=== PATIENT | male | born 1965 | race Hispanic/Latino ===

== ENCOUNTER 2017-11-03 12:37 | Inpatient (IN) | payer MEDICARE ==
[2017-11-01 22:43] VITALS: BMI 48.9
[2017-11-03] MEDS ORDERED: Milrinone 20 MG in Dextrose 5% In Water 80 ML IV SCH (13:00)
[2017-11-03 13:36] LABS: BASO % 0.2 % (0.0-2.0); HEMOGLOBIN 12.2 g/dL (12.0-18.0); LYMPH # 0.3 K/uL (1.0-4.3); LYMPH % 3.1 % (20.0-40.0); MEAN CELL VOLUME 90.7 fL (80.0-94.0); MEAN CORPUSCULAR HEMOGLOBIN 30.1 pg (27.0-31.0); MEAN CORPUSCULAR HGB CONC 33.2 g/dL (33.0-37.0); MEAN PLATELET VOLUME 8.4 fL (7.2-11.7); MONO # 0.5 K/uL (0.0-0.8); MONO % 4.3 % (0.0-10.0); NEUT # 10.1 K/uL (1.8-7.0); NEUT % 92.4 % (50.0-75.0); NRBC % 0.1 % (0.0-2.0); PLATELET COUNT 226 K/uL (130-400); RBC 4.03 Mil/uL (4.40-5.90); RED CELL DISTRIBUTION WIDTH 17.4 % (11.5-14.5); WHITE BLOOD COUNT 10.9 K/uL (4.8-10.8)
[2017-11-03 13:46] LABS: INR 1.6; PROTHROMBIN TIME 17.1 SECONDS (9.7-12.2)
[2017-11-03 13:49] LABS: ALB/GLOB RATIO 1.1 (1.0-2.1); ALBUMIN 3.8 g/dL (3.5-5.0)
[2017-11-03] MEDS: Furosemide 100 MG in Sodium Chloride 0.9% 90 ML IVP SCH (13:57)
[2017-11-03 14:01] LABS: LYMPHOCYTE 4 % (20-40); MONOCYTE 4 % (0-10); NEUTROPHIL 92 % (50-75); PLATELET ESTIMATE NORMAL (NORMAL); TOTAL CELLS COUNTED 100
[2017-11-03 14:02] LABS: ANISOCYTOSIS SLIGHT; HYPOCHROMIC SLIGHT
[2017-11-03 14:03] LABS: POLYCHROMIC SLIGHT
--- NOTE | 2017-11-03 14:26 | RAD ---
Chest x-ray single frontal view History: Pneumonia. Comparison: None available. Findings: Moderate to severe venous congestion. Confluent consolidative opacification in the right mid to lower lung zone and left lung base. Cardiomegaly. Calcification at the aortic knob. Suggestion of small bilateral pleural effusions. Degenerative changes in the spine. Impression: Moderate to severe venous congestion. Confluent consolidative opacification in the right mid to lower lung zone and left lung base. Cardiomegaly. Calcification at the aortic knob. Suggestion of small bilateral pleural effusions.
--- NOTE | 2017-11-03 15:57 | CP.PCM.HP ---
<Quyen Mcmullen - Last Filed: 11/03/17 21:50> History of Present Illness - History of Present Illness History of Present Illness: History and Physical - Hospitalist Service CC: "Shortness of breath" HPI: Patient is a 52 year old male with past medical history for Right sided heart failure with Cor pulmonale, DM, Pulmonary HTN, Bilateral Hearing loss, Aflutter on Eliquis, Hypothyroidism, COPD who was transferred to [facility] ICU from [place] [place] ICU due to possible need for urgent dialysis. Patient was initially admitted to [facility] for progressively worsening dyspnea , lower extremity/abdominal swelling for the past week. Patient was being treated for Acute Hypercapnic Respiratory Failure and Acute Renal Failure. While at [facility] patient was started on IV Lasix, Solumedrol IVP, Metolazone 5 mg PO with little improvement in symptoms. Patient also has poor urine output. Upon arrival to the ICU, patient was resting comfortably on Bipap. States that he is feeling better. Patient answering yes or no questions. Patients sister and mother were at the bedside supplementing the history. Denies headaches, dizziness, cp, palpitations, abdominal pain, urinary symptoms, changes in bowel habits. PMD: Brian Pulmonology: Jason Allergies: NKDA Medications: Verapamil 240mg PO daily, Metformin 500mg PO BID, Synthroid 50mcg PO daily, Glimiperide 4mg PO BID, Lasix 40mg PO daily, Atenolol 25mg PO daily, Eliquis 5mg PO daily, Advair, Ipratropium, Montelukast 10mg PO daily Medical History: Right sided heart failure with Cor pulmonale, DM, Pulmonary HTN , Bilateral Hearing loss, Aflutter on Eliquis, Hypothyroidism, COPD Surgical History: Hernia surgery x 4, Appendectomy, Gallbladder removal Social History: Former smoker, denies alcohol or tobacco use Present on Admission - Present on Admission Any Indicators Present on Admission: No Past Patient History - Tetanus Immunizations Tetanus Immunization: Unknown - Past Medical History & Family History Past Medical History?: Yes - Past Social History Smoking Status: Former Smoker - CARDIAC Hx Hypertension: Yes - PULMONARY Hx Chronic Obstructive Pulmonary Disease (COPD): Yes - NEUROLOGICAL Hx Neurological Disorder: No - HEENT Hx Deafness: Yes - RENAL Hx Chronic Kidney Disease: No - ENDOCRINE/METABOLIC Hx Diabetes Mellitus Type 2: Yes - HEMATOLOGICAL/ONCOLOGICAL Hx Blood Disorders: No - INTEGUMENTARY Hx Dermatological Problems: No - MUSCULOSKELETAL/RHEUMATOLOGICAL Hx Falls: No - GASTROINTESTINAL Hx Gastrointestinal Disorders: Yes - GENITOURINARY/GYNECOLOGICAL Hx Genitourinary Disorders: No Hx Reproductive Disorders: No - PSYCHIATRIC Hx Psychophysiologic Disorder: No Hx Depression: No Hx Emotional Abuse: No Hx Physical Abuse: No Hx Substance Use: No - SURGICAL HISTORY Hx Appendectomy: Yes Hx Cholecystectomy: Yes Hx Tonsillectomy: Yes Meds Allergies/Adverse Reactions: Allergies Allergy/AdvReac Type Severity Reaction Status Date / Time No Known Allergies Allergy Verified 09/11/17 20:08 Physical Exam - Constitutional Appears: Non-toxic, No Acute Distress, Chronically Ill - Head Exam Head Exam: ATRAUMATIC, NORMAL INSPECTION, NORMOCEPHALIC - Eye Exam Eye Exam: EOMI, Normal appearance - ENT Exam ENT Exam: Mucous Membranes Moist Additional comments: On bipap - Neck Exam Neck exam: Positive for: Full Rom - Respiratory Exam Respiratory Exam: Decreased Breath Sounds, Rales. absent: Rhonchi, Wheezes - Cardiovascular Exam Cardiovascular Exam: Tachycardia, +S1, +S2 - GI/Abdominal Exam GI & Abdominal Exam: Distended, Soft. absent: Guarding, Rebound, Rigid, Tenderness - Rectal Exam Rectal Exam: Deferred - Extremities Exam Extremities exam: Positive for: pedal pulses present. Negative for: calf tenderness Additional comments: Bilateral lower extremity weeping edema, cellulitis skin changes bilaterally, no calf tenderness Left foot plantar surface with healing pressure ulcer - Back Exam Back exam: NORMAL INSPECTION - Neurological Exam Neurological exam: Alert, Oriented x3 - Psychiatric Exam Psychiatric exam: Normal Affect, Normal Mood - Skin Skin Exam: Normal Color, Warm Results - Vital Signs Recent Vital Signs: Last Vital Signs Temp Pulse 111 H 11/03/17 14:38 Resp BP 103/45 L 11/03/17 13:57 Pulse Ox - Labs Result Diagrams: 11/03/17 20:59 11/03/17 20:59 Labs: Laboratory Results - last 24 hr 11/03/17 11/03/17 11/03/17 13:33 13:33 13:33 WBC 10.9 H RBC 4.03 L Hgb 12.2 Hct 36.6 MCV 90.7 MCH 30.1 MCHC 33.2 RDW 17.4 H Plt Count 226 MPV 8.4 Neut % (Auto) 92.4 H Lymph % (Auto) 3.1 L Antelope % (Auto) 4.3 Eos % (Auto) 0.0 Baso % (Auto) 0.2 Neut # (Auto) 10.1 H Lymph # (Auto) 0.3 L Antelope # (Auto) 0.5 Eos # (Auto) 0.0 Baso # (Auto) 0.0 Neutrophils % (Manual) 92 H Lymphocytes % (Manual) 4 L Monocytes % (Manual) 4 Platelet Estimate Normal Polychromasia Slight Hypochromasia (manual) Slight Anisocytosis (manual) Slight PT 17.1 H INR 1.6 APTT 28 Sodium 130 L Potassium 5.4 H Chloride 89 L Carbon Dioxide 28 Anion Gap 18 BUN 74 H Creatinine 3.6 H Est GFR ( Amer) 22 Est GFR (Non-Af Amer) 18 Random Glucose 214 H Calcium 8.0 L Phosphorus 7.6 H Magnesium 1.9 Total Bilirubin 1.0 AST 30 ALT 33 Alkaline Phosphatase 235 H Total Protein 7.1 Albumin 3.8 Globulin 3.4 Albumin/Globulin Ratio 1.1 Assessment & Plan - Assessment and Plan (Free Text) Assessment: A/P: Patient is a 52 year old male with past medical history of right sided heart failure with cor pulmonale, COPD, DM, Hypothyroidism, Atrial Flutter on Eliquis, Noncompliance who presented to [facility] for worsening shortness of breath, abdominal/lower extremity swelling x 1 week. Patient was being treated for Acute Hypercapnic respiratory failure and acute renal failure. Transferred to [facility] for possible need for urgent dialysis. Acute Hypercapnic Respiratory Failure -Stable, afebrile -Transferred to [facility] ICU -Patient with shortness of breath and dyspnea on exertion -History of Right sided heart failure -Currently on Bipap, maintain O2 sats 88-92% -ABG today showed pH 7.25, PCO2 55, PO2 54 -Monitor serial ABGs and CXR as needed -Continue Lasix drip -Continue Milrinone drip -Physical therapy/Occupational Therapy eval ordered Acute Renal Failure -Baseline Cr 1-1.4 -BUN/Cr 74/3.6 -Dialysis consent obtained -Hoang in place, urine output is minimal -There is concern for possible abdominal compartment syndrome -Abdominal US ordered to assess for ascites -Patient recently underwent paracentesis for ascites in August 2017 -Will hold Eliquis for possible paracentesis or thoracentesis -Hyperkalemia improving, potassium 5.4 today -Will give kayexylate as needed -Nephrology on consult, help appreciated Lower extremity edema/cellulitis -Antibiotics: Cefepime 1gm daily -Lower extremity dopplers were negative for DVT -Fluid restriction -Wound care on consult -Infectious disease on consult, help appreciated Possible Pneumonia, r/o HCAP -Patient was recently admitted to the hospital in August -Antibiotics: Cefepime 1gm IVBP daily -CXR: cardiomegaly, RLL infiltrate, mild vascular congestion -CT Chest ordered, will follow up -Continue duonebs q6H JOSE E -F/U Urine legionella, Urine strep pneumonia, Mycoplasma IgM Diabetes Mellitus -HgA1C 6.8, repeat A1C ordered -Will hold metformin, glimeperide at this time -Insulin sliding scale, accuchecks Q6H Hypothyroidism -Patient is on Levothyroxine 50mcg PO daily at home -TSH noted to be 8.71, repeat TSH/Free T4 ordered -Will increase Levothyroxine to 75mcg PO daily Right sided congestive heart failure -Last echo 08/2017 showed severe right atrial dilation and dysfunction, elevated RVSP, Preserved EF 58% (see full report) -CXR showed cardiomegaly, RLL infiltrate, mild vascular congestion -Patient is currently on Lasix drip -Monitor daily weights/strict I/Os -Cardiology on consult, help appreciated History of Atrial Flutter -Patient on Eliquis 2.5mg PO BID (last dose was given 11/02) -Will hold Eliquis for possible paracentesis/thoracentesis -Patient was also on Verapamil and Atenolol, will hold at this time in light of hypotension COPD -Duonebs Q6H JOSE E -Solumedrol 40mg Q12H IVP -Patient has been on Steroids snce 11/01/17, will continue to taper Bilateral Deafness -Patient is only deaf, not mute per previous documentation -He is able to read lips GI/DVT ppx: Protonix 40mg IVP daily Heparin 5000 Q8H SC Diet: NPO DISPO: We had a Lengthy discussion with the patient and his family. Patient does not have a health care proxy. He has two sons, ages 18 and 25. Patient also does not have a living will or advanced directive. Patient and family to discuss code status. At this time, he shall remain full code and is to be intubated if medically necessary. Case Discussed with Dr Clint Mcmullen DO PGY-2 <Lucy Jaramillo V - Last Filed: 11/03/17 22:50> Results - Vital Signs Recent Vital Signs: Last Vital Signs Temp 98.2 F 11/03/17 16:00 Pulse 113 H 11/03/17 18:12 Resp 11 L 11/03/17 18:12 BP 102/47 L 11/03/17 18:12 Pulse Ox 93 L 11/03/17 18:12 - Labs Result Diagrams: 11/03/17 20:59 11/03/17 20:59 Labs: Laboratory Results - last 24 hr 11/03/17 11/03/17 11/03/17 13:33 13:33 13:33 WBC 10.9 H RBC 4.03 L Hgb 12.2 Hct 36.6 MCV 90.7 MCH 30.1 MCHC 33.2 RDW 17.4 H Plt Count 226 MPV 8.4 Neut % (Auto) 92.4 H Lymph % (Auto) 3.1 L Antelope % (Auto) 4.3 Eos % (Auto) 0.0 Baso % (Auto) 0.2 Neut # (Auto) 10.1 H Lymph # (Auto) 0.3 L Antelope # (Auto) 0.5 Eos # (Auto) 0.0 Baso # (Auto) 0.0 Neutrophils % (Manual) 92 H Lymphocytes % (Manual) 4 L Monocytes % (Manual) 4 Platelet Estimate Normal Polychromasia Slight Hypochromasia (manual) Slight Anisocytosis (manual) Slight PT 17.1 H INR 1.6 APTT 28 Sodium 130 L Potassium 5.4 H Chloride 89 L Carbon Dioxide 28 Anion Gap 18 BUN 74 H Creatinine 3.6 H Est GFR ( Amer) 22 Est GFR (Non-Af Amer) 18 POC Glucose (mg/dL) Random Glucose 214 H Calcium 8.0 L Phosphorus 7.6 H Magnesium 1.9 Total Bilirubin 1.0 AST 30 ALT 33 Alkaline Phosphatase 235 H Total Protein 7.1 Albumin 3.8 Globulin 3.4 Albumin/Globulin Ratio 1.1 11/03/17 16:19 WBC RBC Hgb Hct MCV MCH MCHC RDW Plt Count MPV Neut % (Auto) Lymph % (Auto) Antelope % (Auto) Eos % (Auto) Baso % (Auto) Neut # (Auto) Lymph # (Auto) Antelope # (Auto) Eos # (Auto) Baso # (Auto) Neutrophils % (Manual) Lymphocytes % (Manual) Monocytes % (Manual) Platelet Estimate Polychromasia Hypochromasia (manual) Anisocytosis (manual) PT INR APTT Sodium Potassium Chloride Carbon Dioxide Anion Gap BUN Creatinine Est GFR ( Amer) Est GFR (Non-Af Amer) POC Glucose (mg/dL) 198 H Random Glucose Calcium Phosphorus Magnesium Total Bilirubin AST ALT Alkaline Phosphatase Total Protein Albumin Globulin Albumin/Globulin Ratio Attending/Attestation - Attestation I have personally seen and examined this patient.: Yes I have fully participated in the care of the patient.: Yes I have reviewed all pertinent clinical information: Yes Notes (Text): Patient seen, examined, and case discussed with nurses medical assistants phlebotomists. 9 patient is a 52-year-old male with extensive past medical history including but not limited to atrial flutter/atrial fibrillation (elquis, verapamil, atenolol), right-sided congestive heart failure, morbid obesity, anasarca, cellulitis, pulmonary hypertension, history of noncompliance, as well as deaf who presented initially to [place] for 1 week history of shortness of breath and dyspnea on exertion. Patient was admitted to [place] ICU for acute hypercapnic hypoxic respiratory failure as well as acute renal failure. Patient was initially tried on BiPAP IV steroids as well as IV diuresis and Primacor however did not have any urine output as of this morning and concern for emergent dialysis which prompted transfer to [facility] ICU. I did speak with patient's primary care doctor who does not come to [facility] in terms of history for patient. He noted prior hospitalization in August for an extensive cellulitis of crept up to the abdominal habitus and a tense belly which prompted paracentesis noted in review of record. Patient with right-sided congestive heart failure and pulmonary hypertension. Patient has had a prior month in 2011 which showed normal systolic function go in this past May noted for dilated right atrium dilated right ventricle and intact systolic function. Patient also recently found to be atrial fib/flutter on [place] and verapamil and atenolol. Patient was seen at bedside with both his mother Sangeetha and his sister. Patient is currently on BiPAP able to speak and read lips for reading. Patient reports he is feeling okay and that the BiPAP mask is hoping helping him. Patient noted to have abnormal chest x-ray concern for possible pneumonia and/ or pleural effusion will order for CT chest to determine if needs possible thoracentesis during hospitalization. Case discussed with both critical care nephrology given that there is also concern for ascites in light of patient's obese morbid habitus. Patient did have an abdominal ultrasound completed this morning about 8:12 AM however there is no report no commenting on the ascites. Patient was ordered again for abdominal ultrasound as a stat to evaluate for ascites to see if he is warranted for paracentesis to help relieve any fluid buildup there is worsening patient's dyspnea on exertion. Patient was consented by nephrology for possible dialysis. I did have a discussion with the patient and with his mother at bedside. Patient is aware that if order reason the BiPAP cannot help relieve his respiratory status is possible that he may need a breathing machine in need to be intubated he understands that that risk is there and accepts that he could be intubated. There is no official health proxy. Patient's left him about 8 years ago. Patient has a 25-year-old son and a 22-year-old son with his and currently lives with his mother who is present impression I get with his mother. She doesnt think his 22-year-old son cannot handle responsibility and she would likely step up in terms of assuming this role if patient unable or cannot make medical decisions. I did advise her to have a discussion with her son as well as with the daughter given that the patient is in the critical care unit. Patient also noted on exam to have any erythema and associated venostasis changes on the bilateral lower aspects of extremities. Patient has had a prior cellulitis in the in August. Was treated with IV antibiotic. Is currently on renally dosed cefepime and has received of one-time dose of vancomycin. Patient also noted to have department left foot. Of the lateral aspect of foot. Physical exam Patient is morbidly obese, wearing BiPAP mask. Patient has short neck mucous membranes are moist. Patient does have S1-S2 mildly tachycardic unable to discern true JVD due to habitus. Patient does have decreased breath sounds positive for both wheezing rails. No stridor Patient does have a soft morbidly obese habitus prior revised umbilical hernia surgery no guarding no rebound and unable to discern a clear fluid wave given habitus. Patient noted to have Hoang some mild erythema over genitalia some dependent edema and scrotum. Patient is well has pitting edema noted bilaterally lower extremities shiny skin erythema with associated venostasis changes noted at tenderness when I palpated. Hyperkeratotic nails lytic nails bilateral feet bunion no open wound and pressure ulcer noted underneath the big toe of the left foot. Patient also has old type II over left upper extremity. Does not appear infected. Assessment and plan 1. Right-sided congestive heart failure exacerbation Acute hypercapnic hypoxic respiratory failure Assessment/plan Patient admitted to [facility] ICU. Duonebs 3ml of every 6 hours Solumedrol 40mg IV every 12 Lasix drip Milrinone drip Echocardiogram 08/29/2017: Left ventricle is normal size, mild concentric left ventricular hypertrophy, left ventricle function is normal ejection fraction 55- 60%, right ventricle is severely dilated systolic function of RVs moderately to severely reduced. Trace aortic regurgitation mitral regurgitation is trace moderate tricuspid regurg elevated IVC was not visualized no pericardial effusion noted poor window but due to increased body habitus. Monitor daily weights and intake output Cardiology consult Patient previously on atenolol and verapamil will hold at this time. 2. Acute Renal Failure Assessment/Plan Nephrology on consult Patient is on diuresis and Primacor Dialysis consent obtained by nephrology. held metformin on admission 3. History of atrial flutter/atrial fibrillation Assessment/plan Patient is Eliquis 5mg PO BID previously last dose given yesterday morning. Patient for possible paracentesis pending abdominal ultrasound today. He endorsed ICU who is aware. Holding verapamil and atenolol given borderline normal blood pressure. 4. Possible pneumonia Assessment/plan Infectious disease consult requested. Cefepime 1 g IV every 24H received a one-time dose of vancomycin. Normal chest x-ray Obtain CT chest without contrast to further evaluate possible pleural effusion versus pneumonia Legionella urine, mycoplasma pneumonia IgM, and strep pneumonia urine Noted prior hospitalization in August of this year possible treatment for Hospital/ healthcare associated pneumonia. 5. History of diabetes Assessment/plan Hemoglobin A1c, lipid panel Insulin sliding scale held metformin/glipizde on admission 6. Morbid obesity Assessment/plan Will need aggressive lifestyle intervention especially in light of his other comorbidities including diabetes, right-sided heart failure, pulmonary hypertension 7. Hypothyroidism Assessment/plan Reviewed EMR TSH was initially elevated in the nines improved mildly to the 8. Increase Synthroid from 50 g grams once a day and the morning to 75 once a morning 8. Patient is deaf Patient can read lips and seen with his mother at bedside who he understands well. 9. Cellulitis Assessment/plan Endorsed to resident to outline bilateral lower extremities Patient on cefepime and received dose of vancomycin Infectious disease consult requested 10. Edema Assessment/plan Order for lower extremity Dopplers completed at [place] [place] they'll noted for no DVT. 11. Prophylactic measure Eliquis on hold until after we have confirmed patient has paracentesis for ascites. Protonix 40mg IV daily Monitor daily weights Intake and output wound care on board
--- NOTE | 2017-11-03 16:52 | US ---
Limited abdominal ultrasound History: Ascites evaluation. Comparison: None available. Technique: Limited real-time sonography was performed through the abdomen for evaluation of ascites. Findings: Moderate amount of abdominal ascites noted. Large accumulation of fluid is seen within the periumbilical area. Impression: Limited study for evaluation of ascites. Moderate amount of abdominal ascites noted.
[2017-11-03] MEDS: (Novolin R) Insulin Human Regular 100 units/ml vial SC SCH ×2 (16:58→22:51)
--- NOTE | 2017-11-03 18:52 | CP.PCM.CON ---
History of Present Illness - History of Present Illness History of Present Illness: Nephrology Consultation Note Assessment: critical oligouric AMY likely due to cardio-renal syndrome Hyperkalemia likely due to AMY and acidemia resulting in transcellular shifts CKD stage 3 with baseline cr 1.1-1.4 mg/dL fluid overload, COPD/CHF exacerbation ? pneumonia acute on chronic hypercapnic respi failure deafness, DM, HTN, A flutter, morbid obesity, ex smoker, Rt heart failure with cor-pulmonale, pulmonary HTN, chronic leg edema, ascites RV failure Plan can continue diuresis as toleratad recc abdominal ultrasound and bladder pressure check (if available) to r/o abdominal hypertension/compartment syndrome. Might beneift from paracentesis if abdominal pressure is high which may improve renal function thus far not responding to diuretics, would be reasonable to consider dialysis though low blood pressure may make ultrafiltration on hd a challenge as well. k is mildly improved discussed w/ Dr. Camacho - reviewed imaging with him from [place], will get ultrasound here, will consider the above including para and thora to see if this improves his respiratory status otherwise will dialyze. Family and pt consented to HD. CC: shortness of breath, leg swelling reason for consult: AMY, hyperkalemia HPI: Pt is a 52 y/o M with hx of deafness, DM, HTN, A flutter, morbid obesity, ex smoker, Rt heart failure with cor-pulmonale, pulmonary HTN, chronic leg edema , ascites came with worsening SOB and being managed for COPD/CHF exacerbation. renal consult for AMY management. pt not aware about kidney disease in past. His uOP has been reduced no known OTC/nsaids/herbal meds no recent contrast exposure. BP has been relativley low. Review of imaging consistent w/ RV failure - etiology of which is not completely clear. He was transferred from [place] ICU to [facility] ICU for possible HD ROS: a full detailed ROS is negative except as above Physical Examination: family bedside General Appearance: Comfortable, co-operative. ill appearing, on BiPAP, morbidly obese Vitals reviewed and noted as below Head; Atraumatic, normocephalic ENT: unable as pt on BiPAP. he has hearing impairment EYES: Pupils are equal, round and reactive to light accommodation. Eye muscles and extraocular movement intact. Sclera is anicteric. Neck; supple no lymphadenopathy, no thyromegaly or bruit Lungs: Increased respiratory rate/effort. Breath sounds b/l with basal crackles Heart: Normal rate. s1s2 normal. No rub or gallop. Extremities: 3+ edema. No varicose veins. has chronic venous stasis changes in legs with erythema/skin thickening Neurological: Patient is alert, awake, oriented x 3 follows commands, no focal deficit. Skin: dry and warm. Normal turgor. No rash. Palpitation: Normal elasticity for age. Abdomen: Abdomen is soft non tender, + fluid wave , no appreicable organomegaly however exam limited as grossly distended Psych: normal insight. has normal affect and mood MSK: no specific joint tenderness or swelling. Digits and nails normal, no deformity : kidney not palpable. bladder not distended . has [place] Labs/imaging/EKG reviewed. Past medical history, past surgical history, social history, allergy reviewed and noted as below Family hx; no known hx of CKD> rest non contributory work up: UA SG >1.030 urine Na 6 Fena 0.4% echo: severe RV dilation and dysfunction, elevated RVSP. preserved LVEF renal imaging in past unremarkable Past Patient History - Tetanus Immunizations Tetanus Immunization: Unknown - Past Medical History & Family History Past Medical History?: Yes - Past Social History Smoking Status: Former Smoker - CARDIAC Hx Hypertension: Yes - PULMONARY Hx Chronic Obstructive Pulmonary Disease (COPD): Yes - NEUROLOGICAL Hx Neurological Disorder: No - HEENT Hx Deafness: Yes - RENAL Hx Chronic Kidney Disease: No - ENDOCRINE/METABOLIC Hx Diabetes Mellitus Type 2: Yes - HEMATOLOGICAL/ONCOLOGICAL Hx Blood Disorders: No - INTEGUMENTARY Hx Dermatological Problems: No - MUSCULOSKELETAL/RHEUMATOLOGICAL Hx Falls: No - GASTROINTESTINAL Hx Gastrointestinal Disorders: Yes - GENITOURINARY/GYNECOLOGICAL Hx Genitourinary Disorders: No Hx Reproductive Disorders: No - PSYCHIATRIC Hx Psychophysiologic Disorder: No Hx Depression: No Hx Emotional Abuse: No Hx Physical Abuse: No Hx Substance Use: No - SURGICAL HISTORY Hx Appendectomy: Yes Hx Cholecystectomy: Yes Hx Tonsillectomy: Yes Meds Allergies/Adverse Reactions: Allergies Allergy/AdvReac Type Severity Reaction Status Date / Time No Known Allergies Allergy Verified 09/11/17 20:08 - Medications Medications: Current Medications Albuterol/Ipratropium (Duoneb 3 Mg/0.5 Mg (3 Ml) Ud) 3 ml INH RQ6 [facility] Furosemide 100 mg/ Sodium (Chloride) 100 mls @ 5 mls/hr IVP .Q20H [facility] PRN Reason: 5 MG/HR Last Admin: 11/03/17 13:57 Dose: 5 mls/hr Cefepime HCl (Maxipime Iv 1 Gm Premix) 1 gm in 50 mls @ 100 mls/hr IVPB Q24H [facility] PRN Reason: Protocol Milrinone Lactate/Dextrose 20 (mg/ Dextrose) 100 mls @ 9.34 mls/hr IV .[id number] [facility]; 0.2 MCG/KG/MIN PRN Reason: Protocol Last Admin: 11/03/17 15:56 Dose: Not Given Insulin Human Regular (Novolin R) 0 unit SC ACHS [facility] PRN Reason: Protocol Last Admin: 11/03/17 16:58 Dose: Not Given Levothyroxine Sodium (Synthroid) 75 mcg PO DAILY@0630 [facility] Methylprednisolone (Solu-Medrol) 40 mg IVP Q12H [facility] Pantoprazole Sodium (Protonix Inj) 40 mg IVP DAILY [facility] Results - Vital Signs Recent Vital Signs: Last Vital Signs Temp 98.2 F 11/03/17 16:00 Pulse 113 H 11/03/17 18:12 Resp 11 L 11/03/17 18:12 BP 102/47 L 11/03/17 18:12 Pulse Ox 93 L 11/03/17 18:12 - Labs Result Diagrams: 11/03/17 13:33 11/03/17 13:33 Labs: Laboratory Results - last 24 hr 11/03/17 11/03/17 11/03/17 13:33 13:33 13:33 WBC 10.9 H RBC 4.03 L Hgb 12.2 Hct 36.6 MCV 90.7 MCH 30.1 MCHC 33.2 RDW 17.4 H Plt Count 226 MPV 8.4 Neut % (Auto) 92.4 H Lymph % (Auto) 3.1 L [place] % (Auto) 4.3 Eos % (Auto) 0.0 Baso % (Auto) 0.2 Neut # (Auto) 10.1 H Lymph # (Auto) 0.3 L [place] # (Auto) 0.5 Eos # (Auto) 0.0 Baso # (Auto) 0.0 Neutrophils % (Manual) 92 H Lymphocytes % (Manual) 4 L Monocytes % (Manual) 4 Platelet Estimate Normal Polychromasia Slight Hypochromasia (manual) Slight Anisocytosis (manual) Slight PT 17.1 H INR 1.6 APTT 28 Sodium 130 L Potassium 5.4 H Chloride 89 L Carbon Dioxide 28 Anion Gap 18 BUN 74 H Creatinine 3.6 H Est GFR ( Amer) 22 Est GFR (Non-Af Amer) 18 POC Glucose (mg/dL) Random Glucose 214 H Calcium 8.0 L Phosphorus 7.6 H Magnesium 1.9 Total Bilirubin 1.0 AST 30 ALT 33 Alkaline Phosphatase 235 H Total Protein 7.1 Albumin 3.8 Globulin 3.4 Albumin/Globulin Ratio 1.1 11/03/17 16:19 WBC RBC Hgb Hct MCV MCH MCHC RDW Plt Count MPV Neut % (Auto) Lymph % (Auto) [place] % (Auto) Eos % (Auto) Baso % (Auto) Neut # (Auto) Lymph # (Auto) [place] # (Auto) Eos # (Auto) Baso # (Auto) Neutrophils % (Manual) Lymphocytes % (Manual) Monocytes % (Manual) Platelet Estimate Polychromasia Hypochromasia (manual) Anisocytosis (manual) PT INR APTT Sodium Potassium Chloride Carbon Dioxide Anion Gap BUN Creatinine Est GFR ( Amer) Est GFR (Non-Af Amer) POC Glucose (mg/dL) 198 H Random Glucose Calcium Phosphorus Magnesium Total Bilirubin AST ALT Alkaline Phosphatase Total Protein Albumin Globulin Albumin/Globulin Ratio
--- NOTE | 2017-11-03 19:19 | PCM.PROC ---
Procedures Attestation:: I certify that I have explained the specified Operation(s) or Procedure(s), risks, benefits and reasonable alternatives to the Patient and/or other person responsible. The opportunity was given to ask questions and all questions answered - Paracentesis Consent Obtained: verbal consent Time Out Performed: Yes Indication: Ascites Procedure: therapeutic paracentesis Location: infraumbilical Local Anesthetic Used: lidocaine 1% (2.6L amper coloured fluid removed analysis sent)
[2017-11-03] MEDS: Albuterol-Ipratrop 3 mg / 0.5 (3 ml) UD INH SCH (19:48)
[2017-11-03 20:54] LABS: BODY FLUID TYPE PERITONEAL
[2017-11-03 21:02] LABS: BASO % 0.1 % (0.0-2.0); HEMOGLOBIN 12.7 g/dL (12.0-18.0); LYMPH # 0.4 K/uL (1.0-4.3); LYMPH % 3.7 % (20.0-40.0); MEAN CELL VOLUME 90.5 fL (80.0-94.0); MEAN CORPUSCULAR HEMOGLOBIN 29.4 pg (27.0-31.0); MEAN CORPUSCULAR HGB CONC 32.5 g/dL (33.0-37.0); MEAN PLATELET VOLUME 7.8 fL (7.2-11.7); MONO # 0.5 K/uL (0.0-0.8); MONO % 5.8 % (0.0-10.0); NEUT # 8.6 K/uL (1.8-7.0); NEUT % 90.4 % (50.0-75.0); NRBC % 0.1 % (0.0-2.0); PLATELET COUNT 203 K/uL (130-400); WHITE BLOOD COUNT 9.5 K/uL (4.8-10.8)
[2017-11-03 21:15] LABS: ALB/GLOB RATIO 1.1 (1.0-2.1); ALBUMIN 3.7 g/dL (3.5-5.0); CALCIUM 7.8 mg/dl (8.6-10.4)
[2017-11-03] MEDS ORDERED: DEXTROSE 5% IV SCH (21:30)
[2017-11-03] MEDS ORDERED: SODIUM BICARBONATE IV SCH (21:30)
[2017-11-03] MEDS ORDERED: WATER IV SCH (21:30)
[2017-11-03 21:34] LABS: BF GROSS APPEARANCE CLEAR (CLEAR)
[2017-11-03] MEDS: MethylPREDNISolone 40 mg Vial IVP SCH (21:48)
[2017-11-03 21:57] LABS: BODY FLUID MONO/MACROPHAGE 24 % (0-0); BODY FLUID TOTAL COUNT 100 (0-0)
[2017-11-03 22:06] LABS: LYMPHOCYTE 6 % (20-40); MONOCYTE 3 % (0-10); NEUTROPHIL 91 % (50-75); PLATELET ESTIMATE NORMAL (NORMAL); TOTAL CELLS COUNTED 100
--- NOTE | 2017-11-03 22:11 | CP.PCM.CON ---
History of Present Illness - History of Present Illness History of Present Illness: 52-year-old male with a history of deafness. Patient has a history of cor pulmonale, COPD, home oxygen and BiPAP use. Chronic venous congestion, and leg edema. Recently hospitalized with the leg swelling, pedal edema, and cellulitis. Patient again admitted to the [facility] for worsening shortness of breath, and also increasing leg swelling, hypertension. Patient initially admitted to the intensive care unit at [place], patient's condition complicated. Worsening shortness of breath noted, kidney function was deteriorating, patient needed to transferred to [facility] for further management including hemodialysis. Upon arrival patient was on BiPAP. High FiO2 noted. But he was comfortable with the BiPAP. Renal function was deteriorating noted Past medical history: Atrial fibrillation intermittent, hypertension, hypercholesterolemia, bilateral pedal edema leg cellulitis, and anasarca. Renal insufficiency. Obesity. Obesity hypoventilation. COPD Possible cor pulmonale Allergies no known drug allergy Personal history smoker. Denies any alcohol Family history significant for hypertension Review of system: Patient have a hard of hearing. Patient has a good communication skill. Mother at bedside. Chest no pain Shortness of breath noted. Cough present. Abdominal distention noted On examination: Vital signs noted. Patient isn't a 60. Blood pressure is on the low side. Mildly tachycardia noted chest good air entry, but decreased on the right lung. Abdominal distention noted Extremities bilateral edema noted Labs reviewed in Elevated creatinine level noted. Chest x-ray right lower lung pneumonia, effusion present. Atelectasis possible. Assessment and recommendation: 52-year-old male admitted to the hospital with worsening is pretty status. Underlying pneumonia likely. Pleural effusion on the right lung. Possible cor pulmonale. Ascites worsening. Bilateral leg edema Overall prognosis is guarded. Spoke to the patient's family in detail. Discussed with them. I also discussed with the soaker meat. May opinion patient is having worsening cor pulmonale. I suggest to have abdominal paracentesis, which was done, almost 3 L of fluid removed Patient also will need a thoracentesis, will plan it to fasting in the morning. Closely monitor the renal function. Continue the Lasix tip. Mild IV fluid supplementation, including albumin may be needed. We'll closely monitor. Will follow-up the patient DVT prophylaxis. Antibiotic. Spoke to the family in detail. Past Patient History - Tetanus Immunizations Tetanus Immunization: Unknown - Past Medical History & Family History Past Medical History?: Yes - Past Social History Smoking Status: Former Smoker - CARDIAC Hx Hypertension: Yes - PULMONARY Hx Chronic Obstructive Pulmonary Disease (COPD): Yes - NEUROLOGICAL Hx Neurological Disorder: No - HEENT Hx Deafness: Yes - RENAL Hx Chronic Kidney Disease: No - ENDOCRINE/METABOLIC Hx Diabetes Mellitus Type 2: Yes - HEMATOLOGICAL/ONCOLOGICAL Hx Blood Disorders: No - INTEGUMENTARY Hx Dermatological Problems: No - MUSCULOSKELETAL/RHEUMATOLOGICAL Hx Falls: No - GASTROINTESTINAL Hx Gastrointestinal Disorders: Yes - GENITOURINARY/GYNECOLOGICAL Hx Genitourinary Disorders: No Hx Reproductive Disorders: No - PSYCHIATRIC Hx Psychophysiologic Disorder: No Hx Depression: No Hx Emotional Abuse: No Hx Physical Abuse: No Hx Substance Use: No - SURGICAL HISTORY Hx Appendectomy: Yes Hx Cholecystectomy: Yes Hx Tonsillectomy: Yes Meds Allergies/Adverse Reactions: Allergies Allergy/AdvReac Type Severity Reaction Status Date / Time No Known Allergies Allergy Verified 09/11/17 20:08 - Medications Medications: Current Medications Albuterol/Ipratropium (Duoneb 3 Mg/0.5 Mg (3 Ml) Ud) 3 ml INH RQ6 [facility] Last Admin: 11/03/17 19:48 Dose: 3 ml Heparin Sodium (Porcine) (Heparin) 5,000 units SC Q8 [facility] Last Admin: 11/03/17 21:48 Dose: 5,000 units Furosemide 100 mg/ Sodium (Chloride) 100 mls @ 5 mls/hr IVP .Q20H [facility] PRN Reason: 5 MG/HR Last Admin: 11/03/17 13:57 Dose: 5 mls/hr Cefepime HCl (Maxipime Iv 1 Gm Premix) 1 gm in 50 mls @ 100 mls/hr IVPB Q24H [facility] PRN Reason: Protocol Sodium Bicarbonate 50 meq/ (Dextrose) 550 mls @ 50 mls/hr IV .Q11H [facility] Stop: 11/04/17 07:29 Last Admin: 11/03/17 21:37 Dose: 50 mls/hr Insulin Human Regular (Novolin R) 0 unit SC ACHS [facility] PRN Reason: Protocol Last Admin: 11/03/17 16:58 Dose: Not Given Lactobacillus Acidophilus (Bacid Acidophilus) 1 cap PO BID [facility] Levothyroxine Sodium (Synthroid) 75 mcg PO DAILY@0630 [facility] Methylprednisolone (Solu-Medrol) 40 mg IVP Q12H [facility] Last Admin: 11/03/17 21:48 Dose: 40 mg Pantoprazole Sodium (Protonix Inj) 40 mg IVP DAILY [facility] Tiotropium [place] (Spiriva) 18 mcg INH RQ24 [facility] Results - Vital Signs Recent Vital Signs: Last Vital Signs Temp 97.8 F 11/03/17 20:00 Pulse 106 H 11/03/17 21:12 Resp 10 L 11/03/17 21:12 BP 94/40 L 11/03/17 21:12 Pulse Ox 91 L 11/03/17 21:12 - Labs Result Diagrams: 11/03/17 20:59 11/03/17 20:59 Labs: Laboratory Results - last 24 hr 11/03/17 11/03/17 11/03/17 13:33 13:33 13:33 WBC 10.9 H RBC 4.03 L Hgb 12.2 Hct 36.6 MCV 90.7 MCH 30.1 MCHC 33.2 RDW 17.4 H Plt Count 226 MPV 8.4 Neut % (Auto) 92.4 H Lymph % (Auto) 3.1 L [place] % (Auto) 4.3 Eos % (Auto) 0.0 Baso % (Auto) 0.2 Neut # (Auto) 10.1 H Lymph # (Auto) 0.3 L [place] # (Auto) 0.5 Eos # (Auto) 0.0 Baso # (Auto) 0.0 Neutrophils % (Manual) 92 H Lymphocytes % (Manual) 4 L Monocytes % (Manual) 4 Platelet Estimate Normal Polychromasia Slight Hypochromasia (manual) Slight Anisocytosis (manual) Slight PT 17.1 H INR 1.6 APTT 28 Sodium 130 L Potassium 5.4 H Chloride 89 L Carbon Dioxide 28 Anion Gap 18 BUN 74 H Creatinine 3.6 H Est GFR ( Amer) 22 Est GFR (Non-Af Amer) 18 POC Glucose (mg/dL) Random Glucose 214 H Calcium 8.0 L Phosphorus 7.6 H Magnesium 1.9 Total Bilirubin 1.0 AST 30 ALT 33 Alkaline Phosphatase 235 H Total Protein 7.1 Albumin 3.8 Globulin 3.4 Albumin/Globulin Ratio 1.1 Fluid Source Fluid Appearance Fluid WBC Fluid RBC Fluid Tot Cell Count Fluid Neutrophils Fluid Lymphocytes Fld Monocyte/Macrophag Fluid Comment 11/03/17 11/03/17 11/03/17 16:19 20:48 20:59 WBC 9.5 RBC 4.30 L Hgb 12.7 Hct 38.9 MCV 90.5 MCH 29.4 MCHC 32.5 L RDW 17.0 H Plt Count 203 MPV 7.8 Neut % (Auto) 90.4 H Lymph % (Auto) 3.7 L [place] % (Auto) 5.8 Eos % (Auto) 0.0 Baso % (Auto) 0.1 Neut # (Auto) 8.6 H Lymph # (Auto) 0.4 L [place] # (Auto) 0.5 Eos # (Auto) 0.0 Baso # (Auto) 0.0 Neutrophils % (Manual) 91 H Lymphocytes % (Manual) 6 L Monocytes % (Manual) 3 Platelet Estimate Normal Polychromasia Hypochromasia (manual) Anisocytosis (manual) PT INR APTT Sodium Potassium Chloride Carbon Dioxide Anion Gap BUN Creatinine Est GFR ( Amer) Est GFR (Non-Af Amer) POC Glucose (mg/dL) 198 H Random Glucose Calcium Phosphorus Magnesium Total Bilirubin AST ALT Alkaline Phosphatase Total Protein Albumin Globulin Albumin/Globulin Ratio Fluid Source Peritoneal Fluid Appearance Clear Fluid WBC 153.0 Fluid RBC 1192.0 H Fluid Tot Cell Count 100 H Fluid Neutrophils 45.0 H Fluid Lymphocytes 31.0 H Fld Monocyte/Macrophag 24 H Fluid Comment 11/03/17 11/03/17 20:59 21:32 WBC RBC Hgb Hct MCV MCH MCHC RDW Plt Count MPV Neut % (Auto) Lymph % (Auto) [place] % (Auto) Eos % (Auto) Baso % (Auto) Neut # (Auto) Lymph # (Auto) [place] # (Auto) Eos # (Auto) Baso # (Auto) Neutrophils % (Manual) Lymphocytes % (Manual) Monocytes % (Manual) Platelet Estimate Polychromasia Hypochromasia (manual) Anisocytosis (manual) PT INR APTT Sodium 129 L Potassium 5.2 Chloride 89 L Carbon Dioxide 27 Anion Gap 18 BUN 80 H Creatinine 3.5 H Est GFR ( Amer) 22 Est GFR (Non-Af Amer) 18 POC Glucose (mg/dL) 184 H Random Glucose 184 H Calcium 7.8 L Phosphorus Magnesium 2.0 Total Bilirubin 1.0 AST 31 ALT 35 Alkaline Phosphatase 213 H Total Protein 7.0 Albumin 3.7 Globulin 3.3 Albumin/Globulin Ratio 1.1 Fluid Source Fluid Appearance Fluid WBC Fluid RBC Fluid Tot Cell Count Fluid Neutrophils Fluid Lymphocytes Fld Monocyte/Macrophag Fluid Comment
[2017-11-03] MEDS: Sodium Chloride 0.9% 1,000 ML IV SCH (22:54)
[2017-11-03 22:57] LABS: LEGIONELLA AG URINE NEGATIVE (NEGATIVE)
[2017-11-03] MEDS ORDERED: Vancomycin 1 GM in Sodium Chloride 0.9% 200 ML IVPB SCH (23:00)
[2017-11-04] MEDS: Albuterol-Ipratrop 3 mg / 0.5 (3 ml) UD INH SCH ×4 (02:24→21:01)
[2017-11-04] MEDS ORDERED: Vancomycin 1 GM in Sodium Chloride 0.9% 200 ML IVPB SCH (05:00)
[2017-11-04 06:02] LABS: BASO % 0.1 % (0.0-2.0); HEMOGLOBIN 13.5 g/dL (12.0-18.0); LYMPH # 0.3 K/uL (1.0-4.3); LYMPH % 3.2 % (20.0-40.0); MEAN CELL VOLUME 91.3 fL (80.0-94.0); MEAN CORPUSCULAR HEMOGLOBIN 30.2 pg (27.0-31.0); MEAN CORPUSCULAR HGB CONC 33.1 g/dL (33.0-37.0); MEAN PLATELET VOLUME 8.7 fL (7.2-11.7); MONO # 0.4 K/uL (0.0-0.8); MONO % 4.4 % (0.0-10.0); NEUT % 92.3 % (50.0-75.0); NRBC % 0.1 % (0.0-2.0); PLATELET COUNT 202 K/uL (130-400); RBC 4.47 Mil/uL (4.40-5.90); RED CELL DISTRIBUTION WIDTH 17.4 % (11.5-14.5); WHITE BLOOD COUNT 8.6 K/uL (4.8-10.8)
[2017-11-04] MEDS: Levothyroxine 75 MCG TAB PO SCH (06:21)
[2017-11-04] MEDS: Furosemide 100 MG in Sodium Chloride 0.9% 90 ML IVP SCH ×2 (06:22→10:00)
[2017-11-04 06:29] LABS: ALB/GLOB RATIO 1.1 (1.0-2.1); ALBUMIN 3.5 g/dL (3.5-5.0); CALCIUM 7.6 mg/dl (8.6-10.4)
[2017-11-04] MEDS ORDERED: Levothyroxine 50 MCG TAB PO SCH (06:30)
[2017-11-04 06:47] LABS: ABG ALLEN TEST POS; ARTERIAL BLOOD GAS HCO3 25.5 mmol/L (21-28); ARTERIAL BLOOD GAS HEMOGLOBIN 13.4 g/dL (11.7-17.4); ARTERIAL BLOOD GAS O2 SAT 98.2 % (95-98); ARTERIAL BLOOD GAS PCO2 68 mm/Hg (35-45); ARTERIAL BLOOD GAS PH 7.25 (7.35-7.45); ARTERIAL BLOOD GAS PO2 94 mm/Hg (80-100); ARTERIAL BLOOD GAS TCO2 31.9 mmol/L (22-28)
[2017-11-04] MEDS: (Novolin R) Insulin Human Regular 100 units/ml vial SC SCH ×4 (07:41→21:06)
[2017-11-04 08:13] LABS: ANISOCYTOSIS SLIGHT; LYMPHOCYTE 2 % (20-40); MONOCYTE 2 % (0-10); NEUTROPHIL 96 % (50-75); PLATELET ESTIMATE NORMAL (NORMAL); TOTAL CELLS COUNTED 100
--- NOTE | 2017-11-04 08:41 | RAD ---
Chest x-ray single frontal view History: Bilateral pleural effusions. Comparison: 11/03/2017 Findings: Biapical pleural thickening with upper lobe granulomatous changes. Moderate venous congestion. Consolidative opacification in the right mid to lower lung zone as well as the left lung base. Moderate right and small left pleural effusion. Cardiomegaly. Degenerative changes in the spine and shoulders. Impression: Biapical pleural thickening with upper lobe granulomatous changes. Moderate venous congestion. Consolidative opacification in the right mid to lower lung zone as well as the left lung base. Moderate right and small left pleural effusion. Cardiomegaly.
[2017-11-04] MEDS: Lactobacillus Acidophilus 500 MU Cap PO SCH ×2 (09:58→20:27)
[2017-11-04] MEDS: MethylPREDNISolone 40 mg Vial IVP SCH ×2 (09:59→21:34)
[2017-11-04] MEDS: Cefepime IV 1 gm in Dextrose 1 GM/50 ML BAG IVPB SCH (10:08)
--- NOTE | 2017-11-04 10:44 | US ---
Limited abdominal ultrasound History: Ascites. Comparison: None available. Technique: Limited abdominal ultrasound for evaluation of ascites. Findings: Limited sonographic evaluation of the abdomen for evaluation of ascites demonstrates ascites in the right upper and lower quadrants of the abdomen. Impression: Limited study for evaluation of ascites. Abdominal ascites noted.
--- NOTE | 2017-11-04 11:16 | CP.PCM.PN ---
Subjective - Date & Time of Evaluation Date of Evaluation: 11/04/17 Time of Evaluation: 11:12 - Subjective Subjective: RENAL FOLLOW UP Impression: AMY likely due to cardio-renal syndrome Hyperkalemia CKD stage 3 with baseline cr 1.1-1.4 mg/dL fluid overload, COPD/CHF exacerbation ? pneumonia acute on chronic hypercapnic respi failure deafness, DM, HTN, A flutter, morbid obesity, ex smoker, Rt heart failure with cor-pulmonale, pulmonary HTN, chronic leg edema, ascites RV failure Plan REnal function is mildly improved uop is also improved perhaps from large volume para reducing intrabdominal pressure recc consider rsume either lasix gtt or bolus lasix dosing holding hd for now K is stable will continue to monitor closely S: seen and examined, s/p large voume para yesterday Physical Examination: family bedside General Appearance: Comfortable, co-operative, morbidly obese Vitals reviewed and noted as below Head; Atraumatic, normocephalic ENT:hearing imparied, op clear EYES: Pupils are equal, round and reactive to light accommodation. Sclera is anicteric. Neck; supple no lymphadenopathy, no thyromegaly or bruit Lungs: Increased respiratory rate/effort. Breath sounds b/l with basal crackles Heart: Normal rate. s1s2 normal. No rub or gallop. Extremities: 3+ edema. No varicose veins. has chronic venous stasis changes in legs with erythema/skin thickening Neurological: Patient is alert, awake, oriented x 3 follows commands, no focal deficit. Skin: dry and warm. Normal turgor. No rash. Palpitation: Normal elasticity for age. Abdomen: Abdomen is soft non tender, + fluid wave ,+ drain at site of paracentesis site Psych: normal insight. has normal affect and mood MSK: no specific joint tenderness or swelling. Digits and nails normal, no deformity : kidney not palpable. bladder not distended . has [place] Objective - Vital Signs/Intake and Output Vital Signs (last 24 hours): Temp Pulse Resp BP Pulse Ox 97.9 F 124 H 15 109/58 L 94 L 11/04/17 04:00 11/04/17 08:13 11/04/17 08:13 11/04/17 10:00 11/04/17 08:13 Intake and Output: 11/04/17 11/04/17 06:59 18:59 Intake Total 735.0 52.5 Output Total 1640 320 Balance -905.0 -267.5 - Medications Medications: Current Medications Albuterol/Ipratropium (Duoneb 3 Mg/0.5 Mg (3 Ml) Ud) 3 ml INH RQ6 [facility] Last Admin: 11/04/17 08:00 Dose: 3 ml Diltiazem HCl (Cardizem) 30 mg PO QID [facility] Last Admin: 11/04/17 09:58 Dose: 30 mg Heparin Sodium (Porcine) (Heparin) 5,000 units SC Q8 [facility] Last Admin: 11/04/17 06:16 Dose: Not Given Furosemide 100 mg/ Sodium (Chloride) 100 mls @ 5 mls/hr IVP .Q20H [facility] PRN Reason: 5 MG/HR Last Admin: 11/04/17 10:00 Dose: Not Given Cefepime HCl (Maxipime Iv 1 Gm Premix) 1 gm in 50 mls @ 100 mls/hr IVPB Q24H [facility] PRN Reason: Protocol Last Admin: 11/04/17 10:08 Dose: 100 mls/hr Sodium Chloride (Sodium Chloride 0.9%) 1,000 mls @ 50 mls/hr IV .Q20H [facility] Last Admin: 11/03/17 22:54 Dose: 50 mls/hr Vancomycin HCl 1 gm/ Sodium (Chloride) 200 mls @ 133.333 mls/hr IVPB Q24H [facility] PRN Reason: Protocol Last Admin: 11/04/17 04:51 Dose: 133.333 mls/hr Insulin Human Regular (Novolin R) 0 unit SC ACHS [facility] PRN Reason: Protocol Last Admin: 11/04/17 07:41 Dose: 1 unit Lactobacillus Acidophilus (Bacid Acidophilus) 1 cap PO BID [facility] Last Admin: 11/04/17 09:58 Dose: 1 cap Levothyroxine Sodium (Synthroid) 75 mcg PO DAILY@0630 [facility] Last Admin: 11/04/17 06:21 Dose: 75 mcg Methylprednisolone (Solu-Medrol) 40 mg IVP Q12H [facility] Last Admin: 11/04/17 09:59 Dose: 40 mg Pantoprazole Sodium (Protonix Inj) 40 mg IVP DAILY [facility] Last Admin: 11/04/17 09:58 Dose: 40 mg Tiotropium [place] (Spiriva) 18 mcg INH RQ24 [facility] - Labs Labs: 11/04/17 05:53 11/04/17 05:54 PT 17.1 SECONDS (9.7-12.2) H 11/03/17 13:33 INR 1.6 11/03/17 13:33 APTT 28 SECONDS (21-34) 11/03/17 13:33
--- NOTE | 2017-11-04 12:05 | CT ---
CT chest History: Pneumonia. Pleural effusion. Comparison: X-ray dated 11/04/2017 Technique: Multiple contiguous axial images were performed through the chest without the use of intravenous contrast. Subsequently, sagittal and coronal reformatted images were obtained. This CT exam was performed using one or more of the following dose reduction techniques: Automated exposure control, adjustment of the mA and/or kV according to patient size, and/or use of iterative reconstruction technique. Findings: Right lung: Large right pleural effusion. Dense consolidation involving the entire right lower lobe with a few air bronchograms suggestive for infiltrate and or atelectasis. Additional prominent dense consolidation involving the mid to posterior aspect of the right middle lobe also suggestive for infiltrate and or atelectasis. Scattered areas of consolidation seen within the mid to inferior aspect of the right upper lobe also suggestive for infiltrate and or atelectasis. Left lung: Small left pleural effusion with adjacent moderate consolidative changes in the left lower lobe with associated air bronchograms. Scattered areas of consolidative change within the left upper lobe. Trachea thru central airways are patent. Reticulation and edema within circumferential subcutaneous soft tissues. Left axillary adenopathy measures up to 2.4 centimeters. Right axillary adenopathy measures up to 1.9 centimeters. Calcification and plaque within the aorta. Prevascular lymph node measures 1.7 centimeters. Precarinal adenopathy measures 2.2 centimeters. Left paratracheal lymph node measures 1.6 centimeters. Coronary calcifications. Cardiomegaly. Hepatomegaly. Prominent streak artifact limits evaluation of the hepatic parenchyma. Prior cholecystectomy. Fatty atrophy of the pancreas. Only a portion of the upper abdomen is visualized on this study. The anterior abdomen is not visualized on this study. Impression: 1. Large right and small left pleural effusion. 2. Prominent multifocal areas of consolidative change in both lungs; right greater than left suggestive for multi focal infiltrate with some superimposed areas of atelectasis. Posttreatment interval followup is recommended to ensure resolution and exclude underlying lesion. 3. Extensive lymphadenopathy within the mediastinum and axilla. Additional findings as above.
--- NOTE | 2017-11-04 13:40 | CP.PCM.CON ---
History of Present Illness - History of Present Illness History of Present Illness: Infectious Diseases consultation Patient is a 52 year old male who was transferred to [facility] ICU from [place] ICU due to possible need for urgent dialysis. While here has had an abdominal paracentesis with large keyur fluid removed Patient was initially admitted to [facility] for progressively worsening dyspnea, lower extremity and abdominal swelling for the past week. Patient was being treated for Acute Hypercapnic Respiratory Failure wth CPAP and Acute Renal Failure. While at [place] patient was started on IV Lasix, Solumedrol IVP, Metolazone 5 mg PO with little improvement in symptoms. Allergies: NKDA Medications: Verapamil 240mg PO daily, Metformin 500mg PO BID, Synthroid 50mcg PO daily, Glimiperide 4mg PO BID, Lasix 40mg PO daily, Atenolol 25mg PO daily, Eliquis 5mg PO daily, Advair, Ipratropium, Montelukast 10mg PO daily Medical History: Right sided heart failure with Cor pulmonale, DM, Pulmonary HTN , Bilateral Hearing loss, Aflutter on Eliquis, Hypothyroidism, COPD Surgical History: Hernia surgery x 4, Appendectomy, Gallbladder removal Social History: Former smoker, denies alcohol or tobacco use Review of Systems - Review of Systems Systems not reviewed;Unavailable: Acuity of Condition - Constitutional Constitutional: As Per HPI - EENT Eyes: absent: As Per HPI, Blind Spots, Blurred Vision, Change in Vision, Decreased Night Vision, Diplopia, Discharge, Dry Eye, Exophthalmos, Floaters, Irritation, Itchy Eyes, Loss of Peripheral Vision, Pain, Photophobia, Requires Corrective Lenses, Sees Flashes, Spots in Vision, Tunnel Vision, Other Visual Disturbances, Loss of Vision, Other Ears: absent: As Per HPI, Decreased Hearing, Ear Discharge, Ear Pain, Tinnitus, Abnormal Hearing, Disequilibrium, Dizziness, Other Nose/Mouth/Throat: absent: As Per HPI, Epistaxis, Nasal Congestion, Nasal Discharge, Nasal Obstruction, Nasal Trauma, Nose Pain, Post Nasal Drip, Sinus Pain, Sinus Pressure, Bleeding Gums, Change in Voice, Dental Pain, Dry Mouth, Dysphagia, Halitosis, Hoarsness, Lip Swelling, Mouth Lesions, Mouth Pain, Odynophagia, Sore Throat, Throat Swelling, Tongue Swelling, Facial Pain, Neck Pain, Neck Mass, Other - Cardiovascular Cardiovascular: As Per HPI - Respiratory Respiratory: As Per HPI, Dyspnea. absent: Hemoptysis - Gastrointestinal Gastrointestinal: As Per HPI - Genitourinary Genitourinary: absent: As Per HPI, Change in Urinary Stream, Difficulty Urinating, Dysuria, Flank Pain, Hematuria, Pyuria, Nocturia, Urinary Incontinence, Urinary Frequency, Urinary Hesitance, Urinary Urgency, Voiding Freq/Small Amts, Freq UTI, Hx Renal/Bladder Calculi, Hx /Renal Surgery, Bladder Distension, Other - Musculoskeletal Musculoskeletal: absent: As Per HPI, Abnormal Gait, Arthralgias, Atrophy, Back Pain, Deformity, Joint Swelling, Limited Range of Motion, Loss of Height, Muscle Cramps, Muscle Weakness, Myalgias, Neck Pain, Numbness, Radiating Pain into Limb, Stiffness, Tingling, Other - Integumentary Integumentary: As Per HPI - Neurological Neurological: absent: As Per HPI, Abnormal Gait, Abnormal Hearing, Abnormal Movements, Abnormal Speech, Behavioral Changes, Burning Sensations, Confusion, Convulsions, Disequilibrium, Dizziness, Numbness, Focal Weakness, Frequent Falls , Headaches, Lack of Coordination, Loss of Vision, Memory Loss, Paresthesias, Radicular Pain, Restless Legs, Sensory Deficit, Syncope, Tingling, Tremor, Vertigo, Weakness, Other Visual Disturbances, Other - Psychiatric Psychiatric: absent: As Per HPI, Abnormal Sleep Pattern, Anhedonia, Anxiety, Auditory Hallucinations, Behavioral Changes, Change in Appetite, Change in Libido, Confusion, Depression, Difficulty Concentrating, Hallucinations, Homicidal Ideation, Hopelessness, Irritability, Memory Loss, Mood Swings, Panic Attacks, Paranoia, Suicidal Ideation, Visual Hallucinations, Tactile Hallucinations, Other - Endocrine Endocrine: absent: As Per HPI, Change in Body Appearance, Change in Libido, Cold Intolorance, Deepening of Voice, Excessive Sweating, Fatigue, Flushing, Heat Intolorance, Increase in Ring/Shoe/Hat Size, Palpitations, Polydipsia, Polyphagia, Polyuria, Other - Hematologic/Lymphatic Hematologic: absent: As Per HPI, Easy Bleeding, Easy Bruising, Lymphadenopathy, Other Past Patient History - Tetanus Immunizations Tetanus Immunization: Unknown - Past Medical History & Family History Past Medical History?: Yes - Past Social History Smoking Status: Former Smoker - CARDIAC Hx Hypertension: Yes - PULMONARY Hx Chronic Obstructive Pulmonary Disease (COPD): Yes - NEUROLOGICAL Hx Neurological Disorder: No - HEENT Hx Deafness: Yes - RENAL Hx Chronic Kidney Disease: No - ENDOCRINE/METABOLIC Hx Diabetes Mellitus Type 2: Yes - HEMATOLOGICAL/ONCOLOGICAL Hx Blood Disorders: No - INTEGUMENTARY Hx Dermatological Problems: No - MUSCULOSKELETAL/RHEUMATOLOGICAL Hx Falls: No - GASTROINTESTINAL Hx Gastrointestinal Disorders: Yes - GENITOURINARY/GYNECOLOGICAL Hx Genitourinary Disorders: No Hx Reproductive Disorders: No - PSYCHIATRIC Hx Psychophysiologic Disorder: No Hx Depression: No Hx Emotional Abuse: No Hx Physical Abuse: No Hx Substance Use: No - SURGICAL HISTORY Hx Appendectomy: Yes Hx Cholecystectomy: Yes Hx Tonsillectomy: Yes Meds Allergies/Adverse Reactions: Allergies Allergy/AdvReac Type Severity Reaction Status Date / Time No Known Allergies Allergy Verified 09/11/17 20:08 - Medications Medications: Current Medications Albuterol/Ipratropium (Duoneb 3 Mg/0.5 Mg (3 Ml) Ud) 3 ml INH RQ6 [facility] Last Admin: 11/04/17 08:00 Dose: 3 ml Diltiazem HCl (Cardizem) 30 mg PO QID [facility] Last Admin: 11/04/17 09:58 Dose: 30 mg Heparin Sodium (Porcine) (Heparin) 5,000 units SC Q8 [facility] Last Admin: 11/04/17 13:04 Dose: Not Given Furosemide 100 mg/ Sodium (Chloride) 100 mls @ 5 mls/hr IVP .Q20H JOSE E PRN Reason: 5 MG/HR Last Admin: 11/04/17 10:00 Dose: Not Given Cefepime HCl (Maxipime Iv 1 Gm Premix) 1 gm in 50 mls @ 100 mls/hr IVPB Q24H JOSE E PRN Reason: Protocol Last Admin: 11/04/17 10:08 Dose: 100 mls/hr Sodium Chloride (Sodium Chloride 0.9%) 1,000 mls @ 50 mls/hr IV .Q20H [facility] Last Admin: 11/03/17 22:54 Dose: 50 mls/hr Vancomycin HCl 1 gm/ Sodium (Chloride) 200 mls @ 133.333 mls/hr IVPB Q24H JOSE E PRN Reason: Protocol Last Admin: 11/04/17 04:51 Dose: 133.333 mls/hr Insulin Human Regular (Novolin R) 0 unit SC ACHS JOSE E PRN Reason: Protocol Last Admin: 11/04/17 07:41 Dose: 1 unit Lactobacillus Acidophilus (Bacid Acidophilus) 1 cap PO BID [facility] Last Admin: 11/04/17 09:58 Dose: 1 cap Levothyroxine Sodium (Synthroid) 75 mcg PO DAILY@0630 [facility] Last Admin: 11/04/17 06:21 Dose: 75 mcg Methylprednisolone (Solu-Medrol) 40 mg IVP Q12H [facility] Last Admin: 11/04/17 09:59 Dose: 40 mg Pantoprazole Sodium (Protonix Inj) 40 mg IVP DAILY [facility] Last Admin: 11/04/17 09:58 Dose: 40 mg Tiotropium [place] (Spiriva) 18 mcg INH RQ24 [facility] Physical Exam - Constitutional Appears: No Acute Distress, Chronically Ill - Head Exam Head Exam: ATRAUMATIC, NORMAL INSPECTION, NORMOCEPHALIC - Eye Exam Eye Exam: PERRL. absent: Scleral icterus Pupil Exam: NORMAL ACCOMODATION - ENT Exam ENT Exam: Normal Oropharynx - Neck Exam Neck exam: Negative for: Lymphadenopathy, Thyromegaly - Respiratory Exam Respiratory Exam: Decreased Breath Sounds, Rales. absent: Prolonged Expiratory Phase - Cardiovascular Exam Cardiovascular Exam: Tachycardia, REGULAR RHYTHM, +S1, +S2 - GI/Abdominal Exam GI & Abdominal Exam: Diminished Bowel Sounds, Distended, Hypoactive Bowel Sounds. absent: Organomegaly, Rebound, Rigid Additional comments: colostomy bag over paracentesis site with lg amt of bilious fluid - Rectal Exam Rectal Exam: Deferred - Exam Exam: NORMAL INSPECTION - Extremities Exam Extremities exam: Positive for: pedal edema, tenderness. Negative for: calf tenderness, pedal pulses present Additional comments: redness both lower extremities - Back Exam Back exam: absent: CVA tenderness (L), CVA tenderness (R), paraspinal tenderness - Neurological Exam Neurological exam: Alert, Altered, CN II-XII Intact - Psychiatric Exam Psychiatric exam: Depressed - Skin Skin Exam: Dry, Erythema Results - Vital Signs Recent Vital Signs: Last Vital Signs Temp 97.9 F 11/04/17 04:00 Pulse 124 H 11/04/17 08:13 Resp 15 11/04/17 08:13 BP 109/58 L 11/04/17 10:00 Pulse Ox 94 L 11/04/17 08:13 - Labs Result Diagrams: 11/04/17 05:53 11/04/17 05:54 Labs: Laboratory Results - last 24 hr 11/03/17 11/03/17 11/03/17 13:33 13:33 13:33 WBC RBC Hgb Hct MCV MCH MCHC RDW Plt Count MPV Neut % (Auto) Lymph % (Auto) [place] % (Auto) Eos % (Auto) Baso % (Auto) Neut # (Auto) Lymph # (Auto) [place] # (Auto) Eos # (Auto) Baso # (Auto) Neutrophils % (Manual) 92 H Lymphocytes % (Manual) 4 L Monocytes % (Manual) 4 Platelet Estimate Normal Polychromasia Slight Hypochromasia (manual) Slight Anisocytosis (manual) Slight PT 17.1 H INR 1.6 APTT 28 Puncture Site pCO2 pO2 HCO3 ABG pH ABG Total CO2 ABG O2 Saturation ABG Base Excess ABG Hemoglobin ABG Carboxyhemoglobin POC ABG HHb (Measured) ABG Methemoglobin Pankaj Test A-a O2 Difference Respiratory Index Hgb O2 Saturation Vent Mode FiO2 Inspiratory BiPAP Expiratory BiPAP Sodium 130 L Potassium 5.4 H Chloride 89 L Carbon Dioxide 28 Anion Gap 18 BUN 74 H Creatinine 3.6 H Est GFR ( Amer) 22 Est GFR (Non-Af Amer) 18 POC Glucose (mg/dL) Random Glucose 214 H Hemoglobin A1c Calcium 8.0 L Phosphorus 7.6 H Magnesium 1.9 Total Bilirubin 1.0 AST 30 ALT 33 Alkaline Phosphatase 235 H Total Protein 7.1 Albumin 3.8 Globulin 3.4 Albumin/Globulin Ratio 1.1 Triglycerides Cholesterol LDL Cholesterol Direct HDL Cholesterol Free T4 TSH 3rd Generation Fluid Source Fluid Appearance Fluid WBC Fluid RBC Fluid Tot Cell Count Fluid Neutrophils Fluid Lymphocytes Fld Monocyte/Macrophag Fluid Comment Ur L.pneumophila Ag 11/03/17 11/03/17 11/03/17 16:19 20:48 20:59 WBC 9.5 RBC 4.30 L Hgb 12.7 Hct 38.9 MCV 90.5 MCH 29.4 MCHC 32.5 L RDW 17.0 H Plt Count 203 MPV 7.8 Neut % (Auto) 90.4 H Lymph % (Auto) 3.7 L [place] % (Auto) 5.8 Eos % (Auto) 0.0 Baso % (Auto) 0.1 Neut # (Auto) 8.6 H Lymph # (Auto) 0.4 L [place] # (Auto) 0.5 Eos # (Auto) 0.0 Baso # (Auto) 0.0 Neutrophils % (Manual) 91 H Lymphocytes % (Manual) 6 L Monocytes % (Manual) 3 Platelet Estimate Normal Polychromasia Hypochromasia (manual) Anisocytosis (manual) PT INR APTT Puncture Site pCO2 pO2 HCO3 ABG pH ABG Total CO2 ABG O2 Saturation ABG Base Excess ABG Hemoglobin ABG Carboxyhemoglobin POC ABG HHb (Measured) ABG Methemoglobin Pankaj Test A-a O2 Difference Respiratory Index Hgb O2 Saturation Vent Mode FiO2 Inspiratory BiPAP Expiratory BiPAP Sodium Potassium Chloride Carbon Dioxide Anion Gap BUN Creatinine Est GFR ( Amer) Est GFR (Non-Af Amer) POC Glucose (mg/dL) 198 H Random Glucose Hemoglobin A1c Calcium Phosphorus Magnesium Total Bilirubin AST ALT Alkaline Phosphatase Total Protein Albumin Globulin Albumin/Globulin Ratio Triglycerides Cholesterol LDL Cholesterol Direct HDL Cholesterol Free T4 TSH 3rd Generation Fluid Source Peritoneal Fluid Appearance Clear Fluid WBC 153.0 Fluid RBC 1192.0 H Fluid Tot Cell Count 100 H Fluid Neutrophils 45.0 H Fluid Lymphocytes 31.0 H Fld Monocyte/Macrophag 24 H Fluid Comment Ur L.pneumophila Ag 11/03/17 11/03/17 11/03/17 20:59 21:22 21:32 WBC RBC Hgb Hct MCV MCH MCHC RDW Plt Count MPV Neut % (Auto) Lymph % (Auto) [place] % (Auto) Eos % (Auto) Baso % (Auto) Neut # (Auto) Lymph # (Auto) [place] # (Auto) Eos # (Auto) Baso # (Auto) Neutrophils % (Manual) Lymphocytes % (Manual) Monocytes % (Manual) Platelet Estimate Polychromasia Hypochromasia (manual) Anisocytosis (manual) PT INR APTT Puncture Site pCO2 pO2 HCO3 ABG pH ABG Total CO2 ABG O2 Saturation ABG Base Excess ABG Hemoglobin ABG Carboxyhemoglobin POC ABG HHb (Measured) ABG Methemoglobin Pankaj Test A-a O2 Difference Respiratory Index Hgb O2 Saturation Vent Mode FiO2 Inspiratory BiPAP Expiratory BiPAP Sodium 129 L Potassium 5.2 Chloride 89 L Carbon Dioxide 27 Anion Gap 18 BUN 80 H Creatinine 3.5 H Est GFR ( Amer) 22 Est GFR (Non-Af Amer) 18 POC Glucose (mg/dL) 184 H Random Glucose 184 H Hemoglobin A1c Calcium 7.8 L Phosphorus Magnesium 2.0 Total Bilirubin 1.0 AST 31 ALT 35 Alkaline Phosphatase 213 H Total Protein 7.0 Albumin 3.7 Globulin 3.3 Albumin/Globulin Ratio 1.1 Triglycerides Cholesterol LDL Cholesterol Direct HDL Cholesterol Free T4 TSH 3rd Generation Fluid Source Fluid Appearance Fluid WBC Fluid RBC Fluid Tot Cell Count Fluid Neutrophils Fluid Lymphocytes Fld Monocyte/Macrophag Fluid Comment Ur L.pneumophila Ag Negative 11/04/17 11/04/17 11/04/17 05:53 05:53 05:54 WBC 8.6 RBC 4.47 Hgb 13.5 Hct 40.8 MCV 91.3 MCH 30.2 MCHC 33.1 RDW 17.4 H Plt Count 202 MPV 8.7 Neut % (Auto) 92.3 H Lymph % (Auto) 3.2 L [place] % (Auto) 4.4 Eos % (Auto) 0.0 Baso % (Auto) 0.1 Neut # (Auto) 8.0 H Lymph # (Auto) 0.3 L [place] # (Auto) 0.4 Eos # (Auto) 0.0 Baso # (Auto) 0.0 Neutrophils % (Manual) 96 H Lymphocytes % (Manual) 2 L Monocytes % (Manual) 2 Platelet Estimate Normal Polychromasia Hypochromasia (manual) Anisocytosis (manual) Slight PT INR APTT Puncture Site pCO2 pO2 HCO3 ABG pH ABG Total CO2 ABG O2 Saturation ABG Base Excess ABG Hemoglobin ABG Carboxyhemoglobin POC ABG HHb (Measured) ABG Methemoglobin Pankaj Test A-a O2 Difference Respiratory Index Hgb O2 Saturation Vent Mode FiO2 Inspiratory BiPAP Expiratory BiPAP Sodium 131 L Potassium 4.8 Chloride 89 L Carbon Dioxide 29 Anion Gap 17 BUN 82 H Creatinine 3.2 H Est GFR ( Amer) 25 Est GFR (Non-Af Amer) 20 POC Glucose (mg/dL) Random Glucose 177 H Hemoglobin A1c Calcium 7.6 L Phosphorus 8.0 H Magnesium 2.0 Total Bilirubin 0.8 AST 30 ALT 29 Alkaline Phosphatase 210 H Total Protein 6.8 Albumin 3.5 Globulin 3.3 Albumin/Globulin Ratio 1.1 Triglycerides 146 Cholesterol 126 LDL Cholesterol Direct 75 HDL Cholesterol 23 L Free T4 0.96 TSH 3rd Generation 1.04 Fluid Source Fluid Appearance Fluid WBC Fluid RBC Fluid Tot Cell Count Fluid Neutrophils Fluid Lymphocytes Fld Monocyte/Macrophag Fluid Comment Ur L.pneumophila Ag 11/04/17 11/04/1711/04/18 05:54 06:00 08:28 WBC RBC Hgb Hct MCV MCH MCHC RDW Plt Count MPV Neut % (Auto) Lymph % (Auto) [place] % (Auto) Eos % (Auto) Baso % (Auto) Neut # (Auto) Lymph # (Auto) [place] # (Auto) Eos # (Auto) Baso # (Auto) Neutrophils % (Manual) Lymphocytes % (Manual) Monocytes % (Manual) Platelet Estimate Polychromasia Hypochromasia (manual) Anisocytosis (manual) PT INR APTT Puncture Site Rradial pCO2 68 H pO2 94 HCO3 25.5 ABG pH 7.25 L ABG Total CO2 31.9 H ABG O2 Saturation 98.2 H ABG Base Excess 0.8 ABG Hemoglobin 13.4 ABG Carboxyhemoglobin 1.8 H POC ABG HHb (Measured) 1.7 ABG Methemoglobin 1.0 Pankaj Test Pos A-a O2 Difference 249.0 Respiratory Index 2.6 Hgb O2 Saturation 95.4 Vent Mode Bipap FiO2 60.0 Inspiratory BiPAP 18 Expiratory BiPAP 6 Sodium Potassium Chloride Carbon Dioxide Anion Gap BUN Creatinine Est GFR ( Amer) Est GFR (Non-Af Amer) POC Glucose (mg/dL) 162 H Random Glucose Hemoglobin A1c 6.9 H Calcium Phosphorus Magnesium Total Bilirubin AST ALT Alkaline Phosphatase Total Protein Albumin Globulin Albumin/Globulin Ratio Triglycerides Cholesterol LDL Cholesterol Direct HDL Cholesterol Free T4 TSH 3rd Generation Fluid Source Fluid Appearance Fluid WBC Fluid RBC Fluid Tot Cell Count Fluid Neutrophils Fluid Lymphocytes Fld Monocyte/Macrophag Fluid Comment Ur L.pneumophila Ag 11/04/17 11:47 WBC RBC Hgb Hct MCV MCH MCHC RDW Plt Count MPV Neut % (Auto) Lymph % (Auto) [place] % (Auto) Eos % (Auto) Baso % (Auto) Neut # (Auto) Lymph # (Auto) [place] # (Auto) Eos # (Auto) Baso # (Auto) Neutrophils % (Manual) Lymphocytes % (Manual) Monocytes % (Manual) Platelet Estimate Polychromasia Hypochromasia (manual) Anisocytosis (manual) PT INR APTT Puncture Site pCO2 pO2 HCO3 ABG pH ABG Total CO2 ABG O2 Saturation ABG Base Excess ABG Hemoglobin ABG Carboxyhemoglobin POC ABG HHb (Measured) ABG Methemoglobin Pankaj Test A-a O2 Difference Respiratory Index Hgb O2 Saturation Vent Mode FiO2 Inspiratory BiPAP Expiratory BiPAP Sodium Potassium Chloride Carbon Dioxide Anion Gap BUN Creatinine Est GFR ( Amer) Est GFR (Non-Af Amer) POC Glucose (mg/dL) 172 H Random Glucose Hemoglobin A1c Calcium Phosphorus Magnesium Total Bilirubin AST ALT Alkaline Phosphatase Total Protein Albumin Globulin Albumin/Globulin Ratio Triglycerides Cholesterol LDL Cholesterol Direct HDL Cholesterol Free T4 TSH 3rd Generation Fluid Source Fluid Appearance Fluid WBC Fluid RBC Fluid Tot Cell Count Fluid Neutrophils Fluid Lymphocytes Fld Monocyte/Macrophag Fluid Comment Ur L.pneumophila Ag Assessment & Plan (1) Deafness Status: Acute (2) Cor pulmonale Status: Acute (3) Ascites Status: Acute (4) Atrial flutter with rapid ventricular response Status: Acute (5) CHF (congestive heart failure) Status: Acute (6) COPD (chronic obstructive pulmonary disease) Status: Acute (7) Cellulitis Status: Acute (8) Pulmonary emphysema Status: Acute (9) Renal insufficiency Status: Acute (10) Respiratory distress Status: Acute - Assessment and Plan (Free Text) Assessment: will d/c Vanco add zyvox to cover MRSA cont Cefepime await cultures and serologies
[2017-11-04] MEDS: Linezolid 600 mg in D5W 300 ml 600 MG/300 ML BAG IVPB SCH (14:30)
--- NOTE | 2017-11-04 18:15 | CP.CCUPN ---
CCU Subjective - Physician Review Events Since Last Encounter (Free Text): 11/04/17 18:13 The patient is morning was much more comfortable than last night. He was on BiPAP, able to tolerate the feeding. Urine output is significantly improving Patient is feeling hungry. Paracentesis site there is a leak noted. No chest pain. Cough noted. Vital signs actually improving Blood pressure is better Currently off Lasix drip and off milrinone drip. Labs reviewed Renal functions is stable CAT scan of the chest is showing evidence of large right pleural effusion, underlying atelectasis Will do a possible thoracentesis tomorrow I spoke to the patient's mother Will continue the current treatment. When necessary BiPAP IV hydration. Antibiotic. Patient has a possible cellulitis in the leg. Pleural effusion, atelectasis of the right lung. Chronic is pretty failure, with acute exacerbation. Obesity hypoventilation. Pulmonary hypertension cor pulmonale. CCU Objective - Vital Signs / Intake & Output Vital Signs (Last 4 hours): Vital Signs Temp Pulse Resp BP Pulse Ox 11/04/17 18:00 110 H 12 91 L 11/04/17 17:13 124 H 14 126/61 91 L 11/04/17 17:10 124 H 15 121/66 92 L 11/04/17 17:00 111 H 12 91 L 11/04/17 16:00 98.1 F 116 H 14 94 L 11/04/17 15:13 123 H 12 107/52 L 93 L 11/04/17 15:00 123 H 15 92 L Intake and Output (Last 8hrs): Intake & Output 11/04/17 11/04/17 11/04/17 06:59 14:59 22:59 Intake Total 675.0 1205.0 700 Output Total 1280 2320 1050 Balance -605.0 -1115.0 -350 Weight 336 lb 336 lb Intake: Intake, IV Amount 675.0 355.0 200 Left Forearm 25.0 5.0 Left Hand 450 350 200 Left Upper arm 0 Right Wrist 200 0 Oral 850 500 Output: Drainage 560 1350 550 RIGHT MID ABD DRAIN BAG 560 1350 550 Urine 720 970 500 Urethral (Hoang) 720 970 500 Stool 0 0 Emesis 0 0 Other: # Bowel Movements 0 - Medications Active Medications: Active Medications Generic Name Dose Route Start Last Admin Trade Name Freq PRN Reason Stop Dose Admin Albuterol/Ipratropium 3 ml 11/03/17 14:00 11/04/17 08:00 Duoneb 3 Mg/0.5 Mg (3 Ml) Ud INH 3 ml RQ6 JOSE E Administration Diltiazem HCl 30 mg 11/04/17 10:00 11/04/17 14:30 Cardizem PO 30 mg QID JOSE E Administration Heparin Sodium (Porcine) 5,000 units 11/03/17 22:00 11/04/17 13:04 Heparin SC Not Given Q8 JOSE E Furosemide 100 mg/ Sodium 100 mls @ 5 mls/hr 11/03/17 13:30 11/04/17 10:00 Chloride IVP Not Given .Q20H JOSE E 5 MG/HR Cefepime HCl 1 gm in 50 mls @ 100 mls/hr 11/04/17 10:00 11/04/17 10:08 Maxipime Iv 1 Gm Premix IVPB 100 mls/hr Q24H JOSE E Administration Protocol Sodium Chloride 1,000 mls @ 50 mls/hr 11/03/17 22:45 11/03/17 22:54 Sodium Chloride 0.9% IV 50 mls/hr .Q20H JOSE E Administration Linezolid 600 mg in 300 mls @ 200 mls/hr 11/04/17 14:00 11/04/17 14:30 Zyvox 600mg/300ml D5w IVPB 200 mls/hr Q12H JOSE E Administration Protocol Insulin Human Regular 0 unit 11/03/17 16:30 11/04/17 12:15 Novolin R SC 1 unit ACHS JOSE E Administration Protocol Lactobacillus Acidophilus 1 cap 11/04/17 10:00 11/04/17 09:58 Bacid Acidophilus PO 1 cap BID JOSE E Administration Levothyroxine Sodium 75 mcg 11/04/17 06:30 11/04/17 06:21 Synthroid PO 75 mcg DAILY@0630 JOSE E Administration Methylprednisolone 40 mg 11/03/17 22:00 11/04/17 09:59 Solu-Medrol IVP 40 mg Q12H JOSE E Administration Pantoprazole Sodium 40 mg 11/04/17 10:00 11/04/17 09:58 Protonix Inj IVP 40 mg DAILY JOSE E Administration Tiotropium [place] 18 mcg 11/04/17 08:00 Spiriva INH RQ24 JOSE E - Patient Studies Lab Studies: Microbiology Studies 11/03/17 13:33 MRSA Culture (Admit) - Final Naris MRSA NOT DETECTED 11/04/17 05:54 Gram Stain - Final Leg - Right Lab Studies 11/04/17 11/04/17 11/04/17 Range/Units 15:57 11:47 08:28 WBC (4.8-10.8) K/uL RBC (4.40-5.90) Mil/uL Hgb (12.0-18.0) g/dL Hct (35.0-51.0) % MCV (80.0-94.0) fL MCH (27.0-31.0) pg MCHC (33.0-37.0) g/dL RDW (11.5-14.5) % Plt Count (130-400) K/uL MPV (7.2-11.7) fL Neut % (Auto) (50.0-75.0) % Lymph % (Auto) (20.0-40.0) % Richardson % (Auto) (0.0-10.0) % Eos % (Auto) (0.0-4.0) % Baso % (Auto) (0.0-2.0) % Neut # (Auto) (1.8-7.0) K/uL Lymph # (Auto) (1.0-4.3) K/uL Richardson # (Auto) (0.0-0.8) K/uL Eos # (Auto) (0.0-0.7) K/uL Baso # (Auto) (0.0-0.2) K/uL Neutrophils % (Manual) (50-75) % Lymphocytes % (Manual) (20-40) % Monocytes % (Manual) (0-10) % Platelet Estimate (NORMAL) Anisocytosis (manual) Puncture Site pCO2 (35-45) mm/Hg pO2 (80-100) mm/Hg HCO3 (21-28) mmol/L ABG pH (7.35-7.45) ABG Total CO2 (22-28) mmol/L ABG O2 Saturation (95-98) % ABG Base Excess (-2.0-3.0) mmol/L ABG Hemoglobin (11.7-17.4) g/dL ABG Carboxyhemoglobin (0.5-1.5) % POC ABG HHb (Measured) (0.0-5.0) % ABG Methemoglobin (0.0-3.0) % Pankaj Test A-a O2 Difference mm/Hg Respiratory Index Hgb O2 Saturation (95.0-98.0) % Vent Mode FiO2 % Inspiratory BiPAP Expiratory BiPAP Sodium (132-148) mmol/L Potassium (3.6-5.2) mmol/L Chloride (98-107) mmol/L Carbon Dioxide (22-30) mmol/L Anion Gap (10-20) BUN (9-20) mg/dL Creatinine (0.8-1.5) mg/dL Est GFR ( Amer) Est GFR (Non-Af Amer) POC Glucose (mg/dL) 219 H 172 H 162 H (65-110) mg/dL Random Glucose (75-110) mg/dL Hemoglobin A1c (4.2-6.5) % Calcium (8.6-10.4) mg/dl Phosphorus (2.5-4.5) mg/dL Magnesium (1.6-2.3) mg/dL Total Bilirubin (0.2-1.3) mg/dL AST (17-59) U/L ALT (21-72) U/L Alkaline Phosphatase (38-126) U/L Total Protein (6.3-8.3) g/dL Albumin (3.5-5.0) g/dL Globulin (2.2-3.9) gm/dL Albumin/Globulin Ratio (1.0-2.1) Triglycerides (0-149) mg/dL Cholesterol (0-199) mg/dL LDL Cholesterol Direct (0-129) mg/dL HDL Cholesterol (30-70) mg/dL Free T4 (0.78-2.19) ng/dL TSH 3rd Generation (0.46-4.68) mIU/L Fluid Source Fluid Appearance (CLEAR) Fluid WBC (0.0-300.0) /mm3 Fluid RBC (0.0-0.0) /mm3 Fluid Tot Cell Count (0-0) Fluid Neutrophils (0-0) % Fluid Lymphocytes (0-0) % Fld Monocyte/Macrophag (0-0) % Fluid Comment Ur L.pneumophila Ag (NEGATIVE) 11/04/17 11/04/17 11/04/17 Range/Units 06:00 05:54 05:54 WBC (4.8-10.8) K/uL RBC (4.40-5.90) Mil/uL Hgb (12.0-18.0) g/dL Hct (35.0-51.0) % MCV (80.0-94.0) fL MCH (27.0-31.0) pg MCHC (33.0-37.0) g/dL RDW (11.5-14.5) % Plt Count (130-400) K/uL MPV (7.2-11.7) fL Neut % (Auto) (50.0-75.0) % Lymph % (Auto) (20.0-40.0) % Richardson % (Auto) (0.0-10.0) % Eos % (Auto) (0.0-4.0) % Baso % (Auto) (0.0-2.0) % Neut # (Auto) (1.8-7.0) K/uL Lymph # (Auto) (1.0-4.3) K/uL Richardson # (Auto) (0.0-0.8) K/uL Eos # (Auto) (0.0-0.7) K/uL Baso # (Auto) (0.0-0.2) K/uL Neutrophils % (Manual) (50-75) % Lymphocytes % (Manual) (20-40) % Monocytes % (Manual) (0-10) % Platelet Estimate (NORMAL) Anisocytosis (manual) Puncture Site Rradial pCO2 68 H (35-45) mm/Hg pO2 94 (80-100) mm/Hg HCO3 25.5 (21-28) mmol/L ABG pH 7.25 L (7.35-7.45) ABG Total CO2 31.9 H (22-28) mmol/L ABG O2 Saturation 98.2 H (95-98) % ABG Base Excess 0.8 (-2.0-3.0) mmol/L ABG Hemoglobin 13.4 (11.7-17.4) g/dL ABG Carboxyhemoglobin 1.8 H (0.5-1.5) % POC ABG HHb (Measured) 1.7 (0.0-5.0) % ABG Methemoglobin 1.0 (0.0-3.0) % Pankaj Test Pos A-a O2 Difference 249.0 mm/Hg Respiratory Index 2.6 Hgb O2 Saturation 95.4 (95.0-98.0) % Vent Mode Bipap FiO2 60.0 % Inspiratory BiPAP 18 Expiratory BiPAP 6 Sodium 131 L (132-148) mmol/L Potassium 4.8 (3.6-5.2) mmol/L Chloride 89 L (98-107) mmol/L Carbon Dioxide 29 (22-30) mmol/L Anion Gap 17 (10-20) BUN 82 H (9-20) mg/dL Creatinine 3.2 H (0.8-1.5) mg/dL Est GFR ( Amer) 25 Est GFR (Non-Af Amer) 20 POC Glucose (mg/dL) (65-110) mg/dL Random Glucose 177 H (75-110) mg/dL Hemoglobin A1c 6.9 H (4.2-6.5) % Calcium 7.6 L (8.6-10.4) mg/dl Phosphorus 8.0 H (2.5-4.5) mg/dL Magnesium 2.0 (1.6-2.3) mg/dL Total Bilirubin 0.8 (0.2-1.3) mg/dL AST 30 (17-59) U/L ALT 29 (21-72) U/L Alkaline Phosphatase 210 H (38-126) U/L Total Protein 6.8 (6.3-8.3) g/dL Albumin 3.5 (3.5-5.0) g/dL Globulin 3.3 (2.2-3.9) gm/dL Albumin/Globulin Ratio 1.1 (1.0-2.1) Triglycerides 146 (0-149) mg/dL Cholesterol 126 (0-199) mg/dL LDL Cholesterol Direct 75 (0-129) mg/dL HDL Cholesterol 23 L (30-70) mg/dL Free T4 (0.78-2.19) ng/dL TSH 3rd Generation 1.04 (0.46-4.68) mIU/L Fluid Source Fluid Appearance (CLEAR) Fluid WBC (0.0-300.0) /mm3 Fluid RBC (0.0-0.0) /mm3 Fluid Tot Cell Count (0-0) Fluid Neutrophils (0-0) % Fluid Lymphocytes (0-0) % Fld Monocyte/Macrophag (0-0) % Fluid Comment Ur L.pneumophila Ag (NEGATIVE) 11/04/17 11/04/17 11/03/17 Range/Units 05:53 05:53 21:32 WBC 8.6 (4.8-10.8) K/uL RBC 4.47 (4.40-5.90) Mil/uL Hgb 13.5 (12.0-18.0) g/dL Hct 40.8 (35.0-51.0) % MCV 91.3 (80.0-94.0) fL MCH 30.2 (27.0-31.0) pg MCHC 33.1 (33.0-37.0) g/dL RDW 17.4 H (11.5-14.5) % Plt Count 202 (130-400) K/uL MPV 8.7 (7.2-11.7) fL Neut % (Auto) 92.3 H (50.0-75.0) % Lymph % (Auto) 3.2 L (20.0-40.0) % Richardson % (Auto) 4.4 (0.0-10.0) % Eos % (Auto) 0.0 (0.0-4.0) % Baso % (Auto) 0.1 (0.0-2.0) % Neut # (Auto) 8.0 H (1.8-7.0) K/uL Lymph # (Auto) 0.3 L (1.0-4.3) K/uL Richardson # (Auto) 0.4 (0.0-0.8) K/uL Eos # (Auto) 0.0 (0.0-0.7) K/uL Baso # (Auto) 0.0 (0.0-0.2) K/uL Neutrophils % (Manual) 96 H (50-75) % Lymphocytes % (Manual) 2 L (20-40) % Monocytes % (Manual) 2 (0-10) % Platelet Estimate Normal (NORMAL) Anisocytosis (manual) Slight Puncture Site pCO2 (35-45) mm/Hg pO2 (80-100) mm/Hg HCO3 (21-28) mmol/L ABG pH (7.35-7.45) ABG Total CO2 (22-28) mmol/L ABG O2 Saturation (95-98) % ABG Base Excess (-2.0-3.0) mmol/L ABG Hemoglobin (11.7-17.4) g/dL ABG Carboxyhemoglobin (0.5-1.5) % POC ABG HHb (Measured) (0.0-5.0) % ABG Methemoglobin (0.0-3.0) % Pankaj Test A-a O2 Difference mm/Hg Respiratory Index Hgb O2 Saturation (95.0-98.0) % Vent Mode FiO2 % Inspiratory BiPAP Expiratory BiPAP Sodium (132-148) mmol/L Potassium (3.6-5.2) mmol/L Chloride (98-107) mmol/L Carbon Dioxide (22-30) mmol/L Anion Gap (10-20) BUN (9-20) mg/dL Creatinine (0.8-1.5) mg/dL Est GFR ( Amer) Est GFR (Non-Af Amer) POC Glucose (mg/dL) 184 H (65-110) mg/dL Random Glucose (75-110) mg/dL Hemoglobin A1c (4.2-6.5) % Calcium (8.6-10.4) mg/dl Phosphorus (2.5-4.5) mg/dL Magnesium (1.6-2.3) mg/dL Total Bilirubin (0.2-1.3) mg/dL AST (17-59) U/L ALT (21-72) U/L Alkaline Phosphatase (38-126) U/L Total Protein (6.3-8.3) g/dL Albumin (3.5-5.0) g/dL Globulin (2.2-3.9) gm/dL Albumin/Globulin Ratio (1.0-2.1) Triglycerides (0-149) mg/dL Cholesterol (0-199) mg/dL LDL Cholesterol Direct (0-129) mg/dL HDL Cholesterol (30-70) mg/dL Free T4 0.96 (0.78-2.19) ng/dL TSH 3rd Generation (0.46-4.68) mIU/L Fluid Source Fluid Appearance (CLEAR) Fluid WBC (0.0-300.0) /mm3 Fluid RBC (0.0-0.0) /mm3 Fluid Tot Cell Count (0-0) Fluid Neutrophils (0-0) % Fluid Lymphocytes (0-0) % Fld Monocyte/Macrophag (0-0) % Fluid Comment Ur L.pneumophila Ag (NEGATIVE) 11/03/17 11/03/17 11/03/17 Range/Units 21:22 20:59 20:59 WBC 9.5 (4.8-10.8) K/uL RBC 4.30 L (4.40-5.90) Mil/uL Hgb 12.7 (12.0-18.0) g/dL Hct 38.9 (35.0-51.0) % MCV 90.5 (80.0-94.0) fL MCH 29.4 (27.0-31.0) pg MCHC 32.5 L (33.0-37.0) g/dL RDW 17.0 H (11.5-14.5) % Plt Count 203 (130-400) K/uL MPV 7.8 (7.2-11.7) fL Neut % (Auto) 90.4 H (50.0-75.0) % Lymph % (Auto) 3.7 L (20.0-40.0) % Richardson % (Auto) 5.8 (0.0-10.0) % Eos % (Auto) 0.0 (0.0-4.0) % Baso % (Auto) 0.1 (0.0-2.0) % Neut # (Auto) 8.6 H (1.8-7.0) K/uL Lymph # (Auto) 0.4 L (1.0-4.3) K/uL Richardson # (Auto) 0.5 (0.0-0.8) K/uL Eos # (Auto) 0.0 (0.0-0.7) K/uL Baso # (Auto) 0.0 (0.0-0.2) K/uL Neutrophils % (Manual) 91 H (50-75) % Lymphocytes % (Manual) 6 L (20-40) % Monocytes % (Manual) 3 (0-10) % Platelet Estimate Normal (NORMAL) Anisocytosis (manual) Puncture Site pCO2 (35-45) mm/Hg pO2 (80-100) mm/Hg HCO3 (21-28) mmol/L ABG pH (7.35-7.45) ABG Total CO2 (22-28) mmol/L ABG O2 Saturation (95-98) % ABG Base Excess (-2.0-3.0) mmol/L ABG Hemoglobin (11.7-17.4) g/dL ABG Carboxyhemoglobin (0.5-1.5) % POC ABG HHb (Measured) (0.0-5.0) % ABG Methemoglobin (0.0-3.0) % Pankaj Test A-a O2 Difference mm/Hg Respiratory Index Hgb O2 Saturation (95.0-98.0) % Vent Mode FiO2 % Inspiratory BiPAP Expiratory BiPAP Sodium 129 L (132-148) mmol/L Potassium 5.2 (3.6-5.2) mmol/L Chloride 89 L (98-107) mmol/L Carbon Dioxide 27 (22-30) mmol/L Anion Gap 18 (10-20) BUN 80 H (9-20) mg/dL Creatinine 3.5 H (0.8-1.5) mg/dL Est GFR ( Amer) 22 Est GFR (Non-Af Amer) 18 POC Glucose (mg/dL) (65-110) mg/dL Random Glucose 184 H (75-110) mg/dL Hemoglobin A1c (4.2-6.5) % Calcium 7.8 L (8.6-10.4) mg/dl Phosphorus (2.5-4.5) mg/dL Magnesium 2.0 (1.6-2.3) mg/dL Total Bilirubin 1.0 (0.2-1.3) mg/dL AST 31 (17-59) U/L ALT 35 (21-72) U/L Alkaline Phosphatase 213 H (38-126) U/L Total Protein 7.0 (6.3-8.3) g/dL Albumin 3.7 (3.5-5.0) g/dL Globulin 3.3 (2.2-3.9) gm/dL Albumin/Globulin Ratio 1.1 (1.0-2.1) Triglycerides (0-149) mg/dL Cholesterol (0-199) mg/dL LDL Cholesterol Direct (0-129) mg/dL HDL Cholesterol (30-70) mg/dL Free T4 (0.78-2.19) ng/dL TSH 3rd Generation (0.46-4.68) mIU/L Fluid Source Fluid Appearance (CLEAR) Fluid WBC (0.0-300.0) /mm3 Fluid RBC (0.0-0.0) /mm3 Fluid Tot Cell Count (0-0) Fluid Neutrophils (0-0) % Fluid Lymphocytes (0-0) % Fld Monocyte/Macrophag (0-0) % Fluid Comment Ur L.pneumophila Ag Negative (NEGATIVE) 11/03/17 Range/Units 20:48 WBC (4.8-10.8) K/uL RBC (4.40-5.90) Mil/uL Hgb (12.0-18.0) g/dL Hct (35.0-51.0) % MCV (80.0-94.0) fL MCH (27.0-31.0) pg MCHC (33.0-37.0) g/dL RDW (11.5-14.5) % Plt Count (130-400) K/uL MPV (7.2-11.7) fL Neut % (Auto) (50.0-75.0) % Lymph % (Auto) (20.0-40.0) % Richardson % (Auto) (0.0-10.0) % Eos % (Auto) (0.0-4.0) % Baso % (Auto) (0.0-2.0) % Neut # (Auto) (1.8-7.0) K/uL Lymph # (Auto) (1.0-4.3) K/uL Richardson # (Auto) (0.0-0.8) K/uL Eos # (Auto) (0.0-0.7) K/uL Baso # (Auto) (0.0-0.2) K/uL Neutrophils % (Manual) (50-75) % Lymphocytes % (Manual) (20-40) % Monocytes % (Manual) (0-10) % Platelet Estimate (NORMAL) Anisocytosis (manual) Puncture Site pCO2 (35-45) mm/Hg pO2 (80-100) mm/Hg HCO3 (21-28) mmol/L ABG pH (7.35-7.45) ABG Total CO2 (22-28) mmol/L ABG O2 Saturation (95-98) % ABG Base Excess (-2.0-3.0) mmol/L ABG Hemoglobin (11.7-17.4) g/dL ABG Carboxyhemoglobin (0.5-1.5) % POC ABG HHb (Measured) (0.0-5.0) % ABG Methemoglobin (0.0-3.0) % Pankaj Test A-a O2 Difference mm/Hg Respiratory Index Hgb O2 Saturation (95.0-98.0) % Vent Mode FiO2 % Inspiratory BiPAP Expiratory BiPAP Sodium (132-148) mmol/L Potassium (3.6-5.2) mmol/L Chloride (98-107) mmol/L Carbon Dioxide (22-30) mmol/L Anion Gap (10-20) BUN (9-20) mg/dL Creatinine (0.8-1.5) mg/dL Est GFR ( Amer) Est GFR (Non-Af Amer) POC Glucose (mg/dL) (65-110) mg/dL Random Glucose (75-110) mg/dL Hemoglobin A1c (4.2-6.5) % Calcium (8.6-10.4) mg/dl Phosphorus (2.5-4.5) mg/dL Magnesium (1.6-2.3) mg/dL Total Bilirubin (0.2-1.3) mg/dL AST (17-59) U/L ALT (21-72) U/L Alkaline Phosphatase (38-126) U/L Total Protein (6.3-8.3) g/dL Albumin (3.5-5.0) g/dL Globulin (2.2-3.9) gm/dL Albumin/Globulin Ratio (1.0-2.1) Triglycerides (0-149) mg/dL Cholesterol (0-199) mg/dL LDL Cholesterol Direct (0-129) mg/dL HDL Cholesterol (30-70) mg/dL Free T4 (0.78-2.19) ng/dL TSH 3rd Generation (0.46-4.68) mIU/L Fluid Source Peritoneal Fluid Appearance Clear (CLEAR) Fluid WBC 153.0 (0.0-300.0) /mm3 Fluid RBC 1192.0 H (0.0-0.0) /mm3 Fluid Tot Cell Count 100 H (0-0) Fluid Neutrophils 45.0 H (0-0) % Fluid Lymphocytes 31.0 H (0-0) % Fld Monocyte/Macrophag 24 H (0-0) % Fluid Comment Ur L.pneumophila Ag (NEGATIVE) Laboratory Results - last 24 hr 11/03/17 11/03/17 11/03/17 20:48 20:59 20:59 WBC 9.5 RBC 4.30 L Hgb 12.7 Hct 38.9 MCV 90.5 MCH 29.4 MCHC 32.5 L RDW 17.0 H Plt Count 203 MPV 7.8 Neut % (Auto) 90.4 H Lymph % (Auto) 3.7 L Richardson % (Auto) 5.8 Eos % (Auto) 0.0 Baso % (Auto) 0.1 Neut # (Auto) 8.6 H Lymph # (Auto) 0.4 L Richardson # (Auto) 0.5 Eos # (Auto) 0.0 Baso # (Auto) 0.0 Neutrophils % (Manual) 91 H Lymphocytes % (Manual) 6 L Monocytes % (Manual) 3 Platelet Estimate Normal Anisocytosis (manual) Puncture Site pCO2 pO2 HCO3 ABG pH ABG Total CO2 ABG O2 Saturation ABG Base Excess ABG Hemoglobin ABG Carboxyhemoglobin POC ABG HHb (Measured) ABG Methemoglobin Pankaj Test A-a O2 Difference Respiratory Index Hgb O2 Saturation Vent Mode FiO2 Inspiratory BiPAP Expiratory BiPAP Sodium 129 L Potassium 5.2 Chloride 89 L Carbon Dioxide 27 Anion Gap 18 BUN 80 H Creatinine 3.5 H Est GFR ( Amer) 22 Est GFR (Non-Af Amer) 18 POC Glucose (mg/dL) Random Glucose 184 H Hemoglobin A1c Calcium 7.8 L Phosphorus Magnesium 2.0 Total Bilirubin 1.0 AST 31 ALT 35 Alkaline Phosphatase 213 H Total Protein 7.0 Albumin 3.7 Globulin 3.3 Albumin/Globulin Ratio 1.1 Triglycerides Cholesterol LDL Cholesterol Direct HDL Cholesterol Free T4 TSH 3rd Generation Fluid Source Peritoneal Fluid Appearance Clear Fluid WBC 153.0 Fluid RBC 1192.0 H Fluid Tot Cell Count 100 H Fluid Neutrophils 45.0 H Fluid Lymphocytes 31.0 H Fld Monocyte/Macrophag 24 H Fluid Comment Ur L.pneumophila Ag 11/03/17 11/03/17 11/04/17 21:22 21:32 05:53 WBC RBC Hgb Hct MCV MCH MCHC RDW Plt Count MPV Neut % (Auto) Lymph % (Auto) Richardson % (Auto) Eos % (Auto) Baso % (Auto) Neut # (Auto) Lymph # (Auto) Richardson # (Auto) Eos # (Auto) Baso # (Auto) Neutrophils % (Manual) Lymphocytes % (Manual) Monocytes % (Manual) Platelet Estimate Anisocytosis (manual) Puncture Site pCO2 pO2 HCO3 ABG pH ABG Total CO2 ABG O2 Saturation ABG Base Excess ABG Hemoglobin ABG Carboxyhemoglobin POC ABG HHb (Measured) ABG Methemoglobin Pankaj Test A-a O2 Difference Respiratory Index Hgb O2 Saturation Vent Mode FiO2 Inspiratory BiPAP Expiratory BiPAP Sodium Potassium Chloride Carbon Dioxide Anion Gap BUN Creatinine Est GFR ( Amer) Est GFR (Non-Af Amer) POC Glucose (mg/dL) 184 H Random Glucose Hemoglobin A1c Calcium Phosphorus Magnesium Total Bilirubin AST ALT Alkaline Phosphatase Total Protein Albumin Globulin Albumin/Globulin Ratio Triglycerides Cholesterol LDL Cholesterol Direct HDL Cholesterol Free T4 0.96 TSH 3rd Generation Fluid Source Fluid Appearance Fluid WBC Fluid RBC Fluid Tot Cell Count Fluid Neutrophils Fluid Lymphocytes Fld Monocyte/Macrophag Fluid Comment Ur L.pneumophila Ag Negative 11/04/17 11/04/17 11/04/17 05:53 05:54 05:54 WBC 8.6 RBC 4.47 Hgb 13.5 Hct 40.8 MCV 91.3 MCH 30.2 MCHC 33.1 RDW 17.4 H Plt Count 202 MPV 8.7 Neut % (Auto) 92.3 H Lymph % (Auto) 3.2 L Richardson % (Auto) 4.4 Eos % (Auto) 0.0 Baso % (Auto) 0.1 Neut # (Auto) 8.0 H Lymph # (Auto) 0.3 L Richardson # (Auto) 0.4 Eos # (Auto) 0.0 Baso # (Auto) 0.0 Neutrophils % (Manual) 96 H Lymphocytes % (Manual) 2 L Monocytes % (Manual) 2 Platelet Estimate Normal Anisocytosis (manual) Slight Puncture Site pCO2 pO2 HCO3 ABG pH ABG Total CO2 ABG O2 Saturation ABG Base Excess ABG Hemoglobin ABG Carboxyhemoglobin POC ABG HHb (Measured) ABG Methemoglobin Pankaj Test A-a O2 Difference Respiratory Index Hgb O2 Saturation Vent Mode FiO2 Inspiratory BiPAP Expiratory BiPAP Sodium 131 L Potassium 4.8 Chloride 89 L Carbon Dioxide 29 Anion Gap 17 BUN 82 H Creatinine 3.2 H Est GFR ( Amer) 25 Est GFR (Non-Af Amer) 20 POC Glucose (mg/dL) Random Glucose 177 H Hemoglobin A1c 6.9 H Calcium 7.6 L Phosphorus 8.0 H Magnesium 2.0 Total Bilirubin 0.8 AST 30 ALT 29 Alkaline Phosphatase 210 H Total Protein 6.8 Albumin 3.5 Globulin 3.3 Albumin/Globulin Ratio 1.1 Triglycerides 146 Cholesterol 126 LDL Cholesterol Direct 75 HDL Cholesterol 23 L Free T4 TSH 3rd Generation 1.04 Fluid Source Fluid Appearance Fluid WBC Fluid RBC Fluid Tot Cell Count Fluid Neutrophils Fluid Lymphocytes Fld Monocyte/Macrophag Fluid Comment Ur L.pneumophila Ag 11/04/17 11/04/17 11/04/17 06:00 08:28 11:47 WBC RBC Hgb Hct MCV MCH MCHC RDW Plt Count MPV Neut % (Auto) Lymph % (Auto) Richardson % (Auto) Eos % (Auto) Baso % (Auto) Neut # (Auto) Lymph # (Auto) Richardson # (Auto) Eos # (Auto) Baso # (Auto) Neutrophils % (Manual) Lymphocytes % (Manual) Monocytes % (Manual) Platelet Estimate Anisocytosis (manual) Puncture Site Rradial pCO2 68 H pO2 94 HCO3 25.5 ABG pH 7.25 L ABG Total CO2 31.9 H ABG O2 Saturation 98.2 H ABG Base Excess 0.8 ABG Hemoglobin 13.4 ABG Carboxyhemoglobin 1.8 H POC ABG HHb (Measured) 1.7 ABG Methemoglobin 1.0 Pankaj Test Pos A-a O2 Difference 249.0 Respiratory Index 2.6 Hgb O2 Saturation 95.4 Vent Mode Bipap FiO2 60.0 Inspiratory BiPAP 18 Expiratory BiPAP 6 Sodium Potassium Chloride Carbon Dioxide Anion Gap BUN Creatinine Est GFR ( Amer) Est GFR (Non-Af Amer) POC Glucose (mg/dL) 162 H 172 H Random Glucose Hemoglobin A1c Calcium Phosphorus Magnesium Total Bilirubin AST ALT Alkaline Phosphatase Total Protein Albumin Globulin Albumin/Globulin Ratio Triglycerides Cholesterol LDL Cholesterol Direct HDL Cholesterol Free T4 TSH 3rd Generation Fluid Source Fluid Appearance Fluid WBC Fluid RBC Fluid Tot Cell Count Fluid Neutrophils Fluid Lymphocytes Fld Monocyte/Macrophag Fluid Comment Ur L.pneumophila Ag 11/04/17 15:57 WBC RBC Hgb Hct MCV MCH MCHC RDW Plt Count MPV Neut % (Auto) Lymph % (Auto) Richardson % (Auto) Eos % (Auto) Baso % (Auto) Neut # (Auto) Lymph # (Auto) Richardson # (Auto) Eos # (Auto) Baso # (Auto) Neutrophils % (Manual) Lymphocytes % (Manual) Monocytes % (Manual) Platelet Estimate Anisocytosis (manual) Puncture Site pCO2 pO2 HCO3 ABG pH ABG Total CO2 ABG O2 Saturation ABG Base Excess ABG Hemoglobin ABG Carboxyhemoglobin POC ABG HHb (Measured) ABG Methemoglobin Pankaj Test A-a O2 Difference Respiratory Index Hgb O2 Saturation Vent Mode FiO2 Inspiratory BiPAP Expiratory BiPAP Sodium Potassium Chloride Carbon Dioxide Anion Gap BUN Creatinine Est GFR ( Amer) Est GFR (Non-Af Amer) POC Glucose (mg/dL) 219 H Random Glucose Hemoglobin A1c Calcium Phosphorus Magnesium Total Bilirubin AST ALT Alkaline Phosphatase Total Protein Albumin Globulin Albumin/Globulin Ratio Triglycerides Cholesterol LDL Cholesterol Direct HDL Cholesterol Free T4 TSH 3rd Generation Fluid Source Fluid Appearance Fluid WBC Fluid RBC Fluid Tot Cell Count Fluid Neutrophils Fluid Lymphocytes Fld Monocyte/Macrophag Fluid Comment Ur L.pneumophila Ag Fingerstick Blood Sugar Results: 172 Critical Care Progress Note - Nutrition Nutrition: Nutrition Category Date Time Status Consistent Carbohydrate [DIET] Diets 11/04/17 Dinner Active
[2017-11-04] MEDS: Sodium Chloride 0.9% 1,000 ML IV SCH (18:57)
--- NOTE | 2017-11-04 19:31 | CP.PCM.PN ---
Subjective - Date & Time of Evaluation Date of Evaluation: 11/04/17 Time of Evaluation: 18:00 - Subjective Subjective: Hospitalist Progress Note Patient was seen and examined at 6 PM in ICU Bed #4 with Mother Sangeetha and Sister Rufina present and they both helped to translate sign language Currently upon FULL ROS: Breathing is much better on NC Has breakfast and lunch today without any n/v Last bowel movement was morning 11/03/17 before coming to hospital Abdominal pain is better after the paracentesis on 11/03/17 NO pain in the legs NO chest pain General: Patient is awake, reads lips of his Mother and Sister and performs sign language to communicate, following commands, does not appear to be in any distress HEENT: NCA, EOMI, PERRLA, NO lymphadenopathy, Pharynx without erythema/exudate, Nasal Turbinates are nonedematous and moist, Thyroid could not be adequately palpated secondary to body habitus Cardio: NS1 and NS2, NO M/R/G Respiratory: only upper lung patel could be auscultated bilaterally and could not appreciate any breath sounds from this point inferiorly GI: BSx4 decreased, Central Obesity, Palpation of Liver and Spleen were not attempted, RLQ Colostomy bag collecting Ascites fluid, NO guarding/rebound tenderness Ext: Bilateral Radial pulses are strong and equal, Bilateral Pedal pulses could not be palpated, Bilateral LE edema from the feet to the knees 1+pitting, there is purple to red discoloration from the ankles to just below the knees that is nonblanchable but not warm and mildly tender to touch, there are multiple small areas on bilateral lower legs that have weeping serous fluid, there are multiple patches of hyperkeratotic skin on the bilateral lower legs as well as the right heal Neuro: CN II through XII are grossly intact Assessment and plan 1. Right-sided Congestive Heart failure Exacerbation Acute hypercapnic hypoxic respiratory failure COPD? Duonebs 3ml of every 6 hours Solumedrol 40mg IV every 12H Spiriva 18 mcg INH Q24H Lasix drip at 5 mg per hour Echocardiogram 08/29/2017: Left ventricle is normal size, mild concentric left ventricular hypertrophy, left ventricle function is normal ejection fraction 55- 60%, right ventricle is severely dilated systolic function of RVs moderately to severely reduced. Trace aortic regurgitation mitral regurgitation is trace moderate tricuspid regurg elevated IVC was not visualized no pericardial effusion noted poor window but due to increased body habitus. Monitor daily weights and intake output Cardiology Dr. Barksdale Patient previously on atenolol and verapamil and this is being held at this time. 2. Acute Renal Failure on Chronic (Stage 3) Renal Failure/Possible Cardio-Renal Syndrome Assessment/Plan Nephrology Dr. Rich/Lj Dialysis consent obtained 11/03/17 however Nephrology is holding off on HD for now as renal function improved slightly after paracentesis on 11/03/17 3. Ascites As noted on U/S Abdomen 11/03/17 S/P 3L ascites fluid removed on 11/03/17: follow up fluid analysis Currently small amount of ascites fluid is still draining from the site of paracentesis in the RLQ (colostomy bag in place) 4. Pleural Effusions CT Chest 11/03/17 shows large right and small left pleural effusion Order placed for Thoracentesis via IR Dr. Austin for 11/05/17 5. History of Atrial flutter/Atrial fibrillation Patient is on Eliquis 5mg PO BID previously last dose given yesterday morning. Holding Verapamil and Atenolol given borderline normal blood pressure. 6. Bilateral Pneumonia CT Chest 11/03/17 showed prominent multifocal areas of consolidate changes bilaterally right greater than left suggestive of multifocal infiltrate with extensive lympadenopathy within mediastinum and axilla Patient will likely repeat CT Chest once he completes treatment for the bilateral pneumonia to make sure that there is NO underlying lesion. Cefepime 1 gm IV Q24H Linezolid 600 mg IV Q12H F/U Legionella urine, Mycoplasma pneumonia IgM, and Strep pneumonia urine Noted prior hospitalization in August of this year possible treatment for Hospital/ healthcare associated pneumonia ID Dr. Schaffer 7. History of DM 2 Hemoglobin A1C 6.9 Insulin sliding scale Holding metformin/glipizde on admission 8. Morbid obesity Will need aggressive lifestyle intervention especially in light of his other comorbidities including diabetes, right-sided heart failure, pulmonary hypertension 9. Hypothyroidism Levothyroxine 75 mg PO 1x/day 10. Hx Deafness Patient can read lips and sign language 11. Bilateral Lower Leg Cellulitis Unable to outline areas of discoloration as mentioned in physical exam above. However as noted on physical exam above, this area extends from the just above the bilateral malleoli to just inferior to the bilateral knees This may be combination of cellulitis and chronic venous insufficiency changes Cefepime 1 gm IV Q24H Linezolid [address] Schaffer 12. Edema F/U Bilateral Venous Duplex LE 13. Prophylactic measure Eliquis was placed on hold for the paracentesis on 11/03/17 and for the planned thoracentesis on 11/05/17 Heparin 5,000 Units SC Q8H Lactobacillus 1 cap PO 2x/day Protonix 40mg IV daily Monitor daily weights, I&O Extensive conversation with Mother Lottie and Sister Rufina who were at bedside at the time of exam concerning diagnoses above and plan: explained to both that the patient's heart failure can have frequent exacerbations considering the renal failure and the patient's multiple comorbidities. Discussesd with ICU Attending Dr. Acosta and plan is for Thoracentesis via IR for morning of 11/05/17. Ger Greene D.O. Objective - Vital Signs/Intake and Output Vital Signs (last 24 hours): Temp Pulse Resp BP Pulse Ox 98.1 F 110 H 12 126/61 91 L 11/04/17 16:00 11/04/17 18:00 11/04/17 18:00 11/04/17 17:13 11/04/17 18:00 Intake and Output: 11/04/17 11/04/17 06:59 18:59 Intake Total 735.0 1905.0 Output Total 1640 3370 Balance -905.0 -1465.0 - Medications Medications: Current Medications Albuterol/Ipratropium (Duoneb 3 Mg/0.5 Mg (3 Ml) Ud) 3 ml INH RQ6 [facility] Last Admin: 11/04/17 08:00 Dose: 3 ml Diltiazem HCl (Cardizem) 30 mg PO QID [facility] Last Admin: 11/04/17 14:30 Dose: 30 mg Heparin Sodium (Porcine) (Heparin) 5,000 units SC Q8 [facility] Last Admin: 11/04/17 13:04 Dose: Not Given Furosemide 100 mg/ Sodium (Chloride) 100 mls @ 5 mls/hr IVP .Q20H [facility] PRN Reason: 5 MG/HR Last Admin: 11/04/17 10:00 Dose: Not Given Cefepime HCl (Maxipime Iv 1 Gm Premix) 1 gm in 50 mls @ 100 mls/hr IVPB Q24H [facility] PRN Reason: Protocol Last Admin: 11/04/17 10:08 Dose: 100 mls/hr Sodium Chloride (Sodium Chloride 0.9%) 1,000 mls @ 50 mls/hr IV .Q20H [facility] Last Admin: 11/03/17 22:54 Dose: 50 mls/hr Linezolid (Zyvox 600mg/300ml D5w) 600 mg in 300 mls @ 200 mls/hr IVPB Q12H [facility] PRN Reason: Protocol Last Admin: 11/04/17 14:30 Dose: 200 mls/hr Insulin Human Regular (Novolin R) 0 unit SC ACHS [facility] PRN Reason: Protocol Last Admin: 11/04/17 12:15 Dose: 1 unit Lactobacillus Acidophilus (Bacid Acidophilus) 1 cap PO BID [facility] Last Admin: 11/04/17 09:58 Dose: 1 cap Levothyroxine Sodium (Synthroid) 75 mcg PO DAILY@0630 [facility] Last Admin: 11/04/17 06:21 Dose: 75 mcg Methylprednisolone (Solu-Medrol) 40 mg IVP Q12H [facility] Last Admin: 11/04/17 09:59 Dose: 40 mg Pantoprazole Sodium (Protonix Inj) 40 mg IVP DAILY [facility] Last Admin: 11/04/17 09:58 Dose: 40 mg Tiotropium [place] (Spiriva) 18 mcg INH RQ24 [facility] - Labs Labs: 11/04/17 05:53 11/04/17 05:54 PT 17.1 SECONDS (9.7-12.2) H 11/03/17 13:33 INR 1.6 11/03/17 13:33 APTT 28 SECONDS (21-34) 11/03/17 13:33
[2017-11-04] MEDS ORDERED: Dextrose 50% SYRINGE Inj (50 ml) IV PRN (19:40)
[2017-11-04] MEDS ORDERED: Glucagon Recombinant 1 mg Inj IM PRN (19:40)
[2017-11-04 19:48] LABS: N MENINGITIS ACY/W135 NEGATIVE (NEGATIVE); N MENINGITIS B/ECOLI K1 NEGATIVE (NEGATIVE); STREP PNEUMONIAE NEGATIVE (NEGATIVE); STREPTOCOCCUS B NEGATIVE (NEGATIVE)
[2017-11-04] MEDS: Tiotropium 18 mcg Cap For Inhalation INH SCH (20:27)
[2017-11-04 20:34] LABS: HEMOGLOBIN 14.1 g/dL (12.0-18.0); MEAN CORPUSCULAR HEMOGLOBIN 30.1 pg (27.0-31.0); MEAN CORPUSCULAR HGB CONC 33.1 g/dL (33.0-37.0); MEAN PLATELET VOLUME 8.6 fL (7.2-11.7); RBC 4.68 Mil/uL (4.40-5.90); RED CELL DISTRIBUTION WIDTH 17.2 % (11.5-14.5); WHITE BLOOD COUNT 9.7 K/uL (4.8-10.8)
[2017-11-04 20:50] LABS: ALB/GLOB RATIO 1.1 (1.0-2.1); ALBUMIN 3.6 g/dL (3.5-5.0); CALCIUM 7.5 mg/dl (8.6-10.4)
[2017-11-05] MEDS: Linezolid 600 mg in D5W 300 ml 600 MG/300 ML BAG IVPB SCH ×2 (01:07→13:00)
--- NOTE | 2017-11-05 02:53 | CON ---
DATE: 11/04/2017 CARDIOLOGY CONSULTATION REASON FOR CONSULTATION: Atrial flutter and right-sided heart failure. HISTORY OF PRESENT ILLNESS: The patient is 52-year-old morbidly obese white male who has a history of sleep apnea and was diagnosed a few months ago with atrial flutter, which was attributed to right-sided failure and pulmonary hypertension who was admitted three days ago to [facility] because of worsening shortness of breath and abdominal pain and swelling. The patient has no history of smoking or EtOH abuse in the past. The patient was admitted to the ICU and was found to have acute renal insufficiency that got worse over time and was transferred to [facility] for emergent hemodialysis. Upon arrival to the ICU, the patient's urine output has improved. Over here, he remains in atrial flutter with variable AV conduction. He denied any chest pain. He is still short of breath, on BiPAP. SOCIAL HISTORY: The patient is nonsmoker, nondrinker. 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 PAST MEDICAL HISTORY: Atrial flutter, sleep apnea, and morbid obesity. MEDICATIONS: Lactobacillus acidophilus one tablet twice a day, Cardizem 30 mg four times a day, albuterol inhaler every 6 hours, Lasix drip 5 mg/hour, heparin 5000 units subcutaneous every 8 hours, Maxipime 1 gm intravenously daily, Protonix 40 mg intravenously once a day, Solu-Medrol 40 mg intravenously every 2 hours, Spiriva 18 mcg inhalation daily, Synthroid 75 mg once a day, Zyvox 600 mg intravenously every 12 hours. The patient was earlier on milrinone infusion. REVIEW OF SYSTEMS: No reported fever or chills. No reported hematemesis. No reported dizziness or syncope. PHYSICAL EXAMINATION: GENERAL: The patient is a middle-aged male who is morbidly obese, currently on BiPAP. VITAL SIGNS: Blood pressure 115/50, heart rate 104, respirations 12, temperature 97.9. HEENT: Facial edema. CHEST: Absent breath sounds over the bases. HEART: S1 and S2, irregular. ABDOMEN: Moderate ascites. EXTREMITIES: 2 to 3+ pitting edema. LABORATORY DATA: SMA-7: Sodium 131, potassium 4.8, chloride 89, CO2 of 26, glucose 177, BUN 82, creatinine 3.2. This is from today. Today's hemoglobin and hematocrit, white count and platelet count are within normal limit. Yesterday's INR is 1.6, PTT 28. Chest x-ray revealed cardiomegaly with right middle and lower lobe infiltrates and right pleural effusion. Mild CHF. EKG revealed atrial flutter with variable AV block anterolateral infarct, age indeterminate. Echocardiographic study performed in 08/2017 revealed normal ejection fraction. Right ventricle severely dilated and RV systolic function moderately to severely reduced. Moderate tricuspid regurgitation. Right ventricular systolic pressure estimated at 51 mmHg. Abdominal ultrasound limited study for evaluation of ascites: Moderate amount of abdominal ascites noted. Chest CT scan revealed large as well as pleural effusion. Prominent multifocal areas of consolidative changes in both lungs, right greater than left suggestive of multifocal infiltrates with some superimposed areas of atelectasis. Extensive lymphadenopathy within the mediastinum and axilla. ASSESSMENT: 1. Severe right-sided failure with anasarca. 2. Sleep apnea. 3. Morbid obesity. 4. Secondary pulmonary hypertension. 5. Hypothyroidism. 6. Acute renal insufficiency. 7. Chronic atrial flutter. 8. Bilateral pneumonia, lower tract pleural effusion. 9. Moderate ascites. RECOMMENDATIONS: Continue current Lasix drip. IV Cardizem was recently started for rapid atrial flutter. Continue IV Maxipime and IV Zyvox. Continue Solu-Medrol 40 mg intravenously every 12 hours. Resume full anticoagulation unless the patient is planned to undergo repeat abdominal paracentesis or thoracocentesis or dialysis catheter placement is considered. Obtain venous Doppler of the lower extremities. See Barksdale MD
[2017-11-05] MEDS: Albuterol-Ipratrop 3 mg / 0.5 (3 ml) UD INH SCH ×3 (04:05→20:09)
[2017-11-05] MEDS: Levothyroxine 75 MCG TAB PO SCH (06:34)
[2017-11-05 06:41] LABS: BASO % 0.4 % (0.0-2.0); HEMOGLOBIN 14.2 g/dL (12.0-18.0); LYMPH # 0.2 K/uL (1.0-4.3); LYMPH % 3.4 % (20.0-40.0); MEAN CELL VOLUME 91.2 fL (80.0-94.0); MEAN CORPUSCULAR HEMOGLOBIN 30.4 pg (27.0-31.0); MEAN CORPUSCULAR HGB CONC 33.3 g/dL (33.0-37.0); MONO # 0.2 K/uL (0.0-0.8); MONO % 3.3 % (0.0-10.0); NEUT # 6.6 K/uL (1.8-7.0); NEUT % 92.9 % (50.0-75.0); PLATELET COUNT 182 K/uL (130-400); RBC 4.68 Mil/uL (4.40-5.90); RED CELL DISTRIBUTION WIDTH 17.2 % (11.5-14.5); WHITE BLOOD COUNT 7.1 K/uL (4.8-10.8)
[2017-11-05 06:46] LABS: ALB/GLOB RATIO 1.1 (1.0-2.1); ALBUMIN 3.4 g/dL (3.5-5.0); CALCIUM 7.8 mg/dl (8.6-10.4)
[2017-11-05] MEDS: Tiotropium 18 mcg Cap For Inhalation INH SCH (07:20)
[2017-11-05 08:20] LABS: BANDS 1 % (0-2); LYMPHOCYTE 2 % (20-40); MONOCYTE 4 % (0-10); NEUTROPHIL 93 % (50-75); PLATELET ESTIMATE NORMAL (NORMAL); TOTAL CELLS COUNTED 100
[2017-11-05 08:21] LABS: ANISOCYTOSIS SLIGHT
[2017-11-05] MEDS: (Novolin R) Insulin Human Regular 100 units/ml vial SC SCH ×4 (08:30→23:48)
[2017-11-05] MEDS: Cefepime IV 1 gm in Dextrose 1 GM/50 ML BAG IVPB SCH (09:00)
[2017-11-05] MEDS: Lactobacillus Acidophilus 500 MU Cap PO SCH ×2 (09:00→17:06)
[2017-11-05] MEDS: MethylPREDNISolone 40 mg Vial IVP SCH ×2 (09:00→21:29)
--- NOTE | 2017-11-05 10:13 | PCM.SURG1 ---
Surgeon's Initial Post Op Note - Surgeon's Notes Surgeon: Josesito Chacon MD Engrosser: NONE Pre-Operative Diagnosis: Right pleural effusion Operative Findings: US showed a moderate right effusion Post-Operative Diagnosis: Right pleural effusion Operation Performed: Thoracentesis Specimen/Specimens Removed: 900 cc of straw colored fluid Estimated Blood Loss: EBL {In ML}: 0 Blood Products Given: N/A Drains Used: No Drains Post-Op Condition: Fair Date of Surgery/Procedure: 11/05/17 Time of Surgery/Procedure: 13:00
--- NOTE | 2017-11-05 11:21 | CP.PCM.PN ---
Subjective - Date & Time of Evaluation Date of Evaluation: 11/05/17 Time of Evaluation: 09:00 - Subjective Subjective: less sob no fever appears comfortable making good urine belly still distended and legs fiery red Objective - Vital Signs/Intake and Output Vital Signs (last 24 hours): Temp Pulse Resp BP Pulse Ox 98.2 F 102 H 13 118/69 90 L 11/05/17 07:55 11/05/17 08:13 11/05/17 08:13 11/05/17 08:13 11/05/17 08:13 Intake and Output: 11/05/17 11/05/17 06:59 18:59 Intake Total 850 150 Output Total 3600 Balance -2750 150 - Medications Medications: Current Medications Albuterol/Ipratropium (Duoneb 3 Mg/0.5 Mg (3 Ml) Ud) 3 ml INH RQ6 [facility] Last Admin: 11/05/17 07:20 Dose: 3 ml Dextrose (Dextrose 50% Inj) 0 ml IV STAT PRN; Protocol PRN Reason: Hypoglycemia Protocol Dextrose (Glutose 15) 0 gm PO ONCE PRN; Protocol PRN Reason: Hypoglycemia Protocol Diltiazem HCl (Cardizem) 30 mg PO QID [facility] Last Admin: 11/05/17 09:00 Dose: 30 mg Glucagon (Glucagen Diagnostic Kit) 0 mg IM STAT PRN; Protocol PRN Reason: Hypoglycemia Protocol Heparin Sodium (Porcine) (Heparin) 5,000 units SC Q8 [facility] Last Admin: 11/05/17 05:40 Dose: Not Given Cefepime HCl (Maxipime Iv 1 Gm Premix) 1 gm in 50 mls @ 100 mls/hr IVPB Q24H [facility] PRN Reason: Protocol Last Admin: 11/05/17 09:00 Dose: 100 mls/hr Sodium Chloride (Sodium Chloride 0.9%) 1,000 mls @ 50 mls/hr IV .Q20H [facility] Last Admin: 11/04/17 18:57 Dose: Not Given Linezolid (Zyvox 600mg/300ml D5w) 600 mg in 300 mls @ 200 mls/hr IVPB Q12H [facility] PRN Reason: Protocol Last Admin: 11/05/17 01:07 Dose: 200 mls/hr Dextrose (Dextrose 5% In Water 1000 Ml) 1,000 mls @ 0 mls/hr IV .Q0M PRN; Protocol; Per Protocol PRN Reason: Hypoglycemia Protocol Insulin Human Regular (Novolin R) 0 unit SC ACHS [facility] PRN Reason: Protocol Last Admin: 11/05/17 08:30 Dose: 3 unit Lactobacillus Acidophilus (Bacid Acidophilus) 1 cap PO BID [facility] Last Admin: 11/05/17 09:00 Dose: 1 cap Levothyroxine Sodium (Synthroid) 75 mcg PO DAILY@0630 [facility] Last Admin: 11/05/17 06:34 Dose: 75 mcg Methylprednisolone (Solu-Medrol) 40 mg IVP Q12H [facility] Last Admin: 11/05/17 09:00 Dose: 40 mg Pantoprazole Sodium (Protonix Inj) 40 mg IVP DAILY [facility] Last Admin: 11/05/17 09:00 Dose: 40 mg Tiotropium [place] (Spiriva) 18 mcg INH RQ24 [facility] Last Admin: 11/05/17 07:20 Dose: 18 mcg - Labs Labs: 11/05/17 06:33 11/05/17 06:29 PT 17.1 SECONDS (9.7-12.2) H 11/03/17 13:33 INR 1.6 11/03/17 13:33 APTT 28 SECONDS (21-34) 11/03/17 13:33 - Constitutional Appears: Chronically Ill - Head Exam Head Exam: NORMOCEPHALIC - Eye Exam Eye Exam: absent: Scleral icterus - ENT Exam ENT Exam: Normal External Ear Exam - Neck Exam Neck Exam: absent: Lymphadenopathy - Respiratory Exam Respiratory Exam: Decreased Breath Sounds - Cardiovascular Exam Cardiovascular Exam: REGULAR RHYTHM - GI/Abdominal Exam GI & Abdominal Exam: Distended - Rectal Exam Rectal Exam: Deferred - Exam Exam: NORMAL INSPECTION - Extremities Exam Extremities Exam: absent: Pedal Edema - Back Exam Back Exam: absent: CVA tenderness (L), CVA tenderness (R) - Neurological Exam Neurological Exam: Alert, Awake, Oriented x3. absent: CN II-XII Intact Additional comments: deaf - Psychiatric Exam Psychiatric exam: Depressed - Skin Skin Exam: Dry Assessment and Plan (1) Deafness Status: Acute (2) Cor pulmonale Status: Acute (3) Ascites Status: Acute (4) Atrial flutter with rapid ventricular response Status: Acute (5) CHF (congestive heart failure) Status: Acute (6) COPD (chronic obstructive pulmonary disease) Status: Acute (7) Cellulitis Status: Acute (8) Pulmonary emphysema Status: Acute (9) Renal insufficiency Status: Acute (10) Respiratory distress Status: Acute - Assessment and Plan (Free Text) Assessment: cont iv rx for cellulitis/ uti/ sepsis
--- NOTE | 2017-11-05 11:26 | CP.PCM.PN ---
Subjective - Date & Time of Evaluation Date of Evaluation: 11/05/17 Time of Evaluation: 11:20 - Subjective Subjective: Nephrology Consultation Note Assessment: critical AMY likely due to abdomen compartment syndrome and also contrubution by cardio- renal syndrome: IMPROVED s/p paracentesis Hyperkalemia likely due to AMY and acidemia resulting in transcellular shifts: resolved CKD stage 3 with baseline cr 1.1-1.4 mg/dL fluid overload with hyponatremia, COPD/CHF exacerbation with pneumonia acute on chronic hypercapnic respi failure deafness, DM, HTN, A flutter, morbid obesity, ex smoker, Rt heart failure with cor-pulmonale, pulmonary HTN, chronic leg edema, ascites Rt pleural effusion s/p thoracocentesis Plan UOP much better and K normalized. Hence, no acute need for dialysis at this time maintain hemodynamics stable. avoid hypotension. no RAAS gene due to AMY and hyperkalemia monitor I/O daily weights and renal function with BMP maintain negative net balance of at-least 1-2 L/day may give diuretics as needed Dose meds/antibiotics for reduced GFR. Avoid fleets enema/magnesium based laxatives. Avoid nephrotoxins/NSAIDs/ iodinated contrast (unless needed emergently) Glycemic control, oral fluid/salt restriction In prison, pt need weight loss, diet modification and lifestyle changes Further work up for as per primary team. Thanks for allowing me to participate in care of your patient. will follow with you. Please call if any Qs. had d/w team Dr Basilio Rich Office: [phone] HPI: Pt is a 52 y/o M with hx of deafness, DM, HTN, A flutter, morbid obesity, ex smoker, Rt heart failure with cor-pulmonale, pulmonary HTN, chronic leg edema , ascites came with worsening SOB and being managed for COPD/CHF exacerbation/ pneumonia. renal consult for AMY management. pt not aware about kidney disease in past no known OTC/nsaids/herbal meds no recent contrast exposure. no episode of low BP noted baseline cr 1.1-1.4 last month. USED [facility] for sign and language interpretation. ROS: he denies chest pain/nausea/vomiting. reports chronic leg swelling. SOB much better Physical Examination: General Appearance: Comfortable, co-operative. better appearing, morbidly obese Vitals reviewed and noted as below Head; Atraumatic, normocephalic ENT: he has hearing impairment EYES: Pupils are equal, round and reactive to light accommodation. Eye muscles and extraocular movement intact. Sclera is anicteric. Neck; supple no lymphadenopathy, no thyromegaly or bruit Lungs: normal respiratory rate/effort. Breath sounds b/l decreased with basal crackles Heart: Normal rate. s1s2 normal. No rub or gallop. Extremities: 2+ edema. No varicose veins. has chronic venous stasis changes in legs with erythema/skin thickening Neurological: Patient is alert, awake, oriented x 3 follows commands, no focal deficit. Skin: dry and warm. Normal turgor. No rash. Palpitation: Normal elasticity for age. Abdomen: Abdomen is soft non tender no apparent organomegaly however exam limited as grossly distended. Psych: normal insight. has normal affect and mood MSK: no specific joint tenderness or swelling. Digits and nails normal, no deformity : kidney not palpable. bladder not distended . has [place] Labs/imaging/EKG reviewed. Past medical history, past surgical history, social history, allergy reviewed and noted as below Family hx; no known hx of CKD> rest non contributory work up: UA SG >1.030 urine Na 6 Fena 0.4% echo: severe RV dilation and dysfunction, elevated RVSP. preserved LVEF renal imaging in past unremarkable Objective - Vital Signs/Intake and Output Vital Signs (last 24 hours): Temp Pulse Resp BP Pulse Ox 98.2 F 102 H 13 118/69 90 L 11/05/17 07:55 11/05/17 08:13 11/05/17 08:13 11/05/17 08:13 11/05/17 08:13 Intake and Output: 11/05/17 11/05/17 06:59 18:59 Intake Total 850 150 Output Total 3600 Balance -2750 150 - Medications Medications: Current Medications Albuterol/Ipratropium (Duoneb 3 Mg/0.5 Mg (3 Ml) Ud) 3 ml INH RQ6 [facility] Last Admin: 11/05/17 07:20 Dose: 3 ml Dextrose (Dextrose 50% Inj) 0 ml IV STAT PRN; Protocol PRN Reason: Hypoglycemia Protocol Dextrose (Glutose 15) 0 gm PO ONCE PRN; Protocol PRN Reason: Hypoglycemia Protocol Diltiazem HCl (Cardizem) 30 mg PO QID [facility] Last Admin: 11/05/17 09:00 Dose: 30 mg Glucagon (Glucagen Diagnostic Kit) 0 mg IM STAT PRN; Protocol PRN Reason: Hypoglycemia Protocol Heparin Sodium (Porcine) (Heparin) 5,000 units SC Q8 [facility] Last Admin: 11/05/17 05:40 Dose: Not Given Cefepime HCl (Maxipime Iv 1 Gm Premix) 1 gm in 50 mls @ 100 mls/hr IVPB Q24H [facility] PRN Reason: Protocol Last Admin: 11/05/17 09:00 Dose: 100 mls/hr Sodium Chloride (Sodium Chloride 0.9%) 1,000 mls @ 50 mls/hr IV .Q20H [facility] Last Admin: 11/04/17 18:57 Dose: Not Given Linezolid (Zyvox 600mg/300ml D5w) 600 mg in 300 mls @ 200 mls/hr IVPB Q12H [facility] PRN Reason: Protocol Last Admin: 11/05/17 01:07 Dose: 200 mls/hr Dextrose (Dextrose 5% In Water 1000 Ml) 1,000 mls @ 0 mls/hr IV .Q0M PRN; Protocol; Per Protocol PRN Reason: Hypoglycemia Protocol Insulin Human Regular (Novolin R) 0 unit SC ACHS [facility] PRN Reason: Protocol Last Admin: 11/05/17 08:30 Dose: 3 unit Lactobacillus Acidophilus (Bacid Acidophilus) 1 cap PO BID [facility] Last Admin: 11/05/17 09:00 Dose: 1 cap Levothyroxine Sodium (Synthroid) 75 mcg PO DAILY@0630 [facility] Last Admin: 11/05/17 06:34 Dose: 75 mcg Methylprednisolone (Solu-Medrol) 40 mg IVP Q12H [facility] Last Admin: 11/05/17 09:00 Dose: 40 mg Pantoprazole Sodium (Protonix Inj) 40 mg IVP DAILY [facility] Last Admin: 11/05/17 09:00 Dose: 40 mg Tiotropium [place] (Spiriva) 18 mcg INH RQ24 [facility] Last Admin: 11/05/17 07:20 Dose: 18 mcg - Labs Labs: 11/05/17 06:33 11/05/17 06:29 PT 17.1 SECONDS (9.7-12.2) H 11/03/17 13:33 INR 1.6 11/03/17 13:33 APTT 28 SECONDS (21-34) 11/03/17 13:33
--- NOTE | 2017-11-05 13:22 | RAD ---
Date of service: 11/05/2017 HISTORY: Right thoracentesis. S/P COMPARISON: Chest radiograph dated 11/04/2017. FINDINGS: LUNGS: Prominence of the pulmonary vasculature may be secondary to AP technique and/or pulmonary vascular congestion. Similar hazy change involving the right lung and left base. PLEURA: Difficult to quantify and evaluate for bilateral pleural effusions due to patient body habitus and suboptimal technique. No pneumothorax apparent. CARDIOVASCULAR: Normal. OSSEOUS STRUCTURES: No significant abnormalities. VISUALIZED UPPER ABDOMEN: Normal. OTHER FINDINGS: None. IMPRESSION: Difficult to quantify no evaluate for pleural effusions due to patient body habitus and suboptimal technique. No appreciable pneumothorax.
--- NOTE | 2017-11-05 13:28 | CP.CCUPN ---
CCU Subjective - Physician Review Subjective (Free Text): 11/05/17 17:00 52 yo M w/ PMHx of Deafness, obesity, obesity hypoventilation, cor pulmonale, COPD on home O2, intermittent A fib, HTN, HLD, chronic venous congestion, anasarca and renal insufficiency admitted to [place] w/ SOB and worsening renal fxn; pt subsequently transferred to [facility] ICU for further management including HD. Pt seen and examined at bedside. Complains of chronic back pain. Denies chest pain, nausea, diarrhea, CCU Objective - Vital Signs / Intake & Output Vital Signs (Last 4 hours): Vital Signs Temp Pulse Resp BP Pulse Ox 11/05/17 12:00 98.5 F 11/05/17 11:13 113 H 15 126/79 92 L 11/05/17 11:00 107 H 13 11/05/17 10:13 107 H 13 113/70 89 L 11/05/17 10:10 106 H 15 117/75 11/05/17 10:00 111 H 13 91 L 11/05/17 09:13 104 H 15 108/68 90 L 11/05/17 09:00 112 H 13 90 L Intake and Output (Last 8hrs): Intake & Output 11/04/17 11/05/17 11/05/17 22:59 06:59 14:59 Intake Total 900 650 250 Output Total 1950 2700 Balance -1050 -2050 250 Intake: Intake, IV Amount 400 650 250 Left Hand 400 650 250 Left Upper arm 0 Right Wrist 0 Oral 500 Output: Drainage 550 1100 RIGHT MID ABD DRAIN BAG 550 1100 Urine 1400 1600 Urethral (Hoang) 1400 1600 Stool 0 0 Emesis 0 - Physical Exam Head: Positive for: Atraumatic, Normocephalic Extroacular Muscles: Positive for: EOMI Conjunctiva: Positive for: Normal Mouth: Positive for: Moist Mucous Membranes Respiratory/Chest: Positive for: Clear to Auscultation, Good Air Exchange, Wheezes (R>L). Negative for: Respiratory Distress, Accessory Muscle Use Cardiovascular: Positive for: Regular Rate and Rhythm, Normal S1, S2. Negative for: Murmurs Abdomen: Positive for: Distention, Normal Bowel Sounds Lower Extremity: Positive for: Edema Neurological: Positive for: GCS=15 Skin: Positive for: Other (LE venous insufficiency) Psychiatric: Positive for: Alert, Oriented x 3 - Medications Active Medications: Active Medications Generic Name Dose Route Start Last Admin Trade Name Freq PRN Reason Stop Dose Admin Albuterol/Ipratropium 3 ml 11/03/17 14:00 11/05/17 07:20 Duoneb 3 Mg/0.5 Mg (3 Ml) Ud INH 3 ml RQ6 JOSE E Administration Dextrose 0 ml 11/04/17 19:40 Dextrose 50% Inj IV STAT PRN Hypoglycemia Protocol Protocol Dextrose 0 gm 11/04/17 19:40 Glutose 15 PO ONCE PRN Hypoglycemia Protocol Protocol Diltiazem HCl 30 mg 11/04/17 10:00 11/05/17 09:00 Cardizem PO 30 mg QID JOSE E Administration Glucagon 0 mg 11/04/17 19:40 Glucagen Diagnostic Kit IM STAT PRN Hypoglycemia Protocol Protocol Heparin Sodium (Porcine) 5,000 units 11/03/17 22:00 11/05/17 05:40 Heparin SC Not Given Q8 JOSE E Cefepime HCl 1 gm in 50 mls @ 100 mls/hr 11/04/17 10:00 11/05/17 09:00 Maxipime Iv 1 Gm Premix IVPB 100 mls/hr Q24H JOSE E Administration Protocol Sodium Chloride 1,000 mls @ 50 mls/hr 11/03/17 22:45 11/04/17 18:57 Sodium Chloride 0.9% IV Not Given .Q20H JOSE E Linezolid 600 mg in 300 mls @ 200 mls/hr 11/04/17 14:00 11/05/17 01:07 Zyvox 600mg/300ml D5w IVPB 200 mls/hr Q12H JOSE E Administration Protocol Dextrose 1,000 mls @ 0 mls/hr 11/04/17 19:40 Dextrose 5% In Water 1000 Ml IV .Q0M PRN Hypoglycemia Protocol Protocol Per Protocol Insulin Human Regular 0 unit 11/03/17 16:30 11/05/17 08:30 Novolin R SC 3 unit ACHS JOSE E Administration Protocol Lactobacillus Acidophilus 1 cap 11/04/17 10:00 11/05/17 09:00 Bacid Acidophilus PO 1 cap BID JOSE E Administration Levothyroxine Sodium 75 mcg 11/04/17 06:30 11/05/17 06:34 Synthroid PO 75 mcg DAILY@0630 JOSE E Administration Methylprednisolone 40 mg 11/03/17 22:00 11/05/17 09:00 Solu-Medrol IVP 40 mg Q12H JOSE E Administration Pantoprazole Sodium 40 mg 11/04/17 10:00 11/05/17 09:00 Protonix Inj IVP 40 mg DAILY JOSE E Administration Tiotropium Rochelle 18 mcg 11/04/17 08:00 11/05/17 07:20 Spiriva INH 18 mcg RQ24 JOSE E Administration - Patient Studies Lab Studies: Microbiology Studies 11/04/17 05:54 Gram Stain - Final Leg - Right Wound Culture - Preliminary NO GROWTH AFTER 24 HOURS 11/03/17 13:33 MRSA Culture (Admit) - Final Naris MRSA NOT DETECTED Lab Studies 11/05/17 11/05/17 11/05/17 Range/Units 11:26 07:26 06:33 WBC 7.1 (4.8-10.8) K/uL RBC 4.68 (4.40-5.90) Mil/uL Hgb 14.2 (12.0-18.0) g/dL Hct 42.6 (35.0-51.0) % MCV 91.2 (80.0-94.0) fL MCH 30.4 (27.0-31.0) pg MCHC 33.3 (33.0-37.0) g/dL RDW 17.2 H (11.5-14.5) % Plt Count 182 (130-400) K/uL MPV 9.0 (7.2-11.7) fL Neut % (Auto) 92.9 H (50.0-75.0) % Lymph % (Auto) 3.4 L (20.0-40.0) % [place] % (Auto) 3.3 (0.0-10.0) % Eos % (Auto) 0.0 (0.0-4.0) % Baso % (Auto) 0.4 (0.0-2.0) % Neut # (Auto) 6.6 (1.8-7.0) K/uL Lymph # (Auto) 0.2 L (1.0-4.3) K/uL [place] # (Auto) 0.2 (0.0-0.8) K/uL Eos # (Auto) 0.0 (0.0-0.7) K/uL Baso # (Auto) 0.0 (0.0-0.2) K/uL Neutrophils % (Manual) 93 H (50-75) % Band Neutrophils % 1 (0-2) % Lymphocytes % (Manual) 2 L (20-40) % Monocytes % (Manual) 4 (0-10) % Platelet Estimate Normal (NORMAL) Anisocytosis (manual) Slight Sodium (132-148) mmol/L Potassium (3.6-5.2) mmol/L Chloride (98-107) mmol/L Carbon Dioxide (22-30) mmol/L Anion Gap (10-20) BUN (9-20) mg/dL Creatinine (0.8-1.5) mg/dL Est GFR ( Amer) Est GFR (Non-Af Amer) POC Glucose (mg/dL) 282 H 267 H (65-110) mg/dL Random Glucose (75-110) mg/dL Calcium (8.6-10.4) mg/dl Phosphorus (2.5-4.5) mg/dL Magnesium (1.6-2.3) mg/dL Total Bilirubin (0.2-1.3) mg/dL AST (17-59) U/L ALT (21-72) U/L Alkaline Phosphatase (38-126) U/L Total Protein (6.3-8.3) g/dL Albumin (3.5-5.0) g/dL Globulin (2.2-3.9) gm/dL Albumin/Globulin Ratio (1.0-2.1) Procalcitonin (0.19-0.49) NG/ML RPR (NONREACTIVE) HIV 1&2 Antibody Screen (NEGATIVE) H.influenzae Type B Ag (NEGATIVE) Mycoplasma pneumon IgM (NEGATIVE) N.meningitidis ACY/W135 (NEGATIVE) N.meningi B/E.coli K1 Ag (NEGATIVE) Group B Strep Antigen (NEGATIVE) S. pneumoniae Antigen (NEGATIVE) 11/05/17 11/04/17 11/04/17 Range/Units 06:29 21:27 20:30 WBC (4.8-10.8) K/uL RBC (4.40-5.90) Mil/uL Hgb (12.0-18.0) g/dL Hct (35.0-51.0) % MCV (80.0-94.0) fL MCH (27.0-31.0) pg MCHC (33.0-37.0) g/dL RDW (11.5-14.5) % Plt Count (130-400) K/uL MPV (7.2-11.7) fL Neut % (Auto) (50.0-75.0) % Lymph % (Auto) (20.0-40.0) % [place] % (Auto) (0.0-10.0) % Eos % (Auto) (0.0-4.0) % Baso % (Auto) (0.0-2.0) % Neut # (Auto) (1.8-7.0) K/uL Lymph # (Auto) (1.0-4.3) K/uL [place] # (Auto) (0.0-0.8) K/uL Eos # (Auto) (0.0-0.7) K/uL Baso # (Auto) (0.0-0.2) K/uL Neutrophils % (Manual) (50-75) % Band Neutrophils % (0-2) % Lymphocytes % (Manual) (20-40) % Monocytes % (Manual) (0-10) % Platelet Estimate (NORMAL) Anisocytosis (manual) Sodium 133 132 (132-148) mmol/L Potassium 5.0 4.9 (3.6-5.2) mmol/L Chloride 91 L 90 L (98-107) mmol/L Carbon Dioxide 31 H 31 H (22-30) mmol/L Anion Gap 15 16 (10-20) BUN 84 H 86 H (9-20) mg/dL Creatinine 2.1 H 2.6 H (0.8-1.5) mg/dL Est GFR ( Amer) 40 32 Est GFR (Non-Af Amer) 33 26 POC Glucose (mg/dL) 232 H (65-110) mg/dL Random Glucose 257 H 223 H (75-110) mg/dL Calcium 7.8 L 7.5 L (8.6-10.4) mg/dl Phosphorus 5.8 H (2.5-4.5) mg/dL Magnesium 2.1 2.1 (1.6-2.3) mg/dL Total Bilirubin 0.9 0.9 (0.2-1.3) mg/dL AST 28 28 (17-59) U/L ALT 29 33 (21-72) U/L Alkaline Phosphatase 166 H 187 H (38-126) U/L Total Protein 6.6 6.9 (6.3-8.3) g/dL Albumin 3.4 L 3.6 (3.5-5.0) g/dL Globulin 3.2 3.3 (2.2-3.9) gm/dL Albumin/Globulin Ratio 1.1 1.1 (1.0-2.1) Procalcitonin (0.19-0.49) NG/ML RPR (NONREACTIVE) HIV 1&2 Antibody Screen (NEGATIVE) H.influenzae Type B Ag (NEGATIVE) Mycoplasma pneumon IgM (NEGATIVE) N.meningitidis ACY/W135 (NEGATIVE) N.meningi B/E.coli K1 Ag (NEGATIVE) Group B Strep Antigen (NEGATIVE) S. pneumoniae Antigen (NEGATIVE) 11/04/17 11/04/17 11/04/17 Range/Units 20:30 20:30 20:30 WBC 9.7 (4.8-10.8) K/uL RBC 4.68 (4.40-5.90) Mil/uL Hgb 14.1 (12.0-18.0) g/dL Hct 42.6 (35.0-51.0) % MCV 91.0 (80.0-94.0) fL MCH 30.1 (27.0-31.0) pg MCHC 33.1 (33.0-37.0) g/dL RDW 17.2 H (11.5-14.5) % Plt Count 179 (130-400) K/uL MPV 8.6 (7.2-11.7) fL Neut % (Auto) (50.0-75.0) % Lymph % (Auto) (20.0-40.0) % [place] % (Auto) (0.0-10.0) % Eos % (Auto) (0.0-4.0) % Baso % (Auto) (0.0-2.0) % Neut # (Auto) (1.8-7.0) K/uL Lymph # (Auto) (1.0-4.3) K/uL [place] # (Auto) (0.0-0.8) K/uL Eos # (Auto) (0.0-0.7) K/uL Baso # (Auto) (0.0-0.2) K/uL Neutrophils % (Manual) (50-75) % Band Neutrophils % (0-2) % Lymphocytes % (Manual) (20-40) % Monocytes % (Manual) (0-10) % Platelet Estimate (NORMAL) Anisocytosis (manual) Sodium (132-148) mmol/L Potassium (3.6-5.2) mmol/L Chloride (98-107) mmol/L Carbon Dioxide (22-30) mmol/L Anion Gap (10-20) BUN (9-20) mg/dL Creatinine (0.8-1.5) mg/dL Est GFR ( Amer) Est GFR (Non-Af Amer) POC Glucose (mg/dL) (65-110) mg/dL Random Glucose (75-110) mg/dL Calcium (8.6-10.4) mg/dl Phosphorus (2.5-4.5) mg/dL Magnesium (1.6-2.3) mg/dL Total Bilirubin (0.2-1.3) mg/dL AST (17-59) U/L ALT (21-72) U/L Alkaline Phosphatase (38-126) U/L Total Protein (6.3-8.3) g/dL Albumin (3.5-5.0) g/dL Globulin (2.2-3.9) gm/dL Albumin/Globulin Ratio (1.0-2.1) Procalcitonin (0.19-0.49) NG/ML RPR Nonreactive (NONREACTIVE) HIV 1&2 Antibody Screen Negative (NEGATIVE) H.influenzae Type B Ag (NEGATIVE) Mycoplasma pneumon IgM (NEGATIVE) N.meningitidis ACY/W135 (NEGATIVE) N.meningi B/E.coli K1 Ag (NEGATIVE) Group B Strep Antigen (NEGATIVE) S. pneumoniae Antigen (NEGATIVE) 11/04/17 11/04/17 11/04/17 Range/Units 20:30 20:30 15:57 WBC (4.8-10.8) K/uL RBC (4.40-5.90) Mil/uL Hgb (12.0-18.0) g/dL Hct (35.0-51.0) % MCV (80.0-94.0) fL MCH (27.0-31.0) pg MCHC (33.0-37.0) g/dL RDW (11.5-14.5) % Plt Count (130-400) K/uL MPV (7.2-11.7) fL Neut % (Auto) (50.0-75.0) % Lymph % (Auto) (20.0-40.0) % [place] % (Auto) (0.0-10.0) % Eos % (Auto) (0.0-4.0) % Baso % (Auto) (0.0-2.0) % Neut # (Auto) (1.8-7.0) K/uL Lymph # (Auto) (1.0-4.3) K/uL [place] # (Auto) (0.0-0.8) K/uL Eos # (Auto) (0.0-0.7) K/uL Baso # (Auto) (0.0-0.2) K/uL Neutrophils % (Manual) (50-75) % Band Neutrophils % (0-2) % Lymphocytes % (Manual) (20-40) % Monocytes % (Manual) (0-10) % Platelet Estimate (NORMAL) Anisocytosis (manual) Sodium (132-148) mmol/L Potassium (3.6-5.2) mmol/L Chloride (98-107) mmol/L Carbon Dioxide (22-30) mmol/L Anion Gap (10-20) BUN (9-20) mg/dL Creatinine (0.8-1.5) mg/dL Est GFR ( Amer) Est GFR (Non-Af Amer) POC Glucose (mg/dL) 219 H (65-110) mg/dL Random Glucose (75-110) mg/dL Calcium (8.6-10.4) mg/dl Phosphorus (2.5-4.5) mg/dL Magnesium (1.6-2.3) mg/dL Total Bilirubin (0.2-1.3) mg/dL AST (17-59) U/L ALT (21-72) U/L Alkaline Phosphatase (38-126) U/L Total Protein (6.3-8.3) g/dL Albumin (3.5-5.0) g/dL Globulin (2.2-3.9) gm/dL Albumin/Globulin Ratio (1.0-2.1) Procalcitonin 0.09 L (0.19-0.49) NG/ML RPR (NONREACTIVE) HIV 1&2 Antibody Screen (NEGATIVE) H.influenzae Type B Ag (NEGATIVE) Mycoplasma pneumon IgM Negative (NEGATIVE) N.meningitidis ACY/W135 (NEGATIVE) N.meningi B/E.coli K1 Ag (NEGATIVE) Group B Strep Antigen (NEGATIVE) S. pneumoniae Antigen (NEGATIVE) 11/03/17 Range/Units 21:22 WBC (4.8-10.8) K/uL RBC (4.40-5.90) Mil/uL Hgb (12.0-18.0) g/dL Hct (35.0-51.0) % MCV (80.0-94.0) fL MCH (27.0-31.0) pg MCHC (33.0-37.0) g/dL RDW (11.5-14.5) % Plt Count (130-400) K/uL MPV (7.2-11.7) fL Neut % (Auto) (50.0-75.0) % Lymph % (Auto) (20.0-40.0) % [place] % (Auto) (0.0-10.0) % Eos % (Auto) (0.0-4.0) % Baso % (Auto) (0.0-2.0) % Neut # (Auto) (1.8-7.0) K/uL Lymph # (Auto) (1.0-4.3) K/uL [place] # (Auto) (0.0-0.8) K/uL Eos # (Auto) (0.0-0.7) K/uL Baso # (Auto) (0.0-0.2) K/uL Neutrophils % (Manual) (50-75) % Band Neutrophils % (0-2) % Lymphocytes % (Manual) (20-40) % Monocytes % (Manual) (0-10) % Platelet Estimate (NORMAL) Anisocytosis (manual) Sodium (132-148) mmol/L Potassium (3.6-5.2) mmol/L Chloride (98-107) mmol/L Carbon Dioxide (22-30) mmol/L Anion Gap (10-20) BUN (9-20) mg/dL Creatinine (0.8-1.5) mg/dL Est GFR ( Amer) Est GFR (Non-Af Amer) POC Glucose (mg/dL) (65-110) mg/dL Random Glucose (75-110) mg/dL Calcium (8.6-10.4) mg/dl Phosphorus (2.5-4.5) mg/dL Magnesium (1.6-2.3) mg/dL Total Bilirubin (0.2-1.3) mg/dL AST (17-59) U/L ALT (21-72) U/L Alkaline Phosphatase (38-126) U/L Total Protein (6.3-8.3) g/dL Albumin (3.5-5.0) g/dL Globulin (2.2-3.9) gm/dL Albumin/Globulin Ratio (1.0-2.1) Procalcitonin (0.19-0.49) NG/ML RPR (NONREACTIVE) HIV 1&2 Antibody Screen (NEGATIVE) H.influenzae Type B Ag Negative (NEGATIVE) Mycoplasma pneumon IgM (NEGATIVE) N.meningitidis ACY/W135 Negative (NEGATIVE) N.meningi B/E.coli K1 Ag Negative (NEGATIVE) Group B Strep Antigen Negative (NEGATIVE) S. pneumoniae Antigen Negative (NEGATIVE) Laboratory Results - last 24 hr 11/03/17 11/04/17 11/04/17 21:22 15:57 20:30 WBC RBC Hgb Hct MCV MCH MCHC RDW Plt Count MPV Neut % (Auto) Lymph % (Auto) [place] % (Auto) Eos % (Auto) Baso % (Auto) Neut # (Auto) Lymph # (Auto) [place] # (Auto) Eos # (Auto) Baso # (Auto) Neutrophils % (Manual) Band Neutrophils % Lymphocytes % (Manual) Monocytes % (Manual) Platelet Estimate Anisocytosis (manual) Sodium Potassium Chloride Carbon Dioxide Anion Gap BUN Creatinine Est GFR ( Amer) Est GFR (Non-Af Amer) POC Glucose (mg/dL) 219 H Random Glucose Calcium Phosphorus Magnesium Total Bilirubin AST ALT Alkaline Phosphatase Total Protein Albumin Globulin Albumin/Globulin Ratio Procalcitonin RPR HIV 1&2 Antibody Screen H.influenzae Type B Ag Negative Mycoplasma pneumon IgM Negative N.meningitidis ACY/W135 Negative N.meningi B/E.coli K1 Ag Negative Group B Strep Antigen Negative S. pneumoniae Antigen Negative 11/04/17 11/04/17 11/04/17 20:30 20:30 20:30 WBC RBC Hgb Hct MCV MCH MCHC RDW Plt Count MPV Neut % (Auto) Lymph % (Auto) [place] % (Auto) Eos % (Auto) Baso % (Auto) Neut # (Auto) Lymph # (Auto) [place] # (Auto) Eos # (Auto) Baso # (Auto) Neutrophils % (Manual) Band Neutrophils % Lymphocytes % (Manual) Monocytes % (Manual) Platelet Estimate Anisocytosis (manual) Sodium Potassium Chloride Carbon Dioxide Anion Gap BUN Creatinine Est GFR ( Amer) Est GFR (Non-Af Amer) POC Glucose (mg/dL) Random Glucose Calcium Phosphorus Magnesium Total Bilirubin AST ALT Alkaline Phosphatase Total Protein Albumin Globulin Albumin/Globulin Ratio Procalcitonin 0.09 L RPR Nonreactive HIV 1&2 Antibody Screen Negative H.influenzae Type B Ag Mycoplasma pneumon IgM N.meningitidis ACY/W135 N.meningi B/E.coli K1 Ag Group B Strep Antigen S. pneumoniae Antigen 11/04/17 11/04/17 11/04/17 20:30 20:30 21:27 WBC 9.7 RBC 4.68 Hgb 14.1 Hct 42.6 MCV 91.0 MCH 30.1 MCHC 33.1 RDW 17.2 H Plt Count 179 MPV 8.6 Neut % (Auto) Lymph % (Auto) [place] % (Auto) Eos % (Auto) Baso % (Auto) Neut # (Auto) Lymph # (Auto) [place] # (Auto) Eos # (Auto) Baso # (Auto) Neutrophils % (Manual) Band Neutrophils % Lymphocytes % (Manual) Monocytes % (Manual) Platelet Estimate Anisocytosis (manual) Sodium 132 Potassium 4.9 Chloride 90 L Carbon Dioxide 31 H Anion Gap 16 BUN 86 H Creatinine 2.6 H Est GFR ( Amer) 32 Est GFR (Non-Af Amer) 26 POC Glucose (mg/dL) 232 H Random Glucose 223 H Calcium 7.5 L Phosphorus Magnesium 2.1 Total Bilirubin 0.9 AST 28 ALT 33 Alkaline Phosphatase 187 H Total Protein 6.9 Albumin 3.6 Globulin 3.3 Albumin/Globulin Ratio 1.1 Procalcitonin RPR HIV 1&2 Antibody Screen H.influenzae Type B Ag Mycoplasma pneumon IgM N.meningitidis ACY/W135 N.meningi B/E.coli K1 Ag Group B Strep Antigen S. pneumoniae Antigen 11/05/17 11/05/17 11/05/17 06:29 06:33 07:26 WBC 7.1 RBC 4.68 Hgb 14.2 Hct 42.6 MCV 91.2 MCH 30.4 MCHC 33.3 RDW 17.2 H Plt Count 182 MPV 9.0 Neut % (Auto) 92.9 H Lymph % (Auto) 3.4 L [place] % (Auto) 3.3 Eos % (Auto) 0.0 Baso % (Auto) 0.4 Neut # (Auto) 6.6 Lymph # (Auto) 0.2 L [place] # (Auto) 0.2 Eos # (Auto) 0.0 Baso # (Auto) 0.0 Neutrophils % (Manual) 93 H Band Neutrophils % 1 Lymphocytes % (Manual) 2 L Monocytes % (Manual) 4 Platelet Estimate Normal Anisocytosis (manual) Slight Sodium 133 Potassium 5.0 Chloride 91 L Carbon Dioxide 31 H Anion Gap 15 BUN 84 H Creatinine 2.1 H Est GFR ( Amer) 40 Est GFR (Non-Af Amer) 33 POC Glucose (mg/dL) 267 H Random Glucose 257 H Calcium 7.8 L Phosphorus 5.8 H Magnesium 2.1 Total Bilirubin 0.9 AST 28 ALT 29 Alkaline Phosphatase 166 H Total Protein 6.6 Albumin 3.4 L Globulin 3.2 Albumin/Globulin Ratio 1.1 Procalcitonin RPR HIV 1&2 Antibody Screen H.influenzae Type B Ag Mycoplasma pneumon IgM N.meningitidis ACY/W135 N.meningi B/E.coli K1 Ag Group B Strep Antigen S. pneumoniae Antigen 11/05/17 11:26 WBC RBC Hgb Hct MCV MCH MCHC RDW Plt Count MPV Neut % (Auto) Lymph % (Auto) [place] % (Auto) Eos % (Auto) Baso % (Auto) Neut # (Auto) Lymph # (Auto) [place] # (Auto) Eos # (Auto) Baso # (Auto) Neutrophils % (Manual) Band Neutrophils % Lymphocytes % (Manual) Monocytes % (Manual) Platelet Estimate Anisocytosis (manual) Sodium Potassium Chloride Carbon Dioxide Anion Gap BUN Creatinine Est GFR ( Amer) Est GFR (Non-Af Amer) POC Glucose (mg/dL) 282 H Random Glucose Calcium Phosphorus Magnesium Total Bilirubin AST ALT Alkaline Phosphatase Total Protein Albumin Globulin Albumin/Globulin Ratio Procalcitonin RPR HIV 1&2 Antibody Screen H.influenzae Type B Ag Mycoplasma pneumon IgM N.meningitidis ACY/W135 N.meningi B/E.coli K1 Ag Group B Strep Antigen S. pneumoniae Antigen Fingerstick Blood Sugar Results: 172 Review of Systems - Constitutional Constitutional: absent: Chills - Cardiovascular Cardiovascular: absent: Chest Pain, Palpitations - Respiratory Respiratory: Dyspnea. absent: Cough - Gastrointestinal Gastrointestinal: absent: Abdominal Pain, Diarrhea Critical Care Progress Note - Nutrition Nutrition: Nutrition Category Date Time Status Consistent Carbohydrate [DIET] Diets 11/04/17 Dinner Active Assessment/Plan - Assessment and Plan (Free Text) Assessment: 52 yo M admitted to ICU in respiratory distress with worsening renal fxn. 1. Acute hypercapneic respiratory failure vs COPD exacerbation -pH 7.25, goal 7.35-7.45 -pCO2 68, goal 35-45 -CXR BiApical pleural thickening w/ upper lobe granulomatous changes, mod venous congestion -chest CT-large right, small left pleural effusion -900ml removed via thoracentesis(11/05) -f/u with pleural fluid cx -duonebs q6 -solu-medrol 40mg q12 -spiriva 18mcg -lasix drip @5 2. Acute on chronic renal failure -Bun/Cr 84/2.1, improving from admission of 80/3.5 -hold off on HD as renal fxn is improving s/p paracentesis -avoid nephrotoxic drugs -Nephro consult Dr. Rich -3L removed via paracentesis(3L) -f/u with fluid cx -lasix drip @5 3. A. Fib -cardio consult Dr. Barksdale -Hx of stent -Eliquis 2.5 q12 4. LE Cellulitis -ID consult Dr. Schaffer -cefepime 1g -Linezolid 600mg q12 -wound care to wrap legs -LE doppler's neg at [place] on 11/01 -probiotics 5. HTN -Cardizem, 30 mg QID 6. DM2 -ISS -Low carb diet 7. Hypothyroid -Levothyroxine 75 mcg Ppx -protonix 40mg
[2017-11-05] MEDS: Sodium Chloride 0.9% 1,000 ML IV SCH (14:00)
[2017-11-05 14:30] LABS: BODY FLUID TYPE PLEURAL
--- NOTE | 2017-11-05 14:35 | CP.PCM.PN ---
Subjective - Date & Time of Evaluation Date of Evaluation: 11/05/17 Time of Evaluation: 09:35 - Subjective Subjective: Medical attending note Patient seen at bedside accompanied by his sister and mother. Patient seen wearing nasal cannula, able to read lips. He reports he is feeling better and breathing better. Denies fever, denies chest pain, denies abdominal pain, except for drainage noted or colostomy from prior paracentesis, unclear when his last bowel movement was, and noted weeping over the bilateral lower extremities and overgrown nails. Patient at the time of my exam is awaiting discussion with interventional radiology for possible thoracentesis. I have spoken with wound care Selwyn Salazar who will come in to evaluate the patient as well. Patient family has also requested podiatry to look at the nails as well. Objective - Vital Signs/Intake and Output Vital Signs (last 24 hours): Temp Pulse Resp BP Pulse Ox 98.5 F 110 H 11 L 148/77 94 L 11/05/17 12:00 11/05/17 14:00 11/05/17 14:00 11/05/17 13:15 11/05/17 14:00 Intake and Output: 11/05/17 11/05/17 06:59 18:59 Intake Total 850 600 Output Total 3600 1800 Balance -2750 -1200 - Medications Medications: Current Medications Albuterol/Ipratropium (Duoneb 3 Mg/0.5 Mg (3 Ml) Ud) 3 ml INH RQ6 [facility] Last Admin: 11/05/17 07:20 Dose: 3 ml Apixaban (Eliquis) 2.5 mg PO Q12 [facility] Dextrose (Dextrose 50% Inj) 0 ml IV STAT PRN; Protocol PRN Reason: Hypoglycemia Protocol Dextrose (Glutose 15) 0 gm PO ONCE PRN; Protocol PRN Reason: Hypoglycemia Protocol Diltiazem HCl (Cardizem) 30 mg PO QID JOSE E Last Admin: 11/05/17 13:26 Dose: 30 mg Gabapentin (Neurontin) 100 mg PO TID JOSE E Last Admin: 11/05/17 13:30 Dose: 100 mg Glucagon (Glucagen Diagnostic Kit) 0 mg IM STAT PRN; Protocol PRN Reason: Hypoglycemia Protocol Cefepime HCl (Maxipime Iv 1 Gm Premix) 1 gm in 50 mls @ 100 mls/hr IVPB Q24H JOSE E PRN Reason: Protocol Last Admin: 11/05/17 09:00 Dose: 100 mls/hr Sodium Chloride (Sodium Chloride 0.9%) 1,000 mls @ 50 mls/hr IV .Q20H [facility] Last Admin: 11/04/17 18:57 Dose: Not Given Linezolid (Zyvox 600mg/300ml D5w) 600 mg in 300 mls @ 200 mls/hr IVPB Q12H JOSE E PRN Reason: Protocol Last Admin: 11/05/17 13:00 Dose: 200 mls/hr Dextrose (Dextrose 5% In Water 1000 Ml) 1,000 mls @ 0 mls/hr IV .Q0M PRN; Protocol; Per Protocol PRN Reason: Hypoglycemia Protocol Insulin Human Regular (Novolin R) 0 unit SC ACHS [facility] PRN Reason: Protocol Last Admin: 11/05/17 12:30 Dose: 3 unit Lactobacillus Acidophilus (Bacid Acidophilus) 1 cap PO BID [facility] Last Admin: 11/05/17 09:00 Dose: 1 cap Levothyroxine Sodium (Synthroid) 75 mcg PO DAILY@0630 [facility] Last Admin: 11/05/17 06:34 Dose: 75 mcg Methylprednisolone (Solu-Medrol) 40 mg IVP Q12H [facility] Last Admin: 11/05/17 09:00 Dose: 40 mg Pantoprazole Sodium (Protonix Inj) 40 mg IVP DAILY [facility] Last Admin: 11/05/17 09:00 Dose: 40 mg Tiotropium [place] (Spiriva) 18 mcg INH RQ24 [facility] Last Admin: 11/05/17 07:20 Dose: 18 mcg Tramadol HCl (Ultram) 25 mg PO TID PRN PRN Reason: Pain, moderate (4-7) - Labs Labs: 11/05/17 06:33 11/05/17 06:29 PT 17.1 SECONDS (9.7-12.2) H 11/03/17 13:33 INR 1.6 11/03/17 13:33 APTT 28 SECONDS (21-34) 11/03/17 13:33 - Constitutional Appears: Non-toxic, No Acute Distress, Other (morbidly obese) - Head Exam Head Exam: NORMAL INSPECTION - Eye Exam Eye Exam: EOMI, PERRL. absent: Nystagmus, Scleral icterus - ENT Exam ENT Exam: Mucous Membranes Moist - Respiratory Exam Respiratory Exam: Rales, Rhonchi, NORMAL BREATHING PATTERN. absent: Wheezes, Respiratory Distress, Stridor - Cardiovascular Exam Cardiovascular Exam: REGULAR RHYTHM, +S1, +S2 - GI/Abdominal Exam GI & Abdominal Exam: Distended (obese habitus), Soft, Hypoactive Bowel Sounds. absent: Firm, Guarding, Rigid, Tenderness Additional comments: as colostomy over right lower quadrant with brownish fluid - Extremities Exam Additional comments: bilateral lower extremities +1 pitting rubor noted on bilateral shins weeping noted anteriorly Hyperkeratotic and lytic nails bilateral feet Pressure ulcer noted underneath the first toe left foot Tattoo noted over right upper extremity extremity and left upper extremity clean dry intact - Neurological Exam Neurological Exam: Alert, Awake, Oriented x3 - Psychiatric Exam Psychiatric exam: Normal Affect, Normal Mood - Skin Skin Exam: Warm Additional comments: noted skin findings over anterior shins over extremity exam Assessment and Plan (1) Ascites Status: Acute (2) Cor pulmonale Status: Acute (3) Deafness Status: Acute (4) Atrial flutter Status: Acute (5) CHF (congestive heart failure) Status: Acute (6) COPD (chronic obstructive pulmonary disease) Status: Acute (7) Hyperkalemia Status: Acute (8) Renal insufficiency Status: Acute (9) Prophylactic measure Status: Acute Attending/Attestation - Attestation I have personally seen and examined this patient.: Yes I have fully participated in the care of the patient.: Yes I have reviewed all pertinent clinical information, including history, physical exam and plan: Yes Notes (Text): Assessment and plan 1. Right-sided Congestive Heart failure Exacerbation Acute hypercapnic hypoxic respiratory failure COPD? * Duonebs 3ml of every 6 hours * Solumedrol 40mg IV every 12H * Spiriva 18 mcg INH Q24H * Lasix drip at 5 mg per hour * Echocardiogram 08/29/2017: Left ventricle is normal size, mild concentric left ventricular hypertrophy, left ventricle function is normal ejection fraction 55-60%, right ventricle is severely dilated systolic function of RVs moderately to severely reduced. Trace aortic regurgitation mitral regurgitation is trace moderate tricuspid regurg elevated IVC was not visualized no pericardial effusion noted poor window but due to increased body habitus. * Monitor daily weights and intake output * Cardiology Dr. Jacques consult help appreciated * Patient previously on atenolol and verapamil and this is being held at this time. * white count has normalized * Pro calcitonin is low 2. Acute Renal Failure on Chronic (Stage 3) Renal Failure/Possible Cardio-Renal Syndrome Assessment/Plan * Nephrology Dr. Rich/Lj * Dialysis consent obtained 11/03/17 however Nephrology is holding off on HD for now as renal function improved slightly after paracentesis on 11/03/17 * per nephrology and output is much better Ross gene due to HPI and hyperkalemia * renal function is improving * 3. Ascites * As noted on U/S Abdomen 11/03/17 * S/P 3L ascites fluid removed on 11/03/17: follow up fluid analysis * Currently small amount of ascites fluid is still draining from the site of paracentesis in the RLQ (colostomy bag in place) 4. Pleural Effusions * CT Chest 11/03/17 shows large right and small left pleural effusion. prominent multifocal areas of consolidat imposed areas of atelectasis. Extensive lymphadenopathy within the med * Order placed for Thoracentesis via IR Dr. Austin for 11/05/17--> patient had 900 mL of straw-colored fluid; no drains require; follow-up pleural studies 5. History of Atrial flutter/Atrial fibrillation * Patient is on Eliquis 5mg PO BID previously last dose day prior to admission * Patient was started on Cardizem 30 mg by mouth 4 times a day * Held Verapamil and Atenolol given borderline normal blood pressure.at time of admission 6. Bilateral Pneumonia Healthcare care associated pneumonia * infectious disease Dr. Schaffer on the case * CT Chest 11/03/17 showed prominent multifocal areas of consolidate changes bilaterally right greater than left suggestive of multifocal infiltrate with extensive lympadenopathy within mediastinum and axilla * Patient will likely repeat CT Chest once he completes treatment for the bilateral pneumonia to make sure that there is NO underlying lesion. * Cefepime 1 gm IV Q24H active since 11/04/2017 * Linezolid 600 mg IV [id number] since 11/04/2017 * Legionella urinenegative, Mycoplasma pneumonia IgM: negative, and Strep pneumonia urine negative * Noted prior hospitalization in August of this year; possible treatment for Hospital/healthcare associated pneumonia 7. History of DM 2 * Hemoglobin A1C 6.9 * Insulin sliding scale * Holding metformin/glipizde on admission 8. Morbid obesity * Will need aggressive lifestyle intervention especially in light of his other comorbidities including diabetes, right-sided heart failure, pulmonary hypertension 9. Hypothyroidism * At time of admission levothyroxine increased to 50 mcg to Levothyroxine 75 mg PO 1x/day 10. Hx Deafness * Patient can read lips and sign language * mmother Sangeetha and [place] also at be 11. Bilateral Lower Leg Cellulitis * Unable to outline areas of discoloration as mentioned in physical exam above. However as noted on physical exam above, this area extends from the just above the bilateral malleoli to just inferior to the bilateral knees * This may be combination of cellulitis and chronic venous insufficiency changes * Cefepime 1 gm IV Q24H active since 11/04/2017 * Linezolid 600 mg IV [id number] since 11/04/2017 * ID Dr. Schaffer * prior blood cultures from [facility] 11/01/2017 no growth after 3 daysX2 12. Edema * F/U Bilateral Venous Duplex LE * note prior Doppler was negative at [facility] * Wound cares on board given weeping nature of legs * wound culture of right lower extremity weepiing: no growth after 24 hours 13. Prophylactic measure * Eliquis was placed on hold for the paracentesis on 11/03/17 and for the planned thoracentesis on 11/05/17 * Heparin 5,000 Units SC Q8H * Lactobacillus 1 cap PO 2x/day * Protonix 40mg IV daily * Monitor daily weights, I&O * PT OT on board Extensive conversation with Mother Lottie and Sister Rufina who were at bedside at the time of exam concerning diagnoses above and plan: explained to both that the patient's heart failure can have frequent exacerbations considering the renal failure and the patient's multiple comorbidities. Discussed with ICU Attending Dr. Acosta and RN, Delmy for Thoracentesis today.
[2017-11-05 15:08] LABS: BF GROSS APPEARANCE SL CLOUDY (CLEAR)
[2017-11-05 15:09] LABS: BODY FLUID MONO/MACROPHAGE 1 % (0-0); BODY FLUID TOTAL COUNT 100 (0-0)
[2017-11-05] MEDS: Bacitracin 500 Units/gm Oint Foilpak UD TOP SCH (17:06)
--- NOTE | 2017-11-05 21:33 | PN ---
DATE: 11/05/2017 SUBJECTIVE: The patient's shortness of breath improved. He is comfortable on nasal O2. He denies exertional chest pain, and the patient is off IV Cardizem. PHYSICAL EXAMINATION: VITAL SIGNS: Blood pressure 128/77, heart rate 101, respirations 13, temperature 98.5. HEENT: Mild facial edema. CHEST: Diminished breath sounds over the bases. HEART: S1 and S2 are regular. ABDOMEN: Soft with moderate ascites. EXTREMITIES: Two to three plus pitting edema. LABORATORY DATA: SMA-7, sodium 133, potassium 5, chloride 91, CO2 31, glucose 257, BUN 84, creatinine 2.1. Hemoglobin/hematocrit today, white count and platelet count today are within normal limit. Today's chest x-ray revealed cardiomegaly with moderate bilateral alveolar congestion, right lower lobe infiltrate, and large right pleural effusion with small to moderate left pleural effusion. ASSESSMENT: 1. Improving acute renal failure. 2. Severe right-sided failure. 3. Sleep apnea. 4. Secondary pulmonary hypertension. 5. Moderate obesity. 6. Hypothyroidism. 7. Persistent atrial flutter. 8. Bilateral pneumonia with large right pleural effusion. 9. Moderate ascites. 10. Uncontrolled diabetes mellitus. RECOMMENDATIONS: Continue current , Eliquis was started at 2.5 mg twice a day, continue Neurontin 100 mg t.i.d., Solu-Medrol 40 mg intravenously every 12 hours, Synthroid at 75 mcg once a day, IV Zyvox 600 mg every 12 hours. Obtain 12-lead EKG. We will follow the venous Doppler of the lower extremities, which was ordered yesterday. See Barksdale MD
[2017-11-06] MEDS: Albuterol-Ipratrop 3 mg / 0.5 (3 ml) UD INH SCH ×6 (01:08→20:01)
[2017-11-06] MEDS: Linezolid 600 mg in D5W 300 ml 600 MG/300 ML BAG IVPB SCH ×2 (01:10→13:00)
[2017-11-06] MEDS: Levothyroxine 75 MCG TAB PO SCH (05:40)
[2017-11-06] MEDS: Sodium Chloride 0.9% 1,000 ML IV SCH ×2 (05:41→10:00)
[2017-11-06 06:28] LABS: BASO % 0.1 % (0.0-2.0); HEMOGLOBIN 15.2 g/dL (12.0-18.0); LYMPH # 0.2 K/uL (1.0-4.3); LYMPH % 3.8 % (20.0-40.0); MEAN CELL VOLUME 91.4 fL (80.0-94.0); MEAN CORPUSCULAR HEMOGLOBIN 29.7 pg (27.0-31.0); MEAN CORPUSCULAR HGB CONC 32.5 g/dL (33.0-37.0); MONO # 0.3 K/uL (0.0-0.8); MONO % 4.5 % (0.0-10.0); NEUT # 5.3 K/uL (1.8-7.0); NEUT % 91.6 % (50.0-75.0); NRBC % 0.2 % (0.0-2.0); PLATELET COUNT 170 K/uL (130-400); RBC 5.11 Mil/uL (4.40-5.90); RED CELL DISTRIBUTION WIDTH 17.1 % (11.5-14.5); WHITE BLOOD COUNT 5.7 K/uL (4.8-10.8)
--- NOTE | 2017-11-06 06:29 | CP.CCUPN ---
CCU Subjective - Physician Review Subjective (Free Text): 52 yo M w/ PMHx of Deafness, obesity, obesity hypoventilation, cor pulmonale, COPD on home O2, intermittent A fib, HTN, HLD, chronic venous congestion, anasarca and renal insufficiency admitted to [facility] w/ SOB and worsening renal fxn; pt subsequently transferred to [facility] ICU for further management including HD. Pt seen and examined at bedside. Complains of chronic back pain. Pt reports improvement in breathing s/p thoracentesis yesterday, denies SOB, chest pain, nausea, diarrhea. Pt's lower legs wrapped by wound care. 11/06/17 06:29 11/06/17 06:36 CCU Objective - Vital Signs / Intake & Output Vital Signs (Last 4 hours): Vital Signs Temp Pulse Resp BP Pulse Ox 11/06/17 06:00 90 11/06/17 04:00 98 F 86 11 L 94 L 11/06/17 03:51 133/78 11/06/17 03:15 99 H 11 L 144/84 94 L 11/06/17 03:00 110 H 11 L 96 11/06/17 02:51 151/100 H Intake and Output (Last 8hrs): Intake & Output 11/05/17 11/05/17 11/06/17 14:59 22:59 06:59 Intake Total 600 400 740 Output Total 1800 1850 1500 Balance -1200 -1450 -760 Intake: Intake, IV Amount 600 400 500 Left Hand 600 400 500 Oral 240 Output: Urine 1800 1850 1500 Urethral (Hoang) 1800 Urine, Voided 0 1850 1500 Other: # Voids Urine, Voided 1 - Physical Exam Head: Positive for: Atraumatic, Normocephalic Extroacular Muscles: Positive for: EOMI Conjunctiva: Positive for: Normal Mouth: Positive for: Moist Mucous Membranes Respiratory/Chest: Positive for: Clear to Auscultation, Good Air Exchange, Wheezes (improving). Negative for: Respiratory Distress, Accessory Muscle Use Cardiovascular: Positive for: Regular Rate and Rhythm, Normal S1, S2. Negative for: Murmurs Abdomen: Positive for: Distention, Normal Bowel Sounds Lower Extremity: Positive for: Edema, NORMAL PULSES, Erythema (tender to palpation B/L distal LE, wrapped) Neurological: Positive for: GCS=15 Skin: Positive for: Other (LE venous insufficiency) Psychiatric: Positive for: Alert, Oriented x 3 - Medications Active Medications: Active Medications Generic Name Dose Route Start Last Admin Trade Name Freq PRN Reason Stop Dose Admin Albuterol/Ipratropium 3 ml 11/03/17 14:00 11/06/17 01:08 Duoneb 3 Mg/0.5 Mg (3 Ml) Ud INH 3 ml RQ6 JOSE E Administration Apixaban 2.5 mg 11/05/17 22:00 11/05/17 21:29 Eliquis PO 2.5 mg Q12 JOSE E Administration Atenolol 25 mg 11/06/17 19:00 Tenormin PO 1900 JOSE E Bacitracin 1 ea 11/05/17 18:00 11/05/17 17:06 Bacitracin TOP 1 ea BID JOSE E Administration Dextrose 0 ml 11/04/17 19:40 Dextrose 50% Inj IV STAT PRN Hypoglycemia Protocol Protocol Dextrose 0 gm 11/04/17 19:40 Glutose 15 PO ONCE PRN Hypoglycemia Protocol Protocol Diltiazem HCl 30 mg 11/04/17 10:00 11/05/17 21:29 Cardizem PO 30 mg QID JOSE E Administration Gabapentin 100 mg 11/05/17 14:00 11/05/17 17:06 Neurontin PO 100 mg TID JOSE E Administration Glucagon 0 mg 11/04/17 19:40 Glucagen Diagnostic Kit IM STAT PRN Hypoglycemia Protocol Protocol Cefepime HCl 1 gm in 50 mls @ 100 mls/hr 11/04/17 10:00 11/05/17 09:00 Maxipime Iv 1 Gm Premix IVPB 100 mls/hr Q24H JOSE E Administration Protocol Sodium Chloride 1,000 mls @ 50 mls/hr 11/03/17 22:45 11/06/17 05:41 Sodium Chloride 0.9% IV 50 mls/hr .Q20H JOSE E Administration Linezolid 600 mg in 300 mls @ 200 mls/hr 11/04/17 14:00 11/06/17 01:10 Zyvox 600mg/300ml D5w IVPB 200 mls/hr Q12H JOSE E Administration Protocol Dextrose 1,000 mls @ 0 mls/hr 11/04/17 19:40 Dextrose 5% In Water 1000 Ml IV .Q0M PRN Hypoglycemia Protocol Protocol Per Protocol Insulin Human Regular 0 unit 11/03/17 16:30 11/05/17 23:48 Novolin R SC Not Given ACHS [facility] Protocol Lactobacillus Acidophilus 1 cap 11/04/17 10:00 11/05/17 17:06 Bacid Acidophilus PO 1 cap BID JOSE E Administration Levothyroxine Sodium 75 mcg 11/04/17 06:30 11/06/17 05:40 Synthroid PO 75 mcg DAILY@0630 JOSE E Administration Methylprednisolone 40 mg 11/03/17 22:00 11/05/17 21:29 Solu-Medrol IVP 40 mg Q12H JOSE E Administration Pantoprazole Sodium 40 mg 11/04/17 10:00 11/05/17 09:00 Protonix Inj IVP 40 mg DAILY JOSE E Administration Tiotropium [place] 18 mcg 11/04/17 08:00 11/05/17 07:20 Spiriva INH 18 mcg RQ24 JOSE E Administration Tramadol HCl 25 mg 11/05/17 13:08 Ultram PO TID PRN Pain, moderate (4-7) - Patient Studies Lab Studies: Microbiology Studies 11/05/17 14:24 Gram Stain - Final Pleural Fluid 11/04/17 05:54 Gram Stain - Final Leg - Right Wound Culture - Preliminary NO GROWTH AFTER 24 HOURS Lab Studies 11/05/17 11/05/17 11/05/17 Range/Units 21:05 16:07 14:24 WBC (4.8-10.8) K/uL RBC (4.40-5.90) Mil/uL Hgb (12.0-18.0) g/dL Hct (35.0-51.0) % MCV (80.0-94.0) fL MCH (27.0-31.0) pg MCHC (33.0-37.0) g/dL RDW (11.5-14.5) % Plt Count (130-400) K/uL MPV (7.2-11.7) fL Neut % (Auto) (50.0-75.0) % Lymph % (Auto) (20.0-40.0) % [place] % (Auto) (0.0-10.0) % Eos % (Auto) (0.0-4.0) % Baso % (Auto) (0.0-2.0) % Neut # (Auto) (1.8-7.0) K/uL Lymph # (Auto) (1.0-4.3) K/uL [place] # (Auto) (0.0-0.8) K/uL Eos # (Auto) (0.0-0.7) K/uL Baso # (Auto) (0.0-0.2) K/uL Neutrophils % (Manual) (50-75) % Band Neutrophils % (0-2) % Lymphocytes % (Manual) (20-40) % Monocytes % (Manual) (0-10) % Platelet Estimate (NORMAL) Anisocytosis (manual) Sodium (132-148) mmol/L Potassium (3.6-5.2) mmol/L Chloride (98-107) mmol/L Carbon Dioxide (22-30) mmol/L Anion Gap (10-20) BUN (9-20) mg/dL Creatinine (0.8-1.5) mg/dL Est GFR ( Amer) Est GFR (Non-Af Amer) POC Glucose (mg/dL) 257 H 289 H (65-110) mg/dL Random Glucose (75-110) mg/dL Calcium (8.6-10.4) mg/dl Phosphorus (2.5-4.5) mg/dL Magnesium (1.6-2.3) mg/dL Total Bilirubin (0.2-1.3) mg/dL AST (17-59) U/L ALT (21-72) U/L Alkaline Phosphatase (38-126) U/L Total Protein (6.3-8.3) g/dL Albumin (3.5-5.0) g/dL Globulin (2.2-3.9) gm/dL Albumin/Globulin Ratio (1.0-2.1) Fluid Source Pleural Fluid Appearance Sl cloudy (CLEAR) Fluid WBC 311.0 H (0.0-300.0) /mm3 Fluid RBC 814.0 H (0.0-0.0) /mm3 Fluid Tot Cell Count 100 H (0-0) Fluid Neutrophils 14.0 H (0-0) % Fluid Lymphocytes 85.0 H (0-0) % Fld Monocyte/Macrophag 1 H (0-0) % Fluid Comment HIV 1&2 Antibody Screen (NEGATIVE) 11/05/17 11/05/17 11/05/17 Range/Units 11:26 07:26 06:33 WBC 7.1 (4.8-10.8) K/uL RBC 4.68 (4.40-5.90) Mil/uL Hgb 14.2 (12.0-18.0) g/dL Hct 42.6 (35.0-51.0) % MCV 91.2 (80.0-94.0) fL MCH 30.4 (27.0-31.0) pg MCHC 33.3 (33.0-37.0) g/dL RDW 17.2 H (11.5-14.5) % Plt Count 182 (130-400) K/uL MPV 9.0 (7.2-11.7) fL Neut % (Auto) 92.9 H (50.0-75.0) % Lymph % (Auto) 3.4 L (20.0-40.0) % [place] % (Auto) 3.3 (0.0-10.0) % Eos % (Auto) 0.0 (0.0-4.0) % Baso % (Auto) 0.4 (0.0-2.0) % Neut # (Auto) 6.6 (1.8-7.0) K/uL Lymph # (Auto) 0.2 L (1.0-4.3) K/uL [place] # (Auto) 0.2 (0.0-0.8) K/uL Eos # (Auto) 0.0 (0.0-0.7) K/uL Baso # (Auto) 0.0 (0.0-0.2) K/uL Neutrophils % (Manual) 93 H (50-75) % Band Neutrophils % 1 (0-2) % Lymphocytes % (Manual) 2 L (20-40) % Monocytes % (Manual) 4 (0-10) % Platelet Estimate Normal (NORMAL) Anisocytosis (manual) Slight Sodium (132-148) mmol/L Potassium (3.6-5.2) mmol/L Chloride (98-107) mmol/L Carbon Dioxide (22-30) mmol/L Anion Gap (10-20) BUN (9-20) mg/dL Creatinine (0.8-1.5) mg/dL Est GFR ( Amer) Est GFR (Non-Af Amer) POC Glucose (mg/dL) 282 H 267 H (65-110) mg/dL Random Glucose (75-110) mg/dL Calcium (8.6-10.4) mg/dl Phosphorus (2.5-4.5) mg/dL Magnesium (1.6-2.3) mg/dL Total Bilirubin (0.2-1.3) mg/dL AST (17-59) U/L ALT (21-72) U/L Alkaline Phosphatase (38-126) U/L Total Protein (6.3-8.3) g/dL Albumin (3.5-5.0) g/dL Globulin (2.2-3.9) gm/dL Albumin/Globulin Ratio (1.0-2.1) Fluid Source Fluid Appearance (CLEAR) Fluid WBC (0.0-300.0) /mm3 Fluid RBC (0.0-0.0) /mm3 Fluid Tot Cell Count (0-0) Fluid Neutrophils (0-0) % Fluid Lymphocytes (0-0) % Fld Monocyte/Macrophag (0-0) % Fluid Comment HIV 1&2 Antibody Screen (NEGATIVE) 11/05/17 11/04/17 Range/Units 06:29 20:30 WBC (4.8-10.8) K/uL RBC (4.40-5.90) Mil/uL Hgb (12.0-18.0) g/dL Hct (35.0-51.0) % MCV (80.0-94.0) fL MCH (27.0-31.0) pg MCHC (33.0-37.0) g/dL RDW (11.5-14.5) % Plt Count (130-400) K/uL MPV (7.2-11.7) fL Neut % (Auto) (50.0-75.0) % Lymph % (Auto) (20.0-40.0) % [place] % (Auto) (0.0-10.0) % Eos % (Auto) (0.0-4.0) % Baso % (Auto) (0.0-2.0) % Neut # (Auto) (1.8-7.0) K/uL Lymph # (Auto) (1.0-4.3) K/uL [place] # (Auto) (0.0-0.8) K/uL Eos # (Auto) (0.0-0.7) K/uL Baso # (Auto) (0.0-0.2) K/uL Neutrophils % (Manual) (50-75) % Band Neutrophils % (0-2) % Lymphocytes % (Manual) (20-40) % Monocytes % (Manual) (0-10) % Platelet Estimate (NORMAL) Anisocytosis (manual) Sodium 133 (132-148) mmol/L Potassium 5.0 (3.6-5.2) mmol/L Chloride 91 L (98-107) mmol/L Carbon Dioxide 31 H (22-30) mmol/L Anion Gap 15 (10-20) BUN 84 H (9-20) mg/dL Creatinine 2.1 H (0.8-1.5) mg/dL Est GFR ( Amer) 40 Est GFR (Non-Af Amer) 33 POC Glucose (mg/dL) (65-110) mg/dL Random Glucose 257 H (75-110) mg/dL Calcium 7.8 L (8.6-10.4) mg/dl Phosphorus 5.8 H (2.5-4.5) mg/dL Magnesium 2.1 (1.6-2.3) mg/dL Total Bilirubin 0.9 (0.2-1.3) mg/dL AST 28 (17-59) U/L ALT 29 (21-72) U/L Alkaline Phosphatase 166 H (38-126) U/L Total Protein 6.6 (6.3-8.3) g/dL Albumin 3.4 L (3.5-5.0) g/dL Globulin 3.2 (2.2-3.9) gm/dL Albumin/Globulin Ratio 1.1 (1.0-2.1) Fluid Source Fluid Appearance (CLEAR) Fluid WBC (0.0-300.0) /mm3 Fluid RBC (0.0-0.0) /mm3 Fluid Tot Cell Count (0-0) Fluid Neutrophils (0-0) % Fluid Lymphocytes (0-0) % Fld Monocyte/Macrophag (0-0) % Fluid Comment HIV 1&2 Antibody Screen Negative (NEGATIVE) Laboratory Results - last 24 hr 11/04/17 11/05/17 11/05/17 20:30 06:29 06:33 WBC 7.1 RBC 4.68 Hgb 14.2 Hct 42.6 MCV 91.2 MCH 30.4 MCHC 33.3 RDW 17.2 H Plt Count 182 MPV 9.0 Neut % (Auto) 92.9 H Lymph % (Auto) 3.4 L [place] % (Auto) 3.3 Eos % (Auto) 0.0 Baso % (Auto) 0.4 Neut # (Auto) 6.6 Lymph # (Auto) 0.2 L [place] # (Auto) 0.2 Eos # (Auto) 0.0 Baso # (Auto) 0.0 Neutrophils % (Manual) 93 H Band Neutrophils % 1 Lymphocytes % (Manual) 2 L Monocytes % (Manual) 4 Platelet Estimate Normal Anisocytosis (manual) Slight Sodium 133 Potassium 5.0 Chloride 91 L Carbon Dioxide 31 H Anion Gap 15 BUN 84 H Creatinine 2.1 H Est GFR ( Amer) 40 Est GFR (Non-Af Amer) 33 POC Glucose (mg/dL) Random Glucose 257 H Calcium 7.8 L Phosphorus 5.8 H Magnesium 2.1 Total Bilirubin 0.9 AST 28 ALT 29 Alkaline Phosphatase 166 H Total Protein 6.6 Albumin 3.4 L Globulin 3.2 Albumin/Globulin Ratio 1.1 Fluid Source Fluid Appearance Fluid WBC Fluid RBC Fluid Tot Cell Count Fluid Neutrophils Fluid Lymphocytes Fld Monocyte/Macrophag Fluid Comment HIV 1&2 Antibody Screen Negative 11/05/17 11/05/17 11/05/17 07:26 11:26 14:24 WBC RBC Hgb Hct MCV MCH MCHC RDW Plt Count MPV Neut % (Auto) Lymph % (Auto) [place] % (Auto) Eos % (Auto) Baso % (Auto) Neut # (Auto) Lymph # (Auto) [place] # (Auto) Eos # (Auto) Baso # (Auto) Neutrophils % (Manual) Band Neutrophils % Lymphocytes % (Manual) Monocytes % (Manual) Platelet Estimate Anisocytosis (manual) Sodium Potassium Chloride Carbon Dioxide Anion Gap BUN Creatinine Est GFR ( Amer) Est GFR (Non-Af Amer) POC Glucose (mg/dL) 267 H 282 H Random Glucose Calcium Phosphorus Magnesium Total Bilirubin AST ALT Alkaline Phosphatase Total Protein Albumin Globulin Albumin/Globulin Ratio Fluid Source Pleural Fluid Appearance Sl cloudy Fluid WBC 311.0 H Fluid RBC 814.0 H Fluid Tot Cell Count 100 H Fluid Neutrophils 14.0 H Fluid Lymphocytes 85.0 H Fld Monocyte/Macrophag 1 H Fluid Comment HIV 1&2 Antibody Screen 11/05/17 11/05/17 16:07 21:05 WBC RBC Hgb Hct MCV MCH MCHC RDW Plt Count MPV Neut % (Auto) Lymph % (Auto) [place] % (Auto) Eos % (Auto) Baso % (Auto) Neut # (Auto) Lymph # (Auto) [place] # (Auto) Eos # (Auto) Baso # (Auto) Neutrophils % (Manual) Band Neutrophils % Lymphocytes % (Manual) Monocytes % (Manual) Platelet Estimate Anisocytosis (manual) Sodium Potassium Chloride Carbon Dioxide Anion Gap BUN Creatinine Est GFR ( Amer) Est GFR (Non-Af Amer) POC Glucose (mg/dL) 289 H 257 H Random Glucose Calcium Phosphorus Magnesium Total Bilirubin AST ALT Alkaline Phosphatase Total Protein Albumin Globulin Albumin/Globulin Ratio Fluid Source Fluid Appearance Fluid WBC Fluid RBC Fluid Tot Cell Count Fluid Neutrophils Fluid Lymphocytes Fld Monocyte/Macrophag Fluid Comment HIV 1&2 Antibody Screen EKG/Cardiology Studies: Cardiology / EKG Studies 11/05/17 17:03 EKG [ELECTROCARDIOGRAM] Routine Comment: Mode Of Transportation: Reason For Exam: AFL Fingerstick Blood Sugar Results: 172 Review of Systems - Constitutional Constitutional: absent: Chills, Sweats - Cardiovascular Cardiovascular: absent: Chest Pain, Diaphoresis, Palpitations - Respiratory Respiratory: absent: Cough, Dyspnea - Gastrointestinal Gastrointestinal: absent: Abdominal Pain, Diarrhea, Nausea - Musculoskeletal Musculoskeletal: Back Pain (complains of chronic back pain) Critical Care Progress Note - Nutrition Nutrition: Nutrition Category Date Time Status Consistent Carbohydrate [DIET] Diets 11/04/17 Dinner Active Assessment/Plan - Assessment and Plan (Free Text) Assessment: 52 yo M admitted to ICU in respiratory distress with worsening renal fxn. 1. Acute hypercapneic respiratory failure vs COPD exacerbation -pH 7.25, goal 7.35-7.45 -pCO2 68, goal 35-45 -CXR BiApical pleural thickening w/ upper lobe granulomatous changes, mod venous congestion -chest CT-large right, small left pleural effusion -900ml removed via thoracentesis(11/05) -f/u with pleural fluid cx -duonebs q6 -solu-medrol 40mg q12 -spiriva 18mcg -lasix drip @5 2. Acute on chronic renal failure -Bun/Cr 84/2.1, improving from admission of 80/3.5 -hold off on HD as renal fxn is improving s/p paracentesis -avoid nephrotoxic drugs -Nephro consult Dr. Rich -3L removed via paracentesis(3L) -f/u with fluid cx -lasix drip @5 3. A. Fib -cardio consult Dr. Barksdale -Hx of stent -Eliquis 2.5 q12 4. LE Cellulitis -ID consult Dr. Schaffer -cefepime 1g -Linezolid 600mg q12 -wound care to wrap legs -LE doppler's neg at [facility] on 11/01 -probiotics 5. HTN -Cardizem, 30 mg QID 6. DM2 -ISS -Low carb diet 7. Hypothyroid -Levothyroxine 75 mcg Ppx -protonix 40mg
[2017-11-06 06:40] LABS: ALB/GLOB RATIO 1.1 (1.0-2.1); ALBUMIN 3.3 g/dL (3.5-5.0); CALCIUM 8.3 mg/dl (8.6-10.4)
[2017-11-06 08:19] LABS: ANISOCYTOSIS SLIGHT; LYMPHOCYTE 6 % (20-40); MONOCYTE 1 % (0-10); NEUTROPHIL 93 % (50-75); PLATELET ESTIMATE NORMAL (NORMAL); TOTAL CELLS COUNTED 100
--- NOTE | 2017-11-06 08:19 | CP.PCM.CON ---
History of Present Illness - History of Present Illness History of Present Illness: Podiatry Consult Note - Dr. Mariano 52 year old male patient PMHx Right sided heart failure with Cor pulmonale, DM, Pulmonary HTN, Bilateral Hearing loss, Aflutter on Eliquis, Hypothyroidism, COPD seen and examined this AM for painful elongated nails. Mother present at bedside who relays HPI. Per mother, patient unable to trim nails himself due to chronic back pain and lower extremity/abdominal swelling, and is requesting them to be trimmed today. Patient states he is feeling better since his initial admission, with improvement in breathing; denies SOB, chest pain, palpitations, n/v/d, no f/c. Review of Systems - Review of Systems All systems: reviewed and no additional remarkable complaints except (as per HPI ) Past Patient History - Tetanus Immunizations Tetanus Immunization: Unknown - Past Medical History & Family History Past Medical History?: Yes - Past Social History Smoking Status: Former Smoker - CARDIAC Hx Cardiac Disorders: Yes (Right sided heart failure with corpulmonale, Atrial Flutter,) Hx Hypertension: Yes - PULMONARY Hx Chronic Obstructive Pulmonary Disease (COPD): Yes - NEUROLOGICAL Hx Neurological Disorder: No - HEENT Hx Deafness: Yes - RENAL Hx Chronic Kidney Disease: No - ENDOCRINE/METABOLIC Hx Diabetes Mellitus Type 2: Yes Hx Hypothyroidism: Yes - HEMATOLOGICAL/ONCOLOGICAL Hx Blood Disorders: No - INTEGUMENTARY Hx Dermatological Problems: No - MUSCULOSKELETAL/RHEUMATOLOGICAL Hx Falls: No - GASTROINTESTINAL Hx Gastrointestinal Disorders: Yes - GENITOURINARY/GYNECOLOGICAL Hx Genitourinary Disorders: No Hx Reproductive Disorders: No - PSYCHIATRIC Hx Psychophysiologic Disorder: No Hx Depression: No Hx Emotional Abuse: No Hx Physical Abuse: No Hx Substance Use: No - SURGICAL HISTORY Hx Appendectomy: Yes Hx Cholecystectomy: Yes Hx Tonsillectomy: Yes Meds Allergies/Adverse Reactions: Allergies Allergy/AdvReac Type Severity Reaction Status Date / Time No Known Allergies Allergy Verified 09/11/17 20:08 - Medications Medications: Current Medications Albuterol/Ipratropium (Duoneb 3 Mg/0.5 Mg (3 Ml) Ud) 3 ml INH RQ6 [facility] Last Admin: 11/06/17 01:08 Dose: 3 ml Apixaban (Eliquis) 2.5 mg PO Q12 JOSE E Last Admin: 11/05/17 21:29 Dose: 2.5 mg Atenolol (Tenormin) 25 mg PO 1900 [facility] Bacitracin (Bacitracin) 1 ea TOP BID [facility] Last Admin: 11/05/17 17:06 Dose: 1 ea Dextrose (Dextrose 50% Inj) 0 ml IV STAT PRN; Protocol PRN Reason: Hypoglycemia Protocol Dextrose (Glutose 15) 0 gm PO ONCE PRN; Protocol PRN Reason: Hypoglycemia Protocol Diltiazem HCl (Cardizem) 30 mg PO QID [facility] Last Admin: 11/05/17 21:29 Dose: 30 mg Gabapentin (Neurontin) 100 mg PO TID [facility] Last Admin: 11/05/17 17:06 Dose: 100 mg Glucagon (Glucagen Diagnostic Kit) 0 mg IM STAT PRN; Protocol PRN Reason: Hypoglycemia Protocol Cefepime HCl (Maxipime Iv 1 Gm Premix) 1 gm in 50 mls @ 100 mls/hr IVPB Q24H [facility] PRN Reason: Protocol Last Admin: 11/05/17 09:00 Dose: 100 mls/hr Sodium Chloride (Sodium Chloride 0.9%) 1,000 mls @ 50 mls/hr IV .Q20H [facility] Last Admin: 11/06/17 05:41 Dose: 50 mls/hr Linezolid (Zyvox 600mg/300ml D5w) 600 mg in 300 mls @ 200 mls/hr IVPB Q12H [facility] PRN Reason: Protocol Last Admin: 11/06/17 01:10 Dose: 200 mls/hr Dextrose (Dextrose 5% In Water 1000 Ml) 1,000 mls @ 0 mls/hr IV .Q0M PRN; Protocol; Per Protocol PRN Reason: Hypoglycemia Protocol Insulin Human Regular (Novolin R) 0 unit SC ACHS [facility] PRN Reason: Protocol Last Admin: 11/05/17 23:48 Dose: Not Given Lactobacillus Acidophilus (Bacid Acidophilus) 1 cap PO BID [facility] Last Admin: 11/05/17 17:06 Dose: 1 cap Levothyroxine Sodium (Synthroid) 75 mcg PO DAILY@0630 [facility] Last Admin: 11/06/17 05:40 Dose: 75 mcg Methylprednisolone (Solu-Medrol) 40 mg IVP Q12H [facility] Last Admin: 11/05/17 21:29 Dose: 40 mg Pantoprazole Sodium (Protonix Inj) 40 mg IVP DAILY [facility] Last Admin: 11/05/17 09:00 Dose: 40 mg Tiotropium [place] (Spiriva) 18 mcg INH RQ24 [facility] Last Admin: 11/05/17 07:20 Dose: 18 mcg Tramadol HCl (Ultram) 25 mg PO TID PRN PRN Reason: Pain, moderate (4-7) Physical Exam - Constitutional Appears: Non-toxic, No Acute Distress - Extremities Exam Additional comments: Dressings to bilateral LE appear clean/dry/intact VASC: DP ant PT pulses nonpalpable secondary to edema. Temperature gradient warm to warm b/l. +2 pitting edema present to bilateral LE. Varicosities present. NEURO: Gross sensation diminished bilaterally. DERM: Thickened, elongated nails x10 with the presence of subungual debris. No open lesions noted. Xerosis present to bilateral feet. ORTHO: Pain on palpation nails x10. 1st MPJ, MTJ, STJ, ankle joint ROM limited secondary to edema. - Neurological Exam Neurological exam: Alert, Oriented x3 - Psychiatric Exam Psychiatric exam: Normal Affect, Normal Mood Results - Vital Signs Recent Vital Signs: Last Vital Signs Temp 98 F 11/06/17 04:00 Pulse 94 H 11/06/17 07:00 Resp 16 11/06/17 07:00 BP 136/84 11/06/17 06:51 Pulse Ox 94 L 11/06/17 07:00 - Labs Result Diagrams: 11/06/17 06:17 11/06/17 06:16 Labs: Laboratory Results - last 24 hr 11/05/17 11/05/17 11/05/17 06:33 11:26 14:24 WBC RBC Hgb Hct MCV MCH MCHC RDW Plt Count MPV Neut % (Auto) Lymph % (Auto) [place] % (Auto) Eos % (Auto) Baso % (Auto) Neut # (Auto) Lymph # (Auto) [place] # (Auto) Eos # (Auto) Baso # (Auto) Neutrophils % (Manual) 93 H Band Neutrophils % 1 Lymphocytes % (Manual) 2 L Monocytes % (Manual) 4 Platelet Estimate Normal Anisocytosis (manual) Slight Sodium Potassium Chloride Carbon Dioxide Anion Gap BUN Creatinine Est GFR ( Amer) Est GFR (Non-Af Amer) POC Glucose (mg/dL) 282 H Random Glucose Calcium Phosphorus Magnesium Total Bilirubin AST ALT Alkaline Phosphatase Total Protein Albumin Globulin Albumin/Globulin Ratio Fluid Source Pleural Fluid Appearance Sl cloudy Fluid WBC 311.0 H Fluid RBC 814.0 H Fluid Tot Cell Count 100 H Fluid Neutrophils 14.0 H Fluid Lymphocytes 85.0 H Fld Monocyte/Macrophag 1 H Fluid Comment 11/05/17 11/05/17 11/06/17 16:07 21:05 06:16 WBC RBC Hgb Hct MCV MCH MCHC RDW Plt Count MPV Neut % (Auto) Lymph % (Auto) [place] % (Auto) Eos % (Auto) Baso % (Auto) Neut # (Auto) Lymph # (Auto) [place] # (Auto) Eos # (Auto) Baso # (Auto) Neutrophils % (Manual) Band Neutrophils % Lymphocytes % (Manual) Monocytes % (Manual) Platelet Estimate Anisocytosis (manual) Sodium 134 Potassium 5.0 Chloride 91 L Carbon Dioxide 34 H Anion Gap 13 BUN 67 H Creatinine 1.5 Est GFR ( Amer) 59 Est GFR (Non-Af Amer) 49 POC Glucose (mg/dL) 289 H 257 H Random Glucose 283 H Calcium 8.3 L Phosphorus 3.6 Magnesium 2.0 Total Bilirubin 0.8 AST 42 ALT 40 Alkaline Phosphatase 167 H Total Protein 6.3 Albumin 3.3 L Globulin 3.0 Albumin/Globulin Ratio 1.1 Fluid Source Fluid Appearance Fluid WBC Fluid RBC Fluid Tot Cell Count Fluid Neutrophils Fluid Lymphocytes Fld Monocyte/Macrophag Fluid Comment 11/06/17 11/06/17 06:17 07:40 WBC 5.7 RBC 5.11 Hgb 15.2 Hct 46.8 MCV 91.4 MCH 29.7 MCHC 32.5 L RDW 17.1 H Plt Count 170 MPV 9.0 Neut % (Auto) 91.6 H Lymph % (Auto) 3.8 L [place] % (Auto) 4.5 Eos % (Auto) 0.0 Baso % (Auto) 0.1 Neut # (Auto) 5.3 Lymph # (Auto) 0.2 L [place] # (Auto) 0.3 Eos # (Auto) 0.0 Baso # (Auto) 0.0 Neutrophils % (Manual) Band Neutrophils % Lymphocytes % (Manual) Monocytes % (Manual) Platelet Estimate Anisocytosis (manual) Sodium Potassium Chloride Carbon Dioxide Anion Gap BUN Creatinine Est GFR ( Amer) Est GFR (Non-Af Amer) POC Glucose (mg/dL) 275 H Random Glucose Calcium Phosphorus Magnesium Total Bilirubin AST ALT Alkaline Phosphatase Total Protein Albumin Globulin Albumin/Globulin Ratio Fluid Source Fluid Appearance Fluid WBC Fluid RBC Fluid Tot Cell Count Fluid Neutrophils Fluid Lymphocytes Fld Monocyte/Macrophag Fluid Comment Assessment & Plan - Assessment and Plan (Free Text) Assessment: 52 year old male with onychomycosis Plan: Patient seen and evaluated Discussed with attending, Dr. Mariano Nails x10 debrided without incident -Stable per podiatry Medical management per primary team Podiatry to sign off at this time, please reconsult as needed
[2017-11-06] MEDS: Tiotropium 18 mcg Cap For Inhalation INH SCH (08:24)
[2017-11-06] MEDS: (Novolin R) Insulin Human Regular 100 units/ml vial SC SCH ×4 (08:30→21:10)
[2017-11-06] MEDS: Cefepime IV 1 gm in Dextrose 1 GM/50 ML BAG IVPB SCH (09:00)
[2017-11-06] MEDS: Lactobacillus Acidophilus 500 MU Cap PO SCH ×2 (09:21→17:13)
[2017-11-06] MEDS: MethylPREDNISolone 40 mg Vial IVP SCH ×2 (09:22→21:12)
[2017-11-06] MEDS: Bacitracin 500 Units/gm Oint Foilpak UD TOP SCH ×2 (09:29→17:13)
--- NOTE | 2017-11-06 09:53 | US ---
PROCEDURE: Date of procedure: 11/05/2017 Procedure: 1. Ultrasound-guided Right thoracentesis, CPT 60095 Medications: 6CC 1% Lidocaine HISTORY: Right pleural effusion, shortness of breath TECHNIQUE: Following informed consent ,the Patients' right chest was marked. Procedure time-out was called, and the patient was placed in the sitting position and limited ultrasound showed a large right effusion. The patient's right back was prepped and draped in the usual sterile fashion. After the skin was anesthetized with lidocaine, a drainage catheter was advanced under ultrasound guidance into the pleural space. Ultrasound-guided thoracentesis was performed. A total of 900 cubic centimeters of straw-colored fluid removed without complication. A Xeroform dressing was applied. IMPRESSION: Ultrasound guided Right thoracentesis. There were no immediate complications.
--- NOTE | 2017-11-06 12:00 | CP.PCM.PN ---
Subjective - Date & Time of Evaluation Date of Evaluation: 11/06/17 Time of Evaluation: 08:00 - Subjective Subjective: 52 yo M w/ PMHx of Deafness, obesity, obesity hypoventilation, cor pulmonale, COPD on home O2, intermittent A fib, HTN, HLD, chronic venous congestion, anasarca and renal insufficiency admitted to [facility] w/ SOB and worsening renal fxn; pt subsequently transferred to [facility] ICU for further management including HD. Objective - Vital Signs/Intake and Output Vital Signs (last 24 hours): Temp Pulse Resp BP Pulse Ox 98.5 F 113 H 12 146/75 92 L 11/06/17 08:00 11/06/17 10:00 11/06/17 10:00 11/06/17 09:52 11/06/17 10:00 Intake and Output: 11/06/17 11/06/17 06:59 18:59 Intake Total 1090 200 Output Total 2500 3 Balance -1410 197 - Medications Medications: Current Medications Albuterol/Ipratropium (Duoneb 3 Mg/0.5 Mg (3 Ml) Ud) 3 ml INH RQ6 [facility] Last Admin: 11/06/17 08:32 Dose: Not Given Apixaban (Eliquis) 2.5 mg PO Q12 [facility] Last Admin: 11/06/17 09:21 Dose: 2.5 mg Atenolol (Tenormin) 25 mg PO 1900 [facility] Bacitracin (Bacitracin) 1 ea TOP BID [facility] Last Admin: 11/06/17 09:29 Dose: 1 ea Dextrose (Dextrose 50% Inj) 0 ml IV STAT PRN; Protocol PRN Reason: Hypoglycemia Protocol Dextrose (Glutose 15) 0 gm PO ONCE PRN; Protocol PRN Reason: Hypoglycemia Protocol Diltiazem HCl (Cardizem) 30 mg PO QID [facility] Last Admin: 11/06/17 09:21 Dose: 30 mg Gabapentin (Neurontin) 100 mg PO TID [facility] Last Admin: 11/06/17 09:21 Dose: 100 mg Glucagon (Glucagen Diagnostic Kit) 0 mg IM STAT PRN; Protocol PRN Reason: Hypoglycemia Protocol Cefepime HCl (Maxipime Iv 1 Gm Premix) 1 gm in 50 mls @ 100 mls/hr IVPB Q24H [facility] PRN Reason: Protocol Last Admin: 11/06/17 09:00 Dose: 100 mls/hr Sodium Chloride (Sodium Chloride 0.9%) 1,000 mls @ 50 mls/hr IV .Q20H [facility] Last Admin: 11/06/17 05:41 Dose: 50 mls/hr Linezolid (Zyvox 600mg/300ml D5w) 600 mg in 300 mls @ 200 mls/hr IVPB Q12H [facility] PRN Reason: Protocol Last Admin: 11/06/17 01:10 Dose: 200 mls/hr Dextrose (Dextrose 5% In Water 1000 Ml) 1,000 mls @ 0 mls/hr IV .Q0M PRN; Protocol; Per Protocol PRN Reason: Hypoglycemia Protocol Insulin Human Regular (Novolin R) 0 unit SC ACHS [facility] PRN Reason: Protocol Last Admin: 11/06/17 08:30 Dose: 3 unit Lactobacillus Acidophilus (Bacid Acidophilus) 1 cap PO BID [facility] Last Admin: 11/06/17 09:21 Dose: 1 cap Levothyroxine Sodium (Synthroid) 75 mcg PO DAILY@0630 [facility] Last Admin: 11/06/17 05:40 Dose: 75 mcg Methylprednisolone (Solu-Medrol) 40 mg IVP Q12H [facility] Last Admin: 11/06/17 09:22 Dose: 40 mg Pantoprazole Sodium (Protonix Inj) 40 mg IVP DAILY [facility] Last Admin: 11/06/17 09:22 Dose: 40 mg Tiotropium [place] (Spiriva) 18 mcg INH RQ24 [facility] Last Admin: 11/06/17 08:24 Dose: 18 mcg Tramadol HCl (Ultram) 25 mg PO TID PRN PRN Reason: Pain, moderate (4-7) - Labs Labs: 11/06/17 06:17 11/06/17 06:16 PT 17.1 SECONDS (9.7-12.2) H 11/03/17 13:33 INR 1.6 11/03/17 13:33 APTT 28 SECONDS (21-34) 11/03/17 13:33 - Constitutional Appears: Non-toxic, Chronically Ill - Head Exam Head Exam: NORMOCEPHALIC - Eye Exam Eye Exam: PERRL Pupil Exam: NORMAL ACCOMODATION - ENT Exam ENT Exam: Mucous Membranes Dry - Neck Exam Neck Exam: absent: Lymphadenopathy - Respiratory Exam Respiratory Exam: Decreased Breath Sounds - Cardiovascular Exam Cardiovascular Exam: REGULAR RHYTHM - GI/Abdominal Exam GI & Abdominal Exam: Distended, Soft - Rectal Exam Rectal Exam: Deferred - Exam Exam: NORMAL INSPECTION - Extremities Exam Extremities Exam: Pedal Edema. absent: Calf Tenderness - Back Exam Back Exam: absent: CVA tenderness (L), CVA tenderness (R) - Neurological Exam Neurological Exam: Alert, Awake, CN II-XII Intact Assessment and Plan (1) Deafness Status: Acute (2) Cor pulmonale Status: Acute (3) Ascites Status: Acute (4) Atrial flutter with rapid ventricular response Status: Acute (5) CHF (congestive heart failure) Status: Acute (6) COPD (chronic obstructive pulmonary disease) Status: Acute (7) Cellulitis Status: Acute (8) Pulmonary emphysema Status: Acute (9) Renal insufficiency Status: Acute (10) Respiratory distress Status: Acute - Assessment and Plan (Free Text) Assessment: Pt seen and examined at bedside. Complains of chronic back pain. Pt reports improvement in breathing s/p thoracentesis yesterday, denies SOB, chest pain, nausea, diarrhea. Pt's lower legs wrapped by wound care. cont iv antibiotics and wound care
--- NOTE | 2017-11-06 12:14 | CP.PCM.PN ---
Subjective - Date & Time of Evaluation Date of Evaluation: 11/06/17 Time of Evaluation: 12:13 - Subjective Subjective: Nephrology Consultation Note Assessment: stable AMY likely due to abdomen compartment syndrome and also contrubution by cardio- renal syndrome: IMPROVED s/p paracentesis Hyperkalemia likely due to AMY and acidemia resulting in transcellular shifts: resolved CKD stage 3 with baseline cr 1.1-1.4 mg/dL fluid overload with hyponatremia, COPD/CHF exacerbation with pneumonia acute on chronic hypercapnic respi failure deafness, DM, HTN, A flutter, morbid obesity, ex smoker, Rt heart failure with cor-pulmonale, pulmonary HTN, chronic leg edema, ascites Rt pleural effusion s/p thoracocentesis Plan UOP much better and cr trended down. Hence, no acute need for dialysis at this time maintain hemodynamics stable. avoid hypotension. no RAAS gene due to AMY and hyperkalemia monitor I/O daily weights and renal function with BMP maintain negative net balance of at-least 1-2 L/day may give diuretics as needed Dose meds/antibiotics for reduced GFR. Avoid fleets enema/magnesium based laxatives. 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 Thanks for allowing me to participate in care of your patient. will follow with you. Please call if any Qs. had d/w team Dr Basilio Rich Office: [phone] HPI: Pt is a 52 y/o M with hx of deafness, DM, HTN, A flutter, morbid obesity, ex smoker, Rt heart failure with cor-pulmonale, pulmonary HTN, chronic leg edema , ascites came with worsening SOB and being managed for COPD/CHF exacerbation/ pneumonia. renal consult for AMY management. pt not aware about kidney disease in past no known OTC/nsaids/herbal meds no recent contrast exposure. no episode of low BP noted baseline cr 1.1-1.4 last month. mother bedside and helped in sign and language interpretation. pt said to be able to read lips well ROS: he denies chest pain/nausea/vomiting. denied SOB Physical Examination: General Appearance: Comfortable, co-operative. better appearing, morbidly obese Vitals reviewed and noted as below Head; Atraumatic, normocephalic ENT: he has hearing impairment EYES: Pupils are equal, round and reactive to light accommodation. Eye muscles and extraocular movement intact. Sclera is anicteric. Neck; supple no lymphadenopathy, no thyromegaly or bruit Lungs: normal respiratory rate/effort. Breath sounds b/l decreased with basal crackles Heart: Normal rate. s1s2 normal. No rub or gallop. Extremities: 2+ edema. No varicose veins. has chronic venous stasis changes in legs with erythema/skin thickening Neurological: Patient is alert, awake, oriented x 3 follows commands, no focal deficit. Skin: dry and warm. Normal turgor. No rash. Palpitation: Normal elasticity for age. Abdomen: Abdomen is soft non tender no apparent organomegaly however exam limited as grossly distended. Psych: normal insight. has normal affect and mood MSK: no specific joint tenderness or swelling. Digits and nails normal, no deformity : kidney not palpable. bladder not distended Labs/imaging/EKG reviewed. Past medical history, past surgical history, social history, allergy reviewed and noted as below Family hx; no known hx of CKD> rest non contributory work up: UA SG >1.030 urine Na 6 Fena 0.4% echo: severe RV dilation and dysfunction, elevated RVSP. preserved LVEF renal imaging in past unremarkable Objective - Vital Signs/Intake and Output Vital Signs (last 24 hours): Temp Pulse Resp BP Pulse Ox 98.5 F 113 H 12 146/75 92 L 11/06/17 08:00 11/06/17 10:00 11/06/17 10:00 11/06/17 09:52 11/06/17 10:00 Intake and Output: 11/06/17 11/06/17 06:59 18:59 Intake Total 1090 200 Output Total 2500 3 Balance -1410 197 - Medications Medications: Current Medications Albuterol/Ipratropium (Duoneb 3 Mg/0.5 Mg (3 Ml) Ud) 3 ml INH RQ6 [facility] Last Admin: 11/06/17 08:32 Dose: Not Given Apixaban (Eliquis) 2.5 mg PO Q12 [facility] Last Admin: 11/06/17 09:21 Dose: 2.5 mg Atenolol (Tenormin) 25 mg PO 1900 [facility] Bacitracin (Bacitracin) 1 ea TOP BID [facility] Last Admin: 11/06/17 09:29 Dose: 1 ea Dextrose (Dextrose 50% Inj) 0 ml IV STAT PRN; Protocol PRN Reason: Hypoglycemia Protocol Dextrose (Glutose 15) 0 gm PO ONCE PRN; Protocol PRN Reason: Hypoglycemia Protocol Diltiazem HCl (Cardizem) 30 mg PO QID [facility] Last Admin: 11/06/17 09:21 Dose: 30 mg Gabapentin (Neurontin) 100 mg PO TID [facility] Last Admin: 11/06/17 09:21 Dose: 100 mg Glucagon (Glucagen Diagnostic Kit) 0 mg IM STAT PRN; Protocol PRN Reason: Hypoglycemia Protocol Cefepime HCl (Maxipime Iv 1 Gm Premix) 1 gm in 50 mls @ 100 mls/hr IVPB Q24H [facility] PRN Reason: Protocol Last Admin: 11/06/17 09:00 Dose: 100 mls/hr Sodium Chloride (Sodium Chloride 0.9%) 1,000 mls @ 50 mls/hr IV .Q20H [facility] Last Admin: 11/06/17 05:41 Dose: 50 mls/hr Linezolid (Zyvox 600mg/300ml D5w) 600 mg in 300 mls @ 200 mls/hr IVPB Q12H [facility] PRN Reason: Protocol Last Admin: 11/06/17 01:10 Dose: 200 mls/hr Dextrose (Dextrose 5% In Water 1000 Ml) 1,000 mls @ 0 mls/hr IV .Q0M PRN; Protocol; Per Protocol PRN Reason: Hypoglycemia Protocol Insulin Human Regular (Novolin R) 0 unit SC ACHS [facility] PRN Reason: Protocol Last Admin: 11/06/17 08:30 Dose: 3 unit Lactobacillus Acidophilus (Bacid Acidophilus) 1 cap PO BID [facility] Last Admin: 11/06/17 09:21 Dose: 1 cap Levothyroxine Sodium (Synthroid) 75 mcg PO DAILY@0630 [facility] Last Admin: 11/06/17 05:40 Dose: 75 mcg Methylprednisolone (Solu-Medrol) 40 mg IVP Q12H [facility] Last Admin: 11/06/17 09:22 Dose: 40 mg Pantoprazole Sodium (Protonix Inj) 40 mg IVP DAILY [facility] Last Admin: 11/06/17 09:22 Dose: 40 mg Tiotropium [place] (Spiriva) 18 mcg INH RQ24 [facility] Last Admin: 11/06/17 08:24 Dose: 18 mcg Tramadol HCl (Ultram) 25 mg PO TID PRN PRN Reason: Pain, moderate (4-7) - Labs Labs: 11/06/17 06:17 11/06/17 06:16 PT 17.1 SECONDS (9.7-12.2) H 11/03/17 13:33 INR 1.6 11/03/17 13:33 APTT 28 SECONDS (21-34) 11/03/17 13:33
--- NOTE | 2017-11-06 13:00 | CP.PCM.PN ---
Subjective - Date & Time of Evaluation Date of Evaluation: 11/06/17 Time of Evaluation: 12:57 - Subjective Subjective: Medical Attending Note: Patient seen and examined at bedside. Discussed with ICU, patient downgraded today. Patient seen sitting upright in chair. Patient worked with physical therapy; walked to and from the door. Phyiscal therapy limited because his heart rate was elevated. EKG noted for atrial flutter. Will increase cardizem. Patient denies fever, denies chills, denies chest pain, reports breathing is better, denies abdominal pain, denies nausea, denies vomitting, reports he has a bowel movement. Objective - Vital Signs/Intake and Output Vital Signs (last 24 hours): Temp Pulse Resp BP Pulse Ox 98.5 F 113 H 12 146/75 92 L 11/06/17 08:00 11/06/17 10:00 11/06/17 10:00 11/06/17 09:52 11/06/17 10:00 Intake and Output: 11/06/17 11/06/17 06:59 18:59 Intake Total 1090 200 Output Total 2500 3 Balance -1410 197 - Medications Medications: Current Medications Albuterol/Ipratropium (Duoneb 3 Mg/0.5 Mg (3 Ml) Ud) 3 ml INH RQ6 [facility] Last Admin: 11/06/17 08:32 Dose: Not Given Apixaban (Eliquis) 2.5 mg PO Q12 [facility] Last Admin: 11/06/17 09:21 Dose: 2.5 mg Atenolol (Tenormin) 25 mg PO 1900 [facility] Bacitracin (Bacitracin) 1 ea TOP BID [facility] Last Admin: 11/06/17 09:29 Dose: 1 ea Dextrose (Dextrose 50% Inj) 0 ml IV STAT PRN; Protocol PRN Reason: Hypoglycemia Protocol Dextrose (Glutose 15) 0 gm PO ONCE PRN; Protocol PRN Reason: Hypoglycemia Protocol Diltiazem HCl (Cardizem) 30 mg PO QID [facility] Last Admin: 11/06/17 09:21 Dose: 30 mg Gabapentin (Neurontin) 100 mg PO TID [facility] Last Admin: 11/06/17 09:21 Dose: 100 mg Glucagon (Glucagen Diagnostic Kit) 0 mg IM STAT PRN; Protocol PRN Reason: Hypoglycemia Protocol Cefepime HCl (Maxipime Iv 1 Gm Premix) 1 gm in 50 mls @ 100 mls/hr IVPB Q24H [facility] PRN Reason: Protocol Last Admin: 11/06/17 09:00 Dose: 100 mls/hr Sodium Chloride (Sodium Chloride 0.9%) 1,000 mls @ 50 mls/hr IV .Q20H [facility] Last Admin: 11/06/17 05:41 Dose: 50 mls/hr Linezolid (Zyvox 600mg/300ml D5w) 600 mg in 300 mls @ 200 mls/hr IVPB Q12H [facility] PRN Reason: Protocol Last Admin: 11/06/17 01:10 Dose: 200 mls/hr Dextrose (Dextrose 5% In Water 1000 Ml) 1,000 mls @ 0 mls/hr IV .Q0M PRN; Protocol; Per Protocol PRN Reason: Hypoglycemia Protocol Insulin Human Regular (Novolin R) 0 unit SC ACHS [facility] PRN Reason: Protocol Last Admin: 11/06/17 08:30 Dose: 3 unit Lactobacillus Acidophilus (Bacid Acidophilus) 1 cap PO BID [facility] Last Admin: 11/06/17 09:21 Dose: 1 cap Levothyroxine Sodium (Synthroid) 75 mcg PO DAILY@0630 [facility] Last Admin: 11/06/17 05:40 Dose: 75 mcg Methylprednisolone (Solu-Medrol) 40 mg IVP Q12H [facility] Last Admin: 11/06/17 09:22 Dose: 40 mg Pantoprazole Sodium (Protonix Inj) 40 mg IVP DAILY [facility] Last Admin: 11/06/17 09:22 Dose: 40 mg Tiotropium [place] (Spiriva) 18 mcg INH RQ24 [facility] Last Admin: 11/06/17 08:24 Dose: 18 mcg Tramadol HCl (Ultram) 25 mg PO TID PRN PRN Reason: Pain, moderate (4-7) - Labs Labs: 11/06/17 06:17 11/06/17 06:16 PT 17.1 SECONDS (9.7-12.2) H 11/03/17 13:33 INR 1.6 11/03/17 13:33 APTT 28 SECONDS (21-34) 11/03/17 13:33 - Constitutional Appears: Non-toxic, No Acute Distress, Other (morbid obesity) - Head Exam Head Exam: NORMAL INSPECTION - Eye Exam Eye Exam: EOMI. absent: PERRL, Scleral icterus - ENT Exam ENT Exam: Mucous Membranes Moist - Respiratory Exam Respiratory Exam: Decreased Breath Sounds, Rhonchi (improving), Wheezes ( improving), NORMAL BREATHING PATTERN. absent: Stridor - Cardiovascular Exam Cardiovascular Exam: Tachycardia, +S1, +S2 - GI/Abdominal Exam GI & Abdominal Exam: Distended (obese habitus), Soft, Hypoactive Bowel Sounds. absent: Firm, Guarding, Rigid, Tenderness, Pulsatile Mass, Rebound Additional comments: colostomy draining ascites fluid - Extremities Exam Extremities Exam: Pedal Edema (improving) Additional comments: redness bilateral shins: wrapped - Neurological Exam Neurological Exam: Alert, Awake, Oriented x3 - Psychiatric Exam Psychiatric exam: Normal Affect, Normal Mood - Skin Skin Exam: Dry, Warm Assessment and Plan (1) Ascites Status: Acute (2) Cor pulmonale Status: Acute (3) Deafness Status: Acute (4) Atrial flutter Status: Acute (5) CHF (congestive heart failure) Status: Acute (6) COPD (chronic obstructive pulmonary disease) Status: Acute (7) Hyperkalemia Status: Acute (8) Renal insufficiency Status: Acute (9) Prophylactic measure Status: Acute Attending/Attestation - Attestation I have personally seen and examined this patient.: Yes I have fully participated in the care of the patient.: Yes I have reviewed all pertinent clinical information, including history, physical exam and plan: Yes Notes (Text): Assessment and plan 1. Right-sided Congestive Heart failure Exacerbation Acute hypercapnic hypoxic respiratory failure COPD? * Duonebs 3ml of every 6 hours * Solumedrol 40mg IV every 12H * Spiriva 18 mcg INH Q24H * Lasix drip d/c yesterday * Echocardiogram 08/29/2017: Left ventricle is normal size, mild concentric left ventricular hypertrophy, left ventricle function is normal ejection fraction 55-60%, right ventricle is severely dilated systolic function of RVs moderately to severely reduced. Trace aortic regurgitation mitral regurgitation is trace moderate tricuspid regurg elevated IVC was not visualized no pericardial effusion noted poor window but due to increased body habitus. * Monitor daily weights and intake output * Cardiology Dr. Jacques consult help appreciated * Atenolol 25mg PO daily * Increase Cardizem 60mg PO QID * white count has normalized * Pro calcitonin is low 2. Acute Renal Failure on Chronic (Stage 3) Renal Failure/Possible Cardio-Renal Syndrome Assessment/Plan * Nephrology Dr. Rich/Lj * Dialysis consent obtained 11/03/17 however Nephrology is holding off on HD for now as renal function improved slightly after paracentesis on 11/03/17 * per nephrology and output is much better Ross gene due to HPI and hyperkalemia * renal function is improving 3. Ascites * As noted on U/S Abdomen 11/03/17 * S/P 3L ascites fluid removed on 11/03/17: follow up fluid analysis * Currently small amount of ascites fluid is still draining from the site of paracentesis in the RLQ (colostomy bag in place) 4. Pleural Effusions * CT Chest 11/03/17 shows large right and small left pleural effusion. prominent multifocal areas of consolidat imposed areas of atelectasis. Extensive lymphadenopathy within the med * Order placed for Thoracentesis via IR Dr. Austin for 11/05/17--> patient had 900 mL of straw-colored fluid; no drains require; follow-up pleural studies 5. History of Atrial flutter/Atrial fibrillation * Patient is on Eliquis 2.5mg PO BID (renal) sode previously last dose day prior to admission * Increase to Cardizem 60 mg by mouth 4 times a day * continue with Atenolol 25mg PO daily 6. Bilateral Pneumonia Healthcare care associated pneumonia * infectious disease Dr. Schaffer on the case * CT Chest 11/03/17 showed prominent multifocal areas of consolidate changes bilaterally right greater than left suggestive of multifocal infiltrate with extensive lympadenopathy within mediastinum and axilla * Patient will likely repeat CT Chest once he completes treatment for the bilateral pneumonia to make sure that there is NO underlying lesion. * Cefepime 1 gm IV Q24H active since 11/04/2017 * Linezolid 600 mg IV [id number] since 11/04/2017 * Legionella urinenegative, Mycoplasma pneumonia IgM: negative, and Strep pneumonia urine negative * Noted prior hospitalization in August of this year; possible treatment for Hospital/healthcare associated pneumonia 7. History of DM 2 * Hemoglobin A1C 6.9 * Insulin sliding scale * Holding metformin/glipizde on admission 8. Morbid obesity * Will need aggressive lifestyle intervention especially in light of his other comorbidities including diabetes, right-sided heart failure, pulmonary hypertension 9. Hypothyroidism * At time of admission levothyroxine increased to 50 mcg to Levothyroxine 75 mg PO 1x/day 10. Hx Deafness * Patient can read lips and sign language * mmother Sangeetha and sister, antonia also at be 11. Bilateral Lower Leg Cellulitis * Unable to outline areas of discoloration as mentioned in physical exam above. However as noted on physical exam above, this area extends from the just above the bilateral malleoli to just inferior to the bilateral knees * This may be combination of cellulitis and chronic venous insufficiency changes * Cefepime 1 gm IV Q24H active since 11/04/2017 * Linezolid 600 mg IV [id number] since 11/04/2017 * ID Dr. Schaffer * prior blood cultures from [place] ICU 11/01/2017 no growth after 4 daysX2 12. Edema * note prior Doppler was negative at [place] * Wound cares on board given weeping nature of legs * wound culture of right lower extremity weeping: Gram negative jaquan, gram positive cocci-->f/u culture 13. Poor nail Hygiene * Podiatry (Dr. Mariano) on case help appreciated * Nails debrided 11/06/17 14. Prophylactic measure * Eliquis restarted last night 2.5mg PO bid * Lactobacillus 1 cap PO 2x/day * Protonix 40mg IV daily * Monitor daily weights, I&O * PT OT on board * Reconsult PT/OT * Consult professor of violin referral given morbid obesity
--- NOTE | 2017-11-06 16:57 | CP.PCM.CON ---
History of Present Illness - History of Present Illness History of Present Illness: Pulmonology consulted for Pleural Effusion HPI: 52 year old male patient with past medical history of right sided heart failure with cor pulmonale, pulmonary hypertension, DM, bilateral hearing loss, atrial flutter on Eliquis, hypothyroidism, and COPD was transferred from [facility] to [facility] ICU because of possible need for urgent dialysis. Patient was admitted to [facility] due to progressive dyspnea and swelling of the lower extremities and abdomen. Patient was seen and examined at bed side. Patient is found sitting in chair comfortably in no acute distress. Patient denies shortness of breath, chest pain, headache, nausea, vomiting, diarrhea. Patient is currently on BiPAP. Patient reports that his breathing is improvemnt. Patient has no acute complaints. Chest X ray shows moderate right and small left pleural effusion. Patient had thoracentesis performed yesterday , removed 900 mL of straw- colored fluid. Patient did not require any additional drainage. Surgery History: Hernia surgery x4, appendectomy, gallbladder removal PMH: Right sided heart failure with cor pulmonale, DM, Pulmonary hypertension, bilateral hearing loss, aflutter on eliquis, hypothyroidism, COPD Social History: Patient is a former smoker. Patient denies alcohol comsumption. Medications: Albuterol/ ipratropium 3ml INH RQ6 Apixaban 2.5 mg PO Q12 Atenolol 25 mg PO Daily Bacitracin 1 each Top BID Cefepime Hcl 1gm in 50 mls @100 mls/ hr IVPB Q24H Diltiazem Hcl 60 mg PO QID Gabapentin 100 mg PO TID Insulin Human Regular 4 units Lactobacillus Acidophilus 1 cap PO BID Levothyroxine Sodium 75 mcg PO Daily Linezolid 600 mg in 300 mls @ 200 mls/ hr IVPB Methylprednisolone 40 mg IVP Q12H Pantoprazole Sodium 40 mg IVP Daily Tiatropium [place] 18 mcg INH RQ24 Tramadol Hcl 25 mg PO TID PRN ROS: Constitutional: Patient denies fever and chills Cardiovascular: Patient denies chest pain, palpitations Respiratory: Patient denies shortness of breath, cough Gastrointestinal: Patient denies nausea, vomiting, diarrhea. Neurological: AAO X3, normal speech Physical Exam HEENT: Atraumatic, normocephalic, mucuous membranes moist Respiratory: Decreased breath sounds. Rhonchi and wheezing. Negative for stridor. Cardiovascular: +S1/S2, regular rate and rhythm GI: Abdomen is distended, hypoactive bowel signs, no tenderness, no guarding. Extremities: Bilateral pedal edema Neurological: Alert, awake, oriented X3 Assessment: 52 year old male patient with past medical history of right sided heart failure with cor pulmonale, pulmonary hypertension, DM, bilateral hearing loss, atrial flutter on Eliquis, hypothyroidism, and COPD; patient's presentation consistent with pleural effusion. 1. Pleural Effusion Status: Acute - Continue treatment for ascites - Pending results of pleural fluid 2. COPD Exarcebation Status: Chronic - Albuterol/ ipratropium 3ml INH RQ6 - Tiatropium [place] 18 mcg INH RQ24 - Methylprednisolone 40 mg IVP Q12H 3. Chronic Renal Failure Status: Chronic 4. Afib Status: Chronic - Apixaban 2.5 mg PO Q12 5. Hypertension Status: Chronic - Diltiazem Hcl 60 mg PO QID Past Patient History - Tetanus Immunizations Tetanus Immunization: Unknown - Past Medical History & Family History Past Medical History?: Yes - Past Social History Smoking Status: Former Smoker - CARDIAC Hx Cardiac Disorders: Yes (Right sided heart failure with corpulmonale, Atrial Flutter,) Hx Hypertension: Yes - PULMONARY Hx Chronic Obstructive Pulmonary Disease (COPD): Yes - NEUROLOGICAL Hx Neurological Disorder: No - HEENT Hx Deafness: Yes - RENAL Hx Chronic Kidney Disease: No - ENDOCRINE/METABOLIC Hx Diabetes Mellitus Type 2: Yes Hx Hypothyroidism: Yes - HEMATOLOGICAL/ONCOLOGICAL Hx Blood Disorders: No - INTEGUMENTARY Hx Dermatological Problems: No - MUSCULOSKELETAL/RHEUMATOLOGICAL Hx Falls: No - GASTROINTESTINAL Hx Gastrointestinal Disorders: Yes - GENITOURINARY/GYNECOLOGICAL Hx Genitourinary Disorders: No Hx Reproductive Disorders: No - PSYCHIATRIC Hx Psychophysiologic Disorder: No Hx Depression: No Hx Emotional Abuse: No Hx Physical Abuse: No Hx Substance Use: No - SURGICAL HISTORY Hx Appendectomy: Yes Hx Cholecystectomy: Yes Hx Tonsillectomy: Yes Meds Allergies/Adverse Reactions: Allergies Allergy/AdvReac Type Severity Reaction Status Date / Time No Known Allergies Allergy Verified 09/11/17 20:08 - Medications Medications: Current Medications Albuterol/Ipratropium (Duoneb 3 Mg/0.5 Mg (3 Ml) Ud) 3 ml INH RQ6 [facility] Last Admin: 11/06/17 13:37 Dose: 3 ml Apixaban (Eliquis) 2.5 mg PO Q12 [facility] Last Admin: 11/06/17 09:21 Dose: 2.5 mg Atenolol (Tenormin) 25 mg PO DAILY [facility] Bacitracin (Bacitracin) 1 ea TOP BID [facility] Last Admin: 11/06/17 09:29 Dose: 1 ea Dextrose (Dextrose 50% Inj) 0 ml IV STAT PRN; Protocol PRN Reason: Hypoglycemia Protocol Dextrose (Glutose 15) 0 gm PO ONCE PRN; Protocol PRN Reason: Hypoglycemia Protocol Diltiazem HCl (Cardizem) 60 mg PO QID [facility] Last Admin: 11/06/17 13:20 Dose: 60 mg Gabapentin (Neurontin) 100 mg PO TID [facility] Last Admin: 11/06/17 13:21 Dose: 100 mg Glucagon (Glucagen Diagnostic Kit) 0 mg IM STAT PRN; Protocol PRN Reason: Hypoglycemia Protocol Cefepime HCl (Maxipime Iv 1 Gm Premix) 1 gm in 50 mls @ 100 mls/hr IVPB Q24H [facility] PRN Reason: Protocol Last Admin: 11/06/17 09:00 Dose: 100 mls/hr Sodium Chloride (Sodium Chloride 0.9%) 1,000 mls @ 50 mls/hr IV .Q20H [facility] Last Admin: 11/06/17 05:41 Dose: 50 mls/hr Linezolid (Zyvox 600mg/300ml D5w) 600 mg in 300 mls @ 200 mls/hr IVPB Q12H [facility] PRN Reason: Protocol Last Admin: 11/06/17 13:00 Dose: 200 mls/hr Dextrose (Dextrose 5% In Water 1000 Ml) 1,000 mls @ 0 mls/hr IV .Q0M PRN; Protocol; Per Protocol PRN Reason: Hypoglycemia Protocol Insulin Human Regular (Novolin R) 0 unit SC ACHS [facility] PRN Reason: Protocol Last Admin: 11/06/17 12:30 Dose: 4 unit Lactobacillus Acidophilus (Bacid Acidophilus) 1 cap PO BID [facility] Last Admin: 11/06/17 09:21 Dose: 1 cap Levothyroxine Sodium (Synthroid) 75 mcg PO DAILY@0630 [facility] Last Admin: 11/06/17 05:40 Dose: 75 mcg Methylprednisolone (Solu-Medrol) 40 mg IVP Q12H [facility] Last Admin: 11/06/17 09:22 Dose: 40 mg Pantoprazole Sodium (Protonix Inj) 40 mg IVP DAILY [facility] Last Admin: 11/06/17 09:22 Dose: 40 mg Tiotropium [place] (Spiriva) 18 mcg INH RQ24 [facility] Last Admin: 11/06/17 08:24 Dose: 18 mcg Tramadol HCl (Ultram) 25 mg PO TID PRN PRN Reason: Pain, moderate (4-7) Results - Vital Signs Recent Vital Signs: Last Vital Signs Temp 98.1 F 11/06/17 16:00 Pulse 100 H 11/06/17 16:09 Resp 21 11/06/17 16:09 BP 139/111 H 11/06/17 14:53 Pulse Ox 91 L 11/06/17 14:00 - Labs Result Diagrams: 11/06/17 06:17 11/06/17 06:16 Labs: Laboratory Results - last 24 hr 11/04/17 11/05/17 11/06/17 20:30 21:05 06:16 WBC RBC Hgb Hct MCV MCH MCHC RDW Plt Count MPV Neut % (Auto) Lymph % (Auto) [place] % (Auto) Eos % (Auto) Baso % (Auto) Neut # (Auto) Lymph # (Auto) [place] # (Auto) Eos # (Auto) Baso # (Auto) Neutrophils % (Manual) Lymphocytes % (Manual) Monocytes % (Manual) Platelet Estimate Anisocytosis (manual) Sodium 134 Potassium 5.0 Chloride 91 L Carbon Dioxide 34 H Anion Gap 13 BUN 67 H Creatinine 1.5 Est GFR ( Amer) 59 Est GFR (Non-Af Amer) 49 POC Glucose (mg/dL) 257 H Random Glucose 283 H Calcium 8.3 L Phosphorus 3.6 Magnesium 2.0 Total Bilirubin 0.8 AST 42 ALT 40 Alkaline Phosphatase 167 H Total Protein 6.3 Albumin 3.3 L Globulin 3.0 Albumin/Globulin Ratio 1.1 Angiotensin Convert Enz 40 11/06/17 11/06/17 11/06/17 06:17 07:40 11:35 WBC 5.7 RBC 5.11 Hgb 15.2 Hct 46.8 MCV 91.4 MCH 29.7 MCHC 32.5 L RDW 17.1 H Plt Count 170 MPV 9.0 Neut % (Auto) 91.6 H Lymph % (Auto) 3.8 L [place] % (Auto) 4.5 Eos % (Auto) 0.0 Baso % (Auto) 0.1 Neut # (Auto) 5.3 Lymph # (Auto) 0.2 L [place] # (Auto) 0.3 Eos # (Auto) 0.0 Baso # (Auto) 0.0 Neutrophils % (Manual) 93 H Lymphocytes % (Manual) 6 L Monocytes % (Manual) 1 Platelet Estimate Normal Anisocytosis (manual) Slight Sodium Potassium Chloride Carbon Dioxide Anion Gap BUN Creatinine Est GFR ( Amer) Est GFR (Non-Af Amer) POC Glucose (mg/dL) 275 H 317 H Random Glucose Calcium Phosphorus Magnesium Total Bilirubin AST ALT Alkaline Phosphatase Total Protein Albumin Globulin Albumin/Globulin Ratio Angiotensin Convert Enz 11/06/17 16:23 WBC RBC Hgb Hct MCV MCH MCHC RDW Plt Count MPV Neut % (Auto) Lymph % (Auto) [place] % (Auto) Eos % (Auto) Baso % (Auto) Neut # (Auto) Lymph # (Auto) [place] # (Auto) Eos # (Auto) Baso # (Auto) Neutrophils % (Manual) Lymphocytes % (Manual) Monocytes % (Manual) Platelet Estimate Anisocytosis (manual) Sodium Potassium Chloride Carbon Dioxide Anion Gap BUN Creatinine Est GFR ( Amer) Est GFR (Non-Af Amer) POC Glucose (mg/dL) 272 H Random Glucose Calcium Phosphorus Magnesium Total Bilirubin AST ALT Alkaline Phosphatase Total Protein Albumin Globulin Albumin/Globulin Ratio Angiotensin Convert Enz
--- NOTE | 2017-11-06 17:45 | CARD ---
APPROVED REPORT Date of service: 11/05/2017 EKG Measurement Heart [id number] P250 [id number] <Conclusion> Atrial flutter ST & T wave abnormality, consider inferior ischemia Prolonged QT Abnormal ECG
[2017-11-06] MEDS ORDERED: Magnesium Hydroxide Susp 30 ml UD PO ONE (21:00)
--- NOTE | 2017-11-06 21:18 | PN ---
DATE: 11/06/2017 FOLLOWUP SUBJECTIVE: The patient is comfortable, on nasal O2. He is eating his lunch when I saw him and his family was at the bedside. PHYSICAL EXAMINATION: VITAL SIGNS: Blood pressure 139/111, heart rate 115, temperature 98.1. HEENT: Normocephalic. CHEST: Absent breath sounds over the bases. HEART: S1 and S2 are regular. ABDOMEN: Soft. EXTREMITIES: 2 to 3+ pitting edema. LABORATORY DATA: Today's SMA-7: Sodium 134, potassium 5, chloride 91, CO2 of 34, glucose 183, BUN 67, creatinine 1.5. Today's hemoglobin, hematocrit, white count, and platelet count are within normal limit. EKG done yesterday revealed atrial flutter with 3:1 conduction. ASSESSMENT: 1. Persistent atrial flutter. 2. Improved acute renal failure. 3. Severe right-sided heart failure. 4. Secondary pulmonary hypertension. 5. Morbid obesity. 6. Hypothyroidism. 7. Bilateral pneumonia and large right pleural effusion. 8. Moderate ascites. 9. Uncontrolled diabetes mellitus. RECOMMENDATIONS: Continue Cardizem at 60 mg four times a day, Eliquis at 2.5 mg twice a day, IV cefepime at 1 gm daily, Solu-Medrol at 40 mg intravenously every 12 hours, Synthroid 75 mcg once a day, Tenormin 25 mg once a day and IV Zyvox 600 mg every 12 hours. Okay with telemetry transfer. The case was discussed with the patient's mother at the bedside. See Barksdale MD
[2017-11-07] MEDS: Albuterol-Ipratrop 3 mg / 0.5 (3 ml) UD INH SCH ×4 (02:05→20:06)
[2017-11-07] MEDS: Linezolid 600 mg in D5W 300 ml 600 MG/300 ML BAG IVPB SCH ×2 (02:22→13:00)
[2017-11-07] MEDS: Levothyroxine 75 MCG TAB PO SCH (05:31)
[2017-11-07] MEDS ORDERED: Sodium Chloride 0.9% 1,000 ML IV SCH (05:45)
[2017-11-07 06:22] LABS: BASO % 0.2 % (0.0-2.0); HEMOGLOBIN 15.6 g/dL (12.0-18.0); LYMPH # 0.2 K/uL (1.0-4.3); MEAN CELL VOLUME 92.1 fL (80.0-94.0); MEAN CORPUSCULAR HEMOGLOBIN 29.7 pg (27.0-31.0); MEAN CORPUSCULAR HGB CONC 32.2 g/dL (33.0-37.0); MEAN PLATELET VOLUME 9.1 fL (7.2-11.7); MONO # 0.3 K/uL (0.0-0.8); MONO % 4.7 % (0.0-10.0); NEUT # 5.3 K/uL (1.8-7.0); NEUT % 91.1 % (50.0-75.0); PLATELET COUNT 171 K/uL (130-400); RBC 5.27 Mil/uL (4.40-5.90); RED CELL DISTRIBUTION WIDTH 16.7 % (11.5-14.5); WHITE BLOOD COUNT 5.9 K/uL (4.8-10.8)
[2017-11-07 06:37] LABS: ALT/SGPT 56 U/L (21-72); AST/SGOT 50 U/L (17-59); BLOOD UREA NITROGEN 54 mg/dL (9-20); CALCIUM 8.5 mg/dl (8.6-10.4); GFR AFRICAN-AMERICAN > 60; GFR NON-AFRICAN AMERICAN > 60
--- NOTE | 2017-11-07 08:00 | CP.PCM.PN ---
Subjective - Date & Time of Evaluation Date of Evaluation: 11/07/17 Time of Evaluation: 08:00 - Subjective Subjective: Medical Attending Note: Patient seen and examined at bedside, patient seen upright watching tv on miniplayer. Patient denies headache, denies dizzines, denies chest pain, reports breathing has improved, denies abdominal pain, denies nausea, denies vomitting, reports has not had a bowel movement since coming to the hospital. Discussed with RN, patient has had about 800-900cc output from the ascite fluid in the colostomy. On the monitor, patient is atrial flutter in high 90s heart rate and BP: 150s/ 70s. Objective - Vital Signs/Intake and Output Vital Signs (last 24 hours): Temp Pulse Resp BP Pulse Ox 98.8 F 87 13 144/94 H 95 11/07/17 04:00 11/07/17 07:00 11/07/17 07:00 11/07/17 06:52 11/07/17 07:00 Intake and Output: 11/07/17 11/07/17 06:59 18:59 Intake Total 1750 50 Output Total 5450 Balance -3700 50 - Medications Medications: Current Medications Albuterol/Ipratropium (Duoneb 3 Mg/0.5 Mg (3 Ml) Ud) 3 ml INH RQ6 [facility] Last Admin: 11/07/17 02:05 Dose: 3 ml Apixaban (Eliquis) 2.5 mg PO Q12 [facility] Last Admin: 11/06/17 21:12 Dose: 2.5 mg Atenolol (Tenormin) 25 mg PO Q24H [facility] Last Admin: 11/06/17 17:14 Dose: 25 mg Bacitracin (Bacitracin) 1 ea TOP BID [facility] Last Admin: 11/06/17 17:13 Dose: 1 ea Dextrose (Dextrose 50% Inj) 0 ml IV STAT PRN; Protocol PRN Reason: Hypoglycemia Protocol Dextrose (Glutose 15) 0 gm PO ONCE PRN; Protocol PRN Reason: Hypoglycemia Protocol Diltiazem HCl (Cardizem) 60 mg PO QID [facility] Last Admin: 11/06/17 21:12 Dose: 60 mg Gabapentin (Neurontin) 100 mg PO TID [facility] Last Admin: 11/06/17 17:14 Dose: 100 mg Glucagon (Glucagen Diagnostic Kit) 0 mg IM STAT PRN; Protocol PRN Reason: Hypoglycemia Protocol Cefepime HCl (Maxipime Iv 1 Gm Premix) 1 gm in 50 mls @ 100 mls/hr IVPB Q24H [facility] PRN Reason: Protocol Last Admin: 11/06/17 09:00 Dose: 100 mls/hr Linezolid (Zyvox 600mg/300ml D5w) 600 mg in 300 mls @ 200 mls/hr IVPB Q12H [facility] PRN Reason: Protocol Last Admin: 11/07/17 02:22 Dose: 200 mls/hr Dextrose (Dextrose 5% In Water 1000 Ml) 1,000 mls @ 0 mls/hr IV .Q0M PRN; Protocol; Per Protocol PRN Reason: Hypoglycemia Protocol Sodium Chloride (Sodium Chloride 0.9%) 1,000 mls @ 50 mls/hr IV .Q20H [facility] Last Admin: 11/07/17 06:40 Dose: 50 mls/hr Insulin Human Regular (Novolin R) 0 unit SC ACHS [facility] PRN Reason: Protocol Last Admin: 11/06/17 21:10 Dose: Not Given Lactobacillus Acidophilus (Bacid Acidophilus) 1 cap PO BID [facility] Last Admin: 11/06/17 17:13 Dose: 1 cap Levothyroxine Sodium (Synthroid) 75 mcg PO DAILY@0630 [facility] Last Admin: 11/07/17 05:31 Dose: 75 mcg Methylprednisolone (Solu-Medrol) 40 mg IVP Q12H [facility] Last Admin: 11/06/17 21:12 Dose: 40 mg Pantoprazole Sodium (Protonix Inj) 40 mg IVP DAILY [facility] Last Admin: 11/06/17 09:22 Dose: 40 mg Tiotropium [place] (Spiriva) 18 mcg INH RQ24 [facility] Last Admin: 11/06/17 08:24 Dose: 18 mcg Tramadol HCl (Ultram) 25 mg PO TID PRN PRN Reason: Pain, moderate (4-7) - Labs Labs: 11/07/17 06:10 11/07/17 06:10 PT 17.1 SECONDS (9.7-12.2) H 11/03/17 13:33 INR 1.6 11/03/17 13:33 APTT 28 SECONDS (21-34) 11/03/17 13:33 - Constitutional Appears: Non-toxic, No Acute Distress, Other (morbidly obese) - Head Exam Head Exam: NORMAL INSPECTION Additional comments: dressing over bridge of nose - Eye Exam Eye Exam: EOMI. absent: Nystagmus, Scleral icterus Pupil Exam: PERRL - ENT Exam ENT Exam: Mucous Membranes Moist - Respiratory Exam Respiratory Exam: Decreased Breath Sounds, Rales, NORMAL BREATHING PATTERN. absent: Wheezes, Stridor Additional comments: lung exam is improving - Cardiovascular Exam Cardiovascular Exam: Tachycardia, +S1, +S2. absent: JVD - GI/Abdominal Exam GI & Abdominal Exam: Distended (obese habitus), Soft, Normal Bowel Sounds. absent: Guarding, Rigid, Tenderness Additional comments: colostomy bag: yellow fluid in bag. no blood in ostomy bag - Extremities Exam Extremities Exam: Pedal Edema Additional comments: wrapped in dressing and shira bandage - Back Exam Back Exam: absent: CVA tenderness (L), CVA tenderness (R) - Neurological Exam Neurological Exam: Alert, Awake, Oriented x3 - Psychiatric Exam Psychiatric exam: Normal Affect, Normal Mood - Skin Skin Exam: Dry, Intact, Warm Assessment and Plan (1) Ascites Status: Acute (2) Cor pulmonale Status: Acute (3) Deafness Status: Acute (4) Atrial flutter Status: Acute (5) CHF (congestive heart failure) Status: Acute (6) COPD (chronic obstructive pulmonary disease) Status: Acute (7) Hyperkalemia Status: Acute (8) Renal insufficiency Status: Acute (9) Prophylactic measure Status: Acute Attending/Attestation - Attestation I have personally seen and examined this patient.: Yes I have fully participated in the care of the patient.: Yes I have reviewed all pertinent clinical information, including history, physical exam and plan: Yes Notes (Text): Assessment and plan 1. Right-sided Congestive Heart failure Exacerbation Acute hypercapnic hypoxic respiratory failure COPD Pleural effusion * Cardiology Dr. Green consult help appreciated * Pulmonary Dr. Ferrera consult help appreciated * Duonebs 3ml of every 6 hours * Solumedrol 40mg IV every 12H * Spiriva 18 mcg INH Q24H * Lasix drip d/c yesterday * Echocardiogram 08/29/2017: Left ventricle is normal size, mild concentric left ventricular hypertrophy, left ventricle function is normal ejection fraction 55-60%, right ventricle is severely dilated systolic function of RVs moderately to severely reduced. Trace aortic regurgitation mitral regurgitation is trace moderate tricuspid regurg elevated IVC was not visualized no pericardial effusion noted poor window but due to increased body habitus. * Monitor daily weights and intake output * Cardiology Dr. Jacques consult help appreciated * Atenolol 25mg PO daily * Increase Cardizem 60mg PO QID * white count has normalized * Pro calcitonin is low 2. Acute Renal Failure on Chronic (Stage 3) Renal Failure/Possible Cardio-Renal Syndrome Assessment/Plan * Nephrology Dr. 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 Ascites * As noted on U/S Abdomen 11/03/17 * S/P 3L ascites fluid removed on 11/03/17: follow up fluid analysis * Currently draining from ascites fluid is still draining from the site of paracentesis in the RLQ (colostomy bag in place) 4. Pleural Effusions * CT Chest 11/03/17 shows large right and small left pleural effusion. prominent multifocal areas of consolidat imposed areas of atelectasis. Extensive lymphadenopathy within the med * Order placed for Thoracentesis via IR Dr. Austin for 11/05/17--> patient had 900 mL of straw-colored fluid; no drains require; follow-up pleural studies 5. History of Atrial flutter/Atrial fibrillation * Patient is on Eliquis 2.5mg PO BID (renal) * Increase to Cardizem 60 mg by mouth 4 times a day * continue with Atenolol 25mg PO daily 6. Bilateral Pneumonia Healthcare care associated pneumonia * infectious disease Dr. Schaffer on the case * CT Chest 11/03/17 showed prominent multifocal areas of consolidate changes bilaterally right greater than left suggestive of multifocal infiltrate with extensive lympadenopathy within mediastinum and axilla * Patient will likely repeat CT Chest once he completes treatment for the bilateral pneumonia to make sure that there is NO underlying lesion. * Cefepime 1 gm IV Q24H active since 11/04/2017 * Linezolid 600 mg IV [id number] since 11/04/2017 * Legionella urinenegative, Mycoplasma pneumonia IgM: negative, and Strep pneumonia urine negative * Noted prior hospitalization in August of this year; possible treatment for Hospital/healthcare associated pneumonia 7. History of DM 2 * Hemoglobin A1C 6.9 * Insulin sliding scale * Holding metformin/glipizde on admission 8. Morbid obesity * Will need aggressive lifestyle intervention especially in light of his other comorbidities including diabetes, right-sided heart failure, pulmonary hypertension 9. Hypothyroidism * At time of admission levothyroxine increased to 50 mcg to Levothyroxine 75 mg PO 1x/day 10. Hx Deafness * Patient can read lips and sign language 11. Bilateral Lower Leg Cellulitis * Unable to outline areas of discoloration as mentioned in physical exam above. However as noted on physical exam above, this area extends from the just above the bilateral malleoli to just inferior to the bilateral knees * This may be combination of cellulitis and chronic venous insufficiency changes * Cefepime 1 gm IV Q24H active since 11/04/2017 * Linezolid 600 mg IV [id number] since 11/04/2017 * ID Dr. Schaffer * prior blood cultures from [facility] ICU 11/01/2017 no growth after 4 daysX2 12. Edema * note prior Doppler was negative at [facility] * Wound cares on board given weeping nature of legs * wound culture of right lower extremity weeping: Gram negative jaquan, gram positive cocci-->f/u culture-->pending 13. Poor nail Hygiene * Podiatry (Dr. Mariano) on case help appreciated * Nails debrided 11/06/17 14. History of Chronic Back Pain * used to be on Oxycodone 30mg prior to admission * Patient is on Tramadol 25mg PO TID PRN moderate pain * Gabapentin 100mg PO TID 14. Prophylactic measure * Eliquist 2.5mg PO bid * Lactobacillus 1 cap PO 2x/day * Protonix 40mg IV daily * Monitor daily weights, I&O * PT OT on board * Reconsult PT/OT * Consult key account manager referral given morbid obesity * NS 50cc/hr
[2017-11-07] MEDS: Tiotropium 18 mcg Cap For Inhalation INH SCH (08:14)
[2017-11-07 08:25] LABS: LYMPHOCYTE 6 % (20-40); MONOCYTE 5 % (0-10); NEUTROPHIL 89 % (50-75); PLATELET ESTIMATE NORMAL (NORMAL); TOTAL CELLS COUNTED 100
[2017-11-07 08:26] LABS: ANISOCYTOSIS SLIGHT
[2017-11-07] MEDS: (Novolin R) Insulin Human Regular 100 units/ml vial SC SCH ×4 (08:30→21:19)
[2017-11-07] MEDS ORDERED: Bisacodyl 5mg EC Tab PO ONE (08:46)
[2017-11-07] MEDS: Bacitracin 500 Units/gm Oint Foilpak UD TOP SCH ×2 (08:59→17:05)
[2017-11-07] MEDS: Lactobacillus Acidophilus 500 MU Cap PO SCH ×2 (08:59→17:05)
[2017-11-07] MEDS: MethylPREDNISolone 40 mg Vial IVP SCH ×2 (09:00→21:36)
[2017-11-07] MEDS: Cefepime IV 1 gm in Dextrose 1 GM/50 ML BAG IVPB SCH (09:00)
--- NOTE | 2017-11-07 14:57 | CP.PCM.PN ---
Subjective - Date & Time of Evaluation Date of Evaluation: 11/07/17 Time of Evaluation: 14:55 - Subjective Subjective: Nephrology Consultation Note Assessment: stable AMY likely due to abdomen compartment syndrome and also contrubution by cardio- renal syndrome: IMPROVED s/p paracentesis Hyperkalemia likely due to AMY and acidemia resulting in transcellular shifts: resolved CKD stage 3 with baseline cr 1.1-1.4 mg/dL fluid overload with hyponatremia, COPD/CHF exacerbation with pneumonia acute on chronic hypercapnic respi failure deafness, DM, HTN, A flutter, morbid obesity, ex smoker, Rt heart failure with cor-pulmonale, pulmonary HTN, chronic leg edema, ascites Rt pleural effusion s/p thoracocentesis Plan UOP much better and cr trended down. Hence, no acute need for dialysis at this time maintain hemodynamics stable. avoid hypotension. no RAAS gene due to AMY and hyperkalemia, consider once K better monitor I/O daily weights and renal function with BMP maintain negative net balance of at-least 1-2 L/day d/c IVF and started diuretics as lasix 40 mg/day low K diet management of pulmonary HTN as per pulmonary/cardiology Dose meds/antibiotics for improved GFR. Glycemic control, oral fluid/salt restriction In jail, pt need weight loss, diet modification and lifestyle changes Further work up for as per primary team. Thanks for allowing me to participate in care of your patient. Please call if any Qs. had d/w team Dr Basilio Rich Office: [phone] HPI: Pt is a 52 y/o M with hx of deafness, DM, HTN, A flutter, morbid obesity, ex smoker, Rt heart failure with cor-pulmonale, pulmonary HTN, chronic leg edema , ascites came with worsening SOB and being managed for COPD/CHF exacerbation/ pneumonia. renal consult for AMY management. pt not aware about kidney disease in past no known OTC/nsaids/herbal meds no recent contrast exposure. no episode of low BP noted baseline cr 1.1-1.4 last month. mother bedside and helped in sign and language interpretation. pt said to be able to read lips well ROS: he denies chest pain/nausea/vomiting. denied SOB Physical Examination: General Appearance: Comfortable, co-operative. better appearing, morbidly obese Vitals reviewed and noted as below Head; Atraumatic, normocephalic ENT: he has hearing impairment EYES: Pupils are equal, round and reactive to light accommodation. Eye muscles and extraocular movement intact. Sclera is anicteric. Neck; supple no lymphadenopathy, no thyromegaly or bruit Lungs: normal respiratory rate/effort. Breath sounds b/l decreased with basal crackles Heart: Normal rate. s1s2 normal. No rub or gallop. Extremities: 2+ edema. No varicose veins. has chronic venous stasis changes in legs with erythema/skin thickening Neurological: Patient is alert, awake, oriented x 3 follows commands, no focal deficit. Skin: dry and warm. Normal turgor. No rash. Palpitation: Normal elasticity for age. Abdomen: Abdomen is soft non tender no apparent organomegaly however exam limited as grossly distended. Psych: normal insight. has normal affect and mood MSK: no specific joint tenderness or swelling. Digits and nails normal, no deformity : kidney not palpable. bladder not distended Labs/imaging/EKG reviewed. Past medical history, past surgical history, social history, allergy reviewed and noted as below Family hx; no known hx of CKD> rest non contributory work up: UA SG >1.030 urine Na 6 Fena 0.4% echo: severe RV dilation and dysfunction, elevated RVSP. preserved LVEF renal imaging in past unremarkable Objective - Vital Signs/Intake and Output Vital Signs (last 24 hours): Temp Pulse Resp BP Pulse Ox 98.9 F 89 13 143/97 H 93 L 11/07/17 12:00 11/07/17 12:00 11/07/17 12:00 11/07/17 09:52 11/07/17 11:00 Intake and Output: 11/07/17 11/07/17 06:59 18:59 Intake Total 1750 300 Output Total 5450 Balance -3700 300 - Medications Medications: Current Medications Albuterol/Ipratropium (Duoneb 3 Mg/0.5 Mg (3 Ml) Ud) 3 ml INH RQ6 JOSE E Last Admin: 11/07/17 13:25 Dose: 3 ml Apixaban (Eliquis) 2.5 mg PO Q12 JOSE E Last Admin: 11/07/17 08:59 Dose: 2.5 mg Atenolol (Tenormin) 25 mg PO Q24H JOSE E Last Admin: 11/06/17 17:14 Dose: 25 mg Bacitracin (Bacitracin) 1 ea TOP BID [facility] Last Admin: 11/07/17 08:59 Dose: 1 ea Dextrose (Dextrose 50% Inj) 0 ml IV STAT PRN; Protocol PRN Reason: Hypoglycemia Protocol Dextrose (Glutose 15) 0 gm PO ONCE PRN; Protocol PRN Reason: Hypoglycemia Protocol Diltiazem HCl (Cardizem) 60 mg PO QID [facility] Last Admin: 11/07/17 13:50 Dose: 60 mg Docusate Sodium (Colace) 100 mg PO TID [facility] Last Admin: 11/07/17 13:50 Dose: 100 mg Gabapentin (Neurontin) 100 mg PO TID [facility] Last Admin: 11/07/17 13:50 Dose: 100 mg Glucagon (Glucagen Diagnostic Kit) 0 mg IM STAT PRN; Protocol PRN Reason: Hypoglycemia Protocol Cefepime HCl (Maxipime Iv 1 Gm Premix) 1 gm in 50 mls @ 100 mls/hr IVPB Q24H JOSE E PRN Reason: Protocol Last Admin: 11/07/17 09:00 Dose: 100 mls/hr Linezolid (Zyvox 600mg/300ml D5w) 600 mg in 300 mls @ 200 mls/hr IVPB Q12H JOSE E PRN Reason: Protocol Last Admin: 11/07/17 02:22 Dose: 200 mls/hr Dextrose (Dextrose 5% In Water 1000 Ml) 1,000 mls @ 0 mls/hr IV .Q0M PRN; Protocol; Per Protocol PRN Reason: Hypoglycemia Protocol Insulin Human Regular (Novolin R) 0 unit SC ACHS JOSE E PRN Reason: Protocol Last Admin: 11/07/17 12:13 Dose: 2 unit Lactobacillus Acidophilus (Bacid Acidophilus) 1 cap PO BID [facility] Last Admin: 11/07/17 08:59 Dose: 1 cap Levothyroxine Sodium (Synthroid) 75 mcg PO DAILY@0630 [facility] Last Admin: 11/07/17 05:31 Dose: 75 mcg Methylprednisolone (Solu-Medrol) 40 mg IVP Q12H [facility] Last Admin: 11/07/17 09:00 Dose: 40 mg Pantoprazole Sodium (Protonix Ec Tab) 40 mg PO DAILY [facility] Tiotropium [place] (Spiriva) 18 mcg INH RQ24 [facility] Last Admin: 11/07/17 08:14 Dose: 18 mcg Tramadol HCl (Ultram) 25 mg PO TID PRN PRN Reason: Pain, moderate (4-7) - Labs Labs: 11/07/17 06:10 11/07/17 06:10 PT 17.1 SECONDS (9.7-12.2) H 11/03/17 13:33 INR 1.6 11/03/17 13:33 APTT 28 SECONDS (21-34) 11/03/17 13:33
--- NOTE | 2017-11-07 16:28 | CP.PCM.PN ---
Subjective - Date & Time of Evaluation Date of Evaluation: 11/07/17 Time of Evaluation: 11:40 - Subjective Subjective: Shortness of Breath HPI: Patient was seen and examined at bed side. Patient is found sitting in chair comfortably in no acute distress. Patient denies shortness of breath, chest pain, headache, nausea, vomiting, diarrhea. Patient continues to be on BiPAP. Patient reports improvement in his breathing. Patient has no acute complaints. Surgery History: Hernia surgery x4, appendectomy, gallbladder removal PMH: Right sided heart failure with cor pulmonale, DM, Pulmonary hypertension, bilateral hearing loss, aflutter on eliquis, hypothyroidism, COPD Social History: Patient is a former smoker. Patient denies alcohol consumption. ROS: Constitutional: Patient denies fever and chills Cardiovascular: Patient denies chest pain, palpitations Respiratory: Patient denies shortness of breath, cough Gastrointestinal: Patient denies nausea, vomiting, diarrhea. Neurological: AAO X3, normal speech Physical Exam HEENT: Atraumatic, normocephalic, mucuous membranes moist Respiratory: Decreased breath sounds. Negative for wheezing, rales, rhonchi. Cardiovascular: +S1/S2, regular rate and rhythm GI: Abdomen is distended, hypoactive bowel signs, no tenderness, no guarding. Extremities: Bilateral pedal edema Neurological: Alert, awake, oriented X3 Assessment: 52 year old male patient with past medical history of right sided heart failure with cor pulmonale, pulmonary hypertension, DM, bilateral hearing loss, atrial flutter on Eliquis, hypothyroidism, and COPD; patient's presentation consistent with pleural effusion. 1. Pleural Effusion Status: Acute - Continue treatment for ascites - Pending results of pleural fluid 2. COPD Exarcebation Status: Chronic - Albuterol/ ipratropium 3ml INH RQ6 - Tiatropium [place] 18 mcg INH RQ24 - Methylprednisolone 40 mg IVP Q12H 3. Chronic Renal Failure Status: Chronic 4. Afib Status: Chronic - Apixaban 2.5 mg PO Q12 Objective - Vital Signs/Intake and Output Vital Signs (last 24 hours): Temp Pulse Resp BP Pulse Ox 98.9 F 109 H 13 143/97 H 95 11/07/17 12:00 11/07/17 14:54 11/07/17 12:00 11/07/17 09:52 11/07/17 14:54 Intake and Output: 11/07/17 11/07/17 06:59 18:59 Intake Total 1750 300 Output Total 5450 Balance -3700 300 - Medications Medications: Current Medications Albuterol/Ipratropium (Duoneb 3 Mg/0.5 Mg (3 Ml) Ud) 3 ml INH RQ6 [facility] Last Admin: 11/07/17 13:25 Dose: 3 ml Apixaban (Eliquis) 5 mg PO Q12 JOSE E Atenolol (Tenormin) 25 mg PO Q24H [facility] Last Admin: 11/06/17 17:14 Dose: 25 mg Bacitracin (Bacitracin) 1 ea TOP BID [facility] Last Admin: 11/07/17 08:59 Dose: 1 ea Dextrose (Dextrose 50% Inj) 0 ml IV STAT PRN; Protocol PRN Reason: Hypoglycemia Protocol Dextrose (Glutose 15) 0 gm PO ONCE PRN; Protocol PRN Reason: Hypoglycemia Protocol Diltiazem HCl (Cardizem) 90 mg PO QID [facility] Docusate Sodium (Colace) 100 mg PO TID [facility] Last Admin: 11/07/17 13:50 Dose: 100 mg Furosemide (Lasix) 40 mg PO DAILY [facility] Gabapentin (Neurontin) 100 mg PO TID [facility] Last Admin: 11/07/17 13:50 Dose: 100 mg Glucagon (Glucagen Diagnostic Kit) 0 mg IM STAT PRN; Protocol PRN Reason: Hypoglycemia Protocol Cefepime HCl (Maxipime Iv 1 Gm Premix) 1 gm in 50 mls @ 100 mls/hr IVPB Q24H JOSE E PRN Reason: Protocol Last Admin: 11/07/17 09:00 Dose: 100 mls/hr Linezolid (Zyvox 600mg/300ml D5w) 600 mg in 300 mls @ 200 mls/hr IVPB Q12H JOSE E PRN Reason: Protocol Last Admin: 11/07/17 02:22 Dose: 200 mls/hr Dextrose (Dextrose 5% In Water 1000 Ml) 1,000 mls @ 0 mls/hr IV .Q0M PRN; Protocol; Per Protocol PRN Reason: Hypoglycemia Protocol Insulin Human Regular (Novolin R) 0 unit SC ACHS JOSE E PRN Reason: Protocol Last Admin: 11/07/17 12:13 Dose: 2 unit Lactobacillus Acidophilus (Bacid Acidophilus) 1 cap PO BID [facility] Last Admin: 11/07/17 08:59 Dose: 1 cap Levothyroxine Sodium (Synthroid) 75 mcg PO DAILY@0630 [facility] Last Admin: 11/07/17 05:31 Dose: 75 mcg Methylprednisolone (Solu-Medrol) 40 mg IVP Q12H [facility] Last Admin: 11/07/17 09:00 Dose: 40 mg Pantoprazole Sodium (Protonix Ec Tab) 40 mg PO DAILY [facility] Tiotropium [place] (Spiriva) 18 mcg INH RQ24 [facility] Last Admin: 11/07/17 08:14 Dose: 18 mcg Tramadol HCl (Ultram) 25 mg PO TID PRN PRN Reason: Pain, moderate (4-7) - Labs Labs: 11/07/17 06:10 11/07/17 06:10 PT 17.1 SECONDS (9.7-12.2) H 11/03/17 13:33 INR 1.6 11/03/17 13:33 APTT 28 SECONDS (21-34) 11/03/17 13:33
--- NOTE | 2017-11-07 16:37 | RAD ---
Date of service: 11/07/2017 HISTORY: pneumonia COMPARISON: 11/05/2017 FINDINGS: LUNGS: Decreased opacity right lung but persistent opacity at right base. No left-sided opacity. PLEURA: Small right pleural effusion. No evidence of left pleural effusion. No pneumothorax. CARDIOVASCULAR: Normal. OSSEOUS STRUCTURES: No significant abnormalities. VISUALIZED UPPER ABDOMEN: Normal. OTHER FINDINGS: None. IMPRESSION: Opacity at right base with improvement in opacity mid and upper right lung compared to 11/05/2017. Probable small right pleural effusion.
--- NOTE | 2017-11-07 16:47 | CP.PCM.PN ---
Subjective - Date & Time of Evaluation Date of Evaluation: 11/07/17 Time of Evaluation: 08:00 - Subjective Subjective: improving renal function and legs less painful and swollen Objective - Vital Signs/Intake and Output Vital Signs (last 24 hours): Temp Pulse Resp BP Pulse Ox 98.9 F 90 20 143/97 H 94 L 11/07/17 12:00 11/07/17 16:00 11/07/17 16:00 11/07/17 09:52 11/07/17 16:00 Intake and Output: 11/07/17 11/07/17 06:59 18:59 Intake Total 1750 300 Output Total 5450 Balance -3700 300 - Medications Medications: Current Medications Albuterol/Ipratropium (Duoneb 3 Mg/0.5 Mg (3 Ml) Ud) 3 ml INH RQ6 [facility] Last Admin: 11/07/17 13:25 Dose: 3 ml Apixaban (Eliquis) 5 mg PO Q12 JOSE E Atenolol (Tenormin) 25 mg PO Q24H [facility] Last Admin: 11/06/17 17:14 Dose: 25 mg Bacitracin (Bacitracin) 1 ea TOP BID [facility] Last Admin: 11/07/17 08:59 Dose: 1 ea Dextrose (Dextrose 50% Inj) 0 ml IV STAT PRN; Protocol PRN Reason: Hypoglycemia Protocol Dextrose (Glutose 15) 0 gm PO ONCE PRN; Protocol PRN Reason: Hypoglycemia Protocol Diltiazem HCl (Cardizem) 90 mg PO QID [facility] Docusate Sodium (Colace) 100 mg PO TID [facility] Last Admin: 11/07/17 13:50 Dose: 100 mg Furosemide (Lasix) 40 mg IVP DAILY [facility] Gabapentin (Neurontin) 100 mg PO TID [facility] Last Admin: 11/07/17 13:50 Dose: 100 mg Glucagon (Glucagen Diagnostic Kit) 0 mg IM STAT PRN; Protocol PRN Reason: Hypoglycemia Protocol Linezolid (Zyvox 600mg/300ml D5w) 600 mg in 300 mls @ 200 mls/hr IVPB Q12H JOSE E PRN Reason: Protocol Last Admin: 11/07/17 02:22 Dose: 200 mls/hr Dextrose (Dextrose 5% In Water 1000 Ml) 1,000 mls @ 0 mls/hr IV .Q0M PRN; Protocol; Per Protocol PRN Reason: Hypoglycemia Protocol Insulin Human Regular (Novolin R) 0 unit SC ACHS JOSE E PRN Reason: Protocol Last Admin: 11/07/17 12:13 Dose: 2 unit Lactobacillus Acidophilus (Bacid Acidophilus) 1 cap PO BID [facility] Last Admin: 11/07/17 08:59 Dose: 1 cap Levothyroxine Sodium (Synthroid) 75 mcg PO DAILY@0630 [facility] Last Admin: 11/07/17 05:31 Dose: 75 mcg Methylprednisolone (Solu-Medrol) 40 mg IVP Q12H [facility] Last Admin: 11/07/17 09:00 Dose: 40 mg Pantoprazole Sodium (Protonix Ec Tab) 40 mg PO DAILY [facility] Tiotropium [place] (Spiriva) 18 mcg INH RQ24 [facility] Last Admin: 11/07/17 08:14 Dose: 18 mcg Tramadol HCl (Ultram) 25 mg PO TID PRN PRN Reason: Pain, moderate (4-7) - Labs Labs: 11/07/17 06:10 11/07/17 06:10 PT 17.1 SECONDS (9.7-12.2) H 11/03/17 13:33 INR 1.6 11/03/17 13:33 APTT 28 SECONDS (21-34) 11/03/17 13:33 - Constitutional Appears: Non-toxic, Chronically Ill - Head Exam Head Exam: NORMOCEPHALIC - Eye Exam Eye Exam: PERRL - ENT Exam ENT Exam: Mucous Membranes Dry - Neck Exam Neck Exam: absent: Lymphadenopathy - Respiratory Exam Respiratory Exam: Decreased Breath Sounds - Cardiovascular Exam Cardiovascular Exam: REGULAR RHYTHM - GI/Abdominal Exam GI & Abdominal Exam: Distended, Soft - Rectal Exam Rectal Exam: Deferred - Exam Exam: NORMAL INSPECTION - Extremities Exam Extremities Exam: absent: Pedal Edema - Back Exam Back Exam: absent: CVA tenderness (L), CVA tenderness (R) - Neurological Exam Neurological Exam: Alert, Awake - Psychiatric Exam Psychiatric exam: Depressed - Skin Skin Exam: Dry Assessment and Plan (1) Deafness Status: Acute (2) Cor pulmonale Status: Acute (3) Ascites Status: Acute (4) Atrial flutter with rapid ventricular response Status: Acute (5) CHF (congestive heart failure) Status: Acute (6) COPD (chronic obstructive pulmonary disease) Status: Acute (7) Cellulitis Status: Acute (8) Pulmonary emphysema Status: Acute (9) Renal insufficiency Status: Acute (10) Respiratory distress Status: Acute (11) Pneumonia Status: Acute - Assessment and Plan (Free Text) Assessment: iv rx in progress improving infiltrates / effusion cellulitis less cont monotherapy Zosyn
--- NOTE | 2017-11-07 17:16 | CARD ---
APPROVED REPORT Date of service: 11/06/2017 EKG Measurement Heart [id number] <Conclusion> Atrial flutter with variable AV block Anterior infarct, age undetermined T wave abnormality, consider inferior ischemia Abnormal ECG
[2017-11-07] MEDS: Piperacillin/Tazobact 3.375 GM in Sodium Chloride 100 ML IVPB SCH (17:20)
[2017-11-08] MEDS: Albuterol-Ipratrop 3 mg / 0.5 (3 ml) UD INH SCH ×3 (01:06→13:52)
[2017-11-08 02:00] LABS: AMYLASE PERITONEAL FLUID 34 U/L
[2017-11-08] MEDS: Piperacillin/Tazobact 3.375 GM in Sodium Chloride 100 ML IVPB SCH ×3 (02:00→17:15)
[2017-11-08] MEDS: Levothyroxine 75 MCG TAB PO SCH (06:10)
[2017-11-08 06:30] LABS: GLUCOSE PLEURAL FLUID 176 mg/dL; LDH PLEURAL FLUID 85 U/L; TOTAL PROTEIN PLEURAL FLUID <3.0 g/dL
[2017-11-08 06:33] LABS: BASO % 0.1 % (0.0-2.0); HEMOGLOBIN 16.6 g/dL (12.0-18.0); LYMPH # 0.3 K/uL (1.0-4.3); LYMPH % 4.1 % (20.0-40.0); MEAN CELL VOLUME 91.5 fL (80.0-94.0); MEAN CORPUSCULAR HEMOGLOBIN 30.2 pg (27.0-31.0); MEAN PLATELET VOLUME 9.1 fL (7.2-11.7); MONO # 0.4 K/uL (0.0-0.8); MONO % 4.7 % (0.0-10.0); NEUT # 7.7 K/uL (1.8-7.0); NEUT % 91.1 % (50.0-75.0); NRBC % 0.1 % (0.0-2.0); PLATELET COUNT 187 K/uL (130-400); RBC 5.48 Mil/uL (4.40-5.90); RED CELL DISTRIBUTION WIDTH 16.2 % (11.5-14.5); WHITE BLOOD COUNT 8.4 K/uL (4.8-10.8)
[2017-11-08 06:45] LABS: ALB/GLOB RATIO 1.1 (1.0-2.1); ALBUMIN 3.1 g/dL (3.5-5.0); ALT/SGPT 54 U/L (21-72); AST/SGOT 38 U/L (17-59); BLOOD UREA NITROGEN 52 mg/dL (9-20); CALCIUM 8.5 mg/dl (8.6-10.4); GFR AFRICAN-AMERICAN > 60; GFR NON-AFRICAN AMERICAN > 60
--- NOTE | 2017-11-08 07:08 | PN ---
DATE: 11/07/2017 FOLLOWUP SUBJECTIVE: The patient is still in atrial flutter with 2:1 conduction. Reviewing his old records, the patient has been in atrial flutter since 08/2017. He is comfortable on nasal O2. No reported hypotension. PHYSICAL EXAMINATION: VITAL SIGNS: Blood pressure 143/97, heart rate 109, temperature 98.9, and respirations 13. HEENT: Normocephalic. CHEST: Absent breath sounds over the bases. HEART: S1 and S2 are regular and distant. ABDOMEN: Moderate ascites. EXTREMITIES: 2+ pitting edema. LABORATORY DATA: Today's SMA-7: Sodium 132, potassium 5.2, chloride 90, CO2 of 35, glucose 258, BUN 54, creatinine 1. Hemoglobin and hematocrit are 15.6 and 48.5. White count and platelet count are within normal limit. Today's chest x-ray revealed cardiomegaly, right pleural effusion. ASSESSMENT: 1. Right-sided heart failure. 2. Right pleural effusion, status post thoracocentesis and ascites, status post peritoneal tap. 3. Improving renal insufficiency. 4. Sleep apnea. 5. Chronic atrial flutter. 6. Hypothyroidism. 7. Morbid obesity. 8. Uncontrolled diabetes mellitus. RECOMMENDATIONS: Case was discussed at length with Dr. Jaramillo, the primary physician, and with the patient's mother and sister at the bedside. The patient's Cardizem was increased to 90 mg four times a day. Eliquis, we will increase to 5 mg twice a day in view of improving renal insufficiency. I changed Lasix to 40 mg intravenously once a day. Continue IV Maxipime. Continue Synthroid 75 mcg once a day, atenolol 25 mg once a day, IV Zyvox 600 mg every 12 hours. It was discussed with the patient's mother that having the patient going back to will be very unsafe at this time. See [place] MD
[2017-11-08] MEDS: Tiotropium 18 mcg Cap For Inhalation INH SCH (07:59)
[2017-11-08] MEDS: (Novolin R) Insulin Human Regular 100 units/ml vial SC SCH ×4 (08:50→22:00)
[2017-11-08 09:02] LABS: LYMPHOCYTE 1 % (20-40); MONOCYTE 4 % (0-10); NEUTROPHIL 95 % (50-75); TOTAL CELLS COUNTED 100
[2017-11-08 09:03] LABS: ANISOCYTOSIS SLIGHT; PLATELET ESTIMATE NORMAL (NORMAL)
[2017-11-08] MEDS: Lactobacillus Acidophilus 500 MU Cap PO SCH ×2 (09:25→18:57)
[2017-11-08] MEDS: Bacitracin 500 Units/gm Oint Foilpak UD TOP SCH ×2 (09:25→17:16)
[2017-11-08] MEDS: MethylPREDNISolone 40 mg Vial IVP SCH ×2 (09:26→22:49)
[2017-11-08] MEDS: Pantoprazole 40 mg EC Tab PO SCH (09:26)
[2017-11-08] MEDS ORDERED: Sod Polystyrene Sulf 15 gm/60 ml Susp PO ONE ×2 (09:32→11:15)
[2017-11-08] MEDS: Tramadol 25 mg PO PRN ×2 (09:37→17:22)
--- NOTE | 2017-11-08 12:56 | CP.PCM.PN ---
<Rosa Saini - Last Filed: 11/08/17 22:32> Subjective - Date & Time of Evaluation Date of Evaluation: 11/08/17 Time of Evaluation: 12:56 - Subjective Subjective: Progress Note for Hospitalist service Patient seen and examined at bedside. Patient is deaf, however can read lips. He states he no longer feels short of breath. He denies chest pain or palpitations. He denies headache, dizziness, abdominal pain, nausea, vomiting, diarrhea. He is eating breakfast well. He admits he has not had a bowel movement today. Objective - Vital Signs/Intake and Output Vital Signs (last 24 hours): Temp Pulse Resp BP Pulse Ox 98.5 F 110 H 10 L 140/81 100 11/08/17 08:00 11/08/17 11:00 11/08/17 11:00 11/08/17 09:25 11/08/17 08:00 Intake and Output: 11/08/17 11/08/17 06:59 18:59 Intake Total 100 Output Total 2400 Balance -2300 - Medications Medications: Current Medications Albuterol/Ipratropium (Duoneb 3 Mg/0.5 Mg (3 Ml) Ud) 3 ml INH RQ6 [facility] Last Admin: 11/08/17 07:58 Dose: 3 ml Apixaban (Eliquis) 5 mg PO Q12 [facility] Last Admin: 11/08/17 09:25 Dose: 5 mg Atenolol (Tenormin) 25 mg PO Q24H [facility] Last Admin: 11/07/17 17:05 Dose: 25 mg Bacitracin (Bacitracin) 1 ea TOP BID [facility] Last Admin: 11/07/17 17:05 Dose: 1 ea Dextrose (Dextrose 50% Inj) 0 ml IV STAT PRN; Protocol PRN Reason: Hypoglycemia Protocol Dextrose (Glutose 15) 0 gm PO ONCE PRN; Protocol PRN Reason: Hypoglycemia Protocol Digoxin (Lanoxin) 0.25 mg PO DAILY@1800 [facility] Diltiazem HCl (Cardizem) 90 mg PO QID [facility] Last Admin: 11/08/17 09:25 Dose: 90 mg Docusate Sodium (Colace) 100 mg PO TID [facility] Last Admin: 11/08/17 09:24 Dose: 100 mg Furosemide (Lasix) 40 mg PO DAILY [facility] Gabapentin (Neurontin) 100 mg PO TID [facility] Last Admin: 11/08/17 09:24 Dose: 100 mg Glucagon (Glucagen Diagnostic Kit) 0 mg IM STAT PRN; Protocol PRN Reason: Hypoglycemia Protocol Piperacillin Sod/Tazobactam (Sod 3.375 gm/ Sodium Chloride) 100 mls @ 200 mls/ hr IVPB Q8H JOSE E PRN Reason: Protocol Last Admin: 11/08/17 09:27 Dose: 200 mls/hr Insulin Human Regular (Novolin R) 0 unit SC ACHS JOSE E PRN Reason: Protocol Last Admin: 11/08/17 12:05 Dose: 3 unit Lactobacillus Acidophilus (Bacid Acidophilus) 1 cap PO BID [facility] Last Admin: 11/08/17 09:25 Dose: 1 cap Levothyroxine Sodium (Synthroid) 75 mcg PO DAILY@0630 [facility] Last Admin: 11/08/17 06:10 Dose: 75 mcg Methylprednisolone (Solu-Medrol) 40 mg IVP Q12H [facility] Last Admin: 11/08/17 09:26 Dose: 40 mg Pantoprazole Sodium (Protonix Ec Tab) 40 mg PO DAILY [facility] Last Admin: 11/08/17 09:26 Dose: 40 mg Tiotropium Colbert (Spiriva) 18 mcg INH RQ24 [facility] Last Admin: 11/08/17 07:59 Dose: 18 mcg Tramadol HCl (Ultram) 25 mg PO TID PRN PRN Reason: Pain, moderate (4-7) Last Admin: 11/08/17 09:37 Dose: 25 mg - Labs Labs: 11/08/17 06:20 11/08/17 06:20 PT 17.1 SECONDS (9.7-12.2) H 11/03/17 13:33 INR 1.6 11/03/17 13:33 APTT 28 SECONDS (21-34) 11/03/17 13:33 - Constitutional Appears: No Acute Distress - Head Exam Head Exam: ATRAUMATIC, NORMOCEPHALIC - Eye Exam Eye Exam: EOMI - ENT Exam ENT Exam: Mucous Membranes Moist - Respiratory Exam Respiratory Exam: Decreased Breath Sounds, NORMAL BREATHING PATTERN. absent: Rales, Rhonchi, Wheezes, Respiratory Distress - Cardiovascular Exam Cardiovascular Exam: Tachycardia, Irregular Rhythm, +S1, +S2 - GI/Abdominal Exam GI & Abdominal Exam: Distended, Soft, Normal Bowel Sounds. absent: Tenderness Additional comments: Bag draining yellow fluid in place, from site of paracentesis - Extremities Exam Extremities Exam: Pedal Edema, Tenderness Additional comments: Erythematous edematous mildly tender lower extremities bilaterally - Neurological Exam Neurological Exam: Alert, Awake, Oriented x3 - Psychiatric Exam Psychiatric exam: Normal Affect, Normal Mood Assessment and Plan - Assessment and Plan (Free Text) Plan: Assessment and plan 1. Right-sided Congestive Heart failure Exacerbation Acute hypercapnic hypoxic respiratory failure COPD Pleural effusion * Cardiology Dr. Barksdale on consult help appreciated * Pulmonary Dr. Ferrera on consult help appreciated * Duonebs 3ml Q6 * Solumedrol 40mg IV Q12 * Spiriva 18 mcg INH Q24H * Echocardiogram 08/29/2017: Left ventricle is normal size, mild concentric left ventricular hypertrophy, left ventricle function is normal ejection fraction 55-60%, right ventricle is severely dilated systolic function of RVs moderately to severely reduced. Trace aortic regurgitation mitral regurgitation is trace moderate tricuspid regurg elevated IVC was not visualized no pericardial effusion noted poor window but due to increased body habitus. * Monitor daily weights and intake output * Cardiology Dr. Barksdale on consult help appreciated * Atenolol 25mg PO daily * Increase Cardizem to 90mg PO QID * Start Digoxin 0.25mg PO daily * 11/08/17 white count 8.4 * Pro calcitonin is low 0.09 2. Acute Renal Failure on Chronic (Stage 3) Renal Failure/Possible Cardio-Renal Syndrome * Nephrology Dr. Rich/Lj * Dialysis consent obtained 11/03/17 however Nephrology is holding off on HD for now as renal function improved slightly after paracentesis on 11/03/17 * As per Dr. Rich's note output is improved, avoid RAAS gene due to AMY and hyperkalemia * renal function has normalized with Creatinine 1.1 * Lasix 40mg BID daily 3. Ascites * As noted on U/S Abdomen 11/03/17 * S/P 3L ascites fluid removed on 11/03/17; follow up on pleural studies * Currently draining from ascites fluid is still draining from the site of paracentesis in the RLQ (toledo bag in place) * Given continuous drainage from site, CT of abdomen and pelvis was ordered to rule out anasarca vs.fistula. * 11/08/17 CT abdomen/pelvis: mild hepatosplenomegaly. constipation, no bowel obstruction. Moderate right and small left pleural effusions and severe diffuse anasarca. 4. Pleural Effusions * CT Chest 11/03/17 shows large right and small left pleural effusion. prominent multifocal areas of consolidat imposed areas of atelectasis. Extensive lymphadenopathy within the med * Order placed for Thoracentesis via IR Dr. Austin for 11/05/17--> patient had 900 mL of straw-colored fluid; no drains require; follow-up pleural studies * 11/08/[address] Ferrera who stated that given findings of CT with revealed moderate right and small left pleural effusions, patient did not need to be tapped at this time. Recommended CPAP at setting of 10. Patient received his last machine at [facility] in [place]. 5. History of Atrial flutter/Atrial fibrillation * Cardiology Dr. Barksdale on, help appreciated * Patient is on Eliquis 5mg PO BID (renal) --> held for possible PICC line or midline tomorrow * Cardizem 90 mg by mouth 4 times a day * continue with Atenolol 25mg PO daily * Start Digoxin 0.25mg PO daily 6. Bilateral Pneumonia Healthcare care associated pneumonia * infectious disease Dr. Schaffer on the case * CT Chest 11/03/17 showed prominent multifocal areas of consolidate changes bilaterally right greater than left suggestive of multifocal infiltrate with extensive lympadenopathy within mediastinum and axilla * Patient will likely repeat CT Chest once he completes treatment for the bilateral pneumonia to make sure that there is NO underlying lesion. * Cefepime 1 gm IV Q24H active since 11/04/2017 --> d/jennifer 11/07/17 * Linezolid 600 mg IV [id number] since 11/04/2017 --> 11/07/17 * Zosyn 3.375g IV since 11/07/17 * Legionella urinenegative, Mycoplasma pneumonia IgM: negative, and Strep pneumonia urine negative * Noted prior hospitalization in August of this year; possible treatment for Hospital/healthcare associated pneumonia * Possible PICC line or midline placement tomorrow, Eliquis held tonight 7. History of DM 2 * Hemoglobin A1C 6.9 * Insulin sliding scale * Holding metformin/glipizde on admission 8. Morbid obesity * Will need aggressive lifestyle intervention especially in light of his other comorbidities including diabetes, right-sided heart failure, pulmonary hypertension 9. Hypothyroidism * At time of admission levothyroxine increased to 50 mcg to Levothyroxine 75 mg PO 1x/day 10. Hx Deafness * Patient can read lips and sign language 11. Bilateral Lower Leg Cellulitis * Unable to outline areas of discoloration as mentioned in physical exam above. However as noted on physical exam above, this area extends from the just above the bilateral malleoli to just inferior to the bilateral knees * This may be combination of cellulitis and chronic venous insufficiency changes * Cefepime 1 gm IV Q24H active since 11/04/2017 --> 11/07/17 * Linezolid 600 mg IV [id number] since 11/04/2017 --> 11/07/17 * Zosyn 3.375g IV since 11/07/17 * Wound cultures 11/04/17 Positive for E coli and Staph aureus * ID Dr. Schaffer * prior blood cultures from [place] ICU 11/01/2017 no growth after 4 daysX2 * Possible PICC line or midline placement tomorrow, Eliquis held tonight 12. Edema * note prior Doppler was negative at [place] * Wound cares on board given weeping nature of legs * wound culture of right lower extremity weepin11/04/17 Positive for E coli and Staph aureus 13. Poor nail Hygiene * Podiatry (Dr. Mariano) on case help appreciated * Nails debrided 11/06/17 14. History of Chronic Back Pain * used to be on Oxycodone 30mg prior to admission * Patient is on Tramadol 25mg PO TID PRN moderate pain * Gabapentin 100mg PO TID 15. Constipation * Continue to monitor for BM * Colace 100mg PO TID 16. Prophylactic measure * Eliquist 5mg PO bid, held for PICC or midline placement tomorrow * Lactobacillus 1 cap PO 2x/day * Protonix 40mg IV daily * Monitor daily weights, I&O * PT OT on board * Reconsult PT/OT * Consult fan engine engineer referral given morbid obesity Case discussed with Dr. Clint Saini, PGY1 <Lucy Jaramillo V - Last Filed: 11/09/17 00:29> Objective - Vital Signs/Intake and Output Vital Signs (last 24 hours): Temp Pulse Resp BP Pulse Ox 97.7 F 108 H 16 127/82 96 11/08/17 20:00 11/08/17 19:53 11/08/17 19:53 11/08/17 19:59 11/08/17 20:00 - Medications Medications: Current Medications Albuterol/Ipratropium (Duoneb 3 Mg/0.5 Mg (3 Ml) Ud) 3 ml INH RQ6 PRN PRN Reason: Wheezing Apixaban (Eliquis) 5 mg PO Q12 [facility] Last Admin: 11/08/17 09:25 Dose: 5 mg Atenolol (Tenormin) 25 mg PO Q24H [facility] Last Admin: 11/08/17 17:18 Dose: 25 mg Bacitracin (Bacitracin) 1 ea TOP BID [facility] Last Admin: 11/08/17 17:16 Dose: 1 ea Dextrose (Dextrose 50% Inj) 0 ml IV STAT PRN; Protocol PRN Reason: Hypoglycemia Protocol Dextrose (Glutose 15) 0 gm PO ONCE PRN; Protocol PRN Reason: Hypoglycemia Protocol Digoxin (Lanoxin) 0.25 mg PO DAILY@1800 [facility] Last Admin: 11/08/17 17:19 Dose: 0.25 mg Diltiazem HCl (Cardizem) 90 mg PO QID [facility] Last Admin: 11/08/17 22:50 Dose: 90 mg Docusate Sodium (Colace) 100 mg PO TID [facility] Last Admin: 11/08/17 17:16 Dose: 100 mg Furosemide (Lasix) 40 mg PO BID [facility] Last Admin: 11/08/17 19:59 Dose: 40 mg Gabapentin (Neurontin) 100 mg PO TID [facility] Last Admin: 11/08/17 17:16 Dose: 100 mg Glucagon (Glucagen Diagnostic Kit) 0 mg IM STAT PRN; Protocol PRN Reason: Hypoglycemia Protocol Piperacillin Sod/Tazobactam (Sod 3.375 gm/ Sodium Chloride) 100 mls @ 200 mls/ hr IVPB Q8H JOSE E PRN Reason: Protocol Last Admin: 11/08/17 17:15 Dose: 200 mls/hr Insulin Human Regular (Novolin R) 0 unit SC ACHS JOSE E PRN Reason: Protocol Last Admin: 11/08/17 16:37 Dose: 5 unit Lactobacillus Acidophilus (Bacid Acidophilus) 1 cap PO BID [facility] Last Admin: 11/08/17 18:57 Dose: 1 cap Levothyroxine Sodium (Synthroid) 75 mcg PO DAILY@0630 [facility] Last Admin: 11/08/17 06:10 Dose: 75 mcg Magnesium Oxide (Mag-Ox) 400 mg PO BID [facility] Last Admin: 11/08/17 19:59 Dose: 400 mg Methylprednisolone (Solu-Medrol) 40 mg IVP Q12H [facility] Last Admin: 11/08/17 22:49 Dose: 40 mg Pantoprazole Sodium (Protonix Ec Tab) 40 mg PO DAILY [facility] Last Admin: 11/08/17 09:26 Dose: 40 mg Tiotropium Colbert (Spiriva) 18 mcg INH RQ24 [facility] Last Admin: 11/08/17 07:59 Dose: 18 mcg Tramadol HCl (Ultram) 25 mg PO TID PRN PRN Reason: Pain, moderate (4-7) Last Admin: 11/08/17 17:22 Dose: 25 mg - Labs Labs: 11/08/17 06:20 11/08/17 06:20 PT 17.1 SECONDS (9.7-12.2) H 11/03/17 13:33 INR 1.6 11/03/17 13:33 APTT 28 SECONDS (21-34) 11/03/17 13:33 Assessment and Plan (1) Ascites Status: Acute (2) Cor pulmonale Status: Acute (3) Deafness Status: Acute (4) Atrial flutter Status: Acute (5) CHF (congestive heart failure) Status: Acute (6) COPD (chronic obstructive pulmonary disease) Status: Acute (7) Hyperkalemia Status: Acute (8) Renal insufficiency Status: Acute (9) Prophylactic measure Status: Acute Attending/Attestation - Attestation I have personally seen and examined this patient.: Yes I have fully participated in the care of the patient.: Yes I have reviewed all pertinent clinical information, including history, physical exam and plan: Yes Notes (Text): This is late computer entry for 11/08/17. Patient seen, examined, and case discussed with medical insurance biller. Patient seen this afternoon with mother and sister at bedside. Patient reports he is feeling better. Breathing better. Patient seen and re-evaluated by wound care. Patient's legs appear to be improved. Patient's prior site from paracentesis was redressed by wound care. patient's abdominal girth as improved about 30lbs lost compared to on admission. Patient has CT abdomen/pelvis PO contrast to rule out fistula. No fistula noted. Patient is ansarca and has pleural effusion. Discussed with cardiology, recommend to start Digoxin 0.25mg PO daily. Discussed with nephrology, patient recommend to increase Lasix 40mg IV Q12H in light of CT findings. Infectious disease recommends 10-14 days of IV abx. We will hold Eliquis tonight so patient can receive midline line access tomorrow for terminal carman IV abx use. Family would like patient to go to rehab; will follow-up with case management. Discussed with pulmonary, no further thoracentesis recommended; continue diuretics. CPAP at 10. Patient has a broken CPAP that he cannot use and recommended for new one. Assessment and plan 1. Right-sided Congestive Heart failure Exacerbation Acute hypercapnic hypoxic respiratory failure COPD Pleural effusion * Cardiology Dr. Barksdale consult help appreciated * Pulmonary Dr. Ferrera consult help appreciated * Duonebs 3ml of every 6 hours * Solumedrol 40mg IV every 12H * Spiriva 18 mcg INH Q24H * Lasix 40mg PO BID * Echocardiogram 08/29/2017: Left ventricle is normal size, mild concentric left ventricular hypertrophy, left ventricle function is normal ejection fraction 55-60%, right ventricle is severely dilated systolic function of RVs moderately to severely reduced. Trace aortic regurgitation mitral regurgitation is trace moderate tricuspid regurg elevated IVC was not visualized no pericardial effusion noted poor window but due to increased body habitus. * Monitor daily weights and intake output * Atenolol 25mg PO daily * Increased Cardizem 90mg PO QID * white count has normalized * Pro calcitonin is low 2. Acute Renal Failure on Chronic (Stage 3) Renal Failure/Possible Cardio-Renal Syndrome Assessment/Plan * Nephrology Dr. Rich/Lj * Dialysis consent obtained 11/03/17 however Nephrology is holding off on HD for now as renal function improved slightly after paracentesis on 11/03/17 * per nephrology and output is much better Ross gene due to HPI and hyperkalemia * renal function has normalized * Start Lasix 40mg PO BID 3. Ascites * As noted on U/S Abdomen 11/03/17 * S/P 3L ascites fluid removed on 11/03/17: follow up fluid analysis * Currently draining from ascites fluid is still draining from the site of paracentesis in the RLQ (colostomy bag in place) 4. Pleural Effusions * CT Chest 11/03/17 shows large right and small left pleural effusion. prominent multifocal areas of consolidat imposed areas of atelectasis. Extensive lymphadenopathy within the med * Order placed for Thoracentesis via IR Dr. Austin for 11/05/17--> patient had 900 mL of straw-colored fluid; no drains require; follow-up pleural studies 5. History of Atrial flutter/Atrial fibrillation * Patient is on Eliquis 5 mg PO BID * Held evening dose in preparation for PICC/midline access * Increase to Cardizem 90 mg by mouth 4 times a day * continue with Atenolol 25mg PO daily 6. Bilateral Pneumonia Healthcare care associated pneumonia * infectious disease Dr. Schaffer on the case * CT Chest 11/03/17 showed prominent multifocal areas of consolidate changes bilaterally right greater than left suggestive of multifocal infiltrate with extensive lympadenopathy within mediastinum and axilla * Patient will likely repeat CT Chest once he completes treatment for the bilateral pneumonia to make sure that there is NO underlying lesion. * d/c Cefepime 1 gm IV Q24H active since 11/04/2017 by ID * d/c Linezolid 600 mg IV [id number] since 11/04/2017 by ID * Start Zosyn 3.375 IVPB Q8H (active since 11/07/17) * Recommended for 10-14 days of IV abx * Will setup patient for IV midline/PICC line * Legionella urine negative, Mycoplasma pneumonia IgM: negative, and Strep pneumonia urine negative * Noted prior hospitalization in August of this year; possible treatment for Hospital/healthcare associated pneumonia 7. History of DM 2 * Hemoglobin A1C 6.9 * Insulin sliding scale * Holding metformin/glipizde on admission 8. Morbid obesity * Will need aggressive lifestyle intervention especially in light of his other comorbidities including diabetes, right-sided heart failure, pulmonary hypertension 9. Hypothyroidism * At time of admission levothyroxine increased to 50 mcg to Levothyroxine 75 mg PO 1x/day 10. Hx Deafness * Patient can read lips and sign language 11. Bilateral Lower Leg Cellulitis * Unable to outline areas of discoloration as mentioned in physical exam above. However as noted on physical exam above, this area extends from the just above the bilateral malleoli to just inferior to the bilateral knees * This may be combination of cellulitis and chronic venous insufficiency changes * Improved per wound care nurse * ID Dr. Schaffer * prior blood cultures from [place] ICU 11/01/2017 no growth after 5 daysX2 * Wound care: E.coli and Staph * Start Zosyn 3.375 IVPB Q8H (active since 11/07/17) * Recommended for 10-14 days of IV abx * Will setup patient for IV midline/PICC line 12. Edema * note prior Doppler was negative at [place] * Wound cares on board given weeping nature of legs * wound culture of right lower extremity weeping * Lasix 40mg PO BID 13. Poor nail Hygiene * Podiatry (Dr. Mariano) on case help appreciated * Nails debrided 11/06/17 14. History of Chronic Back Pain * used to be on Oxycodone 30mg prior to admission * Patient is on Tramadol 25mg PO TID PRN moderate pain * Gabapentin 100mg PO TID 14. Prophylactic measure * Eliquist 5mg PO bid held for midline/picc line for IV abx * Lactobacillus 1 cap PO 2x/day * Protonix 40mg IV daily * Monitor daily weights, I&O * PT OT on board * Reconsult PT/OT * Consult fan engine engineer referral given morbid obesity * Rehab eval
[2017-11-08] MEDS ORDERED: Bisacodyl 5mg EC Tab PO ONE (13:45)
--- NOTE | 2017-11-08 15:26 | PN ---
DATE: 11/08/2017 SUBJECTIVE: The patient denies chest pain. He is comfortable sitting on the chair. His heart rate is ranging from 110 to 120 with atrial flutter with 2:1 conduction. PHYSICAL EXAMINATION: VITAL SIGNS: Blood pressure 140/81, heart rate 110, temperature 98.5, respirations 16. HEENT: Normocephalic. CHEST: Diminished breath sounds at bases. HEART: S1 and S2 regular and distant. ABDOMEN: Soft. EXTREMITIES: 2+ pitting edema. LABORATORY DATA: Today's hemoglobin, hematocrit, white count, and platelet count are within normal limits. Today's SMA-7, sodium 130, potassium 5.4, chloride 86, CO2 of 39, glucose 298, BUN 52, creatinine 1.1. Chest x-ray report of yesterday, opacity at right base with improved in opacity in the mid and upper right lung compared to 11/05/2017, probably small right pleural effusion. Gram stain of the right leg wound is positive for E. coli and Staphylococcus aureus. ASSESSMENT: 1. Chronic atrial fibrillation. 2. Morbid obesity. 3. Sleep apnea. 4. Right-sided heart failure with secondary pulmonary hypertension. 5. Hyponatremia and hyperkalemia. RECOMMENDATIONS: Case was discussed with the primary physician. The patient will be maintained on Cardizem at 90 mg q.i.d., will be started on digoxin 0.25 mg orally daily. Continue Eliquis 5 mg twice a day. Change Lasix to oral dose at 40 mg daily. See Barksdale MD
[2017-11-08] MEDS ORDERED: Iohexol 240 (50 ml) PO ONE (15:45)
--- NOTE | 2017-11-08 16:22 | CP.PCM.PN ---
Subjective - Date & Time of Evaluation Date of Evaluation: 11/08/17 Time of Evaluation: 10:20 - Subjective Subjective: Patient was seen and examined at bed side.Patient is in no acute distress. Patient denies shortness of breath, chest pain, headache, nausea, vomiting, diarrhea. Patient remains on BiPAP. Patient reports improvement in his breathing. Patient has no acute complaints. Patient is afebrile Surgery History: Hernia surgery x4, appendectomy, gallbladder removal PMH: Right sided heart failure with cor pulmonale, DM, Pulmonary hypertension, bilateral hearing loss, aflutter on eliquis, hypothyroidism, COPD Social History: Patient is a former smoker. Patient denies alcohol consumption. ROS: Constitutional: Patient denies fever and chills Cardiovascular: Patient denies chest pain, palpitations Respiratory: Patient denies shortness of breath, cough Gastrointestinal: Patient denies nausea, vomiting, diarrhea. Neurological: AAO X3, normal speech Physical Exam HEENT: Atraumatic, normocephalic, mucuous membranes moist Respiratory: Decreased breath sounds. Negative for wheezing, rales, rhonchi. Cardiovascular: +S1/S2, regular rate and rhythm GI: Abdomen is distended, hypoactive bowel signs, no tenderness, no guarding. Extremities: Bilateral pedal edema Neurological: Alert, awake, oriented X3 Assessment: 52 year old male patient with past medical history of right sided heart failure with cor pulmonale, pulmonary hypertension, DM, bilateral hearing loss, atrial flutter on Eliquis, hypothyroidism, and COPD; patient's presentation consistent with pleural effusion. 1. Pleural Effusion status post thoracentesis Status: Acute - pleural fluid consistent with transudate secondary to ascites - Continue treatment for ascites 2. COPD Exarcebation Status: Chronic - Albuterol/ ipratropium 3ml INH RQ6 - Tiatropium [place] 18 mcg INH RQ24 - Methylprednisolone 40 mg IVP Q12H 3. Chronic Renal Failure Status: Chronic 4. Afib Status: Chronic - Apixaban 2.5 mg PO Q12 5. Hypertension Status: Chronic - Diltiazem Hcl 60 mg PO QID Objective - Vital Signs/Intake and Output Vital Signs (last 24 hours): Temp Pulse Resp BP Pulse Ox 98.5 F 121 H 13 139/73 100 11/08/17 08:00 11/08/17 15:04 11/08/17 15:04 11/08/17 15:04 11/08/17 08:00 Intake and Output: 11/08/17 11/08/17 06:59 18:59 Intake Total 100 Output Total 2400 Balance -2300 - Medications Medications: Current Medications Apixaban (Eliquis) 5 mg PO Q12 [facility] [place] Last Admin: 11/08/17 09:25 Dose: 5 mg Atenolol (Tenormin) 25 mg PO Q24H [facility] [place] Last Admin: 11/07/17 17:05 Dose: 25 mg Bacitracin (Bacitracin) 1 ea TOP BID [facility] [place] Last Admin: 11/07/17 17:05 Dose: 1 ea Dextrose (Dextrose 50% Inj) 0 ml IV STAT PRN; Protocol PRN Reason: Hypoglycemia Protocol Dextrose (Glutose 15) 0 gm PO ONCE PRN; Protocol PRN Reason: Hypoglycemia Protocol Digoxin (Lanoxin) 0.25 mg PO DAILY@1800 [facility] Diltiazem HCl (Cardizem) 90 mg PO QID [facility] [place] Last Admin: 11/08/17 14:59 Dose: 90 mg Docusate Sodium (Colace) 100 mg PO TID [facility] [place] Last Admin: 11/08/17 14:59 Dose: 100 mg Furosemide (Lasix) 40 mg PO DAILY [facility] [place] Last Admin: 11/08/17 12:45 Dose: Not Given Gabapentin (Neurontin) 100 mg PO TID [facility] [place] Last Admin: 11/08/17 15:00 Dose: 100 mg Glucagon (Glucagen Diagnostic Kit) 0 mg IM STAT PRN; Protocol PRN Reason: Hypoglycemia Protocol Piperacillin Sod/Tazobactam (Sod 3.375 gm/ Sodium Chloride) 100 mls @ 200 mls/ hr IVPB Q8H [facility] [place] PRN Reason: Protocol Last Admin: 11/08/17 09:27 Dose: 200 mls/hr Insulin Human Regular (Novolin R) 0 unit SC ACHS [facility] [place] PRN Reason: Protocol Last Admin: 11/08/17 12:05 Dose: 3 unit Lactobacillus Acidophilus (Bacid Acidophilus) 1 cap PO BID [facility] [place] Last Admin: 11/08/17 09:25 Dose: 1 cap Levothyroxine Sodium (Synthroid) 75 mcg PO DAILY@0630 [facility] [place] Last Admin: 11/08/17 06:10 Dose: 75 mcg Methylprednisolone (Solu-Medrol) 40 mg IVP Q12H [facility] [place] Last Admin: 11/08/17 09:26 Dose: 40 mg Pantoprazole Sodium (Protonix Ec Tab) 40 mg PO DAILY [facility] Last Admin: 11/08/17 09:26 Dose: 40 mg Tiotropium [place] (Spiriva) 18 mcg INH RQ24 [facility] Last Admin: 11/08/17 07:59 Dose: 18 mcg Tramadol HCl (Ultram) 25 mg PO TID PRN PRN Reason: Pain, moderate (4-7) Last Admin: 11/08/17 09:37 Dose: 25 mg - Labs Labs: 11/08/17 06:20 11/08/17 06:20 PT 17.1 SECONDS (9.7-12.2) H 11/03/17 13:33 INR 1.6 11/03/17 13:33 APTT 28 SECONDS (21-34) 11/03/17 13:33
[2017-11-08] MEDS: Digoxin 250 mcg (0.25 mg) Tab PO SCH (17:19)
--- NOTE | 2017-11-08 18:07 | CT ---
Date of service: 11/08/2017 PROCEDURE: CT Abdomen and Pelvis with contrast HISTORY: rule out fistula COMPARISON: None. TECHNIQUE: CT scan of the abdomen and pelvis was performed without administration of intravenous contrast. Oral contrast was administered. Coronal and sagittal reformatted images were obtained. Radiation dose: Total exam DLP = 2143.08 mGy-cm. This CT exam was performed using one or more of the following dose reduction techniques: Automated exposure control, adjustment of the mA and/or kV according to patient size, and/or use of iterative reconstruction technique. FINDINGS: LOWER THORAX: Moderate right pleural effusion with compressive atelectasis of the right lower lobe. Small left pleural effusion. LIVER: Mild hepatomegaly. GALLBLADDER AND BILE DUCTS: Surgically absent. PANCREAS: Mild diffuse atrophy. No gross lesion or ductal dilatation. SPLEEN: Mild splenomegaly. ADRENALS: No discrete nodule. KIDNEYS AND URETERS: Normal in size without nephrolithiasis or hydronephrosis VASCULATURE: Atherosclerotic aortoiliac calcifications. No aortic aneurysm. BOWEL: The small bowel loops are normal in caliber. There is large amount of stool in the colon. No bowel dilatation or obstruction. APPENDIX: Normal appendix. PERITONEUM: No free fluid. No free air. LYMPH NODES: No enlarged lymph nodes. BLADDER: Unremarkable. REPRODUCTIVE: Unremarkable. BONES: No acute fracture. Within normal limits for the patient's age. OTHER FINDINGS: There is severe diffuse anasarca do IMPRESSION: 1. Mild hepatosplenomegaly. 2. Constipation. No bowel obstruction. 3. Moderate right and small left pleural effusions and severe diffuse anasarca.
--- NOTE | 2017-11-08 18:45 | CP.PCM.PN ---
Subjective - Date & Time of Evaluation Date of Evaluation: 11/08/17 Time of Evaluation: 18:43 - Subjective Subjective: Nephrology Consultation Note Assessment: stable AMY likely due to abdomen compartment syndrome and also contrubution by cardio- renal syndrome: IMPROVED s/p paracentesis Hyperkalemia likely due to AMY and acidemia resulting in transcellular shifts: resolved CKD stage 3 with baseline cr 1.1-1.4 mg/dL fluid overload with hyponatremia, COPD/CHF exacerbation with pneumonia acute on chronic hypercapnic respi failure deafness, DM, HTN, A flutter, morbid obesity, ex smoker, Rt heart failure with cor-pulmonale, pulmonary HTN, chronic leg edema, ascites Rt pleural effusion s/p thoracocentesis Plan UOP much better and cr trended down. Hence, no acute need for dialysis at this time maintain hemodynamics stable. avoid hypotension. no RAAS gene due to AMY and hyperkalemia, consider once K better monitor I/O daily weights and renal function with BMP Increase diuretics as lasix [address] 11/08/17 showing pleural effusion and anasarca low K diet. fose of Kayexylate given 11/08/17 management of pulmonary HTN as per pulmonary/cardiology Dose meds/antibiotics for improved GFR. Glycemic control, oral fluid/salt restriction In skilled nursing, pt need weight loss, diet modification and lifestyle changes Further work up for as per primary team. Thanks for allowing me to participate in care of your patient. Please call if any Qs. had d/w team Dr Basilio Rich Office: [phone] HPI: Pt is a 52 y/o M with hx of deafness, DM, HTN, A flutter, morbid obesity, ex smoker, Rt heart failure with cor-pulmonale, pulmonary HTN, chronic leg edema , ascites came with worsening SOB and being managed for COPD/CHF exacerbation/ pneumonia. renal consult for AMY management. pt not aware about kidney disease in past no known OTC/nsaids/herbal meds no recent contrast exposure. no episode of low BP noted baseline cr 1.1-1.4 last month. mother bedside and helped in sign and language interpretation. pt said to be able to read lips well ROS: he denies chest pain/nausea/vomiting. denied SOB Physical Examination: General Appearance: Comfortable, co-operative. better appearing, morbidly obese Vitals reviewed and noted as below Head; Atraumatic, normocephalic ENT: he has hearing impairment EYES: Pupils are equal, round and reactive to light accommodation. Eye muscles and extraocular movement intact. Sclera is anicteric. Neck; supple no lymphadenopathy, no thyromegaly or bruit Lungs: normal respiratory rate/effort. Breath sounds b/l decreased at bases with basal crackles Heart: Normal rate. s1s2 normal. No rub or gallop. Extremities: No varicose veins. has chronic venous stasis changes in legs with erythema/skin thickening now with compressive bandage Neurological: Patient is alert, awake, oriented x 3 follows commands, no focal deficit. Skin: dry and warm. Normal turgor. No rash. Palpitation: Normal elasticity for age. Abdomen: Abdomen is soft non tender no apparent organomegaly however exam limited as grossly distended. Psych: normal insight. has normal affect and mood MSK: no specific joint tenderness or swelling. Digits and nails normal, no deformity : kidney not palpable. bladder not distended Labs/imaging/EKG reviewed. Past medical history, past surgical history, social history, allergy reviewed and noted as below Family hx; no known hx of CKD> rest non contributory work up: UA SG >1.030 urine Na 6 Fena 0.4% echo: severe RV dilation and dysfunction, elevated RVSP. preserved LVEF renal imaging in past unremarkable Objective - Vital Signs/Intake and Output Vital Signs (last 24 hours): Temp Pulse Resp BP Pulse Ox 98.5 F 113 H 14 134/86 100 11/08/17 08:00 11/08/17 18:00 11/08/17 18:00 11/08/17 17:44 11/08/17 08:00 Intake and Output: 11/08/17 11/08/17 06:59 18:59 Intake Total 100 Output Total 2400 Balance -2300 - Medications Medications: Current Medications Apixaban (Eliquis) 5 mg PO Q12 [facility] Last Admin: 11/08/17 09:25 Dose: 5 mg Atenolol (Tenormin) 25 mg PO Q24H [facility] Last Admin: 11/08/17 17:18 Dose: 25 mg Bacitracin (Bacitracin) 1 ea TOP BID [facility] Last Admin: 11/07/17 17:05 Dose: 1 ea Dextrose (Dextrose 50% Inj) 0 ml IV STAT PRN; Protocol PRN Reason: Hypoglycemia Protocol Dextrose (Glutose 15) 0 gm PO ONCE PRN; Protocol PRN Reason: Hypoglycemia Protocol Digoxin (Lanoxin) 0.25 mg PO DAILY@1800 [facility] Last Admin: 11/08/17 17:19 Dose: 0.25 mg Diltiazem HCl (Cardizem) 90 mg PO QID [facility] Last Admin: 11/08/17 17:19 Dose: 90 mg Docusate Sodium (Colace) 100 mg PO TID [facility] Last Admin: 11/08/17 17:16 Dose: 100 mg Furosemide (Lasix) 40 mg PO DAILY [facility] Last Admin: 11/08/17 12:45 Dose: Not Given Gabapentin (Neurontin) 100 mg PO TID [facility] Last Admin: 11/08/17 17:16 Dose: 100 mg Glucagon (Glucagen Diagnostic Kit) 0 mg IM STAT PRN; Protocol PRN Reason: Hypoglycemia Protocol Piperacillin Sod/Tazobactam (Sod 3.375 gm/ Sodium Chloride) 100 mls @ 200 mls/ hr IVPB Q8H [facility] PRN Reason: Protocol Last Admin: 11/08/17 17:15 Dose: 200 mls/hr Insulin Human Regular (Novolin R) 0 unit SC ACHS [facility] PRN Reason: Protocol Last Admin: 11/08/17 16:37 Dose: 5 unit Lactobacillus Acidophilus (Bacid Acidophilus) 1 cap PO BID [facility] Last Admin: 11/08/17 09:25 Dose: 1 cap Levothyroxine Sodium (Synthroid) 75 mcg PO DAILY@0630 [facility] Last Admin: 11/08/17 06:10 Dose: 75 mcg Methylprednisolone (Solu-Medrol) 40 mg IVP Q12H [facility] Last Admin: 11/08/17 09:26 Dose: 40 mg Pantoprazole Sodium (Protonix Ec Tab) 40 mg PO DAILY [facility] Last Admin: 11/08/17 09:26 Dose: 40 mg Tiotropium [place] (Spiriva) 18 mcg INH RQ24 [facility] Last Admin: 11/08/17 07:59 Dose: 18 mcg Tramadol HCl (Ultram) 25 mg PO TID PRN PRN Reason: Pain, moderate (4-7) Last Admin: 11/08/17 17:22 Dose: 25 mg - Labs Labs: 11/08/17 06:20 11/08/17 06:20 PT 17.1 SECONDS (9.7-12.2) H 11/03/17 13:33 INR 1.6 11/03/17 13:33 APTT 28 SECONDS (21-34) 11/03/17 13:33
[2017-11-08 19:02] LABS: CEA PERITONEAL FLUID <2 ng/mL (<2.0)
--- NOTE | 2017-11-08 19:46 | CP.PCM.PN ---
Subjective - Date & Time of Evaluation Date of Evaluation: 11/08/17 Time of Evaluation: 08:00 - Subjective Subjective: awake alert oob to chair NAD noted Objective - Vital Signs/Intake and Output Vital Signs (last 24 hours): Temp Pulse Resp BP Pulse Ox 98.8 F 109 H 10 L 134/86 100 11/08/17 16:00 11/08/17 19:00 11/08/17 19:00 11/08/17 17:44 11/08/17 08:00 - Medications Medications: Current Medications Apixaban (Eliquis) 5 mg PO Q12 [facility] Last Admin: 11/08/17 09:25 Dose: 5 mg Atenolol (Tenormin) 25 mg PO Q24H [facility] Last Admin: 11/08/17 17:18 Dose: 25 mg Bacitracin (Bacitracin) 1 ea TOP BID [facility] Last Admin: 11/08/17 17:16 Dose: 1 ea Dextrose (Dextrose 50% Inj) 0 ml IV STAT PRN; Protocol PRN Reason: Hypoglycemia Protocol Dextrose (Glutose 15) 0 gm PO ONCE PRN; Protocol PRN Reason: Hypoglycemia Protocol Digoxin (Lanoxin) 0.25 mg PO DAILY@1800 [facility] Last Admin: 11/08/17 17:19 Dose: 0.25 mg Diltiazem HCl (Cardizem) 90 mg PO QID [facility] Last Admin: 11/08/17 17:19 Dose: 90 mg Docusate Sodium (Colace) 100 mg PO TID [facility] Last Admin: 11/08/17 17:16 Dose: 100 mg Furosemide (Lasix) 40 mg PO BID [facility] Gabapentin (Neurontin) 100 mg PO TID [facility] Last Admin: 11/08/17 17:16 Dose: 100 mg Glucagon (Glucagen Diagnostic Kit) 0 mg IM STAT PRN; Protocol PRN Reason: Hypoglycemia Protocol Piperacillin Sod/Tazobactam (Sod 3.375 gm/ Sodium Chloride) 100 mls @ 200 mls/ hr IVPB Q8H [facility] PRN Reason: Protocol Last Admin: 11/08/17 17:15 Dose: 200 mls/hr Insulin Human Regular (Novolin R) 0 unit SC ACHS [facility] PRN Reason: Protocol Last Admin: 11/08/17 16:37 Dose: 5 unit Lactobacillus Acidophilus (Bacid Acidophilus) 1 cap PO BID [facility] Last Admin: 11/08/17 18:57 Dose: 1 cap Levothyroxine Sodium (Synthroid) 75 mcg PO DAILY@0630 [facility] Last Admin: 11/08/17 06:10 Dose: 75 mcg Magnesium Oxide (Mag-Ox) 400 mg PO BID [facility] Methylprednisolone (Solu-Medrol) 40 mg IVP Q12H [facility] Last Admin: 11/08/17 09:26 Dose: 40 mg Pantoprazole Sodium (Protonix Ec Tab) 40 mg PO DAILY [facility] Last Admin: 11/08/17 09:26 Dose: 40 mg Tiotropium [place] (Spiriva) 18 mcg INH RQ24 [facility] Last Admin: 11/08/17 07:59 Dose: 18 mcg Tramadol HCl (Ultram) 25 mg PO TID PRN PRN Reason: Pain, moderate (4-7) Last Admin: 11/08/17 17:22 Dose: 25 mg - Labs Labs: 11/08/17 06:20 11/08/17 06:20 PT 17.1 SECONDS (9.7-12.2) H 11/03/17 13:33 INR 1.6 11/03/17 13:33 APTT 28 SECONDS (21-34) 11/03/17 13:33 - Constitutional Appears: Non-toxic, Chronically Ill - Head Exam Head Exam: NORMOCEPHALIC - Eye Exam Eye Exam: PERRL - ENT Exam ENT Exam: Mucous Membranes Dry - Neck Exam Neck Exam: absent: Lymphadenopathy - Respiratory Exam Respiratory Exam: Decreased Breath Sounds - Cardiovascular Exam Cardiovascular Exam: REGULAR RHYTHM - GI/Abdominal Exam GI & Abdominal Exam: Distended - Rectal Exam Rectal Exam: Deferred - Exam Exam: NORMAL INSPECTION - Extremities Exam Extremities Exam: Pedal Edema, Tenderness. absent: Calf Tenderness - Back Exam Back Exam: absent: CVA tenderness (L), CVA tenderness (R) - Neurological Exam Neurological Exam: Alert, Awake, Oriented x3 Additional comments: deafness noted - Psychiatric Exam Psychiatric exam: Depressed Assessment and Plan (1) Deafness Status: Acute (2) Cor pulmonale Status: Acute (3) Ascites Status: Acute (4) Atrial flutter with rapid ventricular response Status: Acute (5) CHF (congestive heart failure) Status: Acute (6) COPD (chronic obstructive pulmonary disease) Status: Acute (7) Cellulitis Status: Acute (8) Pulmonary emphysema Status: Acute (9) Renal insufficiency Status: Acute (10) Respiratory distress Status: Acute (11) Pneumonia Status: Acute - Assessment and Plan (Free Text) Assessment: cont IV Zosyn for min 10-14 days needs wound care PT/OT
[2017-11-08] MEDS: Magnesium Oxide 400 mg Tab UD PO SCH (19:59)
[2017-11-08 22:06] LABS: GLUCOSE PERITONEAL FLUID 210 mg/dL; LDH PERITONEAL FLUID 117 U/L (<63); TOTAL PROTEIN PERITONEAL FLUID 4.4 g/dL; TRIGLYCERIDES PERITONEAL FLUID 57 mg/dL (<65)
[2017-11-09] MEDS: Piperacillin/Tazobact 3.375 GM in Sodium Chloride 100 ML IVPB SCH ×3 (01:50→18:09)
[2017-11-09 05:57] LABS: BASO % 0.2 % (0.0-2.0); EOS % 0.1 % (0.0-4.0); HEMOGLOBIN 16.8 g/dL (12.0-18.0); LYMPH # 0.4 K/uL (1.0-4.3); LYMPH % 4.1 % (20.0-40.0); MEAN CELL VOLUME 91.1 fL (80.0-94.0); MEAN CORPUSCULAR HEMOGLOBIN 29.5 pg (27.0-31.0); MEAN CORPUSCULAR HGB CONC 32.4 g/dL (33.0-37.0); MONO # 0.4 K/uL (0.0-0.8); NEUT % 91.6 % (50.0-75.0); PLATELET COUNT 179 K/uL (130-400); RED CELL DISTRIBUTION WIDTH 16.8 % (11.5-14.5); WHITE BLOOD COUNT 8.8 K/uL (4.8-10.8)
[2017-11-09] MEDS: Levothyroxine 75 MCG TAB PO SCH (06:38)
[2017-11-09 06:48] LABS: ALB/GLOB RATIO 1.1 (1.0-2.1); ALT/SGPT 64 U/L (21-72); AST/SGOT 43 U/L (17-59)
[2017-11-09 06:49] LABS: CALCIUM 8.7 mg/dl (8.6-10.4)
[2017-11-09 06:50] LABS: BLOOD UREA NITROGEN 49 mg/dL (9-20)
[2017-11-09 06:51] LABS: GFR AFRICAN-AMERICAN > 60; GFR NON-AFRICAN AMERICAN > 60
[2017-11-09] MEDS: Albuterol-Ipratrop 3 mg / 0.5 (3 ml) UD INH PRN (08:03)
[2017-11-09] MEDS: Tiotropium 18 mcg Cap For Inhalation INH SCH (08:03)
[2017-11-09] MEDS: (Novolin R) Insulin Human Regular 100 units/ml vial SC SCH ×4 (08:26→22:28)
[2017-11-09 08:31] LABS: LYMPHOCYTE 2 % (20-40); MONOCYTE 2 % (0-10); NEUTROPHIL 96 % (50-75); TOTAL CELLS COUNTED 100
[2017-11-09 08:32] LABS: ANISOCYTOSIS SLIGHT; PLATELET ESTIMATE NORMAL (NORMAL)
[2017-11-09] MEDS: Lactobacillus Acidophilus 500 MU Cap PO SCH ×2 (09:11→17:44)
[2017-11-09] MEDS: Bacitracin 500 Units/gm Oint Foilpak UD TOP SCH ×2 (09:11→17:46)
[2017-11-09] MEDS: Magnesium Oxide 400 mg Tab UD PO SCH ×2 (09:11→17:44)
[2017-11-09] MEDS: Pantoprazole 40 mg EC Tab PO SCH (09:12)
[2017-11-09] MEDS: MethylPREDNISolone 40 mg Vial IVP SCH (09:15)
[2017-11-09] MEDS: Tramadol 25 mg PO PRN ×2 (09:21→17:44)
--- NOTE | 2017-11-09 09:42 | CP.PCM.PN ---
Subjective - Date & Time of Evaluation Date of Evaluation: 11/09/17 Time of Evaluation: 09:41 - Subjective Subjective: Patient seen and evaluated. Objective - Vital Signs/Intake and Output Vital Signs (last 24 hours): Temp Pulse Resp BP Pulse Ox 98 F 69 16 150/87 97 11/09/17 04:00 11/09/17 06:00 11/09/17 06:00 11/09/17 09:15 11/09/17 04:00 Intake and Output: 11/09/17 11/09/17 06:59 18:59 Intake Total 950 Output Total 3420 Balance -2470 - Medications Medications: Current Medications Albuterol/Ipratropium (Duoneb 3 Mg/0.5 Mg (3 Ml) Ud) 3 ml INH RQ6 PRN PRN Reason: Wheezing Last Admin: 11/09/17 08:03 Dose: 3 ml Apixaban (Eliquis) 5 mg PO Q12 [facility] Last Admin: 11/08/17 09:25 Dose: 5 mg Atenolol (Tenormin) 25 mg PO Q24H [facility] Last Admin: 11/08/17 17:18 Dose: 25 mg Bacitracin (Bacitracin) 1 ea TOP BID [facility] Last Admin: 11/09/17 09:11 Dose: 1 ea Dextrose (Dextrose 50% Inj) 0 ml IV STAT PRN; Protocol PRN Reason: Hypoglycemia Protocol Dextrose (Glutose 15) 0 gm PO ONCE PRN; Protocol PRN Reason: Hypoglycemia Protocol Digoxin (Lanoxin) 0.25 mg PO DAILY@1800 [facility] Last Admin: 11/08/17 17:19 Dose: 0.25 mg Diltiazem HCl (Cardizem) 90 mg PO QID [facility] Last Admin: 11/09/17 09:15 Dose: 90 mg Docusate Sodium (Colace) 100 mg PO TID [facility] Last Admin: 11/09/17 09:12 Dose: 100 mg Furosemide (Lasix) 40 mg PO BID [facility] Last Admin: 11/09/17 09:15 Dose: 40 mg Gabapentin (Neurontin) 100 mg PO TID [facility] Last Admin: 11/09/17 09:12 Dose: 100 mg Glucagon (Glucagen Diagnostic Kit) 0 mg IM STAT PRN; Protocol PRN Reason: Hypoglycemia Protocol Piperacillin Sod/Tazobactam (Sod 3.375 gm/ Sodium Chloride) 100 mls @ 200 mls/ hr IVPB Q8H [facility] PRN Reason: Protocol Last Admin: 11/09/17 09:19 Dose: 200 mls/hr Insulin Human Regular (Novolin R) 0 unit SC ACHS [facility] PRN Reason: Protocol Last Admin: 11/09/17 08:26 Dose: 4 unit Lactobacillus Acidophilus (Bacid Acidophilus) 1 cap PO BID [facility] Last Admin: 11/09/17 09:11 Dose: 1 cap Levothyroxine Sodium (Synthroid) 75 mcg PO DAILY@0630 [facility] Last Admin: 11/09/17 06:38 Dose: 75 mcg Magnesium Oxide (Mag-Ox) 400 mg PO BID [facility] Last Admin: 11/09/17 09:11 Dose: 400 mg Methylprednisolone (Solu-Medrol) 40 mg IVP Q12H [facility] Last Admin: 11/09/17 09:15 Dose: 40 mg Pantoprazole Sodium (Protonix Ec Tab) 40 mg PO DAILY [facility] Last Admin: 11/09/17 09:12 Dose: 40 mg Tiotropium [place] (Spiriva) 18 mcg INH RQ24 [facility] Last Admin: 11/09/17 08:03 Dose: 18 mcg Tramadol HCl (Ultram) 25 mg PO TID PRN PRN Reason: Pain, moderate (4-7) Last Admin: 11/09/17 09:21 Dose: 25 mg - Labs Labs: 11/09/17 05:51 11/09/17 05:51 PT 17.1 SECONDS (9.7-12.2) H 11/03/17 13:33 INR 1.6 11/03/17 13:33 APTT 28 SECONDS (21-34) 11/03/17 13:33
--- NOTE | 2017-11-09 09:51 | CP.PCM.PN ---
Subjective - Date & Time of Evaluation Date of Evaluation: 11/09/17 Time of Evaluation: 09:45 - Subjective Subjective: Medical Attending Note: Patient seen and examined this morning. Patient has 600cc output from the ascites site. Patient denies chest pain, reports breathing is better, denies cough, denies abdominal pain, denies nausea, denies vomitting, and reports has had a bowel movement today. Objective - Vital Signs/Intake and Output Vital Signs (last 24 hours): Temp Pulse Resp BP Pulse Ox 98 F 69 16 150/87 97 11/09/17 04:00 11/09/17 06:00 11/09/17 06:00 11/09/17 09:15 11/09/17 04:00 Intake and Output: 11/09/17 11/09/17 06:59 18:59 Intake Total 950 Output Total 3420 Balance -2470 - Medications Medications: Current Medications Albuterol/Ipratropium (Duoneb 3 Mg/0.5 Mg (3 Ml) Ud) 3 ml INH RQ6 PRN PRN Reason: Wheezing Last Admin: 11/09/17 08:03 Dose: 3 ml Apixaban (Eliquis) 5 mg PO Q12 [facility] Last Admin: 11/08/17 09:25 Dose: 5 mg Atenolol (Tenormin) 25 mg PO Q24H [facility] Last Admin: 11/08/17 17:18 Dose: 25 mg Bacitracin (Bacitracin) 1 ea TOP BID [facility] Last Admin: 11/09/17 09:11 Dose: 1 ea Dextrose (Dextrose 50% Inj) 0 ml IV STAT PRN; Protocol PRN Reason: Hypoglycemia Protocol Dextrose (Glutose 15) 0 gm PO ONCE PRN; Protocol PRN Reason: Hypoglycemia Protocol Digoxin (Lanoxin) 0.25 mg PO DAILY@1800 [facility] Last Admin: 11/08/17 17:19 Dose: 0.25 mg Diltiazem HCl (Cardizem) 90 mg PO QID [facility] Last Admin: 11/09/17 09:15 Dose: 90 mg Docusate Sodium (Colace) 100 mg PO TID [facility] Last Admin: 11/09/17 09:12 Dose: 100 mg Furosemide (Lasix) 40 mg PO BID [facility] Last Admin: 11/09/17 09:15 Dose: 40 mg Gabapentin (Neurontin) 100 mg PO TID [facility] Last Admin: 11/09/17 09:12 Dose: 100 mg Glucagon (Glucagen Diagnostic Kit) 0 mg IM STAT PRN; Protocol PRN Reason: Hypoglycemia Protocol Piperacillin Sod/Tazobactam (Sod 3.375 gm/ Sodium Chloride) 100 mls @ 200 mls/ hr IVPB Q8H [facility] PRN Reason: Protocol Last Admin: 11/09/17 09:19 Dose: 200 mls/hr Insulin Human Regular (Novolin R) 0 unit SC ACHS [facility] PRN Reason: Protocol Last Admin: 11/09/17 08:26 Dose: 4 unit Lactobacillus Acidophilus (Bacid Acidophilus) 1 cap PO BID [facility] Last Admin: 11/09/17 09:11 Dose: 1 cap Levothyroxine Sodium (Synthroid) 75 mcg PO DAILY@0630 [facility] Last Admin: 11/09/17 06:38 Dose: 75 mcg Magnesium Oxide (Mag-Ox) 400 mg PO BID [facility] Last Admin: 11/09/17 09:11 Dose: 400 mg Methylprednisolone (Solu-Medrol) 40 mg IVP Q12H [facility] Last Admin: 11/09/17 09:15 Dose: 40 mg Pantoprazole Sodium (Protonix Ec Tab) 40 mg PO DAILY [facility] Last Admin: 11/09/17 09:12 Dose: 40 mg Tiotropium [place] (Spiriva) 18 mcg INH RQ24 [facility] Last Admin: 11/09/17 08:03 Dose: 18 mcg Tramadol HCl (Ultram) 25 mg PO TID PRN PRN Reason: Pain, moderate (4-7) Last Admin: 11/09/17 09:21 Dose: 25 mg - Labs Labs: 11/09/17 05:51 11/09/17 05:51 PT 17.1 SECONDS (9.7-12.2) H 11/03/17 13:33 INR 1.6 11/03/17 13:33 APTT 28 SECONDS (21-34) 11/03/17 13:33 - Constitutional Appears: Non-toxic, No Acute Distress, Other (morbidly obese) - Head Exam Head Exam: NORMAL INSPECTION - Eye Exam Eye Exam: EOMI. absent: Nystagmus, Scleral icterus - ENT Exam ENT Exam: Mucous Membranes Moist - Respiratory Exam Respiratory Exam: Decreased Breath Sounds, Rales, NORMAL BREATHING PATTERN. absent: Respiratory Distress, Stridor - Cardiovascular Exam Cardiovascular Exam: Tachycardia, +S1, +S2 - GI/Abdominal Exam GI & Abdominal Exam: Distended (morbid obese habitus, edematous), Soft, Normal Bowel Sounds. absent: Firm, Guarding, Rigid, Tenderness, Rebound Additional comments: has ostomy bag over the site of paracentesis mild yellow fluid coming - Extremities Exam Extremities Exam: Pedal Edema. absent: Tenderness Additional comments: wrapped in shira bandage and dressing - Neurological Exam Neurological Exam: Alert, Awake, Oriented x3 - Skin Skin Exam: Warm Assessment and Plan (1) Ascites Status: Acute (2) Cor pulmonale Status: Acute (3) Deafness Status: Acute (4) Atrial flutter Status: Acute (5) CHF (congestive heart failure) Status: Acute (6) COPD (chronic obstructive pulmonary disease) Status: Acute (7) Hyperkalemia Status: Acute (8) Renal insufficiency Status: Acute (9) Prophylactic measure Status: Acute Attending/Attestation - Attestation I have personally seen and examined this patient.: Yes I have fully participated in the care of the patient.: Yes I have reviewed all pertinent clinical information, including history, physical exam and plan: Yes Notes (Text): Assessment and plan 1. Right-sided Congestive Heart failure Exacerbation Acute hypercapnic hypoxic respiratory failure COPD Pleural effusion * Cardiology Dr. Barksdale consult help appreciated * Pulmonary Dr. Ferrera consult help appreciated * Duonebs 3ml of every 6 hours * Solumedrol 40mg IV every 12H * Spiriva 18 mcg INH Q24H * Lasix 40mg PO BID * Echocardiogram 08/29/2017: Left ventricle is normal size, mild concentric left ventricular hypertrophy, left ventricle function is normal ejection fraction 55-60%, right ventricle is severely dilated systolic function of RVs moderately to severely reduced. Trace aortic regurgitation mitral regurgitation is trace moderate tricuspid regurg elevated IVC was not visualized no pericardial effusion noted poor window but due to increased body habitus. * Monitor daily weights and intake output * Atenolol 25mg PO daily * Increased Cardizem 90mg PO QID * white count has normalized * Pro calcitonin is low * Pending the ABG for today given rising CO2 2. Acute Renal Failure on Chronic (Stage 3) Renal Failure/Possible Cardio-Renal Syndrome Assessment/Plan * Nephrology Dr. Rich/Lj * Dialysis consent obtained 11/03/17 however Nephrology is holding off on HD for now as renal function improved slightly after paracentesis on 11/03/17 * per nephrology and output is much better Ross gene due to HPI and hyperkalemia * renal function has normalized * Start Lasix 40mg PO BID 3. Ascites * As noted on U/S Abdomen 11/03/17 * S/P 3L ascites fluid removed on 11/03/17: follow up fluid analysis * Currently draining from ascites fluid is still draining from the site of paracentesis in the RLQ (colostomy bag in place) * CT abdomen/pevlis (11/08/17): mild hepatosplenomegaly. constipation. no bowel obstruction. moderate right and small left pleural effusions and severe diffucse anasarca. * Start lasix 40mg PO BID * Has ostomy for weeping fluid. 4. Pleural Effusions * CT Chest 11/03/17 shows large right and small left pleural effusion. prominent multifocal areas of consolidat imposed areas of atelectasis. Extensive lymphadenopathy within the med * Order placed for Thoracentesis via IR Dr. Austin for 11/05/17--> patient had 900 mL of straw-colored fluid; no drains require; follow-up pleural studies 5. History of Atrial flutter/Atrial fibrillation * Patient is on Eliquis 5 mg PO BID * Held evening dose in preparation for PICC/midline access today * Increase to Cardizem 90 mg by mouth 4 times a day * continue with Atenolol 25mg PO daily 6. Bilateral Pneumonia Healthcare care associated pneumonia * infectious disease Dr. Schaffer on the case * CT Chest 11/03/17 showed prominent multifocal areas of consolidate changes bilaterally right greater than left suggestive of multifocal infiltrate with extensive lympadenopathy within mediastinum and axilla * Patient will likely repeat CT Chest once he completes treatment for the bilateral pneumonia to make sure that there is NO underlying lesion. * d/c Cefepime 1 gm IV Q24H active since 11/04/2017 by ID * d/c Linezolid 600 mg IV [id number] since 11/04/2017 by ID * Start Zosyn 3.375 IVPB Q8H (active since 11/07/17) * Recommended for 10-14 days of IV abx * Will setup patient for IV midline/PICC line * Legionella urine negative, Mycoplasma pneumonia IgM: negative, and Strep pneumonia urine negative * Noted prior hospitalization in August of this year; possible treatment for Hospital/healthcare associated pneumonia 7. History of DM 2 * Hemoglobin A1C 6.9 * Insulin sliding scale * Holding metformin/glipizde on admission 8. Morbid obesity * Will need aggressive lifestyle intervention especially in light of his other comorbidities including diabetes, right-sided heart failure, pulmonary hypertension 9. Hypothyroidism * At time of admission levothyroxine increased to 50 mcg to Levothyroxine 75 mg PO 1x/day 10. Hx Deafness * Patient can read lips and sign language 11. Bilateral Lower Leg Cellulitis * Unable to outline areas of discoloration as mentioned in physical exam above. However as noted on physical exam above, this area extends from the just above the bilateral malleoli to just inferior to the bilateral knees * This may be combination of cellulitis and chronic venous insufficiency changes * Improved per wound care nurse * ID Dr. Schaffer * prior blood cultures from [place] ICU 11/01/2017 no growth after 5 daysX2 * Wound care: E.coli and Staph * Start Zosyn 3.375 IVPB Q8H (active since 11/07/17) * Recommended for 10-14 days of IV abx * Will setup patient for IV midline/PICC line 12. Edema * note prior Doppler was negative at [place] * Wound cares on board given weeping nature of legs * wound culture of right lower extremity weeping * Lasix 40mg PO BID 13. Poor nail Hygiene * Podiatry (Dr. Mairano) on case help appreciated * Nails debrided 11/06/17 14. History of Chronic Back Pain * used to be on Oxycodone 30mg prior to admission * Patient is on Tramadol 25mg PO TID PRN moderate pain * Gabapentin 100mg PO TID 14. Prophylactic measure * Eliquist 5mg PO bid held for midline/picc line for IV abx * Will restart after patient gets PICC line today. * Lactobacillus 1 cap PO 2x/day * Protonix 40mg IV daily * Monitor daily weights, I&O * PT OT on board * Reconsult PT/OT * Consult building construction ironworker referral given morbid obesity * Rehab eval
[2017-11-09 11:09] LABS: ABG ALLEN TEST POS; ARTERIAL BLOOD GAS HCO3 33.6 mmol/L (21-28); ARTERIAL BLOOD GAS HEMOGLOBIN 15.2 g/dL (11.7-17.4); ARTERIAL BLOOD GAS O2 SAT 97.5 % (95-98); ARTERIAL BLOOD GAS PCO2 65 mm/Hg (35-45); ARTERIAL BLOOD GAS PH 7.39 (7.35-7.45); ARTERIAL BLOOD GAS PO2 83 mm/Hg (80-100); ARTERIAL BLOOD GAS TCO2 41.3 mmol/L (22-28)
[2017-11-09] MEDS ORDERED: Digoxin 500 mcg/2ml (0.5 mg/2ml) Inj IVP ONE (12:30)
--- NOTE | 2017-11-09 13:01 | CP.PCM.PN ---
Subjective - Date & Time of Evaluation Date of Evaluation: 11/09/17 Time of Evaluation: 08:40 - Subjective Subjective: Patient was seen and examined at bed side.Patient is in no acute distress. Patient denies shortness of breath, chest pain, headache, nausea, vomiting, diarrhea. Patient remains on BiPAP. Patient's breathing has improved. Patient has no acute complaints. Patient is afebrile. Patient's CO2 level is 40 will order ABG for further assessment. Surgery History: Hernia surgery x4, appendectomy, gallbladder removal PMH: Right sided heart failure with cor pulmonale, DM, Pulmonary hypertension, bilateral hearing loss, aflutter on eliquis, hypothyroidism, COPD Social History: Patient is a former smoker. Patient denies alcohol consumption. ROS: Constitutional: Patient denies fever and chills Cardiovascular: Patient denies chest pain, palpitations Respiratory: Patient denies shortness of breath, cough Gastrointestinal: Patient denies nausea, vomiting, diarrhea. Neurological: AAO X3, normal speech Physical Exam HEENT: Atraumatic, normocephalic, mucuous membranes moist Respiratory: Decreased breath sounds. Negative for wheezing, rales, rhonchi. Cardiovascular: +S1/S2, regular rate and rhythm GI: Abdomen is distended, hypoactive bowel signs, no tenderness, no guarding. Extremities: Bilateral pedal edema Neurological: Alert, awake, oriented X3 Assessment: 52 year old male patient with past medical history of right sided heart failure with cor pulmonale, pulmonary hypertension, DM, bilateral hearing loss, atrial flutter on Eliquis, hypothyroidism, and COPD; patient's presentation consistent with pleural effusion. 1. Pleural Effusion Status: Acute, secondary to ascites and consistent with transudative effusion - Continue treatment for ascites 2. COPD Exarcebation Status: Chronic - Albuterol/ ipratropium 3ml INH RQ6 - Tiatropium [place] 18 mcg INH RQ24 - Methylprednisolone 40 mg IVP Q12H - ABG pending per high CO2 level of 40 3. Chronic Renal Failure Status: Chronic 4. Afib Status: Chronic - Apixaban 5 mg PO Q12 5. Hypertension Status: Chronic - Diltiazem Hcl 90 mg PO QID - Furosemide 40 mg PO BID Objective - Vital Signs/Intake and Output Vital Signs (last 24 hours): Temp Pulse Resp BP Pulse Ox 97.9 F 107 H 12 150/87 98 11/09/17 08:00 11/09/17 10:00 11/09/17 10:00 11/09/17 09:15 11/09/17 08:00 Intake and Output: 11/09/17 11/09/17 06:59 18:59 Intake Total 950 Output Total 3420 Balance -2470 - Medications Medications: Current Medications Albuterol/Ipratropium (Duoneb 3 Mg/0.5 Mg (3 Ml) Ud) 3 ml INH RQ6 PRN PRN Reason: Wheezing Last Admin: 11/09/17 08:03 Dose: 3 ml Apixaban (Eliquis) 5 mg PO DAILY [facility] Last Admin: 11/09/17 11:54 Dose: 5 mg Atenolol (Tenormin) 25 mg PO Q24H [facility] Last Admin: 11/08/17 17:18 Dose: 25 mg Bacitracin (Bacitracin) 1 ea TOP BID [facility] Last Admin: 11/09/17 09:11 Dose: 1 ea Dextrose (Dextrose 50% Inj) 0 ml IV STAT PRN; Protocol PRN Reason: Hypoglycemia Protocol Dextrose (Glutose 15) 0 gm PO ONCE PRN; Protocol PRN Reason: Hypoglycemia Protocol Digoxin (Lanoxin) 0.25 mg PO DAILY@1800 [facility] Last Admin: 11/08/17 17:19 Dose: 0.25 mg Diltiazem HCl (Cardizem) 90 mg PO QID [facility] Last Admin: 11/09/17 09:15 Dose: 90 mg Docusate Sodium (Colace) 100 mg PO TID [facility] Last Admin: 11/09/17 09:12 Dose: 100 mg Furosemide (Lasix) 40 mg PO BID [facility] Last Admin: 11/09/17 09:15 Dose: 40 mg Gabapentin (Neurontin) 100 mg PO TID [facility] Last Admin: 11/09/17 09:12 Dose: 100 mg Glucagon (Glucagen Diagnostic Kit) 0 mg IM STAT PRN; Protocol PRN Reason: Hypoglycemia Protocol Piperacillin Sod/Tazobactam (Sod 3.375 gm/ Sodium Chloride) 100 mls @ 200 mls/ hr IVPB Q8H [facility] PRN Reason: Protocol Last Admin: 11/09/17 09:19 Dose: 200 mls/hr Insulin Human Regular (Novolin R) 0 unit SC ACHS [facility] PRN Reason: Protocol Last Admin: 11/09/17 12:19 Dose: 8 units Lactobacillus Acidophilus (Bacid Acidophilus) 1 cap PO BID [facility] Last Admin: 11/09/17 09:11 Dose: 1 cap Levothyroxine Sodium (Synthroid) 75 mcg PO DAILY@0630 [facility] Last Admin: 11/09/17 06:38 Dose: 75 mcg Magnesium Oxide (Mag-Ox) 400 mg PO BID [facility] Last Admin: 11/09/17 09:11 Dose: 400 mg Methylprednisolone (Solu-Medrol) 40 mg IVP Q12H [facility] Last Admin: 11/09/17 09:15 Dose: 40 mg Pantoprazole Sodium (Protonix Ec Tab) 40 mg PO DAILY [facility] Last Admin: 11/09/17 09:12 Dose: 40 mg Tiotropium [place] (Spiriva) 18 mcg INH RQ24 [facility] Last Admin: 11/09/17 08:03 Dose: 18 mcg Tramadol HCl (Ultram) 25 mg PO TID PRN PRN Reason: Pain, moderate (4-7) Last Admin: 11/09/17 09:21 Dose: 25 mg - Labs Labs: 11/09/17 05:51 11/09/17 05:51 PT 17.1 SECONDS (9.7-12.2) H 11/03/17 13:33 INR 1.6 11/03/17 13:33 APTT 28 SECONDS (21-34) 11/03/17 13:33
--- NOTE | 2017-11-09 13:09 | RAD ---
Date of service: 11/09/2017 HISTORY: post PICC placement COMPARISON: 11/07/2017 FINDINGS: LUNGS: Persistent extensive opacity at the right base. Minimal patchy opacity at the left base. PLEURA: Small right pleural effusion. No evidence of left pleural effusion. No pneumothorax. CARDIOVASCULAR: New right PICC catheter terminates in the SVC. OSSEOUS STRUCTURES: No significant abnormalities. VISUALIZED UPPER ABDOMEN: Normal. OTHER FINDINGS: None. IMPRESSION: New right PICC catheter terminates in the SVC. Right basilar opacity and small right pleural effusion.
--- NOTE | 2017-11-09 15:00 | CP.PCM.PN ---
Subjective - Date & Time of Evaluation Date of Evaluation: 11/09/17 Time of Evaluation: 14:59 - Subjective Subjective: Nephrology Consultation Note Assessment: stable AMY likely due to abdomen compartment syndrome and also contrubution by cardio- renal syndrome: IMPROVED s/p paracentesis Hyperkalemia likely due to AMY and acidemia resulting in transcellular shifts: resolved CKD stage 3 with baseline cr 1.1-1.4 mg/dL fluid overload with hyponatremia, COPD/CHF exacerbation with pneumonia acute on chronic hypercapnic respi failure deafness, DM, HTN, A flutter, morbid obesity, ex smoker, Rt heart failure with cor-pulmonale, pulmonary HTN, chronic leg edema, ascites Rt pleural effusion s/p thoracocentesis Plan UOP much better and cr trended down. Hence, no acute need for dialysis at this time maintain hemodynamics stable. avoid hypotension. no RAAS gene due to AMY and hyperkalemia, consider once K better monitor I/O daily weights and renal function with BMP Increase diuretics as lasix [address] 11/08/17 showing pleural effusion and anasarca low K diet. fose of Kayexylate given 11/08/17 started MgO 400 mg bid management of pulmonary HTN as per pulmonary/cardiology Dose meds/antibiotics for improved GFR. Glycemic control, oral fluid/salt restriction In halfway, pt need weight loss, diet modification and lifestyle changes Further work up for as per primary team. Thanks for allowing me to participate in care of your patient. Please call if any Qs. had d/w team and family Dr Basilio Rich Office: [phone] HPI: Pt is a 52 y/o M with hx of deafness, DM, HTN, A flutter, morbid obesity, ex smoker, Rt heart failure with cor-pulmonale, pulmonary HTN, chronic leg edema , ascites came with worsening SOB and being managed for COPD/CHF exacerbation/ pneumonia. renal consult for AMY management. pt not aware about kidney disease in past no known OTC/nsaids/herbal meds no recent contrast exposure. no episode of low BP noted baseline cr 1.1-1.4 last month. mother bedside and helped in sign and language interpretation. pt said to be able to read lips well ROS: he denies chest pain/nausea/vomiting. denied SOB Physical Examination: General Appearance: Comfortable, co-operative. better appearing, morbidly obese Vitals reviewed and noted as below Head; Atraumatic, normocephalic ENT: he has hearing impairment EYES: Pupils are equal, round and reactive to light accommodation. Eye muscles and extraocular movement intact. Sclera is anicteric. Neck; supple no lymphadenopathy, no thyromegaly or bruit Lungs: normal respiratory rate/effort. Breath sounds b/l decreased at Rt bases with basal crackles Heart: Normal rate. s1s2 normal. No rub or gallop. Extremities: No varicose veins. has chronic venous stasis changes in legs with erythema/skin thickening now with compressive bandage Neurological: Patient is alert, awake, oriented x 3 follows commands, no focal deficit. Skin: dry and warm. Normal turgor. No rash. Palpitation: Normal elasticity for age. Abdomen: Abdomen is soft non tender no apparent organomegaly however exam limited as grossly distended. Psych: normal insight. has normal affect and mood MSK: no specific joint tenderness or swelling. Digits and nails normal, no deformity : kidney not palpable. bladder not distended Labs/imaging/EKG reviewed. Past medical history, past surgical history, social history, allergy reviewed and noted as below Family hx; no known hx of CKD. rest non contributory work up: UA SG >1.030 urine Na 6 Fena 0.4% echo: severe RV dilation and dysfunction, elevated RVSP. preserved LVEF renal imaging in past unremarkable Objective - Vital Signs/Intake and Output Vital Signs (last 24 hours): Temp Pulse Resp BP Pulse Ox 97.9 F 107 H 12 150/87 98 11/09/17 08:00 11/09/17 10:00 11/09/17 10:00 11/09/17 09:15 11/09/17 08:00 Intake and Output: 11/09/17 11/09/17 06:59 18:59 Intake Total 950 Output Total 3420 Balance -2470 - Medications Medications: Current Medications Albuterol/Ipratropium (Duoneb 3 Mg/0.5 Mg (3 Ml) Ud) 3 ml INH RQ6 PRN PRN Reason: Wheezing Last Admin: 11/09/17 08:03 Dose: 3 ml Apixaban (Eliquis) 5 mg PO DAILY [facility] Last Admin: 11/09/17 11:54 Dose: 5 mg Atenolol (Tenormin) 25 mg PO Q24H [facility] Last Admin: 11/08/17 17:18 Dose: 25 mg Bacitracin (Bacitracin) 1 ea TOP BID [facility] Last Admin: 11/09/17 09:11 Dose: 1 ea Dextrose (Dextrose 50% Inj) 0 ml IV STAT PRN; Protocol PRN Reason: Hypoglycemia Protocol Dextrose (Glutose 15) 0 gm PO ONCE PRN; Protocol PRN Reason: Hypoglycemia Protocol Digoxin (Lanoxin) 0.25 mg PO DAILY@1800 [facility] Last Admin: 11/08/17 17:19 Dose: 0.25 mg Diltiazem HCl (Cardizem) 90 mg PO QID [facility] Last Admin: 11/09/17 13:17 Dose: 90 mg Docusate Sodium (Colace) 100 mg PO TID [facility] Last Admin: 11/09/17 13:17 Dose: 100 mg Furosemide (Lasix) 40 mg PO BID [facility] Last Admin: 11/09/17 09:15 Dose: 40 mg Gabapentin (Neurontin) 100 mg PO TID [facility] Last Admin: 11/09/17 13:17 Dose: 100 mg Glucagon (Glucagen Diagnostic Kit) 0 mg IM STAT PRN; Protocol PRN Reason: Hypoglycemia Protocol Piperacillin Sod/Tazobactam (Sod 3.375 gm/ Sodium Chloride) 100 mls @ 200 mls/ hr IVPB Q8H [facility] PRN Reason: Protocol Last Admin: 11/09/17 09:19 Dose: 200 mls/hr Insulin Human Regular (Novolin R) 0 unit SC ACHS [facility] PRN Reason: Protocol Last Admin: 11/09/17 12:19 Dose: 8 units Lactobacillus Acidophilus (Bacid Acidophilus) 1 cap PO BID [facility] Last Admin: 11/09/17 09:11 Dose: 1 cap Levothyroxine Sodium (Synthroid) 75 mcg PO DAILY@0630 [facility] Last Admin: 11/09/17 06:38 Dose: 75 mcg Magnesium Oxide (Mag-Ox) 400 mg PO BID [facility] Last Admin: 11/09/17 09:11 Dose: 400 mg Methylprednisolone (Solu-Medrol) 40 mg IVP Q12H [facility] Last Admin: 11/09/17 09:15 Dose: 40 mg Pantoprazole Sodium (Protonix Ec Tab) 40 mg PO DAILY [facility] Last Admin: 11/09/17 09:12 Dose: 40 mg Tiotropium [place] (Spiriva) 18 mcg INH RQ24 [facility] Last Admin: 11/09/17 08:03 Dose: 18 mcg Tramadol HCl (Ultram) 25 mg PO TID PRN PRN Reason: Pain, moderate (4-7) Last Admin: 11/09/17 09:21 Dose: 25 mg - Labs Labs: 11/09/17 05:51 11/09/17 05:51 PT 17.1 SECONDS (9.7-12.2) H 11/03/17 13:33 INR 1.6 11/03/17 13:33 APTT 28 SECONDS (21-34) 11/03/17 13:33
--- NOTE | 2017-11-09 17:12 | CP.PCM.PN ---
Subjective - Date & Time of Evaluation Date of Evaluation: 11/09/17 Time of Evaluation: 09:00 - Subjective Subjective: less fever less sob legs less swollen Objective - Vital Signs/Intake and Output Vital Signs (last 24 hours): Temp Pulse Resp BP Pulse Ox 98.4 F 67 10 L 150/87 97 11/09/17 16:00 11/09/17 16:00 11/09/17 16:00 11/09/17 09:15 11/09/17 16:00 Intake and Output: 11/09/17 11/09/17 06:59 18:59 Intake Total 950 Output Total 3420 Balance -2470 - Medications Medications: Current Medications Albuterol/Ipratropium (Duoneb 3 Mg/0.5 Mg (3 Ml) Ud) 3 ml INH RQ6 PRN PRN Reason: Wheezing Last Admin: 11/09/17 08:03 Dose: 3 ml Apixaban (Eliquis) 5 mg PO BID [facility] Atenolol (Tenormin) 25 mg PO Q24H [facility] Last Admin: 11/08/17 17:18 Dose: 25 mg Bacitracin (Bacitracin) 1 ea TOP BID [facility] Last Admin: 11/09/17 09:11 Dose: 1 ea Dextrose (Dextrose 50% Inj) 0 ml IV STAT PRN; Protocol PRN Reason: Hypoglycemia Protocol Dextrose (Glutose 15) 0 gm PO ONCE PRN; Protocol PRN Reason: Hypoglycemia Protocol Digoxin (Lanoxin) 0.25 mg PO DAILY@1800 [facility] Last Admin: 11/08/17 17:19 Dose: 0.25 mg Diltiazem HCl (Cardizem) 90 mg PO QID [facility] Last Admin: 11/09/17 13:17 Dose: 90 mg Docusate Sodium (Colace) 100 mg PO TID [facility] Last Admin: 11/09/17 13:17 Dose: 100 mg Furosemide (Lasix) 40 mg PO BID [facility] Last Admin: 11/09/17 09:15 Dose: 40 mg Gabapentin (Neurontin) 100 mg PO TID [facility] Last Admin: 11/09/17 13:17 Dose: 100 mg Glucagon (Glucagen Diagnostic Kit) 0 mg IM STAT PRN; Protocol PRN Reason: Hypoglycemia Protocol Piperacillin Sod/Tazobactam (Sod 3.375 gm/ Sodium Chloride) 100 mls @ 200 mls/ hr IVPB Q8H [facility] PRN Reason: Protocol Last Admin: 11/09/17 09:19 Dose: 200 mls/hr Insulin Human Regular (Novolin R) 0 unit SC ACHS [facility] PRN Reason: Protocol Last Admin: 11/09/17 12:19 Dose: 8 units Lactobacillus Acidophilus (Bacid Acidophilus) 1 cap PO BID [facility] Last Admin: 11/09/17 09:11 Dose: 1 cap Levothyroxine Sodium (Synthroid) 75 mcg PO DAILY@0630 [facility] Last Admin: 11/09/17 06:38 Dose: 75 mcg Magnesium Oxide (Mag-Ox) 400 mg PO BID [facility] Last Admin: 11/09/17 09:11 Dose: 400 mg Methylprednisolone (Solu-Medrol) 40 mg IVP DAILY [facility] Pantoprazole Sodium (Protonix Ec Tab) 40 mg PO DAILY [facility] Last Admin: 11/09/17 09:12 Dose: 40 mg Tiotropium [place] (Spiriva) 18 mcg INH RQ24 [facility] Last Admin: 11/09/17 08:03 Dose: 18 mcg Tramadol HCl (Ultram) 25 mg PO TID PRN PRN Reason: Pain, moderate (4-7) Last Admin: 11/09/17 09:21 Dose: 25 mg - Labs Labs: 11/09/17 05:51 11/09/17 05:51 PT 17.1 SECONDS (9.7-12.2) H 11/03/17 13:33 INR 1.6 11/03/17 13:33 APTT 28 SECONDS (21-34) 11/03/17 13:33 - Constitutional Appears: Non-toxic, Chronically Ill - Head Exam Head Exam: NORMOCEPHALIC - Eye Exam Eye Exam: PERRL - ENT Exam ENT Exam: Mucous Membranes Dry - Neck Exam Neck Exam: absent: Lymphadenopathy - Respiratory Exam Respiratory Exam: Decreased Breath Sounds - Cardiovascular Exam Cardiovascular Exam: REGULAR RHYTHM - GI/Abdominal Exam GI & Abdominal Exam: Distended, Soft - Rectal Exam Rectal Exam: Deferred Assessment and Plan (1) Deafness Status: Acute (2) Cor pulmonale Status: Acute (3) Ascites Status: Acute (4) Atrial flutter with rapid ventricular response Status: Acute (5) CHF (congestive heart failure) Status: Acute (6) COPD (chronic obstructive pulmonary disease) Status: Acute (7) Cellulitis Status: Acute (8) Pulmonary emphysema Status: Acute (9) Renal insufficiency Status: Acute (10) Respiratory distress Status: Acute (11) Pneumonia Status: Acute - Assessment and Plan (Free Text) Assessment: cont iv rx
--- NOTE | 2017-11-09 17:23 | CP.PCM.DIS ---
<Desire Ndiaye P - Last Filed: 11/10/17 00:38> Provider - Provider Date of Admission: 11/03/17 12:37 Attending physician: Lucy Jaramillo DO Primary care physician: Malachi Torres MD Time Spent in preparation of Discharge (in minutes): 45 Diagnosis - Discharge Diagnosis (1) Cor pulmonale Status: Acute (2) Pneumonia Status: Acute (3) Pleural effusion Status: Acute (4) Ascites Status: Acute Hospital Course - Lab Results Lab Results: Micro Results 11/05/17 14:24 Pleural Fluid Gram Stain - Final 11/05/17 14:24 Pleural Fluid Body Fluid Culture - Final No growth. 11/04/17 05:54 Leg - Right Gram Stain - Final 11/04/17 05:54 Leg - Right Wound Culture - Final Escherichia Coli Staphylococcus Aureus 11/03/17 13:33 Naris MRSA Culture (Admit) - Final MRSA NOT DETECTED Most Recent Lab Values WBC 8.8 K/uL (4.8-10.8) 11/09/17 05:51 RBC 5.70 Mil/uL (4.40-5.90) 11/09/17 05:51 Hgb 16.8 g/dL (12.0-18.0) 11/09/17 05:51 Hct 51.9 % (35.0-51.0) H 11/09/17 05:51 MCV 91.1 fL (80.0-94.0) 11/09/17 05:51 MCH 29.5 pg (27.0-31.0) 11/09/17 05:51 MCHC 32.4 g/dL (33.0-37.0) L 11/09/17 05:51 RDW 16.8 % (11.5-14.5) H 11/09/17 05:51 Plt Count 179 K/uL (130-400) 11/09/17 05:51 MPV 9.0 fL (7.2-11.7) 11/09/17 05:51 Neut % (Auto) 91.6 % (50.0-75.0) H 11/09/17 05:51 Lymph % (Auto) 4.1 % (20.0-40.0) L 11/09/17 05:51 [place] % (Auto) 4.0 % (0.0-10.0) 11/09/17 05:51 Eos % (Auto) 0.1 % (0.0-4.0) 11/09/17 05:51 Baso % (Auto) 0.2 % (0.0-2.0) 11/09/17 05:51 Neut # (Auto) 8.0 K/uL (1.8-7.0) H 11/09/17 05:51 Lymph # (Auto) 0.4 K/uL (1.0-4.3) L 11/09/17 05:51 [place] # (Auto) 0.4 K/uL (0.0-0.8) 11/09/17 05:51 Eos # (Auto) 0.0 K/uL (0.0-0.7) 11/09/17 05:51 Baso # (Auto) 0.0 K/uL (0.0-0.2) 11/09/17 05:51 Neutrophils % (Manual) 96 % (50-75) H 11/09/17 05:51 Band Neutrophils % 1 % (0-2) 11/05/17 06:33 Lymphocytes % (Manual) 2 % (20-40) L 11/09/17 05:51 Monocytes % (Manual) 2 % (0-10) 11/09/17 05:51 Platelet Estimate Normal (NORMAL) 11/09/17 05:51 Polychromasia Slight 11/03/17 13:33 Hypochromasia (manual) Slight 11/03/17 13:33 Basophilic Stippling Slight 11/07/17 06:10 Anisocytosis (manual) Slight 11/09/17 05:51 PT 17.1 SECONDS (9.7-12.2) H 11/03/17 13:33 INR 1.6 11/03/17 13:33 APTT 28 SECONDS (21-34) 11/03/17 13:33 Puncture Site Rr 11/09/17 10:48 pCO2 65 mm/Hg (35-45) H 11/09/17 10:48 pO2 83 mm/Hg (80-100) 11/09/17 10:48 HCO3 33.6 mmol/L (21-28) H 11/09/17 10:48 ABG pH 7.39 (7.35-7.45) 11/09/17 10:48 ABG Total CO2 41.3 mmol/L (22-28) H 11/09/17 10:48 ABG O2 Saturation 97.5 % (95-98) 11/09/17 10:48 ABG Base Excess 11.2 mmol/L (-2.0-3.0) H 11/09/17 10:48 ABG Hemoglobin 15.2 g/dL (11.7-17.4) 11/09/17 10:48 ABG Carboxyhemoglobin 2.1 % (0.5-1.5) H 11/09/17 10:48 POC ABG HHb (Measured) 2.4 % (0.0-5.0) 11/09/17 10:48 ABG Methemoglobin 1.2 % (0.0-3.0) 11/09/17 10:48 Pankaj Test Pos 11/09/17 10:48 A-a O2 Difference 71.0 mm/Hg 11/09/17 10:48 Respiratory Index 0.9 11/09/17 10:48 Hgb O2 Saturation 94.4 % (95.0-98.0) L 11/09/17 10:48 Liter Flow 4.0 11/09/17 10:48 Vent Mode Bipap 11/04/17 06:00 FiO2 33.0 % 11/09/17 10:48 Inspiratory BiPAP 18 11/04/17 06:00 Expiratory BiPAP 6 11/04/17 06:00 Sodium 131 mmol/L (132-148) L 11/09/17 05:51 Potassium 5.2 mmol/L (3.6-5.2) 11/09/17 05:51 Chloride 82 mmol/L (98-107) L 11/09/17 05:51 Carbon Dioxide 40 mmol/L (22-30) H* 11/09/17 05:51 Anion Gap 14 (10-20) 11/09/17 05:51 BUN 49 mg/dL (9-20) H 11/09/17 05:51 Creatinine 1.0 mg/dL (0.8-1.5) 11/09/17 05:51 Est GFR ( Amer) > 60 11/09/17 05:51 Est GFR (Non-Af Amer) > 60 11/09/17 05:51 POC Glucose (mg/dL) 291 mg/dL (65-110) H 11/09/17 16:42 Random Glucose 320 mg/dL (75-110) H 11/09/17 05:51 Hemoglobin A1c 6.9 % (4.2-6.5) H 11/04/17 05:54 Calcium 8.7 mg/dl (8.6-10.4) 11/09/17 05:51 Phosphorus 3.1 mg/dL (2.5-4.5) 11/09/17 05:51 Magnesium 1.6 mg/dL (1.6-2.3) 11/09/17 05:51 Total Bilirubin 0.8 mg/dL (0.2-1.3) 11/09/17 05:51 AST 43 U/L (17-59) 11/09/17 05:51 ALT 64 U/L (21-72) 11/09/17 05:51 Alkaline Phosphatase 134 U/L (38-126) H 11/09/17 05:51 Total Protein 5.8 g/dL (6.3-8.3) L 11/09/17 05:51 Albumin 3.0 g/dL (3.5-5.0) L 11/09/17 05:51 Globulin 2.8 gm/dL (2.2-3.9) 11/09/17 05:51 Albumin/Globulin Ratio 1.1 (1.0-2.1) 11/09/17 05:51 Triglycerides 146 mg/dL (0-149) 11/04/17 05:54 Cholesterol 126 mg/dL (0-199) 11/04/17 05:54 LDL Cholesterol Direct 75 mg/dL (0-129) 11/04/17 05:54 HDL Cholesterol 23 mg/dL (30-70) L 11/04/17 05:54 Angiotensin Convert Enz 40 U/L (9-67) 11/04/17 20:30 Procalcitonin < 0.05 NG/ML (0.19-0.49) L 11/09/17 05:51 Free T4 0.96 ng/dL (0.78-2.19) 11/04/17 05:53 TSH 3rd Generation 1.04 mIU/L (0.46-4.68) 11/04/17 05:54 Cortisol AM Sample 4.3 ug/dL (4.46-22.7) L 11/09/17 05:51 Fluid Source Pleural 11/05/17 14:24 Fluid Appearance Sl cloudy (CLEAR) 11/05/17 14:24 Fluid WBC 311.0 /mm3 (0.0-300.0) H 11/05/17 14:24 Fluid RBC 814.0 /mm3 (0.0-0.0) H 11/05/17 14:24 Fluid Tot Cell Count 100 (0-0) H 11/05/17 14:24 Fluid Neutrophils 14.0 % (0-0) H 11/05/17 14:24 Fluid Lymphocytes 85.0 % (0-0) H 11/05/17 14:24 Fld Monocyte/Macrophag 1 % (0-0) H 11/05/17 14:24 Fluid Albumin 2.0 g/dL 11/05/17 14:24 Fluid Comment 11/05/17 14:24 Peritoneal Tot Protein 4.4 g/dL 11/03/17 20:00 Peritoneal LDH 117 U/L (<63) H 11/03/17 20:00 Peritoneal Glucose 210 mg/dL 11/03/17 20:00 Peritoneal Amylase 34 U/L 11/03/17 20:00 Peritoneal Triglycerid 57 mg/dL (<65) 11/03/17 20:00 Peritoneal CEA <2 ng/mL (<2.0) 11/03/17 20:00 Pleural Total Protein <3.0 g/dL 11/05/17 14:24 Pleural LDH 85 U/L 11/05/17 14:24 Pleural Glucose 176 mg/dL 11/05/17 14:24 RPR Nonreactive (NONREACTIVE) 11/04/17 20:30 HIV 1&2 Antibody Screen Negative (NEGATIVE) 11/04/17 20:30 H.influenzae Type B Ag Negative (NEGATIVE) 11/03/17 21:22 Ur L.pneumophila Ag Negative (NEGATIVE) 11/03/17 21:22 Mycoplasma pneumon IgG 2.20 (<=0.90) H 11/03/17 22:34 Mycoplasma pneumon IgM Negative (NEGATIVE) 11/04/17 20:30 N.meningitidis ACY/W135 Negative (NEGATIVE) 11/03/17 21:22 N.meningi B/E.coli K1 Ag Negative (NEGATIVE) 11/03/17 21:22 Group B Strep Antigen Negative (NEGATIVE) 11/03/17 21:22 S. pneumoniae Antigen Negative (NEGATIVE) 11/03/17 21:22 - Hospital Course Hospital Course: On admission: Patient is a 52 year old male with past medical history for Right sided heart failure with Cor pulmonale, DM, Pulmonary HTN, Bilateral Hearing loss, Aflutter on Eliquis, Hypothyroidism, COPD who was transferred to [facility] ICU from [place] ICU due to possible need for urgent dialysis. Patient was initially admitted to [facility] for progressively worsening dyspnea, lower extremity/ abdominal swelling for the past week. Patient was being treated for Acute Hypercapnic Respiratory Failure and Acute Renal Failure. While at [place] patient was started on IV Lasix, Solumedrol IVP, Metolazone 5 mg PO with little improvement in symptoms. Patient also has poor urine output. Upon arrival to the ICU, patient was resting comfortably on Bipap. States that he is feeling better. Patient answering yes or no questions. Patients sister and mother were at the bedside supplementing the history. Denies headaches, dizziness, cp, palpitations, abdominal pain, urinary symptoms, changes in bowel habits. Hospital Course: Patient treated for R heart failure exacerbation. Cardiology Dr. Barksdale consulted. He was treated with atenolol, cardizem, and digoxin. Patient much improved and stable from cardio standpoint for discharge. Recommended follow digoxin levels. Patient was treated for acute on chronic renal failure. Nephrology Dr. Rich was consulted. Plans for emergent dialysis originally in place, however renal function improved prior to initiating dialysis. At the time of discharge, patient's creatinine normalized to 1.0. As per Dr. Rich, patient is stable for discharge and recommends to continue Lasix and magnesium. A CT of abdomen and pelvis revealed anasarca, and underwent parascentesis to remove ascites fluid on 11/03/17. At 11/08/17 CT abdomen/pelvis: mild hepatosplenomegaly. constipation, no bowel obstruction. Moderate right and small left pleural effusions and severe diffuse anasarca. (See full report). At the time of discharge, patient showed signigicantly reduced anasarca. Patient to follow-up with wound care instructions in regards the ostomy where patient is weeping from anasarca CT Chest on 11/03/17 shows large right and small left pleural effusion. prominent multifocal areas of consolidation imposed areas of atelectasis. (see full report). Thoracentesis via IR Dr. Austin was performed 11/05/17. Patient was placed on bipap by Dr. Ferrera, pulmonology. Patient showed improvement in blood gas levels and is discharged with orders for continuing bipap at night. Also recommends to taper steroids. CT Chest 11/03/17 showed prominent multifocal areas of consolidate changes bilaterally right greater than left suggestive of multifocal infiltrate with extensive lympadenopathy within mediastinum and axilla. Infectious disease Dr. Schaffer was consulted. Patient was placed on Cefepime 1 gm IV Q24H, Linezolid 600 mg IV Q12H, and Zosyn 3.375g IV. PICC line placed for continuation of Zosyn IV up until 11/23/2017 at [facility]. Instructions: Patient is stable for discharge to [facility] once authorized by insurance per Dr. Jaramillo. Patient is continue the following the following medication at rehab: Duoneb 3mg/0.5mg 3mL INH RQ6H EA Fp 1ea topical BID Furosemide 40mg PO BID Digoxin 0.25mg PO daily Cardizem 90mg PO QID Gabapentin 100mg po TID Levothyroxine 75 mcg daily Magnesium oxide 400mg PO BID Tiotropium 18mcg cap Solu-Medrol 40mg IVP daily Insulin Human Regular ACHS sliding scale Bacid Acidophilus 1 cap PO daily Pantoprazole 40mg PO daily Atenolol 25mg PO daily Apixaban 5mg PO BID metformin ER 500mg PO BID Advair 250-50 diskus 1 puff IH BID Zosyn 3.375gm Q8H for 14 days Patient will need Bipap at night on settings: 03/28 Patient will receive new home prescriptions for the following: Duoneb 3mg/0.5mg 3mL INH RQ6H EA Fp 1ea topical BID Furosemide 40mg PO BID Digoxin 0.25mg PO daily Cardizem 90mg PO QID Gabapentin 100mg po TID Levothyroxine 75 mcg daily Magnesium oxide 400mg PO BID Tiotropium 18mcg cap Patient is to follow up with their PMD within one week of discharge, if patient does not have a PMD, he may follow up with the [facility] . Patient is to follow up with Dr. Rich, nephrology, in office 1-2 weeks following discharge. Patient to follow up instructions on lower extremity wound care. Patient is to return to ED if experiences worsening or new symptoms. Please note this is a brief summary of hospitalization. For full report see medical records. Discharge Exam - Head Exam Head Exam: NORMOCEPHALIC - Additional Findings Additional findings: - Constitutional Appears: Non-toxic, No Acute Distress, Other (morbidly obese) - Head Exam Head Exam: NORMAL INSPECTION - Eye Exam Eye Exam: EOMI. absent: Nystagmus, Scleral icterus - ENT Exam ENT Exam: Mucous Membranes Moist - Respiratory Exam Respiratory Exam: Decreased Breath Sounds, Rales, NORMAL BREATHING PATTERN. absent: Respiratory Distress, Stridor - Cardiovascular Exam Cardiovascular Exam: Tachycardia, +S1, +S2 - GI/Abdominal Exam GI & Abdominal Exam: Distended (morbid obese habitus, edematous), Soft, Normal Bowel Sounds. absent: Firm, Guarding, Rigid, Tenderness, Rebound Additional comments: has ostomy bag over the site of paracentesis mild yellow fluid coming - Extremities Exam Extremities Exam: Pedal Edema. absent: Tenderness Additional comments: wrapped in reyes bandage and dressing - Neurological Exam Neurological Exam: Alert, Awake, Oriented x3 - Skin Skin Exam: Warm Discharge Plan - Discharge Medications Prescriptions: Albuterol/Ipratropium [Duoneb 3 mg/0.5 mg (3 ml) UD] 3 ml INH RQ6 PRN #1 neb PRN Reason: Wheezing Bacitracin 1 ea TOP BID #1 fp Digoxin [Lanoxin] 0.25 mg PO DAILY@1800 #30 tab diltiaZEM [Cardizem] 90 mg PO QID #120 tab Furosemide [Lasix] 40 mg PO BID #60 tab Gabapentin [Neurontin] 100 mg PO TID #90 cap Levothyroxine [Synthroid] 75 mcg PO DAILY@0630 #30 tab Magnesium Oxide [Mag-Ox] 400 mg PO BID #28 tab Piperacillin/Tazobact [Zosyn] 3.375 gm IVPB Q8H 14 Days vial Tiotropium [Spiriva] 18 mcg INH RQ24 #30 cap - Follow Up Plan Condition: GOOD Disposition: REHAB FACILITY/REHAB UNIT Instructions: Heart Failure, Adult (DC), Pneumonia, Adult (DC), Fluid in the Belly (Ascites) (DC), Digoxin, Diltiazem, Furosemide, Gabapentin, Levothyroxine , Magnesium Oxide, Tiotropium, How to Use a CPAP or BPAP Machine Additional Instructions: Patient is stable for discharge to [facility] as per Dr. Jaramillo. Patient is continue the following the following medication at rehab: Duoneb 3mg/0.5mg 3mL INH RQ6H EA Fp 1ea topical BID Furosemide 40mg PO BID Digoxin 0.25mg PO daily Cardizem 90mg PO QID Gabapentin 100mg po TID Levothyroxine 75 mcg daily Magnesium oxide 400mg PO BID Tiotropium 18mcg cap Solu-Medrol 40mg IVP daily Insulin Human Regular ACHS sliding scale Bacid Acidophilus 1 cap PO daily Pantoprazole 40mg PO daily Atenolol 25mg PO daily Apixaban 5mg PO BID metformin ER 500mg PO BID Advair 250-50 diskus 1 puff IH BID Zosyn 3.375gm Q8H for 14 days Patient will need Bipap at night on settings: 03/28 Patient will receive new home prescriptions for the following: Duoneb 3mg/0.5mg 3mL INH RQ6H EA Fp 1ea topical BID Furosemide 40mg PO BID Digoxin 0.25mg PO daily Cardizem 90mg PO QID Gabapentin 100mg po TID Levothyroxine 75 mcg daily Magnesium oxide 400mg PO BID Tiotropium 18mcg cap Patient is to follow up with their PMD within one week of discharge, if patient does not have a PMD, he may follow up with the [facility] . Patient is to follow up with Dr. Rich, nephrology, in office 1-2 weeks following discharge. Patient is to return to ED if experiences worsening or new symptoms. Referrals: Basilio Rich MD [Staff Provider] - Malachi Torres MD [Primary Care Provider] - Clinical Quality Measures - CQM - Heart Failure Ejection Fraction: 40 % or Greater Left Ventricular Function to be assessed after discharge: No REYES Inhibitor Prescribed: No Contraindication/Reason for not providing: kidney failure Beta-Franklyn Prescribed: None Contraindication/Reason for not providing: not indicated Angiotensin II Receptor Franklyn Prescribed: No Contraindication/Reason for not providing: not indicated AnticoagulationTherapy for Atrial Fibrillation/Atrialflutter: Yes Aldosterone Antagonist Prescribed: No Contraindication/Reason for not providing: not indicated Hydralazine Nitrate Prescribed: No Contraindication/Reason for not providing: not indicated Implantable Cardioverter Defibrillator Therapy: No Contraindication/Reason for not providing: not indicated Cardiac Resynchronization Therapy Prescribed: No Contraindication/Reason for not providing: not indicated Will be discharged to: [facility] <Lucy Jaramillo V - Last Filed: 11/10/17 13:51> Provider - Provider Date of Admission: 11/03/17 12:37 Attending physician: Lucy Jaramillo DO Primary care physician: Malachi Torres MD Diagnosis - Discharge Diagnosis (1) Ascites Status: Acute (2) Cor pulmonale Status: Acute (3) Deafness Status: Acute (4) Atrial flutter Status: Acute (5) CHF (congestive heart failure) Status: Acute (6) COPD (chronic obstructive pulmonary disease) Status: Acute (7) Hyperkalemia Status: Acute (8) Renal insufficiency Status: Acute (9) Prophylactic measure Status: Acute Hospital Course - Lab Results Lab Results: Micro Results 11/05/17 14:24 Pleural Fluid Gram Stain - Final 11/05/17 14:24 Pleural Fluid Body Fluid Culture - Final No growth. 11/04/17 05:54 Leg - Right Gram Stain - Final 11/04/17 05:54 Leg - Right Wound Culture - Final Escherichia Coli Staphylococcus Aureus 11/03/17 13:33 Naris MRSA Culture (Admit) - Final MRSA NOT DETECTED Most Recent Lab Values WBC 11.7 K/uL (4.8-10.8) H 11/10/17 07:07 RBC 5.69 Mil/uL (4.40-5.90) 11/10/17 07:07 Hgb 16.9 g/dL (12.0-18.0) 11/10/17 07:07 Hct 52.0 % (35.0-51.0) H 11/10/17 07:07 MCV 91.4 fL (80.0-94.0) 11/10/17 07:07 MCH 29.7 pg (27.0-31.0) 11/10/17 07:07 MCHC 32.5 g/dL (33.0-37.0) L 11/10/17 07:07 RDW 16.5 % (11.5-14.5) H 11/10/17 07:07 Plt Count 192 K/uL (130-400) 11/10/17 07:07 MPV 9.1 fL (7.2-11.7) 11/10/17 07:07 Neut % (Auto) 81.0 % (50.0-75.0) H 11/10/17 07:07 Lymph % (Auto) 10.6 % (20.0-40.0) L 11/10/17 07:07 [place] % (Auto) 7.9 % (0.0-10.0) 11/10/17 07:07 Eos % (Auto) 0.4 % (0.0-4.0) 11/10/17 07:07 Baso % (Auto) 0.1 % (0.0-2.0) 11/10/17 07:07 Neut # (Auto) 9.4 K/uL (1.8-7.0) H 11/10/17 07:07 Lymph # (Auto) 1.2 K/uL (1.0-4.3) 11/10/17 07:07 [place] # (Auto) 0.9 K/uL (0.0-0.8) H 11/10/17 07:07 Eos # (Auto) 0.0 K/uL (0.0-0.7) 11/10/17 07:07 Baso # (Auto) 0.0 K/uL (0.0-0.2) 11/10/17 07:07 Neutrophils % (Manual) 96 % (50-75) H 11/09/17 05:51 Band Neutrophils % 1 % (0-2) 11/05/17 06:33 Lymphocytes % (Manual) 2 % (20-40) L 11/09/17 05:51 Monocytes % (Manual) 2 % (0-10) 11/09/17 05:51 Platelet Estimate Normal (NORMAL) 11/09/17 05:51 Polychromasia Slight 11/03/17 13:33 Hypochromasia (manual) Slight 11/03/17 13:33 Basophilic Stippling Slight 11/07/17 06:10 Anisocytosis (manual) Slight 11/09/17 05:51 PT 17.1 SECONDS (9.7-12.2) H 11/03/17 13:33 INR 1.6 11/03/17 13:33 APTT 28 SECONDS (21-34) 11/03/17 13:33 Puncture Site Ra 11/10/17 09:01 pCO2 69 mm/Hg (35-45) H 11/10/17 09:01 pO2 66 mm/Hg (80-100) L 11/10/17 09:01 HCO3 42.2 mmol/L (21-28) H* 11/10/17 09:01 ABG pH 7.48 (7.35-7.45) H 11/10/17 09:01 ABG Total CO2 53.5 mmol/L (22-28) H 11/10/17 09:01 ABG O2 Saturation 95.7 % (95-98) 11/10/17 09:01 ABG Base Excess 22.4 mmol/L (-2.0-3.0) H 11/10/17 09:01 ABG Hemoglobin 16.4 g/dL (11.7-17.4) 11/10/17 09:01 ABG Carboxyhemoglobin 2.3 % (0.5-1.5) H 11/10/17 09:01 POC ABG HHb (Measured) 4.2 % (0.0-5.0) 11/10/17 09:01 ABG Methemoglobin 0.9 % (0.0-3.0) 11/10/17 09:01 Pankaj Test Po 11/10/17 09:01 A-a O2 Difference 62.0 mm/Hg 11/10/17 09:01 Respiratory Index 0.9 11/10/17 09:01 Hgb O2 Saturation 92.6 % (95.0-98.0) L 11/10/17 09:01 Liter Flow 3.0 11/10/17 09:01 Vent Mode Bipap 11/04/17 06:00 FiO2 30.0 % 11/10/17 09:01 Inspiratory BiPAP 18 11/04/17 06:00 Expiratory BiPAP 6 11/04/17 06:00 Crit Value Called To 11/10/17 09:01 Crit Value Called By Reilly kelly,die drawing checker 11/10/17 09:01 Crit Value Read Back Y 11/10/17 09:01 Blood Gas Notified Time 910 07/21/18 09:01 Sodium 134 mmol/L (132-148) 11/10/17 07:07 Potassium 4.9 mmol/L (3.6-5.2) 11/10/17 07:07 Chloride 79 mmol/L (98-107) L 11/10/17 07:07 Carbon Dioxide 47 mmol/L (22-30) H* 11/10/17 07:07 Anion Gap 13 (10-20) 11/10/17 07:07 BUN 48 mg/dL (9-20) H 11/10/17 07:07 Creatinine 1.0 mg/dL (0.8-1.5) 11/10/17 07:07 Est GFR ( Amer) > 60 11/10/17 07:07 Est GFR (Non-Af Amer) > 60 11/10/17 07:07 POC Glucose (mg/dL) 136 mg/dL (65-110) H 11/10/17 07:41 Random Glucose 161 mg/dL (75-110) H 11/10/17 07:07 Hemoglobin A1c 6.9 % (4.2-6.5) H 11/04/17 05:54 Calcium 9.0 mg/dl (8.6-10.4) 11/10/17 07:07 Phosphorus 2.7 mg/dL (2.5-4.5) 11/10/17 07:07 Magnesium 1.7 mg/dL (1.6-2.3) 11/10/17 07:07 Total Bilirubin 0.7 mg/dL (0.2-1.3) 11/10/17 07:07 AST 40 U/L (17-59) 11/10/17 07:07 ALT 66 U/L (21-72) 11/10/17 07:07 Alkaline Phosphatase 124 U/L (38-126) 11/10/17 07:07 Total Protein 6.0 g/dL (6.3-8.3) L 11/10/17 07:07 Albumin 3.3 g/dL (3.5-5.0) L 11/10/17 07:07 Globulin 2.8 gm/dL (2.2-3.9) 11/10/17 07:07 Albumin/Globulin Ratio 1.2 (1.0-2.1) 11/10/17 07:07 Triglycerides 146 mg/dL (0-149) 11/04/17 05:54 Cholesterol 126 mg/dL (0-199) 11/04/17 05:54 LDL Cholesterol Direct 75 mg/dL (0-129) 11/04/17 05:54 HDL Cholesterol 23 mg/dL (30-70) L 11/04/17 05:54 Angiotensin Convert Enz 40 U/L (9-67) 11/04/17 20:30 Procalcitonin < 0.05 NG/ML (0.19-0.49) L 11/09/17 05:51 Free T4 0.96 ng/dL (0.78-2.19) 11/04/17 05:53 TSH 3rd Generation 1.04 mIU/L (0.46-4.68) 11/04/17 05:54 Cortisol AM Sample 4.3 ug/dL (4.46-22.7) L 11/09/17 05:51 Fluid Source Pleural 11/05/17 14:24 Fluid Appearance Sl cloudy (CLEAR) 11/05/17 14:24 Fluid WBC 311.0 /mm3 (0.0-300.0) H 11/05/17 14:24 Fluid RBC 814.0 /mm3 (0.0-0.0) H 11/05/17 14:24 Fluid Tot Cell Count 100 (0-0) H 11/05/17 14:24 Fluid Neutrophils 14.0 % (0-0) H 11/05/17 14:24 Fluid Lymphocytes 85.0 % (0-0) H 11/05/17 14:24 Fld Monocyte/Macrophag 1 % (0-0) H 11/05/17 14:24 Fluid Albumin 2.0 g/dL 11/05/17 14:24 Fluid Comment 11/05/17 14:24 Peritoneal Tot Protein 4.4 g/dL 11/03/17 20:00 Peritoneal LDH 117 U/L (<63) H 11/03/17 20:00 Peritoneal Glucose 210 mg/dL 11/03/17 20:00 Peritoneal Amylase 34 U/L 11/03/17 20:00 Peritoneal Triglycerid 57 mg/dL (<65) 11/03/17 20:00 Peritoneal CEA <2 ng/mL (<2.0) 11/03/17 20:00 Pleural Total Protein <3.0 g/dL 11/05/17 14:24 Pleural LDH 85 U/L 11/05/17 14:24 Pleural Glucose 176 mg/dL 11/05/17 14:24 Digoxin 0.7 ng/mL (0.8-2.0) L 11/10/17 07:07 RPR Nonreactive (NONREACTIVE) 11/04/17 20:30 HIV 1&2 Antibody Screen Negative (NEGATIVE) 11/04/17 20:30 H.influenzae Type B Ag Negative (NEGATIVE) 11/03/17 21:22 Ur L.pneumophila Ag Negative (NEGATIVE) 11/03/17 21:22 Mycoplasma pneumon IgG 2.20 (<=0.90) H 11/03/17 22:34 Mycoplasma pneumon IgM Negative (NEGATIVE) 11/04/17 20:30 N.meningitidis ACY/W135 Negative (NEGATIVE) 11/03/17 21:22 N.meningi B/E.coli K1 Ag Negative (NEGATIVE) 11/03/17 21:22 Group B Strep Antigen Negative (NEGATIVE) 11/03/17 21:22 S. pneumoniae Antigen Negative (NEGATIVE) 11/03/17 21:22 Attending/Attestation - Attestation I have personally seen and examined this patient.: Yes I have fully participated in the care of the patient.: Yes I have reviewed all pertinent clinical information, including history, physical exam and plan: Yes Notes (Text): This is a late computer entry for 11/09/2017. Patient seen and examined by myself earlier today. Patient is medically stable for rehabilitation we are awaiting authorization by insurance. Ultimately patient will need at least 14 days of IV antibiotics to cover for weepy wound infections as well as pneumonia. Patient will need both rate control digoxin and aloe Omar for his atrial flutter. Patient will need diet and lifestyle modifications for his obesity. She will need BiPAP for his COPD. I've spoken extensively with both nursing field supervisor and consultants on the case as well. I've left a message with both his PMD at his office and I found out that patient's family that he is away on vacation
[2017-11-09] MEDS: Digoxin 250 mcg (0.25 mg) Tab PO SCH (17:45)
--- NOTE | 2017-11-09 20:23 | PN ---
DATE: 11/09/2017 SUBJECTIVE: The patient is comfortable, sitting on a chair, on nasal O2. He is still in atrial flutter with 2:1 conduction. PHYSICAL EXAMINATION: VITAL SIGNS: Blood pressure 150/87, heart rate 107, respirations 12, temperature 98. HEENT: Improved facial edema. CHEST: Diminished breath sounds over the bases. HEART: S1 and S2 regular. ABDOMEN: Soft. EXTREMITIES: 1+ pitting edema. LABORATORY DATA: Hemoglobin and hematocrit 16.8 and 51.9. White count and platelet count are within normal limits. SMA-7: Sodium 131, potassium 5.2, chloride 82, CO2 of 40, glucose 320, BUN 49, and creatinine 1. Chest x-ray today, new right decline to many thing in the superior vena cava, right basal opacity, and small right pleural effusion. Abdomen and pelvis CT scan done yesterday; mild hepatosplenomegaly, constipation, no bowel obstruction, moderate right pleural effusion, and severe diffuse anasarca. ASSESSMENT: 1. Atrial flutter with 2:1 conduction. 2. Right-sided heart failure. 3. Sleep apnea. 4. Anasarca, status post right thoracocentesis and abdominal paracentesis. 5. Hyponatremia. 6. Metabolic alkalosis, most likely post hypercapnic. RECOMMENDATIONS: Continue Cardizem at 90 mg 4 times daily, Eliquis at 5 mg daily, digoxin 0.25 mg orally once a day, Lasix 40 mg p.o. twice a day, magnesium oxide 400 mg twice a day, Zosyn 3.375 gm intravenously every 8 hours, Synthroid 75 mcg once a day, atenolol 25 mg once a day. I did order an additional dose of 0.125 of IV digoxin. Obtain serum digoxin level in a.m. See Barks[place] MD
[2017-11-10] MEDS: Piperacillin/Tazobact 3.375 GM in Sodium Chloride 100 ML IVPB SCH ×3 (01:51→17:58)
[2017-11-10] MEDS: Levothyroxine 75 MCG TAB PO SCH (06:56)
[2017-11-10 07:11] LABS: BASO % 0.1 % (0.0-2.0); EOS % 0.4 % (0.0-4.0); HEMOGLOBIN 16.9 g/dL (12.0-18.0); LYMPH # 1.2 K/uL (1.0-4.3); LYMPH % 10.6 % (20.0-40.0); MEAN CELL VOLUME 91.4 fL (80.0-94.0); MEAN CORPUSCULAR HEMOGLOBIN 29.7 pg (27.0-31.0); MEAN CORPUSCULAR HGB CONC 32.5 g/dL (33.0-37.0); MEAN PLATELET VOLUME 9.1 fL (7.2-11.7); MONO # 0.9 K/uL (0.0-0.8); MONO % 7.9 % (0.0-10.0); NEUT # 9.4 K/uL (1.8-7.0); NRBC % 0.2 % (0.0-2.0); RBC 5.69 Mil/uL (4.40-5.90); RED CELL DISTRIBUTION WIDTH 16.5 % (11.5-14.5); WHITE BLOOD COUNT 11.7 K/uL (4.8-10.8)
[2017-11-10] MEDS: Albuterol-Ipratrop 3 mg / 0.5 (3 ml) UD INH PRN ×2 (07:40→22:22)
[2017-11-10] MEDS: Tiotropium 18 mcg Cap For Inhalation INH SCH (07:40)
[2017-11-10 07:50] LABS: ALB/GLOB RATIO 1.2 (1.0-2.1); ALBUMIN 3.3 g/dL (3.5-5.0); ALT/SGPT 66 U/L (21-72); AST/SGOT 40 U/L (17-59); BLOOD UREA NITROGEN 48 mg/dL (9-20); GFR AFRICAN-AMERICAN > 60; GFR NON-AFRICAN AMERICAN > 60
[2017-11-10] MEDS: (Novolin R) Insulin Human Regular 100 units/ml vial SC SCH ×4 (08:00→22:06)
--- NOTE | 2017-11-10 08:41 | CP.PCM.PN ---
Subjective - Date & Time of Evaluation Date of Evaluation: 11/10/17 Time of Evaluation: 08:25 - Subjective Subjective: Medical Attending Note: No events overnight. Patient is using his Bipap at night and compliant per nursing.V Voided: 3500 ML Paracentesis: 700; Intake: 700 I've held the lasix this morning in light of elevated CO2. will order ABG to confirm. Patient denies any headache, denies chest pain, denies shortness of breathe, denies cough, denies abdominal pain, denies nausea, denies vomitting, no bowel movement overnight but had a bowel movement yesterday, urinating. Patient will need redressing over his lower extremities. Patient reporting chronic low back pain. Objective - Vital Signs/Intake and Output Vital Signs (last 24 hours): Temp Pulse Resp BP Pulse Ox 97.8 F 67 18 160/93 H 95 11/10/17 04:00 11/10/17 04:00 11/10/17 04:00 11/10/17 04:09 11/10/17 04:00 Intake and Output: 11/10/17 11/10/17 06:59 18:59 Intake Total 700 Output Total 4200 Balance -3500 - Medications Medications: Current Medications Albuterol/Ipratropium (Duoneb 3 Mg/0.5 Mg (3 Ml) Ud) 3 ml INH RQ6 PRN PRN Reason: Wheezing Last Admin: 11/10/17 07:40 Dose: 3 ml Apixaban (Eliquis) 5 mg PO BID [facility] Last Admin: 11/09/17 17:44 Dose: 5 mg Atenolol (Tenormin) 25 mg PO Q24H [facility] Last Admin: 11/09/17 17:44 Dose: 25 mg Bacitracin (Bacitracin) 1 ea TOP BID [facility] Last Admin: 11/09/17 17:46 Dose: 1 ea Dextrose (Dextrose 50% Inj) 0 ml IV STAT PRN; Protocol PRN Reason: Hypoglycemia Protocol Dextrose (Glutose 15) 0 gm PO ONCE PRN; Protocol PRN Reason: Hypoglycemia Protocol Digoxin (Lanoxin) 0.25 mg PO DAILY@1800 [facility] Last Admin: 11/09/17 17:45 Dose: 0.25 mg Diltiazem HCl (Cardizem) 90 mg PO QID [facility] Last Admin: 11/09/17 22:28 Dose: 90 mg Docusate Sodium (Colace) 100 mg PO TID [facility] Last Admin: 11/09/17 17:44 Dose: 100 mg Furosemide (Lasix) 40 mg PO BID [facility] Last Admin: 11/09/17 17:44 Dose: 40 mg Gabapentin (Neurontin) 100 mg PO TID [facility] Last Admin: 11/09/17 17:45 Dose: 100 mg Glucagon (Glucagen Diagnostic Kit) 0 mg IM STAT PRN; Protocol PRN Reason: Hypoglycemia Protocol Piperacillin Sod/Tazobactam (Sod 3.375 gm/ Sodium Chloride) 100 mls @ 200 mls/ hr IVPB Q8H JOSE E PRN Reason: Protocol Last Admin: 11/10/17 01:51 Dose: 200 mls/hr Insulin Human Regular (Novolin R) 0 unit SC ACHS JOSE E PRN Reason: Protocol Last Admin: 11/10/17 08:00 Dose: Not Given Lactobacillus Acidophilus (Bacid Acidophilus) 1 cap PO BID [facility] Last Admin: 11/09/17 17:44 Dose: 1 cap Levothyroxine Sodium (Synthroid) 75 mcg PO DAILY@0630 [facility] Last Admin: 11/10/17 06:56 Dose: 75 mcg Magnesium Oxide (Mag-Ox) 400 mg PO BID [facility] Last Admin: 11/09/17 17:44 Dose: 400 mg Methylprednisolone (Solu-Medrol) 40 mg IVP DAILY [facility] Pantoprazole Sodium (Protonix Ec Tab) 40 mg PO DAILY [facility] Last Admin: 11/09/17 09:12 Dose: 40 mg Tiotropium [place] (Spiriva) 18 mcg INH RQ24 [facility] Last Admin: 11/10/17 07:40 Dose: 18 mcg Tramadol HCl (Ultram) 25 mg PO TID PRN PRN Reason: Pain, moderate (4-7) Last Admin: 11/09/17 17:44 Dose: 25 mg - Labs Labs: 11/10/17 07:07 11/10/17 07:07 PT 17.1 SECONDS (9.7-12.2) H 11/03/17 13:33 INR 1.6 11/03/17 13:33 APTT 28 SECONDS (21-34) 11/03/17 13:33 - Constitutional Appears: Non-toxic, No Acute Distress, Other (morbidly obese) - Head Exam Head Exam: NORMAL INSPECTION - Eye Exam Eye Exam: EOMI - ENT Exam ENT Exam: Mucous Membranes Moist - Respiratory Exam Respiratory Exam: Decreased Breath Sounds, Rales, Rhonchi, NORMAL BREATHING PATTERN Additional comments: improving - Cardiovascular Exam Cardiovascular Exam: REGULAR RHYTHM, +S1, +S2 - GI/Abdominal Exam GI & Abdominal Exam: Distended (obesity, edematous (improving)), Soft, Normal Bowel Sounds. absent: Firm, Guarding, Rigid, Tenderness, Rebound Additional comments: wound ostomy over the paracentesis site; draining; yellow fluid - Extremities Exam Extremities Exam: Pedal Edema. absent: Tenderness Additional comments: erythema over lower extremities (nonedema), has xeroform, erythema bilateral - Neurological Exam Neurological Exam: Alert, Awake, Oriented x3 - Psychiatric Exam Psychiatric exam: Normal Affect, Normal Mood - Skin Skin Exam: Warm Assessment and Plan (1) Ascites Status: Acute (2) Cor pulmonale Status: Acute (3) Deafness Status: Acute (4) Atrial flutter Status: Acute (5) CHF (congestive heart failure) Status: Acute (6) COPD (chronic obstructive pulmonary disease) Status: Acute (7) Hyperkalemia Status: Acute (8) Renal insufficiency Status: Acute (9) Prophylactic measure Status: Acute Attending/Attestation - Attestation I have personally seen and examined this patient.: Yes I have fully participated in the care of the patient.: Yes I have reviewed all pertinent clinical information, including history, physical exam and plan: Yes Notes (Text): Assessment and plan 1. Right-sided Congestive Heart failure Exacerbation Acute hypercapnic hypoxic respiratory failure COPD Pleural effusion * Cardiology Dr. Barksdale consult help appreciated * Pulmonary Dr. Ferrera consult help appreciated * Duonebs 3ml of every 6 hours * Solumedrol 40mg IV daily * Spiriva 18 mcg INH Q24H * Lasix 40mg PO BID-->held given elevated bicarbonate * Suspecting from over diuresis (3.5 L negative balance) * Will confirm with ABG this morning; start diamox 500mg PO Q12H * Echocardiogram 08/29/2017: Left ventricle is normal size, mild concentric left ventricular hypertrophy, left ventricle function is normal ejection fraction 55-60%, right ventricle is severely dilated systolic function of RVs moderately to severely reduced. Trace aortic regurgitation mitral regurgitation is trace moderate tricuspid regurg elevated IVC was not visualized no pericardial effusion noted poor window but due to increased body habitus. * Monitor daily weights and intake output * Atenolol 25mg PO daily * Cardizem 90mg PO QID * white count has normalized * Pro calcitonin is low * Pending the ABG for today given rising CO2 2. Acute Renal Failure on Chronic (Stage 3) Renal Failure/Possible Cardio-Renal Syndrome Assessment/Plan * Nephrology Dr. Rich/Lj * Dialysis consent obtained 11/03/17 however Nephrology is holding off on HD for now as renal function improved slightly after paracentesis on 11/03/17 * per nephrology and output is much better Ross gene due to HPI and hyperkalemia * renal function has normalized * Start Lasix 40mg PO BID--->held 11/09/17 * CO2 elevated 47, suspecting overdiuresis * Order for ABG to conform 3. Ascites * As noted on U/S Abdomen 11/03/17 * S/P 3L ascites fluid removed on 11/03/17: follow up fluid analysis * Currently draining from ascites fluid is still draining from the site of paracentesis in the RLQ (colostomy bag in place) * CT abdomen/pevlis (11/08/17): mild hepatosplenomegaly. constipation. no bowel obstruction. moderate right and small left pleural effusions and severe diffucse anasarca. * Start lasix 40mg PO BID * Has ostomy for weeping fluid. * General surgery (Dr. Cota) on consult-->to evaluate wound. Patient has had a CT does not show fistula 4. Pleural Effusions * CT Chest 11/03/17 shows large right and small left pleural effusion. prominent multifocal areas of consolidat imposed areas of atelectasis. Extensive lymphadenopathy within the med * Order placed for Thoracentesis via IR Dr. Austin for 11/05/17--> patient had 900 mL of straw-colored fluid; no drains require; follow-up pleural studies 5. History of Atrial flutter/Atrial fibrillation * Patient is on Eliquis 5 mg PO BID * Held evening dose in preparation for PICC/midline access today * Increase to Cardizem 90 mg by mouth 4 times a day * continue with Atenolol 25mg PO daily 6. Bilateral Pneumonia Healthcare care associated pneumonia * infectious disease Dr. Schaffer on the case * CT Chest 11/03/17 showed prominent multifocal areas of consolidate changes bilaterally right greater than left suggestive of multifocal infiltrate with extensive lympadenopathy within mediastinum and axilla * Patient will likely repeat CT Chest once he completes treatment for the bilateral pneumonia to make sure that there is NO underlying lesion. * d/c Cefepime 1 gm IV Q24H active since 11/04/2017 by ID * d/c Linezolid 600 mg IV [id number] since 11/04/2017 by ID * Start Zosyn 3.375 IVPB Q8H (active since 11/07/17) * Recommended for 10-14 days of IV abx * Will setup patient for IV midline/PICC line * Legionella urine negative, Mycoplasma pneumonia IgM: negative, and Strep pneumonia urine negative * Noted prior hospitalization in August of this year; possible treatment for Hospital/healthcare associated pneumonia 7. History of DM 2 * Hemoglobin A1C 6.9 * Insulin sliding scale * Holding metformin/glipizde on admission 8. Morbid obesity * Will need aggressive lifestyle intervention especially in light of his other comorbidities including diabetes, right-sided heart failure, pulmonary hypertension 9. Hypothyroidism * At time of admission levothyroxine increased to 50 mcg to Levothyroxine 75 mg PO 1x/day 10. Hx Deafness * Patient can read lips and sign language 11. Bilateral Lower Leg Cellulitis * Unable to outline areas of discoloration as mentioned in physical exam above. However as noted on physical exam above, this area extends from the just above the bilateral malleoli to just inferior to the bilateral knees * This may be combination of cellulitis and chronic venous insufficiency changes * Improved per wound care nurse * ID Dr. Schaffer * prior blood cultures from [place] ICU 11/01/2017 no growth after 5 daysX2 * Wound care: E.coli and Staph * Start Zosyn 3.375 IVPB Q8H (active since 11/07/17) * Recommended for 10-14 days of IV abx * Will setup patient for IV midline/PICC line 12. Edema * note prior Doppler was negative at [place] * Wound care on board given weeping nature of legs * Wound care: *IF BILATERAL VENOUS DOPPLARS ARE NEGATIVE FOR DVT'S, PLACE XEROFORM OVER WEEPING AREAS TO BILATERAL LOWER EXTREMITIES, THEN COVER WITH BULKY DRESSING, THEN APPLY 6 INCH REYES WRAPS (2 TO EACH LEG), ON IN AM, AND OFF IN PM, AND MUST ELEVATE LEGS MUCH POSSIBLE WHILE IN BED TO DECREASE PITTING EDEMA WHICH WILL HELP WITH THE HEALING PROCESS. Wound care note-re- assessed patient; bilateral lower extremity with 6 inch reyes wraps to continue. Informed that patient having oozing of straw colored drainage from lower abdomen from previous paracentesis. Recommended to start wound drainage bag hooked up to [place] drainage system. Placed bag--will continue to monitor. * held Lasix 40mg PO BID * has negative balance; order for ABG; start diamox 500mg PO BID 13. Poor nail Hygiene * Podiatry (Dr. Mariano) on case help appreciated * Nails debrided 11/06/17 14. History of Chronic Back Pain * used to be on Oxycodone 30mg prior to admission * Patient is on Tramadol 25mg PO TID PRN moderate pain * Gabapentin 100mg PO TID 14. Prophylactic measure * Eliquis 5mg PO bid * PICC 11/09/17 * Lactobacillus 1 cap PO 2x/day * Protonix 40mg IV daily * Monitor daily weights, I&O * PT OT on board * Reconsult PT/OT * Consult newsagent referral given morbid obesity * Rehab eval * Wound care: *IF BILATERAL VENOUS DOPPLARS ARE NEGATIVE FOR DVT'S, PLACE XEROFORM OVER WEEPING AREAS TO BILATERAL LOWER EXTREMITIES, THEN COVER WITH BULKY DRESSING, THEN APPLY 6 INCH REYES WRAPS (2 TO EACH LEG), ON IN AM, AND OFF IN PM, AND MUST ELEVATE LEGS MUCH POSSIBLE WHILE IN BED TO DECREASE PITTING EDEMA WHICH WILL HELP WITH THE HEALING PROCESS. Wound care note-re- assessed patient; bilateral lower extremity with 6 inch reyes wraps to continue. Informed that patient having oozing of straw colored drainage from lower abdomen from previous paracentesis. Recommended to start wound drainage bag hooked up to [place] drainage system. Placed bag--will continue to monitor.
[2017-11-10 09:06] LABS: ABG ALLEN TEST PO; ARTERIAL BLOOD GAS HCO3 42.2 mmol/L (21-28); ARTERIAL BLOOD GAS HEMOGLOBIN 16.4 g/dL (11.7-17.4); ARTERIAL BLOOD GAS O2 SAT 95.7 % (95-98); ARTERIAL BLOOD GAS PCO2 69 mm/Hg (35-45); ARTERIAL BLOOD GAS PH 7.48 (7.35-7.45); ARTERIAL BLOOD GAS PO2 66 mm/Hg (80-100); ARTERIAL BLOOD GAS TCO2 53.5 mmol/L (22-28)
--- NOTE | 2017-11-10 10:18 | CP.PCM.CON ---
History of Present Illness - History of Present Illness History of Present Illness: General Surgery Consult Note for Dr. Cota 52M patient with a PMH of Right-sided heart failure with cor pulmonale, Pulmonary HTN, DM, b/l hearing loss, A-flutter, hypothyroidism, and COPD presents with a 2mm wound along midline region of abdomen s/p paracentesis. General surgery consulted for evaluation of abdominal wound. Patient denies any pain or discomfort, other than his chronic back pain. Patient denies fever, chills, headache, dizziness, nausea, vomiting, diarrhea, chest pain, heart palpitations, SOB, wheezing, abdominal pain, and urinary symptoms. High volume output of ascitic fluid draining from site. PMH: R-sided heart failure w/ cor pulmonale, pulmonary HTN, DM, b/l hearing loss , A-flutter, hypothyroidism, and COPD PSHx:Hernia surgery x 4, Appendectomy, cholecystectomy Social: pt is a former smoker, denies alcohol, tobacco, and drug use. Family hx: HTN Review of Systems - Review of Systems Review of Systems: 12 pt ROS unremarkable, except as stated in HPI - Cardiovascular Cardiovascular: absent: Chest Pain, Dyspnea - Respiratory Respiratory: absent: Dyspnea, Wheezing - Gastrointestinal Gastrointestinal: absent: Abdominal Pain, Diarrhea, Nausea, Vomiting Past Patient History - Tetanus Immunizations Tetanus Immunization: Unknown - Past Medical History & Family History Past Medical History?: Yes - Past Social History Smoking Status: Former Smoker - CARDIAC Hx Cardiac Disorders: Yes (Right sided heart failure with corpulmonale, Atrial Flutter,) Hx Hypertension: Yes - PULMONARY Hx Chronic Obstructive Pulmonary Disease (COPD): Yes - NEUROLOGICAL Hx Neurological Disorder: No - HEENT Hx Deafness: Yes - RENAL Hx Chronic Kidney Disease: No - ENDOCRINE/METABOLIC Hx Diabetes Mellitus Type 2: Yes Hx Hypothyroidism: Yes - HEMATOLOGICAL/ONCOLOGICAL Hx Blood Disorders: No - INTEGUMENTARY Hx Dermatological Problems: No - MUSCULOSKELETAL/RHEUMATOLOGICAL Hx Falls: No - GASTROINTESTINAL Hx Gastrointestinal Disorders: Yes - GENITOURINARY/GYNECOLOGICAL Hx Genitourinary Disorders: No Hx Reproductive Disorders: No - PSYCHIATRIC Hx Psychophysiologic Disorder: No Hx Depression: No Hx Emotional Abuse: No Hx Physical Abuse: No Hx Substance Use: No - SURGICAL HISTORY Hx Appendectomy: Yes Hx Cholecystectomy: Yes Hx Tonsillectomy: Yes Meds Home Medications: Home Medication List Medication Instructions Recorded Confirmed Type Albuterol/Ipratropium [Duoneb 3 3 ml INH RQ6 PRN #1 neb 11/09/17 Rx mg/0.5 mg (3 ml) UD] Bacitracin 1 ea TOP BID #1 fp 11/09/17 Rx Dextrose 50% [Dextrose 50% Inj] 0 ml IV STAT PRN syr 11/09/17 Rx Dextrose Oral [Glutose 15] 0 gm PO ONCE PRN tube 11/09/17 Rx Digoxin [Lanoxin] 0.25 mg PO DAILY@1800 #30 tab 11/09/17 Rx Furosemide [Lasix] 40 mg PO BID #60 tab 11/09/17 Rx Gabapentin [Neurontin] 100 mg PO TID #90 cap 11/09/17 Rx Insulin Human Regular [Novolin R] 0 unit SC ACHS unit 11/09/17 Rx Lactobacillus Acidophilus [Bacid 1 cap PO DAILY #30 cap 11/09/17 Rx Acidophilus] Levothyroxine [Synthroid] 75 mcg PO DAILY@0630 #30 tab 11/09/17 Rx Magnesium Oxide [Mag-Ox] 400 mg PO BID #28 tab 11/09/17 Rx Pantoprazole [Protonix EC Tab] 40 mg PO DAILY #0 ect 11/09/17 Rx Piperacillin/Tazobact [Zosyn] 3.375 gm IVPB Q8H 14 Days vial 11/09/17 Rx Tiotropium [Spiriva] 18 mcg INH RQ24 #30 cap 11/09/17 Rx diltiaZEM [Cardizem] 90 mg PO QID #120 tab 11/09/17 Rx methylPREDNISolone [Solu-Medrol] 40 mg IVP Q12H ml 11/09/17 Rx Allergies/Adverse Reactions: Allergies Allergy/AdvReac Type Severity Reaction Status Date / Time No Known Allergies Allergy Verified 09/11/17 20:08 - Medications Medications: Current Medications Acetazolamide (Diamox Sequels 500 Mg Sr Cap) 500 mg PO BID JOSE E Albuterol/Ipratropium (Duoneb 3 Mg/0.5 Mg (3 Ml) Ud) 3 ml INH RQ6 PRN PRN Reason: Wheezing Last Admin: 11/10/17 07:40 Dose: 3 ml Apixaban (Eliquis) 5 mg PO BID JOSE E Last Admin: 11/09/17 17:44 Dose: 5 mg Atenolol (Tenormin) 25 mg PO Q24H [facility] Last Admin: 11/09/17 17:44 Dose: 25 mg Bacitracin (Bacitracin) 1 ea TOP BID [facility] Last Admin: 11/09/17 17:46 Dose: 1 ea Dextrose (Dextrose 50% Inj) 0 ml IV STAT PRN; Protocol PRN Reason: Hypoglycemia Protocol Dextrose (Glutose 15) 0 gm PO ONCE PRN; Protocol PRN Reason: Hypoglycemia Protocol Digoxin (Lanoxin) 0.25 mg PO DAILY@1800 [facility] Last Admin: 11/09/17 17:45 Dose: 0.25 mg Diltiazem HCl (Cardizem) 90 mg PO QID [facility] Last Admin: 11/09/17 22:28 Dose: 90 mg Docusate Sodium (Colace) 100 mg PO TID [facility] Last Admin: 11/09/17 17:44 Dose: 100 mg Furosemide (Lasix) 40 mg PO BID [facility] Last Admin: 11/09/17 17:44 Dose: 40 mg Gabapentin (Neurontin) 100 mg PO TID [facility] Last Admin: 11/09/17 17:45 Dose: 100 mg Glucagon (Glucagen Diagnostic Kit) 0 mg IM STAT PRN; Protocol PRN Reason: Hypoglycemia Protocol Piperacillin Sod/Tazobactam (Sod 3.375 gm/ Sodium Chloride) 100 mls @ 200 mls/ hr IVPB Q8H [facility] PRN Reason: Protocol Last Admin: 11/10/17 01:51 Dose: 200 mls/hr Insulin Human Regular (Novolin R) 0 unit SC ACHS JOSE E PRN Reason: Protocol Last Admin: 11/10/17 08:00 Dose: Not Given Lactobacillus Acidophilus (Bacid Acidophilus) 1 cap PO BID [facility] Last Admin: 11/09/17 17:44 Dose: 1 cap Levothyroxine Sodium (Synthroid) 75 mcg PO DAILY@0630 [facility] Last Admin: 11/10/17 06:56 Dose: 75 mcg Magnesium Oxide (Mag-Ox) 400 mg PO BID [facility] Last Admin: 11/09/17 17:44 Dose: 400 mg Methylprednisolone (Solu-Medrol) 40 mg IVP DAILY [facility] Pantoprazole Sodium (Protonix Ec Tab) 40 mg PO DAILY [facility] Last Admin: 11/09/17 09:12 Dose: 40 mg Tiotropium [place] (Spiriva) 18 mcg INH RQ24 [facility] Last Admin: 11/10/17 07:40 Dose: 18 mcg Tramadol HCl (Ultram) 25 mg PO TID PRN PRN Reason: Pain, moderate (4-7) Last Admin: 11/09/17 17:44 Dose: 25 mg Physical Exam - Constitutional Appears: No Acute Distress - Head Exam Head Exam: NORMOCEPHALIC - Eye Exam Eye Exam: Normal appearance - ENT Exam ENT Exam: Mucous Membranes Moist - Cardiovascular Exam Cardiovascular Exam: +S1, +S2 - GI/Abdominal Exam GI & Abdominal Exam: Distended, Soft. absent: Firm, Guarding, Rebound, Rigid Additional comments: ~2mm puncture site from paracentesis - Neurological Exam Neurological exam: Alert, Oriented x3 - Skin Skin Exam: Dry, Erythema, Warm Results - Vital Signs Recent Vital Signs: Last Vital Signs Temp 97.8 F 11/10/17 04:00 Pulse 67 11/10/17 04:00 Resp 18 11/10/17 04:00 BP 160/93 H 11/10/17 04:09 Pulse Ox 95 11/10/17 04:00 - Labs Result Diagrams: 11/10/17 07:07 11/10/17 07:07 Labs: Laboratory Results - last 24 hr 11/09/17 11/09/17 11/09/17 05:51 10:48 11:25 WBC RBC Hgb Hct MCV MCH MCHC RDW Plt Count MPV Neut % (Auto) Lymph % (Auto) Barren % (Auto) Eos % (Auto) Baso % (Auto) Neut # (Auto) Lymph # (Auto) Barren # (Auto) Eos # (Auto) Baso # (Auto) Puncture Site Rr pCO2 65 H pO2 83 HCO3 33.6 H ABG pH 7.39 ABG Total CO2 41.3 H ABG O2 Saturation 97.5 ABG Base Excess 11.2 H ABG Hemoglobin 15.2 ABG Carboxyhemoglobin 2.1 H POC ABG HHb (Measured) 2.4 ABG Methemoglobin 1.2 Pankaj Test Pos A-a O2 Difference 71.0 Respiratory Index 0.9 Hgb O2 Saturation 94.4 L Liter Flow 4.0 FiO2 33.0 Crit Value Called To Crit Value Called By Crit Value Read Back Blood Gas Notified Time Sodium Potassium Chloride Carbon Dioxide Anion Gap BUN Creatinine Est GFR ( Amer) Est GFR (Non-Af Amer) POC Glucose (mg/dL) 317 H Random Glucose Calcium Phosphorus Magnesium Total Bilirubin AST ALT Alkaline Phosphatase Total Protein Albumin Globulin Albumin/Globulin Ratio Procalcitonin < 0.05 L Digoxin 11/09/17 11/09/17 11/10/17 16:42 21:10 07:07 WBC 11.7 H RBC 5.69 Hgb 16.9 Hct 52.0 H MCV 91.4 MCH 29.7 MCHC 32.5 L RDW 16.5 H Plt Count 192 MPV 9.1 Neut % (Auto) 81.0 H Lymph % (Auto) 10.6 L Barren % (Auto) 7.9 Eos % (Auto) 0.4 Baso % (Auto) 0.1 Neut # (Auto) 9.4 H Lymph # (Auto) 1.2 Barren # (Auto) 0.9 H Eos # (Auto) 0.0 Baso # (Auto) 0.0 Puncture Site pCO2 pO2 HCO3 ABG pH ABG Total CO2 ABG O2 Saturation ABG Base Excess ABG Hemoglobin ABG Carboxyhemoglobin POC ABG HHb (Measured) ABG Methemoglobin Pankaj Test A-a O2 Difference Respiratory Index Hgb O2 Saturation Liter Flow FiO2 Crit Value Called To Crit Value Called By Crit Value Read Back Blood Gas Notified Time Sodium Potassium Chloride Carbon Dioxide Anion Gap BUN Creatinine Est GFR ( Amer) Est GFR (Non-Af Amer) POC Glucose (mg/dL) 291 H 256 H Random Glucose Calcium Phosphorus Magnesium Total Bilirubin AST ALT Alkaline Phosphatase Total Protein Albumin Globulin Albumin/Globulin Ratio Procalcitonin Digoxin 11/10/17 11/10/17 11/10/17 07:07 07:07 07:41 WBC RBC Hgb Hct MCV MCH MCHC RDW Plt Count MPV Neut % (Auto) Lymph % (Auto) Barren % (Auto) Eos % (Auto) Baso % (Auto) Neut # (Auto) Lymph # (Auto) Barren # (Auto) Eos # (Auto) Baso # (Auto) Puncture Site pCO2 pO2 HCO3 ABG pH ABG Total CO2 ABG O2 Saturation ABG Base Excess ABG Hemoglobin ABG Carboxyhemoglobin POC ABG HHb (Measured) ABG Methemoglobin Pankaj Test A-a O2 Difference Respiratory Index Hgb O2 Saturation Liter Flow FiO2 Crit Value Called To Crit Value Called By Crit Value Read Back Blood Gas Notified Time Sodium 134 Potassium 4.9 Chloride 79 L Carbon Dioxide 47 H* Anion Gap 13 BUN 48 H Creatinine 1.0 Est GFR ( Amer) > 60 Est GFR (Non-Af Amer) > 60 POC Glucose (mg/dL) 136 H Random Glucose 161 H Calcium 9.0 Phosphorus 2.7 Magnesium 1.7 Total Bilirubin 0.7 AST 40 ALT 66 Alkaline Phosphatase 124 Total Protein 6.0 L Albumin 3.3 L Globulin 2.8 Albumin/Globulin Ratio 1.2 Procalcitonin Digoxin 0.7 L 11/10/17 09:01 WBC RBC Hgb Hct MCV MCH MCHC RDW Plt Count MPV Neut % (Auto) Lymph % (Auto) Barren % (Auto) Eos % (Auto) Baso % (Auto) Neut # (Auto) Lymph # (Auto) Barren # (Auto) Eos # (Auto) Baso # (Auto) Puncture Site Ra pCO2 69 H pO2 66 L HCO3 42.2 H* ABG pH 7.48 H ABG Total CO2 53.5 H ABG O2 Saturation 95.7 ABG Base Excess 22.4 H ABG Hemoglobin 16.4 ABG Carboxyhemoglobin 2.3 H POC ABG HHb (Measured) 4.2 ABG Methemoglobin 0.9 Pankaj Test Po A-a O2 Difference 62.0 Respiratory Index 0.9 Hgb O2 Saturation 92.6 L Liter Flow 3.0 FiO2 30.0 Crit Value Called To Crit Value Called By Reilly kelly,vocational nurse Crit Value Read Back Y Blood Gas Notified Time 910 Sodium Potassium Chloride Carbon Dioxide Anion Gap BUN Creatinine Est GFR ( Amer) Est GFR (Non-Af Amer) POC Glucose (mg/dL) Random Glucose Calcium Phosphorus Magnesium Total Bilirubin AST ALT Alkaline Phosphatase Total Protein Albumin Globulin Albumin/Globulin Ratio Procalcitonin Digoxin - Imaging and Cardiology CT scan - abdomen Status: Image reviewed by me, Report reviewed by me Assessment & Plan - Assessment and Plan (Free Text) Assessment: 52M patient with a PMH of Right-sided heart failure with cor pulmonale, Pulmonary HTN, DM, b/l hearing loss, A-flutter, hypothyroidism, and COPD presents with a ~2mm wound along midline region of abdomen s/p paracentesis Plan: -Maintain patient in negative balance -Optimize nutrition to aid in wound healing -No suture to be placed as this can increase risk of infection. Also, area under too much tension due to patient's body habitus. Placement of suture may worsen wound site. -D/w Dr. Beata Garza PGY3
[2017-11-10] MEDS: acetaZOLAMIDE 500 mg SR Cap PO SCH ×2 (10:42→17:58)
[2017-11-10] MEDS: Magnesium Oxide 400 mg Tab UD PO SCH ×2 (10:42→17:59)
[2017-11-10] MEDS: MethylPREDNISolone 40 mg Vial IVP SCH (10:42)
[2017-11-10] MEDS: Pantoprazole 40 mg EC Tab PO SCH (10:43)
[2017-11-10] MEDS: Bacitracin 500 Units/gm Oint Foilpak UD TOP SCH ×2 (10:43→17:58)
[2017-11-10] MEDS: Lactobacillus Acidophilus 500 MU Cap PO SCH ×2 (10:43→17:58)
--- NOTE | 2017-11-10 12:09 | CP.CCUPN ---
CCU Subjective - Physician Review Subjective (Free Text): 11/10/17 12:06 DRAINAGE SITE ISSMALL, NOT INFECTED, BUT IS AT LEAST DRAINING ASCITIC FLUID.IM AFRAID THAT IF THE SKIN IS CLOSED FLUID WILL GO SUBCUTANEOUSLY AND WILL CAUSE FURTHER PROBLEMS. WILL WATCH FOR NOW CCU Objective - Vital Signs / Intake & Output Intake and Output (Last 8hrs): Intake & Output 11/09/17 11/10/17 11/10/17 22:59 06:59 14:59 Intake Total 1100 700 Output Total 2400 4200 Balance -1300 -3500 Weight 292 lb 12.382 oz Intake: Intake, IV Amount 100 100 Right Wrist 100 100 Oral 1000 600 Output: Drainage 300 700 RIGHT MID ABD DRAIN BAG 300 700 Urine 2100 3500 Urine, Voided 2100 3500 Other: # Bowel Movements 0 0 - Physical Exam Head: Positive for: Atraumatic, Normocephalic Extroacular Muscles: Positive for: EOMI Conjunctiva: Positive for: Normal Mouth: Positive for: Moist Mucous Membranes Respiratory/Chest: Positive for: Clear to Auscultation, Good Air Exchange, Wheezes (improving). Negative for: Respiratory Distress, Accessory Muscle Use Cardiovascular: Positive for: Regular Rate and Rhythm, Normal S1, S2. Negative for: Murmurs Abdomen: Positive for: Distention, Normal Bowel Sounds Lower Extremity: Positive for: Edema, NORMAL PULSES, Erythema (tender to palpation B/L distal LE, wrapped) Neurological: Positive for: GCS=15 Skin: Positive for: Other (LE venous insufficiency) Psychiatric: Positive for: Alert, Oriented x 3 - Medications Active Medications: Active Medications Generic Name Dose Route Start Last Admin Trade Name Freq PRN Reason Stop Dose Admin Acetazolamide 500 mg 11/10/17 10:00 11/10/17 10:42 Diamox Sequels 500 Mg Sr Cap PO 500 mg BID JOSE E Administration Albuterol/Ipratropium 3 ml 11/08/17 20:43 11/10/17 07:40 Duoneb 3 Mg/0.5 Mg (3 Ml) Ud INH 3 ml RQ6 PRN Administration Wheezing Apixaban 5 mg 11/09/17 18:00 11/10/17 10:43 Eliquis PO 5 mg BID JOSE E Administration Atenolol 25 mg 11/06/17 17:15 11/09/17 17:44 Tenormin PO 25 mg Q24H JOSE E Administration Bacitracin 1 ea 11/05/17 18:00 11/10/17 10:43 Bacitracin TOP 1 ea BID JOSE E Administration Dextrose 0 ml 11/04/17 19:40 Dextrose 50% Inj IV STAT PRN Hypoglycemia Protocol Protocol Dextrose 0 gm 11/04/17 19:40 Glutose 15 PO ONCE PRN Hypoglycemia Protocol Protocol Digoxin 0.25 mg 11/08/17 18:00 11/09/17 17:45 Lanoxin PO 0.25 mg DAILY@1800 JOSE E Administration Diltiazem HCl 90 mg 11/07/17 15:55 11/10/17 10:42 Cardizem PO 90 mg QID JOSE E Administration Docusate Sodium 100 mg 11/07/17 10:00 11/10/17 10:42 Colace PO 100 mg TID JOSE E Administration Furosemide 40 mg 11/08/17 19:00 11/09/17 17:44 Lasix PO 40 mg BID JOSE E Administration Gabapentin 100 mg 11/05/17 14:00 11/10/17 10:43 Neurontin PO 100 mg TID JOSE E Administration Glucagon 0 mg 11/04/17 19:40 Glucagen Diagnostic Kit IM STAT PRN Hypoglycemia Protocol Protocol Piperacillin Sod/Tazobactam 100 mls @ 200 mls/hr 11/07/17 18:00 11/10/17 10: 43 Sod 3.375 gm/ Sodium Chloride IVPB 200 mls/hr Q8H JOSE E Administration Protocol Insulin Human Regular 0 unit 11/09/17 10:36 11/10/17 08:00 Novolin R SC Not Given ACHS JOSE E Protocol Lactobacillus Acidophilus 1 cap 11/04/17 10:00 11/10/17 10:43 Bacid Acidophilus PO 1 cap BID JOSE E Administration Levothyroxine Sodium 75 mcg 11/04/17 06:30 11/10/17 06:56 Synthroid PO 75 mcg DAILY@0630 JOSE E Administration Magnesium Oxide 400 mg 11/08/17 19:00 11/10/17 10:42 Mag-Ox PO 400 mg BID JOSE E Administration Methylprednisolone 40 mg 11/10/17 10:00 11/10/17 10:42 Solu-Medrol IVP 40 mg DAILY JOSE E Administration Pantoprazole Sodium 40 mg 11/08/17 10:00 11/10/17 10:43 Protonix Ec Tab PO 40 mg DAILY JOSE E Administration Tiotropium [place] 18 mcg 11/04/17 08:00 11/10/17 07:40 Spiriva INH 18 mcg RQ24 JOSE E Administration Tramadol HCl 25 mg 11/05/17 13:08 11/09/17 17:44 Ultram PO 25 mg TID PRN Administration Pain, moderate (4-7) - Patient Studies Lab Studies: Microbiology Studies 11/05/17 14:24 Gram Stain - Final Pleural Fluid Body Fluid Culture - Final No growth. Lab Studies 11/10/17 11/10/17 11/10/17 Range/Units 09:01 07:41 07:07 WBC (4.8-10.8) K/uL RBC (4.40-5.90) Mil/uL Hgb (12.0-18.0) g/dL Hct (35.0-51.0) % MCV (80.0-94.0) fL MCH (27.0-31.0) pg MCHC (33.0-37.0) g/dL RDW (11.5-14.5) % Plt Count (130-400) K/uL MPV (7.2-11.7) fL Neut % (Auto) (50.0-75.0) % Lymph % (Auto) (20.0-40.0) % Cocke % (Auto) (0.0-10.0) % Eos % (Auto) (0.0-4.0) % Baso % (Auto) (0.0-2.0) % Neut # (Auto) (1.8-7.0) K/uL Lymph # (Auto) (1.0-4.3) K/uL Cocke # (Auto) (0.0-0.8) K/uL Eos # (Auto) (0.0-0.7) K/uL Baso # (Auto) (0.0-0.2) K/uL Puncture Site Ra pCO2 69 H (35-45) mm/Hg pO2 66 L (80-100) mm/Hg HCO3 42.2 H* (21-28) mmol/L ABG pH 7.48 H (7.35-7.45) ABG Total CO2 53.5 H (22-28) mmol/L ABG O2 Saturation 95.7 (95-98) % ABG Base Excess 22.4 H (-2.0-3.0) mmol/L ABG Hemoglobin 16.4 (11.7-17.4) g/dL ABG Carboxyhemoglobin 2.3 H (0.5-1.5) % POC ABG HHb (Measured) 4.2 (0.0-5.0) % ABG Methemoglobin 0.9 (0.0-3.0) % Pankaj Test Po A-a O2 Difference 62.0 mm/Hg Respiratory Index 0.9 Hgb O2 Saturation 92.6 L (95.0-98.0) % Liter Flow 3.0 FiO2 30.0 % Crit Value Called To Crit Value Called By Reilly kelly,director of design Crit Value Read Back Y Blood Gas Notified Time 910 Sodium (132-148) mmol/L Potassium (3.6-5.2) mmol/L Chloride (98-107) mmol/L Carbon Dioxide (22-30) mmol/L Anion Gap (10-20) BUN (9-20) mg/dL Creatinine (0.8-1.5) mg/dL Est GFR ( Amer) Est GFR (Non-Af Amer) POC Glucose (mg/dL) 136 H (65-110) mg/dL Random Glucose (75-110) mg/dL Calcium (8.6-10.4) mg/dl Phosphorus (2.5-4.5) mg/dL Magnesium (1.6-2.3) mg/dL Total Bilirubin (0.2-1.3) mg/dL AST (17-59) U/L ALT (21-72) U/L Alkaline Phosphatase (38-126) U/L Total Protein (6.3-8.3) g/dL Albumin (3.5-5.0) g/dL Globulin (2.2-3.9) gm/dL Albumin/Globulin Ratio (1.0-2.1) Digoxin 0.7 L (0.8-2.0) ng/mL 11/10/17 11/10/17 11/09/17 Range/Units 07:07 07:07 21:10 WBC 11.7 H (4.8-10.8) K/uL RBC 5.69 (4.40-5.90) Mil/uL Hgb 16.9 (12.0-18.0) g/dL Hct 52.0 H (35.0-51.0) % MCV 91.4 (80.0-94.0) fL MCH 29.7 (27.0-31.0) pg MCHC 32.5 L (33.0-37.0) g/dL RDW 16.5 H (11.5-14.5) % Plt Count 192 (130-400) K/uL MPV 9.1 (7.2-11.7) fL Neut % (Auto) 81.0 H (50.0-75.0) % Lymph % (Auto) 10.6 L (20.0-40.0) % Cocke % (Auto) 7.9 (0.0-10.0) % Eos % (Auto) 0.4 (0.0-4.0) % Baso % (Auto) 0.1 (0.0-2.0) % Neut # (Auto) 9.4 H (1.8-7.0) K/uL Lymph # (Auto) 1.2 (1.0-4.3) K/uL Cocke # (Auto) 0.9 H (0.0-0.8) K/uL Eos # (Auto) 0.0 (0.0-0.7) K/uL Baso # (Auto) 0.0 (0.0-0.2) K/uL Puncture Site pCO2 (35-45) mm/Hg pO2 (80-100) mm/Hg HCO3 (21-28) mmol/L ABG pH (7.35-7.45) ABG Total CO2 (22-28) mmol/L ABG O2 Saturation (95-98) % ABG Base Excess (-2.0-3.0) mmol/L ABG Hemoglobin (11.7-17.4) g/dL ABG Carboxyhemoglobin (0.5-1.5) % POC ABG HHb (Measured) (0.0-5.0) % ABG Methemoglobin (0.0-3.0) % Pankaj Test A-a O2 Difference mm/Hg Respiratory Index Hgb O2 Saturation (95.0-98.0) % Liter Flow FiO2 % Crit Value Called To Crit Value Called By Crit Value Read Back Blood Gas Notified Time Sodium 134 (132-148) mmol/L Potassium 4.9 (3.6-5.2) mmol/L Chloride 79 L (98-107) mmol/L Carbon Dioxide 47 H* (22-30) mmol/L Anion Gap 13 (10-20) BUN 48 H (9-20) mg/dL Creatinine 1.0 (0.8-1.5) mg/dL Est GFR ( Amer) > 60 Est GFR (Non-Af Amer) > 60 POC Glucose (mg/dL) 256 H (65-110) mg/dL Random Glucose 161 H (75-110) mg/dL Calcium 9.0 (8.6-10.4) mg/dl Phosphorus 2.7 (2.5-4.5) mg/dL Magnesium 1.7 (1.6-2.3) mg/dL Total Bilirubin 0.7 (0.2-1.3) mg/dL AST 40 (17-59) U/L ALT 66 (21-72) U/L Alkaline Phosphatase 124 (38-126) U/L Total Protein 6.0 L (6.3-8.3) g/dL Albumin 3.3 L (3.5-5.0) g/dL Globulin 2.8 (2.2-3.9) gm/dL Albumin/Globulin Ratio 1.2 (1.0-2.1) Digoxin (0.8-2.0) ng/mL 11/09/17 Range/Units 16:42 WBC (4.8-10.8) K/uL RBC (4.40-5.90) Mil/uL Hgb (12.0-18.0) g/dL Hct (35.0-51.0) % MCV (80.0-94.0) fL MCH (27.0-31.0) pg MCHC (33.0-37.0) g/dL RDW (11.5-14.5) % Plt Count (130-400) K/uL MPV (7.2-11.7) fL Neut % (Auto) (50.0-75.0) % Lymph % (Auto) (20.0-40.0) % Cocke % (Auto) (0.0-10.0) % Eos % (Auto) (0.0-4.0) % Baso % (Auto) (0.0-2.0) % Neut # (Auto) (1.8-7.0) K/uL Lymph # (Auto) (1.0-4.3) K/uL [place] # (Auto) (0.0-0.8) K/uL Eos # (Auto) (0.0-0.7) K/uL Baso # (Auto) (0.0-0.2) K/uL Puncture Site pCO2 (35-45) mm/Hg pO2 (80-100) mm/Hg HCO3 (21-28) mmol/L ABG pH (7.35-7.45) ABG Total CO2 (22-28) mmol/L ABG O2 Saturation (95-98) % ABG Base Excess (-2.0-3.0) mmol/L ABG Hemoglobin (11.7-17.4) g/dL ABG Carboxyhemoglobin (0.5-1.5) % POC ABG HHb (Measured) (0.0-5.0) % ABG Methemoglobin (0.0-3.0) % Pankaj Test A-a O2 Difference mm/Hg Respiratory Index Hgb O2 Saturation (95.0-98.0) % Liter Flow FiO2 % Crit Value Called To Crit Value Called By Crit Value Read Back Blood Gas Notified Time Sodium (132-148) mmol/L Potassium (3.6-5.2) mmol/L Chloride (98-107) mmol/L Carbon Dioxide (22-30) mmol/L Anion Gap (10-20) BUN (9-20) mg/dL Creatinine (0.8-1.5) mg/dL Est GFR ( Amer) Est GFR (Non-Af Amer) POC Glucose (mg/dL) 291 H (65-110) mg/dL Random Glucose (75-110) mg/dL Calcium (8.6-10.4) mg/dl Phosphorus (2.5-4.5) mg/dL Magnesium (1.6-2.3) mg/dL Total Bilirubin (0.2-1.3) mg/dL AST (17-59) U/L ALT (21-72) U/L Alkaline Phosphatase (38-126) U/L Total Protein (6.3-8.3) g/dL Albumin (3.5-5.0) g/dL Globulin (2.2-3.9) gm/dL Albumin/Globulin Ratio (1.0-2.1) Digoxin (0.8-2.0) ng/mL Laboratory Results - last 24 hr 11/09/17 11/09/17 11/10/17 16:42 21:10 07:07 WBC 11.7 H RBC 5.69 Hgb 16.9 Hct 52.0 H MCV 91.4 MCH 29.7 MCHC 32.5 L RDW 16.5 H Plt Count 192 MPV 9.1 Neut % (Auto) 81.0 H Lymph % (Auto) 10.6 L [place]ke % (Auto) 7.9 Eos % (Auto) 0.4 Baso % (Auto) 0.1 Neut # (Auto) 9.4 H Lymph # (Auto) 1.2 [place]ke # (Auto) 0.9 H Eos # (Auto) 0.0 Baso # (Auto) 0.0 Puncture Site pCO2 pO2 HCO3 ABG pH ABG Total CO2 ABG O2 Saturation ABG Base Excess ABG Hemoglobin ABG Carboxyhemoglobin POC ABG HHb (Measured) ABG Methemoglobin Pankaj Test A-a O2 Difference Respiratory Index Hgb O2 Saturation Liter Flow FiO2 Crit Value Called To Crit Value Called By Crit Value Read Back Blood Gas Notified Time Sodium Potassium Chloride Carbon Dioxide Anion Gap BUN Creatinine Est GFR ( Amer) Est GFR (Non-Af Amer) POC Glucose (mg/dL) 291 H 256 H Random Glucose Calcium Phosphorus Magnesium Total Bilirubin AST ALT Alkaline Phosphatase Total Protein Albumin Globulin Albumin/Globulin Ratio Digoxin 11/10/17 11/10/17 11/10/17 07:07 07:07 07:41 WBC RBC Hgb Hct MCV MCH MCHC RDW Plt Count MPV Neut % (Auto) Lymph % (Auto) Cocke % (Auto) Eos % (Auto) Baso % (Auto) Neut # (Auto) Lymph # (Auto) Cocke # (Auto) Eos # (Auto) Baso # (Auto) Puncture Site pCO2 pO2 HCO3 ABG pH ABG Total CO2 ABG O2 Saturation ABG Base Excess ABG Hemoglobin ABG Carboxyhemoglobin POC ABG HHb (Measured) ABG Methemoglobin Pankaj Test A-a O2 Difference Respiratory Index Hgb O2 Saturation Liter Flow FiO2 Crit Value Called To Crit Value Called By Crit Value Read Back Blood Gas Notified Time Sodium 134 Potassium 4.9 Chloride 79 L Carbon Dioxide 47 H* Anion Gap 13 BUN 48 H Creatinine 1.0 Est GFR ( Amer) > 60 Est GFR (Non-Af Amer) > 60 POC Glucose (mg/dL) 136 H Random Glucose 161 H Calcium 9.0 Phosphorus 2.7 Magnesium 1.7 Total Bilirubin 0.7 AST 40 ALT 66 Alkaline Phosphatase 124 Total Protein 6.0 L Albumin 3.3 L Globulin 2.8 Albumin/Globulin Ratio 1.2 Digoxin 0.7 L 11/10/17 09:01 WBC RBC Hgb Hct MCV MCH MCHC RDW Plt Count MPV Neut % (Auto) Lymph % (Auto) [place]ke % (Auto) Eos % (Auto) Baso % (Auto) Neut # (Auto) Lymph # (Auto) Cocke # (Auto) Eos # (Auto) Baso # (Auto) Puncture Site Ra pCO2 69 H pO2 66 L HCO3 42.2 H* ABG pH 7.48 H ABG Total CO2 53.5 H ABG O2 Saturation 95.7 ABG Base Excess 22.4 H ABG Hemoglobin 16.4 ABG Carboxyhemoglobin 2.3 H POC ABG HHb (Measured) 4.2 ABG Methemoglobin 0.9 Pankaj Test Po A-a O2 Difference 62.0 Respiratory Index 0.9 Hgb O2 Saturation 92.6 L Liter Flow 3.0 FiO2 30.0 Crit Value Called To Crit Value Called By Reilly kelly,director of design Crit Value Read Back Y Blood Gas Notified Time 910 Sodium Potassium Chloride Carbon Dioxide Anion Gap BUN Creatinine Est GFR ( Amer) Est GFR (Non-Af Amer) POC Glucose (mg/dL) Random Glucose Calcium Phosphorus Magnesium Total Bilirubin AST ALT Alkaline Phosphatase Total Protein Albumin Globulin Albumin/Globulin Ratio Digoxin Fingerstick Blood Sugar Results: 136 Critical Care Progress Note - Nutrition Nutrition: Nutrition Category Date Time Status Consistent Carbohydrate [DIET] Diets 11/04/17 Dinner Active
[2017-11-10] MEDS: Digoxin 250 mcg (0.25 mg) Tab PO SCH (17:59)
--- NOTE | 2017-11-10 18:18 | PN ---
DATE: 11/10/2017 SUBJECTIVE: The patient is comfortable, sitting . He is in atrial flutter with variable AV conduction. Heart rate in the 60s, up to the 90s. PHYSICAL EXAMINATION: VITAL SIGNS: Blood pressure 160/93, heart rate 67, temperature 97.8, and respirations 18. HEENT: Normocephalic. CHEST: Minimal rhonchi. HEART: S1 and S2 are regular. EXTREMITIES: 1+ pitting edema. LABORATORY DATA: Hemoglobin and hematocrit are 16.9 and 52. White count 11.7 and platelet count 192,000. SMA-7, sodium 134, potassium 4.9, chloride 79, CO2 of 47, glucose , BUN 48, creatinine 1. Digoxin level is 0.7. ASSESSMENT: 1. Chronic atrial flutter. 2. Sleep apnea. 3. Improved renal insufficiency. 4. Metabolic alkalosis. RECOMMENDATIONS: Continue digoxin 0.25 mg orally today, discontinue IV Lasix, continue magnesium oxide 400 mg twice a day, Eliquis 5 mg daily, Cardizem at 90 mg q.i.d., Zosyn at 3.375 gm every 8 hours, Solu-Medrol 40 mg intravenously daily, Synthroid 75 mcg once a day, Tenormin 25 mg once a day. The plan is to transfer the patient to [facility] once authorization is obtained. See Barksdale MD
[2017-11-11] MEDS: Piperacillin/Tazobact 3.375 GM in Sodium Chloride 100 ML IVPB SCH ×3 (02:14→18:07)
[2017-11-11] MEDS: Levothyroxine 75 MCG TAB PO SCH (06:31)
[2017-11-11] MEDS: (Novolin R) Insulin Human Regular 100 units/ml vial SC SCH ×4 (08:17→21:42)
[2017-11-11] MEDS: Tiotropium 18 mcg Cap For Inhalation INH SCH (08:24)
[2017-11-11 09:00] LABS: BASO % 0.2 % (0.0-2.0); EOS % 0.3 % (0.0-4.0); HEMOGLOBIN 16.9 g/dL (12.0-18.0); LYMPH # 1.1 K/uL (1.0-4.3); LYMPH % 10.8 % (20.0-40.0); MEAN CELL VOLUME 91.4 fL (80.0-94.0); MEAN CORPUSCULAR HEMOGLOBIN 30.3 pg (27.0-31.0); MEAN CORPUSCULAR HGB CONC 33.2 g/dL (33.0-37.0); MEAN PLATELET VOLUME 9.3 fL (7.2-11.7); MONO # 0.8 K/uL (0.0-0.8); MONO % 8.4 % (0.0-10.0); NEUT # 7.9 K/uL (1.8-7.0); NEUT % 80.3 % (50.0-75.0); RBC 5.58 Mil/uL (4.40-5.90); RED CELL DISTRIBUTION WIDTH 16.3 % (11.5-14.5); WHITE BLOOD COUNT 9.9 K/uL (4.8-10.8)
[2017-11-11 09:16] LABS: ALB/GLOB RATIO 1.2 (1.0-2.1); ALBUMIN 3.5 g/dL (3.5-5.0); ALT/SGPT 51 U/L (21-72); AST/SGOT 51 U/L (17-59); BLOOD UREA NITROGEN 49 mg/dL (9-20); GFR AFRICAN-AMERICAN > 60; GFR NON-AFRICAN AMERICAN > 60
[2017-11-11] MEDS: Magnesium Oxide 400 mg Tab UD PO SCH ×2 (09:56→18:09)
[2017-11-11] MEDS: Lactobacillus Acidophilus 500 MU Cap PO SCH ×2 (09:57→18:07)
[2017-11-11] MEDS: Bacitracin 500 Units/gm Oint Foilpak UD TOP SCH ×2 (09:57→18:09)
[2017-11-11] MEDS: MethylPREDNISolone 40 mg Vial IVP SCH (09:57)
[2017-11-11] MEDS: Pantoprazole 40 mg EC Tab PO SCH (09:57)
[2017-11-11] MEDS: acetaZOLAMIDE 500 mg SR Cap PO SCH ×2 (09:57→18:07)
[2017-11-11] MEDS: Tramadol 25 mg PO PRN (12:02)
--- NOTE | 2017-11-11 14:10 | CP.PCM.PN ---
Subjective - Date & Time of Evaluation Date of Evaluation: 11/11/17 Time of Evaluation: 11:00 - Subjective Subjective: Medical attending note Patient seen, examined, and case discussed with medical sales. Patient denies headache, denies chest pain, denies palpitations, ports he's eating well denies problem with urination, denies vito with bowel movements. Lasix was held yesterday. Patient continues to urinate well about 3.5 L per discussion with nurse. Patient is requesting for pain medication for long- standing back pain. I've told him he is not been getting oxycodone here for the past week and will not restart his oxycodone. He reports he is concerned about withdrawal symptoms. Patient has had Tylenol when necessary since being at the hospital. Objective - Vital Signs/Intake and Output Vital Signs (last 24 hours): Temp Pulse Resp BP Pulse Ox 97.4 F L 69 20 166/92 H 96 11/11/17 07:55 11/11/17 07:55 11/11/17 07:55 11/11/17 07:55 11/11/17 07:55 Intake and Output: 11/11/17 11/11/17 06:59 18:59 Intake Total 760 Output Total 2100 3120 Balance -1340 -3120 - Medications Medications: Current Medications Acetazolamide (Diamox Sequels 500 Mg Sr Cap) 500 mg PO BID [facility] Last Admin: 11/11/17 09:57 Dose: 500 mg Albuterol/Ipratropium (Duoneb 3 Mg/0.5 Mg (3 Ml) Ud) 3 ml INH RQ6 PRN PRN Reason: Wheezing Last Admin: 11/10/17 22:22 Dose: 3 ml Apixaban (Eliquis) 5 mg PO BID [facility] Last Admin: 11/11/17 09:57 Dose: 5 mg Atenolol (Tenormin) 25 mg PO Q24H [facility] Last Admin: 11/10/17 19:42 Dose: 25 mg Bacitracin (Bacitracin) 1 ea TOP BID [facility] Last Admin: 11/11/17 09:57 Dose: 1 ea Dextrose (Dextrose 50% Inj) 0 ml IV STAT PRN; Protocol PRN Reason: Hypoglycemia Protocol Dextrose (Glutose 15) 0 gm PO ONCE PRN; Protocol PRN Reason: Hypoglycemia Protocol Digoxin (Lanoxin) 0.25 mg PO DAILY@1800 [facility] Last Admin: 11/10/17 17:59 Dose: 0.25 mg Diltiazem HCl (Cardizem) 90 mg PO QID [facility] Last Admin: 11/11/17 13:26 Dose: 90 mg Docusate Sodium (Colace) 100 mg PO TID [facility] Last Admin: 11/11/17 13:26 Dose: 100 mg Furosemide (Lasix) 40 mg PO BID [facility] Last Admin: 11/09/17 17:44 Dose: 40 mg Gabapentin (Neurontin) 100 mg PO TID [facility] Last Admin: 11/11/17 13:26 Dose: 100 mg Glucagon (Glucagen Diagnostic Kit) 0 mg IM STAT PRN; Protocol PRN Reason: Hypoglycemia Protocol Piperacillin Sod/Tazobactam (Sod 3.375 gm/ Sodium Chloride) 100 mls @ 200 mls/ hr IVPB Q8H [facility] PRN Reason: Protocol Last Admin: 11/11/17 09:56 Dose: 200 mls/hr Insulin Human Regular (Novolin R) 0 unit SC ACHS [facility] PRN Reason: Protocol Last Admin: 11/11/17 12:02 Dose: 2 units Lactobacillus Acidophilus (Bacid Acidophilus) 1 cap PO BID [facility] Last Admin: 11/11/17 09:57 Dose: 1 cap Levothyroxine Sodium (Synthroid) 75 mcg PO DAILY@0630 [facility] Last Admin: 11/11/17 06:31 Dose: 75 mcg Magnesium Oxide (Mag-Ox) 400 mg PO BID [facility] Last Admin: 11/11/17 09:56 Dose: 400 mg Methylprednisolone (Solu-Medrol) 40 mg IVP DAILY [facility] Last Admin: 11/11/17 09:57 Dose: 40 mg Pantoprazole Sodium (Protonix Ec Tab) 40 mg PO DAILY [facility] Last Admin: 11/11/17 09:57 Dose: 40 mg Tiotropium [place] (Spiriva) 18 mcg INH RQ24 [facility] Last Admin: 11/11/17 08:24 Dose: 18 mcg Tramadol HCl (Ultram) 25 mg PO TID PRN PRN Reason: Pain, moderate (4-7) Last Admin: 11/09/17 17:44 Dose: 25 mg - Labs Labs: 11/11/17 08:42 11/11/17 08:42 PT 17.1 SECONDS (9.7-12.2) H 11/03/17 13:33 INR 1.6 11/03/17 13:33 APTT 28 SECONDS (21-34) 11/03/17 13:33 - Constitutional Appears: Non-toxic, No Acute Distress, Other (morbidly obese) - Head Exam Head Exam: NORMAL INSPECTION - Eye Exam Eye Exam: EOMI - ENT Exam ENT Exam: Mucous Membranes Moist - Respiratory Exam Respiratory Exam: Decreased Breath Sounds, Rales, NORMAL BREATHING PATTERN. absent: Rhonchi, Wheezes - Cardiovascular Exam Cardiovascular Exam: REGULAR RHYTHM, +S1, +S2 - GI/Abdominal Exam GI & Abdominal Exam: Distended (Improving), Soft, Normal Bowel Sounds. absent: Firm, Guarding, Rigid, Tenderness, Rebound Additional comments: Dressing over paracentesis site: Clean dry intact, mild yellow fluid in bag. No blood - Extremities Exam Additional comments: Edema present lateral lower extremities Erythema present lateral lower extremities Lower extremities wrapped in Supa bandages present bilateral lower extremities PICC line over right upper extremity. - Neurological Exam Neurological Exam: Alert, Awake, Oriented x3 - Skin Skin Exam: Dry, Warm Assessment and Plan (1) Ascites Status: Acute (2) Cor pulmonale Status: Acute (3) Deafness Status: Acute (4) Atrial flutter Status: Acute (5) CHF (congestive heart failure) Status: Acute (6) COPD (chronic obstructive pulmonary disease) Status: Acute (7) Hyperkalemia Status: Acute (8) Renal insufficiency Status: Acute (9) Prophylactic measure Status: Acute Attending/Attestation - Attestation I have personally seen and examined this patient.: Yes I have fully participated in the care of the patient.: Yes I have reviewed all pertinent clinical information, including history, physical exam and plan: Yes Notes (Text): Assessment and plan 1. Right-sided Congestive Heart failure Exacerbation Acute hypercapnic hypoxic respiratory failure COPD Pleural effusion * Cardiology Dr. Barksdale consult help appreciated * Pulmonary Dr. Ferrera consult help appreciated * Duonebs 3ml of every 6 hours * Solumedrol 40mg IV daily * Spiriva 18 mcg INH Q24H * Lasix 40mg PO BID-->held given elevated bicarbonate on 11/10 * Suspecting from over diuresis (3.5 L negative balance) November 10 * Continue to monitor output about 3 L November 11 * Patient has been off Lasix since 11/10 AM * Echocardiogram 08/29/2017: Left ventricle is normal size, mild concentric left ventricular hypertrophy, left ventricle function is normal ejection fraction 55-60%, right ventricle is severely dilated systolic function of RVs moderately to severely reduced. Trace aortic regurgitation mitral regurgitation is trace moderate tricuspid regurg elevated IVC was not visualized no pericardial effusion noted poor window but due to increased body habitus. * Monitor daily weights and intake output * Atenolol 25mg PO daily * Cardizem 90mg PO QID * white count has normalized * Pro calcitonin is low 2. Acute Renal Failure on Chronic (Stage 3) Renal Failure/Possible Cardio-Renal Syndrome Assessment/Plan * Nephrology Dr. Rich/Lj * Dialysis consent obtained 11/03/17 however Nephrology is holding off on HD for now as renal function improved slightly after paracentesis on 11/03/17 * per nephrology and output is much better Ross gene due to HPI and hyperkalemia * renal function has normalized * Start Lasix 40mg PO BID--->held 11/10/17 * Suspecting from over diuresis (3.5 L negative balance) November 10 * Continue to monitor output about 3 L November 11 * Patient has been off Lasix since 11/10 AM 3. Ascites * As noted on U/S Abdomen 11/03/17 * S/P 3L ascites fluid removed on 11/03/17: follow up fluid analysis * Currently draining from ascites fluid is still draining from the site of paracentesis in the RLQ (colostomy bag in place) * CT abdomen/pevlis (11/08/17): mild hepatosplenomegaly. constipation. no bowel obstruction. moderate right and small left pleural effusions and severe diffucse anasarca. * Start lasix 40mg PO BID--> held November 10 secondary to metabolic alkalosis * Per wound care--> Recommended to start wound drainage bag hooked up to [place] drainage system. Placed bag--will continue to monitor since November 08 * General surgery (Dr. Cota) on consult-->help appreciated * DRAINAGE SITE ISSMALL, NOT INFECTED, BUT IS AT LEAST DRAINING ASCITIC FLUID.IM AFRAID THAT IF THE SKIN IS CLOSED FLUID WILL GO SUBCUTANEOUSLY AND WILL CAUSE FURTHER PROBLEMS. WILL WATCH FOR NOW 4. Pleural Effusions * CT Chest 11/03/17 shows large right and small left pleural effusion. prominent multifocal areas of consolidat imposed areas of atelectasis. Extensive lymphadenopathy within the med * Order placed for Thoracentesis via IR Dr. Austin for 11/05/17--> patient had 900 mL of straw-colored fluid; no drains require; follow-up pleural studies 5. History of Atrial flutter/Atrial fibrillation * Cardiology Dr. Barksdale consult help appreciated * Patient is on Eliquis 5 mg PO BID * c/w Cardizem 90 mg by mouth 4 times a day * c/w Atenolol 25mg PO daily 6. Bilateral Pneumonia Healthcare care associated pneumonia * Infectious disease Dr. Schaffer on the case * CT Chest 11/03/17 showed prominent multifocal areas of consolidate changes bilaterally right greater than left suggestive of multifocal infiltrate with extensive lympadenopathy within mediastinum and axilla * Patient will likely repeat CT Chest once he completes treatment for the bilateral pneumonia to make sure that there is NO underlying lesion. * d/c Cefepime 1 gm IV Q24H active since 11/04/2017 by ID * d/c Linezolid 600 mg IV [id number] since 11/04/2017 by ID * Start Zosyn 3.375 IVPB Q8H (active since 11/07/17) to complete on 11/22/2017 which is 14 days * PICC line placed November 09 * ID has recommended between 10-14 days of IV antibiotic * Legionella urine negative, Mycoplasma pneumonia IgM: negative, and Strep pneumonia urine negative * Noted prior hospitalization in August of this year; possible treatment for Hospital/healthcare associated pneumonia 7. History of DM 2 * Hemoglobin A1C 6.9 * Insulin sliding scale * Holding metformin/glipizde on admission 8. Morbid obesity * Will need aggressive lifestyle intervention especially in light of his other comorbidities including diabetes, right-sided heart failure, pulmonary hypertension 9. Hypothyroidism * At time of admission levothyroxine increased to 50 mcg to Levothyroxine 75 mg PO 1x/day * Will need repeat thyroid function tests in 3-4 months. 10. Hx Deafness * Patient can read lips and sign language 11. Bilateral Lower Leg Cellulitis * Unable to outline areas of discoloration as mentioned in physical exam above. However as noted on physical exam above, this area extends from the just above the bilateral malleoli to just inferior to the bilateral knees * This may be combination of cellulitis and chronic venous insufficiency changes * Improved per wound care nurse * ID Dr. Schaffer * prior blood cultures from [place] [facility] 11/01/2017 no growth after 5 daysX2 * Wound care: E.coli and Staph * Start Zosyn 3.375 IVPB Q8H (active since 11/07/17) to complete on 11/22/2017 which is 14 days * PICC line placed November 09 * ID has recommended between 10-14 days of IV antibiotic 12. Edema * note prior Doppler was negative at [place] * Wound care on board given weeping nature of legs * Wound care: *IF BILATERAL VENOUS DOPPLARS ARE NEGATIVE FOR DVT'S, PLACE XEROFORM OVER WEEPING AREAS TO BILATERAL LOWER EXTREMITIES, THEN COVER WITH BULKY DRESSING, THEN APPLY 6 INCH SUPA WRAPS (2 TO EACH LEG), ON IN AM, AND OFF IN PM, AND MUST ELEVATE LEGS MUCH POSSIBLE WHILE IN BED TO DECREASE PITTING EDEMA WHICH WILL HELP WITH THE HEALING PROCESS. Wound care note-re- assessed patient; bilateral lower extremity with 6 inch supa wraps to continue. Informed that patient having oozing of straw colored drainage from lower abdomen from previous paracentesis. Recommended to start wound drainage bag hooked up to [place] drainage system. Placed bag--will continue to monitor. * held Lasix 40mg PO BID November 09 * has negative balance; order for ABG; start diamox 500mg PO BID November 09 13. Poor nail Hygiene * Podiatry (Dr. Mariano) on case help appreciated * Nails debrided 11/06/17 14. History of Chronic Back Pain * used to be on Oxycodone 30mg prior to admission * Patient is on Tramadol 25mg PO TID PRN moderate pain * Gabapentin 100mg PO TID * Patient instructed that he will not be restarted on oxycodone. 14. Prophylactic measure * Eliquis 5mg PO bid * PICC 11/09/17 * Lactobacillus 1 cap PO 2x/day * Protonix 40mg IV daily * Monitor daily weights, I&O * PT OT on board * Reconsult PT/OT * Consult production line mechanic referral given morbid obesity * Rehab eval * Wound care: *IF BILATERAL VENOUS DOPPLARS ARE NEGATIVE FOR DVT'S, PLACE XEROFORM OVER WEEPING AREAS TO BILATERAL LOWER EXTREMITIES, THEN COVER WITH BULKY DRESSING, THEN APPLY 6 INCH SUPA WRAPS (2 TO EACH LEG), ON IN AM, AND OFF IN PM, AND MUST ELEVATE LEGS MUCH POSSIBLE WHILE IN BED TO DECREASE PITTING EDEMA WHICH WILL HELP WITH THE HEALING PROCESS. Wound care note-re- assessed patient; bilateral lower extremity with 6 inch supa wraps to continue. Informed that patient having oozing of straw colored drainage from lower abdomen from previous paracentesis. Recommended to start wound drainage bag hooked up to [place] drainage system. Placed bag--will continue to monitor. Disposition: Patient awaiting authorization from insurance for [facility]. I have discussed with social work yesterday. Patient to finish IV antibiotic on 11/22/2017. Lasix was held November 09 because of suspected overdiuresis accounting for metabolic alkalosis. Patient has been on Diamox since yesterday. Please continue to monitor bicarbonate and urine output. 17 please make sure that copy of patient's discharge summary is faxed over to PMD Dr. Adebayo Bhagat at time of discharge please. Patient will need new medications includin. Albuterol high flow 1 puff Q4 hours when necessary wheezing 2. Eliquis 5 mg by mouth twice a day for atrial flutter 3. Continue atenolol 25 mg once a day for atrial flutter 4. Bacitracin due to irritation caused by BiPAP mask over bridge of nose. 5. Digoxin 0.25 once a day for atrial flutter and will need periodic digoxin levels checked 6. Cardizem 90 mg by mouth 4 times a day for atrial flutter 7. gabapentin 100 mg by mouth 3 times a day neuropathy 8. Levothyroxine 75 MCG by mouth every morning with follow-up thyroid function tests in 3-4 months 9. Mag-Ox 400 milligram by mouth twice a day to follow-up with renal in terms of how much on discharge 10. Patient has been on Solu-Medrol 40 mg IV daily since November 10. Patient will need to be tapered off steroid. 11. Protonix 40 mg by mouth once a day 12. Zosyn 3.375 IV every 8 started on November 07 into complete last dose on November 22. This will be 14 day course. This will cover for both healthcare associated pneumonia and a weeping wound infections. 13. Spiriva [place] 18 MCG inhaled 1 capsule once a day and script for Spiriva handihaler. Per Dr. Ferrera will need BiPAP mask Patient will need proper instruction terms of fluid restriction, creation of weight loss diary in light of heart failure secondary to right heart failure. Patient will need aggressive diet and exercise modification. Patient is deaf but can read lips. Patient's mother and sister involved in care. Upon discharge patient to follow-up with Dr. Rich of nephrology in 1-2 weeks for repeat blood work, establish care with Dr. Ferrera in terms of COPD and to follow-up with PMD between 1-2 weeks of discharge.
[2017-11-11] MEDS: Albuterol-Ipratrop 3 mg / 0.5 (3 ml) UD INH PRN ×2 (15:41→19:24)
--- NOTE | 2017-11-11 15:50 | CP.PCM.PN ---
Subjective - Date & Time of Evaluation Date of Evaluation: 11/11/17 Time of Evaluation: 07:00 - Subjective Subjective: afeb awake NAD less SOB no chest pain Objective - Vital Signs/Intake and Output Vital Signs (last 24 hours): Temp Pulse Resp BP Pulse Ox 97.4 F L 69 20 166/92 H 96 11/11/17 07:55 11/11/17 07:55 11/11/17 07:55 11/11/17 07:55 11/11/17 07:55 Intake and Output: 11/11/17 11/11/17 06:59 18:59 Intake Total 760 Output Total 2100 3120 Balance -1340 -3120 - Medications Medications: Current Medications Acetazolamide (Diamox Sequels 500 Mg Sr Cap) 500 mg PO BID [facility] Last Admin: 11/11/17 09:57 Dose: 500 mg Albuterol/Ipratropium (Duoneb 3 Mg/0.5 Mg (3 Ml) Ud) 3 ml INH RQ6 PRN PRN Reason: Wheezing Last Admin: 11/11/17 15:41 Dose: 3 ml Apixaban (Eliquis) 5 mg PO BID [facility] Last Admin: 11/11/17 09:57 Dose: 5 mg Atenolol (Tenormin) 25 mg PO Q24H [facility] Last Admin: 11/10/17 19:42 Dose: 25 mg Bacitracin (Bacitracin) 1 ea TOP BID [facility] Last Admin: 11/11/17 09:57 Dose: 1 ea Dextrose (Dextrose 50% Inj) 0 ml IV STAT PRN; Protocol PRN Reason: Hypoglycemia Protocol Dextrose (Glutose 15) 0 gm PO ONCE PRN; Protocol PRN Reason: Hypoglycemia Protocol Digoxin (Lanoxin) 0.25 mg PO DAILY@1800 [facility] Last Admin: 11/10/17 17:59 Dose: 0.25 mg Diltiazem HCl (Cardizem) 90 mg PO QID [facility] Last Admin: 11/11/17 13:26 Dose: 90 mg Docusate Sodium (Colace) 100 mg PO TID [facility] Last Admin: 11/11/17 13:26 Dose: 100 mg Furosemide (Lasix) 40 mg PO BID [facility] Last Admin: 11/09/17 17:44 Dose: 40 mg Gabapentin (Neurontin) 100 mg PO TID [facility] Last Admin: 11/11/17 13:26 Dose: 100 mg Glucagon (Glucagen Diagnostic Kit) 0 mg IM STAT PRN; Protocol PRN Reason: Hypoglycemia Protocol Piperacillin Sod/Tazobactam (Sod 3.375 gm/ Sodium Chloride) 100 mls @ 200 mls/ hr IVPB Q8H [facility] PRN Reason: Protocol Last Admin: 11/11/17 09:56 Dose: 200 mls/hr Insulin Human Regular (Novolin R) 0 unit SC ACHS [facility] PRN Reason: Protocol Last Admin: 11/11/17 12:02 Dose: 2 units Lactobacillus Acidophilus (Bacid Acidophilus) 1 cap PO BID [facility] Last Admin: 11/11/17 09:57 Dose: 1 cap Levothyroxine Sodium (Synthroid) 75 mcg PO DAILY@0630 [facility] Last Admin: 11/11/17 06:31 Dose: 75 mcg Magnesium Oxide (Mag-Ox) 400 mg PO BID [facility] Last Admin: 11/11/17 09:56 Dose: 400 mg Methylprednisolone (Solu-Medrol) 40 mg IVP DAILY [facility] Last Admin: 11/11/17 09:57 Dose: 40 mg Pantoprazole Sodium (Protonix Ec Tab) 40 mg PO DAILY [facility] Last Admin: 11/11/17 09:57 Dose: 40 mg Tiotropium [place] (Spiriva) 18 mcg INH RQ24 [facility] Last Admin: 11/11/17 08:24 Dose: 18 mcg Tramadol HCl (Ultram) 25 mg PO TID PRN PRN Reason: Pain, moderate (4-7) Last Admin: 11/09/17 17:44 Dose: 25 mg - Labs Labs: 11/11/17 08:42 11/11/17 08:42 PT 17.1 SECONDS (9.7-12.2) H 11/03/17 13:33 INR 1.6 11/03/17 13:33 APTT 28 SECONDS (21-34) 11/03/17 13:33 - Constitutional Appears: Non-toxic, Chronically Ill - Head Exam Head Exam: NORMOCEPHALIC - Eye Exam Eye Exam: absent: Scleral icterus - ENT Exam ENT Exam: Mucous Membranes Dry - Neck Exam Neck Exam: absent: Lymphadenopathy - Respiratory Exam Respiratory Exam: Decreased Breath Sounds, Prolonged Expiratory Phase - Cardiovascular Exam Cardiovascular Exam: REGULAR RHYTHM - GI/Abdominal Exam GI & Abdominal Exam: Distended, Soft - Rectal Exam Rectal Exam: Deferred - Exam Exam: NORMAL INSPECTION - Extremities Exam Extremities Exam: absent: Pedal Edema - Back Exam Back Exam: absent: CVA tenderness (L), CVA tenderness (R) - Neurological Exam Neurological Exam: Alert, Awake, Oriented x3 - Psychiatric Exam Psychiatric exam: Normal Mood - Skin Skin Exam: Dry Assessment and Plan (1) Deafness Status: Acute (2) Cor pulmonale Status: Acute (3) Ascites Status: Acute (4) Atrial flutter with rapid ventricular response Status: Acute (5) CHF (congestive heart failure) Status: Acute (6) COPD (chronic obstructive pulmonary disease) Status: Acute (7) Cellulitis Status: Acute (8) Pulmonary emphysema Status: Acute (9) Renal insufficiency Status: Acute (10) Respiratory distress Status: Acute (11) Pneumonia Status: Acute
[2017-11-11] MEDS: Digoxin 250 mcg (0.25 mg) Tab PO SCH (18:11)
--- NOTE | 2017-11-11 20:15 | PN ---
DATE: 11/11/2017 SUBJECTIVE: The patient is comfortable. He is transferred to telemetry. He denies any chest pain. PHYSICAL EXAMINATION: VITAL SIGNS: Blood pressure 166/92, heart rate 69, temperature 97.4, respirations 20. HEENT: Normocephalic. CHEST: Clear. HEART: S1 and S2 regular. EXTREMITIES: 1+ pitting edema. LABORATORY DATA: Hemoglobin and hematocrit 16.9 and 51. White count and platelet count are within normal limit. SMA-7: Sodium 136, potassium 4.9, chloride 83, CO2 of 43, glucose 155, BUN 49, and creatinine 1.2. ASSESSMENT: 1. Atrial flutter with variable atrioventricular conduction. 2. Sleep apnea. 3. Improved renal insufficiency. 4. Metabolic alkalosis. 5. Morbid obesity. RECOMMENDATIONS: Case was discussed with Dr. Jaramillo. The patient can be continued mg q.i.d., Diamox 500 mg p.o. twice a day, Eliquis 5 mg twice a day, Lasix 40 mg p.o. twice a day, magnesium oxide 400 mg twice a day, Neurontin 100 mg t.i.d., Solu-Medrol 40 mg intravenously daily, Zosyn 3.375 gm intravenously every 8 hours, Synthroid 75 mcg once a day, Tenormin 25 mg daily. The patient is awaiting subacute rehab placement. See Barksdale MD
[2017-11-12] MEDS: Piperacillin/Tazobact 3.375 GM in Sodium Chloride 100 ML IVPB SCH ×3 (01:27→17:43)
[2017-11-12] MEDS: Levothyroxine 75 MCG TAB PO SCH (06:19)
--- NOTE | 2017-11-12 07:16 | CP.PCM.PN ---
Subjective - Date & Time of Evaluation Date of Evaluation: 11/12/17 Time of Evaluation: 07:15 - Subjective Subjective: a Objective - Vital Signs/Intake and Output Vital Signs (last 24 hours): Temp Pulse Resp BP Pulse Ox 98.4 F 60 20 142/78 96 11/12/17 02:21 11/12/17 02:21 11/12/17 02:21 11/12/17 02:21 11/12/17 02:21 Intake and Output: 11/12/17 11/12/17 06:59 18:59 Intake Total 580 Output Total 2875 Balance -2295 - Medications Medications: Current Medications Acetazolamide (Diamox Sequels 500 Mg Sr Cap) 500 mg PO BID [facility] Last Admin: 11/11/17 18:07 Dose: 500 mg Albuterol/Ipratropium (Duoneb 3 Mg/0.5 Mg (3 Ml) Ud) 3 ml INH RQ6 PRN PRN Reason: Wheezing Last Admin: 11/11/17 19:24 Dose: 3 ml Apixaban (Eliquis) 5 mg PO BID [facility] Last Admin: 11/11/17 18:09 Dose: 5 mg Atenolol (Tenormin) 25 mg PO Q24H [facility] Last Admin: 11/11/17 18:09 Dose: 25 mg Bacitracin (Bacitracin) 1 ea TOP BID [facility] Last Admin: 11/11/17 18:09 Dose: 1 ea Dextrose (Dextrose 50% Inj) 0 ml IV STAT PRN; Protocol PRN Reason: Hypoglycemia Protocol Dextrose (Glutose 15) 0 gm PO ONCE PRN; Protocol PRN Reason: Hypoglycemia Protocol Digoxin (Lanoxin) 0.25 mg PO DAILY@1800 [facility] Last Admin: 11/11/17 18:11 Dose: 0.25 mg Diltiazem HCl (Cardizem) 90 mg PO QID [facility] Last Admin: 11/11/17 21:41 Dose: 90 mg Docusate Sodium (Colace) 100 mg PO TID [facility] Last Admin: 11/11/17 21:41 Dose: 100 mg Furosemide (Lasix) 40 mg PO BID [facility] Last Admin: 11/09/17 17:44 Dose: 40 mg Gabapentin (Neurontin) 100 mg PO TID [facility] Last Admin: 11/11/17 18:09 Dose: 100 mg Glucagon (Glucagen Diagnostic Kit) 0 mg IM STAT PRN; Protocol PRN Reason: Hypoglycemia Protocol Piperacillin Sod/Tazobactam (Sod 3.375 gm/ Sodium Chloride) 100 mls @ 200 mls/ hr IVPB Q8H [facility] PRN Reason: Protocol Last Admin: 11/12/17 01:27 Dose: 200 mls/hr Insulin Human Regular (Novolin R) 0 unit SC ACHS [facility] E PRN Reason: Protocol Last Admin: 11/11/17 21:42 Dose: Not Given Lactobacillus Acidophilus (Bacid Acidophilus) 1 cap PO BID [facility] Last Admin: 11/11/17 18:07 Dose: 1 cap Levothyroxine Sodium (Synthroid) 75 mcg PO DAILY@0630 [facility] Last Admin: 11/12/17 06:19 Dose: 75 mcg Magnesium Oxide (Mag-Ox) 400 mg PO BID [facility] Last Admin: 11/11/17 18:09 Dose: 400 mg Methylprednisolone (Solu-Medrol) 40 mg IVP DAILY [facility] Last Admin: 11/11/17 09:57 Dose: 40 mg Pantoprazole Sodium (Protonix Ec Tab) 40 mg PO DAILY [facility] Last Admin: 11/11/17 09:57 Dose: 40 mg Tiotropium [place] (Spiriva) 18 mcg INH RQ24 [facility] Last Admin: 11/11/17 08:24 Dose: 18 mcg Tramadol HCl (Ultram) 25 mg PO TID PRN PRN Reason: Pain, moderate (4-7) Last Admin: 11/09/17 17:44 Dose: 25 mg - Labs Labs: 11/11/17 08:42 11/11/17 08:42 PT 17.1 SECONDS (9.7-12.2) H 11/03/17 13:33 INR 1.6 11/03/17 13:33 APTT 28 SECONDS (21-34) 11/03/17 13:33 - Constitutional Appears: Well, No Acute Distress - Eye Exam Eye Exam: EOMI - ENT Exam ENT Exam: Mucous Membranes Moist - Respiratory Exam Respiratory Exam: Decreased Breath Sounds. absent: Rales, Rhonchi, Wheezes, Respiratory Distress, Stridor - Cardiovascular Exam Cardiovascular Exam: REGULAR RHYTHM, +S1, +S2 - GI/Abdominal Exam GI & Abdominal Exam: Distended, Soft, Normal Bowel Sounds. absent: Tenderness Additional comments: right lower abdomen, draining yellow fluid from site of paracentesis. - Extremities Exam Additional comments: Bilateral lower extremities wrapped. Bilateral feet: good distal pulses. nonedematous, nonerythematous. - Neurological Exam Neurological Exam: Alert, Awake, Oriented x3 - Skin Additional comments: PICC line in right upper extremity - Additional Findings Additional findings: Hearing loss. Able to read lips. Assessment and Plan - Assessment and Plan (Free Text) Plan: Assessment/plan
[2017-11-12] MEDS: (Novolin R) Insulin Human Regular 100 units/ml vial SC SCH ×3 (07:48→17:41)
[2017-11-12 07:50] LABS: BASO # 0.1 K/uL (0.0-0.2); BASO % 0.5 % (0.0-2.0); EOS # 0.1 K/uL (0.0-0.7); EOS % 0.6 % (0.0-4.0); HEMOGLOBIN 17.2 g/dL (12.0-18.0); LYMPH # 1.4 K/uL (1.0-4.3); LYMPH % 11.8 % (20.0-40.0); MEAN CORPUSCULAR HEMOGLOBIN 29.6 pg (27.0-31.0); MEAN CORPUSCULAR HGB CONC 32.5 g/dL (33.0-37.0); MEAN PLATELET VOLUME 8.6 fL (7.2-11.7); MONO # 0.9 K/uL (0.0-0.8); MONO % 7.8 % (0.0-10.0); NEUT # 9.6 K/uL (1.8-7.0); NEUT % 79.3 % (50.0-75.0); RBC 5.83 Mil/uL (4.40-5.90); RED CELL DISTRIBUTION WIDTH 16.3 % (11.5-14.5); WHITE BLOOD COUNT 12.2 K/uL (4.8-10.8)
[2017-11-12 08:06] LABS: ALB/GLOB RATIO 1.2 (1.0-2.1); ALBUMIN 3.5 g/dL (3.5-5.0); ALT/SGPT 62 U/L (21-72); AST/SGOT 35 U/L (17-59); BLOOD UREA NITROGEN 44 mg/dL (9-20); CALCIUM 8.9 mg/dl (8.6-10.4); GFR AFRICAN-AMERICAN > 60; GFR NON-AFRICAN AMERICAN 53
[2017-11-12] MEDS: Tiotropium 18 mcg Cap For Inhalation INH SCH (09:46)
[2017-11-12] MEDS: Bacitracin 500 Units/gm Oint Foilpak UD TOP SCH (09:55)
[2017-11-12] MEDS: Lactobacillus Acidophilus 500 MU Cap PO SCH ×2 (09:55→17:42)
[2017-11-12] MEDS: Pantoprazole 40 mg EC Tab PO SCH (09:56)
[2017-11-12] MEDS: MethylPREDNISolone 40 mg Vial IVP SCH (09:56)
[2017-11-12] MEDS: Magnesium Oxide 400 mg Tab UD PO SCH ×2 (09:56→17:42)
[2017-11-12] MEDS: acetaZOLAMIDE 500 mg SR Cap PO SCH ×2 (09:56→18:06)
[2017-11-12] MEDS ORDERED: MethylPREDNISolone 40 mg Vial IVP SCH (10:06)
--- NOTE | 2017-11-12 10:07 | CP.PCM.PCO ---
Physician Communication Note - Physician Communication Note Physician Communication Note: Please see above
--- NOTE | 2017-11-12 12:15 | CP.PCM.PN ---
Subjective - Date & Time of Evaluation Date of Evaluation: 11/12/17 Time of Evaluation: 08:00 - Subjective Subjective: FOR BRYANT Objective - Vital Signs/Intake and Output Vital Signs (last 24 hours): Temp Pulse Resp BP Pulse Ox 98.2 F 70 18 150/73 95 11/12/17 07:00 11/12/17 07:00 11/12/17 07:00 11/12/17 10:39 11/12/17 07:00 Intake and Output: 11/12/17 11/12/17 06:59 18:59 Intake Total 580 Output Total 2875 Balance -2295 - Medications Medications: Current Medications Acetazolamide (Diamox Sequels 500 Mg Sr Cap) 500 mg PO BID [facility] Last Admin: 11/12/17 09:56 Dose: 500 mg Albuterol/Ipratropium (Duoneb 3 Mg/0.5 Mg (3 Ml) Ud) 3 ml INH RQ6 PRN PRN Reason: Wheezing Last Admin: 11/11/17 19:24 Dose: 3 ml Apixaban (Eliquis) 5 mg PO BID [facility] Last Admin: 11/12/17 09:55 Dose: 5 mg Atenolol (Tenormin) 25 mg PO Q24H [facility] Last Admin: 11/11/17 18:09 Dose: 25 mg Bacitracin (Bacitracin) 1 ea TOP BID [facility] Last Admin: 11/12/17 09:55 Dose: 1 ea Dextrose (Dextrose 50% Inj) 0 ml IV STAT PRN; Protocol PRN Reason: Hypoglycemia Protocol Dextrose (Glutose 15) 0 gm PO ONCE PRN; Protocol PRN Reason: Hypoglycemia Protocol Digoxin (Lanoxin) 0.25 mg PO DAILY@1800 [facility] Last Admin: 11/11/17 18:11 Dose: 0.25 mg Diltiazem HCl (Cardizem) 90 mg PO QID [facility] Last Admin: 11/12/17 09:56 Dose: 90 mg Docusate Sodium (Colace) 100 mg PO TID [facility] Last Admin: 11/12/17 09:55 Dose: 100 mg Furosemide (Lasix) 40 mg PO DAILY [facility] Last Admin: 11/12/17 10:39 Dose: 40 mg Gabapentin (Neurontin) 100 mg PO TID [facility] Last Admin: 11/12/17 09:56 Dose: 100 mg Glucagon (Glucagen Diagnostic Kit) 0 mg IM STAT PRN; Protocol PRN Reason: Hypoglycemia Protocol Piperacillin Sod/Tazobactam (Sod 3.375 gm/ Sodium Chloride) 100 mls @ 200 mls/ hr IVPB Q8H [facility] PRN Reason: Protocol Last Admin: 11/12/17 09:55 Dose: 200 mls/hr Insulin Human Regular (Novolin R) 0 unit SC ACHS [facility] E PRN Reason: Protocol Last Admin: 11/12/17 12:10 Dose: 4 units Lactobacillus Acidophilus (Bacid Acidophilus) 1 cap PO BID [facility] Last Admin: 11/12/17 09:55 Dose: 1 cap Levothyroxine Sodium (Synthroid) 75 mcg PO DAILY@0630 [facility] Last Admin: 11/12/17 06:19 Dose: 75 mcg Magnesium Oxide (Mag-Ox) 400 mg PO BID [facility] Last Admin: 11/12/17 09:56 Dose: 400 mg Pantoprazole Sodium (Protonix Ec Tab) 40 mg PO DAILY [facility] Last Admin: 11/12/17 09:56 Dose: 40 mg Prednisone (Prednisone Tab) 40 mg PO ONCE ONE Stop: 11/13/17 10:01 Prednisone (Prednisone Tab) 40 mg PO ONCE ONE Stop: 11/14/17 10:01 Prednisone (Prednisone Tab) 30 mg PO ONCE ONE Stop: 11/15/17 10:01 Prednisone (Prednisone Tab) 20 mg PO ONCE ONE Stop: 11/17/17 10:01 Prednisone (Prednisone Tab) 20 mg PO ONCE ONE Stop: 11/18/17 10:01 Prednisone (Prednisone Tab) 10 mg PO ONCE ONE Stop: 11/19/17 10:01 Prednisone (Prednisone Tab) 10 mg PO ONCE ONE Stop: 11/20/17 10:01 Prednisone (Prednisone Tab) 5 mg PO ONCE ONE Stop: 11/21/17 10:01 Prednisone (Prednisone Tab) 5 mg PO ONCE ONE Stop: 11/22/17 10:01 Prednisone (Prednisone Tab) 30 mg PO ONCE ONE Stop: 11/16/17 10:01 Tiotropium [place] (Spiriva) 18 mcg INH RQ24 [facility] Last Admin: 11/12/17 09:46 Dose: 18 mcg Tramadol HCl (Ultram) 25 mg PO TID PRN PRN Reason: Pain, moderate (4-7) Last Admin: 11/09/17 17:44 Dose: 25 mg - Labs Labs: 11/12/17 07:37 11/12/17 07:37 PT 17.1 SECONDS (9.7-12.2) H 11/03/17 13:33 INR 1.6 11/03/17 13:33 APTT 28 SECONDS (21-34) 11/03/17 13:33 - Constitutional Appears: Non-toxic, Chronically Ill - Eye Exam Eye Exam: PERRL - ENT Exam ENT Exam: Mucous Membranes Dry - Neck Exam Neck Exam: absent: Lymphadenopathy - Respiratory Exam Respiratory Exam: Decreased Breath Sounds - Cardiovascular Exam Cardiovascular Exam: REGULAR RHYTHM - GI/Abdominal Exam GI & Abdominal Exam: Distended, Soft - Rectal Exam Rectal Exam: Deferred - Exam Exam: NORMAL INSPECTION - Extremities Exam Extremities Exam: Pedal Edema, Tenderness Assessment and Plan (1) Deafness Status: Acute (2) Cor pulmonale Status: Acute (3) Ascites Status: Acute (4) Atrial flutter with rapid ventricular response Status: Acute (5) CHF (congestive heart failure) Status: Acute (6) COPD (chronic obstructive pulmonary disease) Status: Acute (7) Cellulitis Status: Acute (8) Pulmonary emphysema Status: Acute (9) Renal insufficiency Status: Acute (10) Respiratory distress Status: Acute (11) Pneumonia Status: Acute - Assessment and Plan (Free Text) Assessment: CONT IV RX MIN 7 MORE DAYS
--- NOTE | 2017-11-12 13:39 | CP.PCM.PN ---
Subjective - Date & Time of Evaluation Date of Evaluation: 11/12/17 Time of Evaluation: 13:37 - Subjective Subjective: Nephrology Consultation Note Assessment: stable AMY likely due to abdomen compartment syndrome and also contrubution by cardio- renal syndrome: IMPROVED s/p paracentesis Hyperkalemia likely due to AMY and acidemia resulting in transcellular shifts: resolved CKD stage 3 with baseline cr 1.1-1.4 mg/dL fluid overload with hyponatremia, COPD/CHF exacerbation with pneumonia acute on chronic hypercapnic respi failure deafness, DM, HTN, A flutter, morbid obesity, ex smoker, Rt heart failure with cor-pulmonale, pulmonary HTN, chronic leg edema, ascites Rt pleural effusion s/p thoracocentesis Plan maintain hemodynamics stable. avoid hypotension. no RAAS gene due to AMY and hyperkalemia, consider once K better monitor I/O daily weights and renal function with BMP resume lasix 40 mg/day. metabolic alkalosis better with diamox low K diet. dose of Kayexylate given 11/08/17 started MgO 400 mg bid management of pulmonary HTN as per pulmonary/cardiology Dose meds/antibiotics for improved GFR. Glycemic control, oral fluid/salt restriction In long winder tender, pt need weight loss, diet modification and lifestyle changes Further work up for as per primary team. pt stable for d/c to rehab from renal perspective, when planned Thanks for allowing me to participate in care of your patient. Please call if any Qs. had d/w team and family Dr Basilio Rich Office: [phone] HPI: Pt is a 52 y/o M with hx of deafness, DM, HTN, A flutter, morbid obesity, ex smoker, Rt heart failure with cor-pulmonale, pulmonary HTN, chronic leg edema , ascites came with worsening SOB and being managed for COPD/CHF exacerbation/ pneumonia. renal consult for AMY management. pt not aware about kidney disease in past no known OTC/nsaids/herbal meds no recent contrast exposure. no episode of low BP noted baseline cr 1.1-1.4 last month. mother bedside and helped in sign and language interpretation. pt said to be able to read lips well ROS: he denies chest pain/nausea/vomiting. denied SOB. leg swelling much better. lost approx 70 lbs Physical Examination: General Appearance: Comfortable, co-operative. better appearing, morbidly obese Vitals reviewed and noted as below Head; Atraumatic, normocephalic ENT: he has hearing impairment EYES: Pupils are equal, round and reactive to light accommodation. Eye muscles and extraocular movement intact. Sclera is anicteric. Neck; supple no lymphadenopathy, no thyromegaly or bruit Lungs: normal respiratory rate/effort. Breath sounds b/l decreased at Rt bases Heart: Normal rate. s1s2 normal. No rub or gallop. Extremities: No varicose veins. no edema, legs with compressive bandage Neurological: Patient is alert, awake, oriented x 3 follows commands, no focal deficit. Skin: dry and warm. Normal turgor. No rash. Palpitation: Normal elasticity for age. Abdomen: Abdomen is soft non tender no apparent organomegaly however exam limited as distended. Psych: normal insight. has normal affect and mood MSK: no specific joint tenderness or swelling. Digits and nails normal, no deformity : kidney not palpable. bladder not distended Labs/imaging/EKG reviewed. Past medical history, past surgical history, social history, allergy reviewed and noted as below Family hx; no known hx of CKD. rest non contributory work up: UA SG >1.030 urine Na 6 Fena 0.4% echo: severe RV dilation and dysfunction, elevated RVSP. preserved LVEF renal imaging in past unremarkable Objective - Vital Signs/Intake and Output Vital Signs (last 24 hours): Temp Pulse Resp BP Pulse Ox 98.2 F 70 18 150/73 95 11/12/17 07:00 11/12/17 07:00 11/12/17 07:00 11/12/17 10:39 11/12/17 07:00 Intake and Output: 11/12/17 11/12/17 06:59 18:59 Intake Total 580 Output Total 2875 Balance -2295 - Medications Medications: Current Medications Acetazolamide (Diamox Sequels 500 Mg Sr Cap) 500 mg PO BID [facility] Last Admin: 11/12/17 09:56 Dose: 500 mg Albuterol/Ipratropium (Duoneb 3 Mg/0.5 Mg (3 Ml) Ud) 3 ml INH RQ6 PRN PRN Reason: Wheezing Last Admin: 11/11/17 19:24 Dose: 3 ml Apixaban (Eliquis) 5 mg PO BID [facility] Last Admin: 11/12/17 09:55 Dose: 5 mg Atenolol (Tenormin) 25 mg PO Q24H [facility] Last Admin: 11/11/17 18:09 Dose: 25 mg Bacitracin (Bacitracin) 1 ea TOP BID [facility] Last Admin: 11/12/17 09:55 Dose: 1 ea Dextrose (Dextrose 50% Inj) 0 ml IV STAT PRN; Protocol PRN Reason: Hypoglycemia Protocol Dextrose (Glutose 15) 0 gm PO ONCE PRN; Protocol PRN Reason: Hypoglycemia Protocol Digoxin (Lanoxin) 0.25 mg PO DAILY@1800 [facility] Last Admin: 11/11/17 18:11 Dose: 0.25 mg Diltiazem HCl (Cardizem) 90 mg PO QID [facility] Last Admin: 11/12/17 09:56 Dose: 90 mg Docusate Sodium (Colace) 100 mg PO TID [facility] Last Admin: 11/12/17 09:55 Dose: 100 mg Furosemide (Lasix) 40 mg PO DAILY [facility] Last Admin: 11/12/17 10:39 Dose: 40 mg Gabapentin (Neurontin) 100 mg PO TID [facility] Last Admin: 11/12/17 09:56 Dose: 100 mg Glucagon (Glucagen Diagnostic Kit) 0 mg IM STAT PRN; Protocol PRN Reason: Hypoglycemia Protocol Piperacillin Sod/Tazobactam (Sod 3.375 gm/ Sodium Chloride) 100 mls @ 200 mls/ hr IVPB Q8H [facility] PRN Reason: Protocol Last Admin: 11/12/17 09:55 Dose: 200 mls/hr Insulin Human Regular (Novolin R) 0 unit SC ACHS [facility] PRN Reason: Protocol Last Admin: 11/12/17 12:10 Dose: 4 units Lactobacillus Acidophilus (Bacid Acidophilus) 1 cap PO BID [facility] Last Admin: 11/12/17 09:55 Dose: 1 cap Levothyroxine Sodium (Synthroid) 75 mcg PO DAILY@0630 [facility] Last Admin: 11/12/17 06:19 Dose: 75 mcg Magnesium Oxide (Mag-Ox) 400 mg PO BID [facility] Last Admin: 11/12/17 09:56 Dose: 400 mg Pantoprazole Sodium (Protonix Ec Tab) 40 mg PO DAILY [facility] Last Admin: 11/12/17 09:56 Dose: 40 mg Prednisone (Prednisone Tab) 40 mg PO ONCE ONE Stop: 11/13/17 10:01 Prednisone (Prednisone Tab) 40 mg PO ONCE ONE Stop: 11/14/17 10:01 Prednisone (Prednisone Tab) 30 mg PO ONCE ONE Stop: 11/15/17 10:01 Prednisone (Prednisone Tab) 20 mg PO ONCE ONE Stop: 11/17/17 10:01 Prednisone (Prednisone Tab) 20 mg PO ONCE ONE Stop: 11/18/17 10:01 Prednisone (Prednisone Tab) 10 mg PO ONCE ONE Stop: 11/19/17 10:01 Prednisone (Prednisone Tab) 10 mg PO ONCE ONE Stop: 11/20/17 10:01 Prednisone (Prednisone Tab) 5 mg PO ONCE ONE Stop: 11/21/17 10:01 Prednisone (Prednisone Tab) 5 mg PO ONCE ONE Stop: 11/22/17 10:01 Prednisone (Prednisone Tab) 30 mg PO ONCE ONE Stop: 11/16/17 10:01 Tiotropium [place] (Spiriva) 18 mcg INH RQ24 [facility] Last Admin: 11/12/17 09:46 Dose: 18 mcg Tramadol HCl (Ultram) 25 mg PO TID PRN PRN Reason: Pain, moderate (4-7) Last Admin: 11/09/17 17:44 Dose: 25 mg - Labs Labs: 11/12/17 07:37 11/12/17 07:37 PT 17.1 SECONDS (9.7-12.2) H 11/03/17 13:33 INR 1.6 11/03/17 13:33 APTT 28 SECONDS (21-34) 11/03/17 13:33
--- NOTE | 2017-11-12 16:00 | CP.PCM.PN ---
Subjective - Date & Time of Evaluation Date of Evaluation: 11/12/17 Time of Evaluation: 09:20 - Subjective Subjective: Patient was seen and examined at bed side.Patient is in no acute distress. Patient reports that his breathing has improved. Patient denies shortness of breath, chest pain, headache, nausea, vomiting, diarrhea. Patient continues to use BiPAP at night. Patient has no acute complaints. Patient is afebrile. Patient's CO2 level has decreased to 34 after stopping Lasix due to metabolic alkalosis. Surgery History: Hernia surgery x4, appendectomy, gallbladder removal PMH: Right sided heart failure with cor pulmonale, DM, Pulmonary hypertension, bilateral hearing loss, aflutter on eliquis, hypothyroidism, COPD Social History: Patient is a former smoker. Patient denies alcohol consumption. ROS: Constitutional: Patient denies fever and chills Cardiovascular: Patient denies chest pain, palpitations Respiratory: Patient denies shortness of breath, cough Gastrointestinal: Patient denies nausea, vomiting, diarrhea. Neurological: AAO X3, normal speech Physical Exam HEENT: Atraumatic, normocephalic, mucuous membranes moist Respiratory: Decreased breath sounds. Negative for wheezing, rales, rhonchi. Cardiovascular: +S1/S2, regular rate and rhythm GI: Abdomen is distended, hypoactive bowel signs, no tenderness, no guarding. Extremities: Bilateral pedal edema Neurological: Alert, awake, oriented X3 Assessment: 52 year old male patient with past medical history of right sided heart failure with cor pulmonale, pulmonary hypertension, DM, bilateral hearing loss, atrial flutter on Eliquis, hypothyroidism, and COPD; patient's presentation consistent with pleural effusion. 1. Pleural Effusion Status: Acute - Continue treatment for ascites 2. COPD Exarcebation Status: Chronic - Albuterol/ ipratropium 3ml INH RQ6 - Tiatropium [place] 18 mcg INH RQ24 - Methylprednisolone 40 mg IVP Q12H Objective - Vital Signs/Intake and Output Vital Signs (last 24 hours): Temp Pulse Resp BP Pulse Ox 98.2 F 70 18 150/73 95 11/12/17 07:00 11/12/17 07:00 11/12/17 07:00 11/12/17 10:39 11/12/17 07:00 Intake and Output: 11/12/17 11/12/17 06:59 18:59 Intake Total 580 Output Total 1801 1939 Balance -2295 -1935 - Medications Medications: Current Medications Acetazolamide (Diamox Sequels 500 Mg Sr Cap) 500 mg PO BID [facility] Last Admin: 11/12/17 09:56 Dose: 500 mg Albuterol/Ipratropium (Duoneb 3 Mg/0.5 Mg (3 Ml) Ud) 3 ml INH RQ6 PRN PRN Reason: Wheezing Last Admin: 11/11/17 19:24 Dose: 3 ml Apixaban (Eliquis) 5 mg PO BID [facility] Last Admin: 11/12/17 09:55 Dose: 5 mg Atenolol (Tenormin) 25 mg PO Q24H [facility] Last Admin: 11/11/17 18:09 Dose: 25 mg Bacitracin (Bacitracin) 1 ea TOP BID [facility] Last Admin: 11/12/17 09:55 Dose: 1 ea Dextrose (Dextrose 50% Inj) 0 ml IV STAT PRN; Protocol PRN Reason: Hypoglycemia Protocol Dextrose (Glutose 15) 0 gm PO ONCE PRN; Protocol PRN Reason: Hypoglycemia Protocol Digoxin (Lanoxin) 0.25 mg PO DAILY@1800 [facility] Last Admin: 11/11/17 18:11 Dose: 0.25 mg Diltiazem HCl (Cardizem) 90 mg PO QID [facility] Last Admin: 11/12/17 14:18 Dose: 90 mg Docusate Sodium (Colace) 100 mg PO TID [facility] Last Admin: 11/12/17 14:18 Dose: 100 mg Furosemide (Lasix) 40 mg PO DAILY [facility] Last Admin: 11/12/17 10:39 Dose: 40 mg Gabapentin (Neurontin) 100 mg PO TID [facility] Last Admin: 11/12/17 14:18 Dose: 100 mg Glucagon (Glucagen Diagnostic Kit) 0 mg IM STAT PRN; Protocol PRN Reason: Hypoglycemia Protocol Piperacillin Sod/Tazobactam (Sod 3.375 gm/ Sodium Chloride) 100 mls @ 200 mls/ hr IVPB Q8H [facility] PRN Reason: Protocol Last Admin: 11/12/17 09:55 Dose: 200 mls/hr Insulin Human Regular (Novolin R) 0 unit SC ACHS JO[facility] E PRN Reason: Protocol Last Admin: 11/12/17 12:10 Dose: 4 units Lactobacillus Acidophilus (Bacid Acidophilus) 1 cap PO BID [facility] Last Admin: 11/12/17 09:55 Dose: 1 cap Levothyroxine Sodium (Synthroid) 75 mcg PO DAILY@0630 [facility] Last Admin: 11/12/17 06:19 Dose: 75 mcg Magnesium Oxide (Mag-Ox) 400 mg PO BID [facility] Last Admin: 11/12/17 09:56 Dose: 400 mg Pantoprazole Sodium (Protonix Ec Tab) 40 mg PO DAILY [facility] Last Admin: 11/12/17 09:56 Dose: 40 mg Prednisone (Prednisone Tab) 40 mg PO ONCE ONE Stop: 11/13/17 10:01 Prednisone (Prednisone Tab) 40 mg PO ONCE ONE Stop: 11/14/17 10:01 Prednisone (Prednisone Tab) 30 mg PO ONCE ONE Stop: 11/15/17 10:01 Prednisone (Prednisone Tab) 20 mg PO ONCE ONE Stop: 11/17/17 10:01 Prednisone (Prednisone Tab) 20 mg PO ONCE ONE Stop: 11/18/17 10:01 Prednisone (Prednisone Tab) 10 mg PO ONCE ONE Stop: 11/19/17 10:01 Prednisone (Prednisone Tab) 10 mg PO ONCE ONE Stop: 11/20/17 10:01 Prednisone (Prednisone Tab) 5 mg PO ONCE ONE Stop: 11/21/17 10:01 Prednisone (Prednisone Tab) 5 mg PO ONCE ONE Stop: 11/22/17 10:01 Prednisone (Prednisone Tab) 30 mg PO ONCE ONE Stop: 11/16/17 10:01 Tiotropium [place] (Spiriva) 18 mcg INH RQ24 [facility] Last Admin: 11/12/17 09:46 Dose: 18 mcg Tramadol HCl (Ultram) 25 mg PO TID PRN PRN Reason: Pain, moderate (4-7) Last Admin: 11/09/17 17:44 Dose: 25 mg - Labs Labs: 11/12/17 07:37 11/12/17 07:37 PT 17.1 SECONDS (9.7-12.2) H 11/03/17 13:33 INR 1.6 11/03/17 13:33 APTT 28 SECONDS (21-34) 11/03/17 13:33
[2017-11-12 16:12] VITALS: PULSE 81
[2017-11-12 17:27] VITALS: BP 136/74; RESP 20; TEMP 97.5; O2SAT 94
[2017-11-12] MEDS: Digoxin 250 mcg (0.25 mg) Tab PO SCH (17:43)
[2017-11-12 17:44] VITALS: PULSE 92
--- NOTE | 2017-11-12 19:39 | CP.PCM.DIS ---
Provider - Provider Date of Admission: 11/03/17 12:37 Attending physician: Ger Kelly MD Primary care physician: Malachi Torres MD Consults: Cardiology: Dr. Barksdale Nephrology: Dr. Rich Surgery: Dr. Cota ID: Dr. Schaffer Podiatry: Dr. Mariano Pulmonology: Dr. Ferrera Interventional Radiology: Dr. Austin Time Spent in preparation of Discharge (in minutes): 45 Hospital Course - Lab Results Lab Results: Micro Results 11/10/17 06:00 Naris MRSA Culture - Final MRSA NOT DETECTED 11/05/17 14:24 Pleural Fluid Gram Stain - Final 11/05/17 14:24 Pleural Fluid Body Fluid Culture - Final No growth. 11/04/17 05:54 Leg - Right Gram Stain - Final 11/04/17 05:54 Leg - Right Wound Culture - Final Escherichia Coli Staphylococcus Aureus 11/03/17 13:33 Naris MRSA Culture (Admit) - Final MRSA NOT DETECTED Most Recent Lab Values WBC 12.2 K/uL (4.8-10.8) H 11/12/17 07:37 RBC 5.83 Mil/uL (4.40-5.90) 11/12/17 07:37 Hgb 17.2 g/dL (12.0-18.0) 11/12/17 07:37 Hct 53.0 % (35.0-51.0) H 11/12/17 07:37 MCV 91.0 fL (80.0-94.0) 11/12/17 07:37 MCH 29.6 pg (27.0-31.0) 11/12/17 07:37 MCHC 32.5 g/dL (33.0-37.0) L 11/12/17 07:37 RDW 16.3 % (11.5-14.5) H 11/12/17 07:37 Plt Count 194 K/uL (130-400) 11/12/17 07:37 MPV 8.6 fL (7.2-11.7) 11/12/17 07:37 Neut % (Auto) 79.3 % (50.0-75.0) H 11/12/17 07:37 Lymph % (Auto) 11.8 % (20.0-40.0) L 11/12/17 07:37 Churchill % (Auto) 7.8 % (0.0-10.0) 11/12/17 07:37 Eos % (Auto) 0.6 % (0.0-4.0) 11/12/17 07:37 Baso % (Auto) 0.5 % (0.0-2.0) 11/12/17 07:37 Neut # (Auto) 9.6 K/uL (1.8-7.0) H 11/12/17 07:37 Lymph # (Auto) 1.4 K/uL (1.0-4.3) 11/12/17 07:37 Churchill # (Auto) 0.9 K/uL (0.0-0.8) H 11/12/17 07:37 Eos # (Auto) 0.1 K/uL (0.0-0.7) 11/12/17 07:37 Baso # (Auto) 0.1 K/uL (0.0-0.2) 11/12/17 07:37 Neutrophils % (Manual) 96 % (50-75) H 11/09/17 05:51 Band Neutrophils % 1 % (0-2) 11/05/17 06:33 Lymphocytes % (Manual) 2 % (20-40) L 11/09/17 05:51 Monocytes % (Manual) 2 % (0-10) 11/09/17 05:51 Platelet Estimate Normal (NORMAL) 11/09/17 05:51 Polychromasia Slight 11/03/17 13:33 Hypochromasia (manual) Slight 11/03/17 13:33 Basophilic Stippling Slight 11/07/17 06:10 Anisocytosis (manual) Slight 11/09/17 05:51 PT 17.1 SECONDS (9.7-12.2) H 11/03/17 13:33 INR 1.6 11/03/17 13:33 APTT 28 SECONDS (21-34) 11/03/17 13:33 Puncture Site Ra 11/10/17 09:01 pCO2 69 mm/Hg (35-45) H 11/10/17 09:01 pO2 66 mm/Hg (80-100) L 11/10/17 09:01 HCO3 42.2 mmol/L (21-28) H* 11/10/17 09:01 ABG pH 7.48 (7.35-7.45) H 11/10/17 09:01 ABG Total CO2 53.5 mmol/L (22-28) H 11/10/17 09:01 ABG O2 Saturation 95.7 % (95-98) 11/10/17 09:01 ABG Base Excess 22.4 mmol/L (-2.0-3.0) H 11/10/17 09:01 ABG Hemoglobin 16.4 g/dL (11.7-17.4) 11/10/17 09:01 ABG Carboxyhemoglobin 2.3 % (0.5-1.5) H 11/10/17 09:01 POC ABG HHb (Measured) 4.2 % (0.0-5.0) 11/10/17 09:01 ABG Methemoglobin 0.9 % (0.0-3.0) 11/10/17 09:01 Pankaj Test Po 11/10/17 09:01 A-a O2 Difference 62.0 mm/Hg 11/10/17 09:01 Respiratory Index 0.9 11/10/17 09:01 Hgb O2 Saturation 92.6 % (95.0-98.0) L 11/10/17 09:01 Liter Flow 3.0 11/10/17 09:01 Vent Mode Bipap 11/04/17 06:00 FiO2 30.0 % 11/10/17 09:01 Inspiratory BiPAP 18 11/04/17 06:00 Expiratory BiPAP 6 11/04/17 06:00 Crit Value Called To 11/10/17 09:01 Crit Value Called By Reilly kelly,ballast inspector 11/10/17 09:01 Crit Value Read Back Y 11/10/17 09:01 Blood Gas Notified Time 910 11/10/17 09:01 Sodium 136 mmol/L (132-148) 11/12/17 07:37 Potassium 4.7 mmol/L (3.6-5.2) 11/12/17 07:37 Chloride 92 mmol/L (98-107) L 11/12/17 07:37 Carbon Dioxide 34 mmol/L (22-30) H 11/12/17 07:37 Anion Gap 14 (10-20) 11/12/17 07:37 BUN 44 mg/dL (9-20) H 11/12/17 07:37 Creatinine 1.4 mg/dL (0.8-1.5) 11/12/17 07:37 Est GFR ( Amer) > 60 11/12/17 07:37 Est GFR (Non-Af Amer) 53 11/12/17 07:37 POC Glucose (mg/dL) 500 mg/dL (65-110) H* 11/12/17 16:45 Random Glucose 173 mg/dL (75-110) H 11/12/17 07:37 Hemoglobin A1c 6.9 % (4.2-6.5) H 11/04/17 05:54 Calcium 8.9 mg/dl (8.6-10.4) 11/12/17 07:37 Phosphorus 3.4 mg/dL (2.5-4.5) 11/12/17 07:37 Magnesium 1.9 mg/dL (1.6-2.3) 11/12/17 07:37 Total Bilirubin 0.8 mg/dL (0.2-1.3) 11/12/17 07:37 AST 35 U/L (17-59) 11/12/17 07:37 ALT 62 U/L (21-72) 11/12/17 07:37 Alkaline Phosphatase 125 U/L (38-126) 11/12/17 07:37 Total Protein 6.3 g/dL (6.3-8.3) 11/12/17 07:37 Albumin 3.5 g/dL (3.5-5.0) 11/12/17 07:37 Globulin 2.8 gm/dL (2.2-3.9) 11/12/17 07:37 Albumin/Globulin Ratio 1.2 (1.0-2.1) 11/12/17 07:37 Triglycerides 146 mg/dL (0-149) 11/04/17 05:54 Cholesterol 126 mg/dL (0-199) 11/04/17 05:54 LDL Cholesterol Direct 75 mg/dL (0-129) 11/04/17 05:54 HDL Cholesterol 23 mg/dL (30-70) L 11/04/17 05:54 Angiotensin Convert Enz 40 U/L (9-67) 11/04/17 20:30 Procalcitonin < 0.05 NG/ML (0.19-0.49) L 11/09/17 05:51 Free T4 0.96 ng/dL (0.78-2.19) 11/04/17 05:53 TSH 3rd Generation 1.04 mIU/L (0.46-4.68) 11/04/17 05:54 Cortisol AM Sample 4.3 ug/dL (4.46-22.7) L 11/09/17 05:51 Fluid Source Pleural 11/05/17 14:24 Fluid Appearance Sl cloudy (CLEAR) 11/05/17 14:24 Fluid WBC 311.0 /mm3 (0.0-300.0) H 11/05/17 14:24 Fluid RBC 814.0 /mm3 (0.0-0.0) H 11/05/17 14:24 Fluid Tot Cell Count 100 (0-0) H 11/05/17 14:24 Fluid Neutrophils 14.0 % (0-0) H 11/05/17 14:24 Fluid Lymphocytes 85.0 % (0-0) H 11/05/17 14:24 Fld Monocyte/Macrophag 1 % (0-0) H 11/05/17 14:24 Fluid Albumin 2.0 g/dL 11/05/17 14:24 Fluid Comment 11/05/17 14:24 Peritoneal Tot Protein 4.4 g/dL 11/03/17 20:00 Peritoneal LDH 117 U/L (<63) H 11/03/17 20:00 Peritoneal Glucose 210 mg/dL 11/03/17 20:00 Peritoneal Amylase 34 U/L 11/03/17 20:00 Peritoneal Lipase TNP 11/03/17 20:00 Peritoneal Triglycerid 57 mg/dL (<65) 11/03/17 20:00 Peritoneal CEA <2 ng/mL (<2.0) 11/03/17 20:00 Pleural Total Protein <3.0 g/dL 11/05/17 14:24 Pleural LDH 85 U/L 11/05/17 14:24 Pleural Glucose 176 mg/dL 11/05/17 14:24 Digoxin 0.7 ng/mL (0.8-2.0) L 11/10/17 07:07 RPR Nonreactive (NONREACTIVE) 11/04/17 20:30 HIV 1&2 Antibody Screen Negative (NEGATIVE) 11/04/17 20:30 H.influenzae Type B Ag Negative (NEGATIVE) 11/03/17 21:22 Ur L.pneumophila Ag Negative (NEGATIVE) 11/03/17 21:22 Mycoplasma pneumon IgG 2.20 (<=0.90) H 11/03/17 22:34 Mycoplasma pneumon IgM Negative (NEGATIVE) 11/04/17 20:30 N.meningitidis ACY/W135 Negative (NEGATIVE) 11/03/17 21:22 N.meningi B/E.coli K1 Ag Negative (NEGATIVE) 11/03/17 21:22 Group B Strep Antigen Negative (NEGATIVE) 11/03/17 21:22 S. pneumoniae Antigen Negative (NEGATIVE) 11/03/17 21:22 - Hospital Course Hospital Course: On admission on 11/03/17: HPI: Patient is a 52 year old male with past medical history for Right sided heart failure with Cor pulmonale, DM, Pulmonary HTN, Bilateral Hearing loss, Atrial flutter on Eliquis, Hypothyroidism, COPD who was transferred to [facility] [place] from [facility] due to possible need for urgent dialysis. Patient was initially admitted to for progressively worsening dyspnea , lower extremity/abdominal swelling for the past week. Patient was being treated for Acute Hypercapnic Respiratory Failure and Acute Renal Failure. While at [place], patient was started on IV Lasix, Solumedrol IVP, Metolazone 5 mg PO with little improvement in symptoms. Patient also has poor urine output. Upon arrival to the ICU, patient was resting comfortably on BIPAP. States that he is feeling better. Patient answering yes or no questions. Patients sister and mother were at the bedside supplementing the history. Denies headaches, dizziness, chest pain, palpitations, abdominal pain, urinary symptoms, changes in bowel habits. Hospital course: On admission to [facility] ICU, patient was treated for shortness of breath likely secondary to right sided CHF exacerbation, acute hypercapneic respiratory failure, pleural effusions, ascites, and history of COPD. Patient underwent paracentesis with removal of 3 liters of fluid with drain placed. Throughout hospitalization, patient had persistent drainage from site of paracentesis. CT abdomen and pelvis was ordered to rule out fistula. CT revealed diffuse anasarca, mild hepatosplenomegaly and constipation without bowel obstruction. Surgery Dr. Cota was consulted for possible suture placement at site of drainage from paracentesis, however did not recommend suture placement due to increased risk of infection. Nephrology Dr. Calhoun/Dr. Rich was initially consulted for possible hemodialysis, given worsening kidney function. Dialysis consent was initially obtained on admission, however patient' s kidney function improved after paracentesis. Nephrotoxic agents were avoided and patient was diuresed with Lasix. Patient did not require hemodialysis during admission after creatinine levels normalized. Cardiology Dr. Barksdale was consulted for patient's history of Atrial flutter and atrial fibrillation. Patient was treated with Eliquis 5mg BID along with Cardizem 90mg 4 times daily , Atenolol 25mg daily, and Digoxin 0.25mg PO to control rate. Podiatry Dr. aMriano was consulted for poor nail hygiene who debrided nails. Given patient's history of hypothyroidism, patient's dose of Synthroid was increased to 75mcg daily. Patient's blood sugar was managed by insulin sliding scale, Metformin and Glipizide were held on admission. A1c level during admission was 6.9. Patient also underwent ultrasound-guided right thoracentesis, with removal of 900cc of straw-colored fluid. Repeat CT also revealed recurrence of pleural effusions. Pulmonology Dr. Ferrera consulted did not recommended repeat thoracentesis, recommended BIPAP. Patient was treated with Duoneb treatment as needed, Solumedrol and Spiriva inhaler. Patient was found to have consolidative changes on CT chest suggestive of pneumonia. Patient was also found to have bilateral lower extremity cellulitis. Wound cultures were positive for E coli and Staph aureus. ID Dr. Schaffer was consulted, who initially treated patient with Cefepime and Linezolid, however switched to Zosyn to cover for health care associated pneumonia and lower extremity cellulitis. PICC line was placed for continued outpatient antibiotic treatment with Zosyn as per Dr. Schaffer's recommendations to complete treatment with last dose on November 22, 2017. Dopplers of lower extremity were negative at prior hospitalization in [place]. On discharge, patient's dyspnea had resolved, with normalized creatinine levels and patient was medically stable to be discharged to subacute rehab. Imagin11/03/17 CXR Moderate to severe venous congestion. Confluent consolidative opacification in the right mid to lower lung zone and left lung base. Cardiomegaly. Calcification at the aortic knob. Suggestion of small bilateral pleural effusions. 7/14/18 Abdominal US Limited study for evaluation of ascites. Moderate amount of abdominal ascites noted. 11/04/17 CXR Impression: Biapical pleural thickening with upper lobe granulomatous changes. Moderate venous congestion. Consolidative opacification in the right mid to lower lung zone as well as the left lung base. Moderate right and small left pleural effusion. Cardiomegaly. 11/04/17 CT chest Impression: 1. Large right and small left pleural effusion. 2. Prominent multifocal areas of consolidative change in both lungs; right greater than left suggestive for multi focal infiltrate with some superimposed areas of atelectasis. Posttreatment interval followup is recommended to ensure resolution and exclude underlying lesion. 3. Extensive lymphadenopathy within the mediastinum and axilla. 11/05/17 CXR s/p right thoracentesis: no appreciable pneumothorax. 11/07/17 Opacity at right base with improvement in opacity mid and upper right lung compared to 11/05/2017. Probable small right pleural effusion. 11/08/17 CT abdomen/pelvis IMPRESSION:1. Mild hepatosplenomegaly.2. Constipation. No bowel obstruction.3. Moderate right and small left pleural effusions and severe diffuse anasarca. 11/09/17 s/p PICC placement: New right PICC catheter terminates in the SVC. Right basilar opacity and small right pleural effusion. Discharge summary: Patient is medically stable for discharge to [facility]. The following instructions will need to be included in discharge instructions for Subacute Rehab: Patient will need to continue the following medications at Subacute Rehab 1. Albuterol high flow 1 puff Q4 hours when necessary wheezing 2. Eliquis 5 mg by mouth twice a day for atrial flutter 3. Continue atenolol 25 mg once a day for atrial flutter 4. Bacitracin due to irritation caused by BiPAP mask over bridge of nose. 5. Digoxin 0.25 once a day for atrial flutter and will need periodic digoxin levels checked 6. Cardizem 90 mg by mouth 4 times a day for atrial flutter 7. Gabapentin 100 mg by mouth 3 times a day neuropathy 8. Levothyroxine 75 MCG by mouth every morning with follow-up thyroid function tests in 3-4 months 9. Mag-Ox 400 milligram by mouth twice a day to follow-up with renal in terms of how much on discharge 10. Prednisone Taper to start at Subacute Rehab on 11/13/17: 47-71-65-30-20-20-10 -10-5-5 11. Protonix 40 mg by mouth once a day 12. Zosyn 3.375 IV every 8 hours via Right Arm PICC Line started on November 07 into complete last dose on November 22. This will be 14 day course. This will cover for both healthcare associated pneumonia and a weeping wound infections. 13. Spiriva Renetta 18 MCG inhaled 1 capsule once a day and script for Spiriva handihaler. 14. Lasix 40 mg PO 1x/day Wound Care for bilateral lower legs: PLACE XEROFORM OVER WEEPING AREAS TO BILATERAL LOWER EXTREMITIES, THEN COVER WITH BULKY DRESSING, THEN APPLY 6 INCH REYES WRAPS (2 TO EACH LEG), ON IN AM, AND OFF IN PM, AND MUST ELEVATE LEGS MUCH POSSIBLE WHILE IN BED TO DECREASE PITTING EDEMA WHICH WILL HELP WITH THE HEALING PROCESS. Per Dr. Ferrera will need BiPAP mask Patient will need proper instruction terms of fluid restriction, creation of weight loss diary in light of heart failure secondary to right heart failure. Patient will need aggressive diet and exercise modification. Patient is deaf but can read lips. Patient's mother and sister involved in care. Upon discharge patient to follow-up with Dr. Rich [phone] of nephrology in 1-2 weeks for repeat blood work, establish care with senior producer Dr. Ferrera [phone] in terms of COPD and to follow-up with PMD Dr. Bhagat between 1- 2 weeks of discharge. Discharge Exam - Head Exam Head Exam: ATRAUMATIC, NORMOCEPHALIC - Eye Exam Eye Exam: EOMI - ENT Exam ENT Exam: Mucous Membranes Moist Additional comments: Hearing aides in place, however patient is able to read lips. - Neck Exam Neck exam: Full Rom - Respiratory Exam Respiratory Exam: Decreased Breath Sounds, NORMAL BREATHING PATTERN. absent: Rales, Rhonchi, Wheezes, Respiratory Distress, Stridor - Cardiovascular Exam Cardiovascular Exam: REGULAR RHYTHM, +S1, +S2 Additional comments: On ekg monitor, patient was in sinus - GI/Abdominal Exam GI & Abdominal Exam: Distended, Normal Bowel Sounds, Soft. absent: Firm, Guarding, Hernia, Tenderness Additional comments: Drain with bag attached to right lower abdomen at site of paracentesis. - Extremities Exam Additional comments: PICC line in right upper extremity Bilateral lower extremities wrapped, significantly less edematous. mildly tender. Bilateral feet: Good distal pulses. Edema improved. Nontender bilaterally. - Back Exam Back exam: absent: CVA tenderness (L), CVA tenderness (R) - Neurological Exam Neurological exam: Alert, Oriented x3 - Psychiatric Exam Psychiatric exam: Normal Affect, Normal Mood Discharge Plan - Discharge Medications Prescriptions: Albuterol/Ipratropium [Duoneb 3 mg/0.5 mg (3 ml) UD] 3 ml INH RQ6 PRN #1 neb PRN Reason: Wheezing Bacitracin 1 ea TOP BID #1 fp Digoxin [Lanoxin] 0.25 mg PO DAILY@1800 #30 tab diltiaZEM [Cardizem] 90 mg PO QID #120 tab Furosemide [Lasix] 40 mg PO BID #60 tab Gabapentin [Neurontin] 100 mg PO TID #90 cap Levothyroxine [Synthroid] 75 mcg PO DAILY@0630 #30 tab Magnesium Oxide [Mag-Ox] 400 mg PO BID #28 tab Piperacillin/Tazobact [Zosyn] 3.375 gm IVPB Q8H 14 Days vial predniSONE [predniSONE Tab] See Taper PO ONCE #42 tab Tiotropium [Spiriva] 18 mcg INH RQ24 #30 cap - Follow Up Plan Condition: STABLE Disposition: REHAB FACILITY/REHAB UNIT Instructions: Heart Failure, Adult (DC), Pneumonia, Adult (DC), Kidney Disease Diet (For People Not on Dialysis), Diabetes Diet , Acute Kidney Failure (DC), Pleural Effusion (DC), Thoracentesis (DC), Diabetes and Diet Additional Instructions: Patient is medically stable for discharge to [facility]. The following instructions will need to be included in discharge instructions for Subacute Rehab: Patient will need to continue the following medications at Subacute Rehab 1. Albuterol high flow 1 puff Q4 hours when necessary wheezing 2. Eliquis 5 mg by mouth twice a day for atrial flutter 3. Continue atenolol 25 mg once a day for atrial flutter 4. Bacitracin due to irritation caused by BiPAP mask over bridge of nose. 5. Digoxin 0.25 once a day for atrial flutter and will need periodic digoxin levels checked 6. Cardizem 90 mg by mouth 4 times a day for atrial flutter 7. Gabapentin 100 mg by mouth 3 times a day neuropathy 8. Levothyroxine 75 MCG by mouth every morning with follow-up thyroid function tests in 3-4 months 9. Mag-Ox 400 milligram by mouth twice a day to follow-up with renal in terms of how much on discharge 10. Prednisone Taper to start at Subacute Rehab on 11/13/17: 61-61-89-30-20-20-10 -10-5-5 11. Protonix 40 mg by mouth once a day 12. Zosyn 3.375 IV every 8 hours via Right Arm PICC Line started on November 07 into complete last dose on November 22. This will be 14 day course. This will cover for both healthcare associated pneumonia and a weeping wound infections. 13. Spiriva Renetta 18 MCG inhaled 1 capsule once a day and script for Spiriva handihaler. 14. Lasix 40 mg PO 1x/day Wound Care for bilateral lower legs: PLACE XEROFORM OVER WEEPING AREAS TO BILATERAL LOWER EXTREMITIES, THEN COVER WITH BULKY DRESSING, THEN APPLY 6 INCH REYES WRAPS (2 TO EACH LEG), ON IN AM, AND OFF IN PM, AND MUST ELEVATE LEGS MUCH POSSIBLE WHILE IN BED TO DECREASE PITTING EDEMA WHICH WILL HELP WITH THE HEALING PROCESS. Per Dr. Ferrera will need BiPAP mask Patient will need proper instruction terms of fluid restriction, creation of weight loss diary in light of heart failure secondary to right heart failure. Patient will need aggressive diet and exercise modification. Patient is deaf but can read lips. Patient's mother and sister involved in care. Upon discharge patient to follow-up with Dr. Rich [phone] of nephrology in 1-2 weeks for repeat blood work, establish care with senior producer Dr. Ferrera [phone] in terms of COPD and to follow-up with PMD Dr. Adebayo Bhagat between 1-2 weeks of discharge. Referrals: Basilio Rich MD [Staff Provider] - Malachi Torres MD [Primary Care Provider] -
--- NOTE | 2017-11-12 21:48 | PN ---
DATE: 11/12/2017 FOLLOWUP SUBJECTIVE: The patient is comfortable. He denies any shortness of breath. His leg swelling has improved according to him as both legs are covered with leg dressing. PHYSICAL EXAMINATION: VITAL SIGNS: Blood pressure 150/73, heart rate 70, temperature 98.2, respirations 18. HEENT: Normocephalic. CHEST: Clear. HEART: S1 and S2 are irregular. ABDOMEN: Soft. EXTREMITIES: Dressings applied to both lower extremities. LABORATORY DATA: Today's SMA-7: Sodium 136, potassium 4.7, chloride 92, CO2 of 34, glucose 173, BUN 44, and creatinine 1.4. Today's hemoglobin and hematocrit 17.1 and 53, white count 12.2 and platelet count 194,000. ASSESSMENT: 1. Chronic atrial flutter. 2. Cor pulmonale and right-sided heart failure. 3. Improved acute renal failure. 4. Sleep apnea. 5. Right leg wound infection with both Escherichia coli and Staphylococcus aureus. RECOMMENDATIONS: Continue 90 mg four times a day, Diamox at 500 mg p.o. twice a day, Eliquis 5 mg twice a day, digoxin 0.25 mg orally once a day, Lasix 40 mg p.o. once a day, Zosyn 3.375 gm intravenously every 8 hours, prednisone 30 mg p.o. once a day, Synthroid 75 mcg once a day, and Tenormin 25 mg orally once a day. See Barksdale MD
--- NOTE | 2017-11-13 11:07 | CP.PCM.PCO ---
Physician Communication Note - Physician Communication Note Physician Communication Note: See above
== END 2017-11-12 21:05 | DRG 291 ==
LOC: C.9I 12:37 → C.6T 11-10 15:08
PROVIDERS: ADMIT Family Medicine; ATTEND Family Medicine
PROC: 5A09557 Assistance with Respiratory Ventilation, Greater than 96 Consecutive Hours, Continuous Positive Airway Pressure (ICD-10-PCS; principal; 2017-11-03)
PROC: 0W9G3ZZ Drainage of Peritoneal Cavity, Percutaneous Approach (ICD-10-PCS; 2017-11-03)
PROC: 0W993ZZ Drainage of Right Pleural Cavity, Percutaneous Approach (ICD-10-PCS; 2017-11-05)
PROC: BB4BZZZ Ultrasonography of Pleura (ICD-10-PCS; 2017-11-05)
PROC: 0HBRXZZ Excision of Toe Nail, External Approach (ICD-10-PCS; 2017-11-06)
PROC: 0HBRXZZ Excision of Toe Nail, External Approach (ICD-10-PCS; 2017-11-06)
PROC: 0HBRXZZ Excision of Toe Nail, External Approach (ICD-10-PCS; 2017-11-06)
PROC: 0HBRXZZ Excision of Toe Nail, External Approach (ICD-10-PCS; 2017-11-06)
PROC: 0HBRXZZ Excision of Toe Nail, External Approach (ICD-10-PCS; 2017-11-06)
PROC: 0HBRXZZ Excision of Toe Nail, External Approach (ICD-10-PCS; 2017-11-06)
PROC: 0HBRXZZ Excision of Toe Nail, External Approach (ICD-10-PCS; 2017-11-06)
PROC: 0HBRXZZ Excision of Toe Nail, External Approach (ICD-10-PCS; 2017-11-06)
PROC: 0HBRXZZ Excision of Toe Nail, External Approach (ICD-10-PCS; 2017-11-06)
PROC: 0HBRXZZ Excision of Toe Nail, External Approach (ICD-10-PCS; 2017-11-06)
PROC: 02HV33Z Insertion of Infusion Device into Superior Vena Cava, Percutaneous Approach (ICD-10-PCS; 2017-11-09)
DX: I13.0 Hypertensive heart and chronic kidney disease with heart failure and stage 1 through stage 4 chronic kidney disease, or unspecified chronic kidney disease (principal); J96.22 Acute and chronic respiratory failure with hypercapnia; J18.9 Pneumonia, unspecified organism; R18.8 Other ascites; J90 Pleural effusion, not elsewhere classified; N17.9 Acute kidney failure, unspecified; E87.4 Mixed disorder of acid-base balance; L03.116 Cellulitis of left lower limb; L03.115 Cellulitis of right lower limb; I45.89 Other specified conduction disorders; I48.92 Unspecified atrial flutter; N39.0 Urinary tract infection, site not specified; J98.11 Atelectasis; E87.1 Hypo-osmolality and hyponatremia; J44.0 Chronic obstructive pulmonary disease with (acute) lower respiratory infection; E66.2 Morbid (severe) obesity with alveolar hypoventilation; M79.A3 Nontraumatic compartment syndrome of abdomen; Z68.41 Body mass index [BMI] 40.0-44.9, adult; I27.81 Cor pulmonale (chronic); E87.5 Hyperkalemia; E11.42 Type 2 diabetes mellitus with diabetic polyneuropathy; E11.65 Type 2 diabetes mellitus with hyperglycemia; B35.1 Tinea unguium; E11.22 Type 2 diabetes mellitus with diabetic chronic kidney disease; N18.3 Chronic kidney disease, stage 3 (moderate); I50.810 Right heart failure, unspecified; I48.2 Chronic atrial fibrillation; I27.29 Other secondary pulmonary hypertension; G47.30 Sleep apnea, unspecified; H91.93 Unspecified hearing loss, bilateral; K59.00 Constipation, unspecified; E03.9 Hypothyroidism, unspecified; E78.00 Pure hypercholesterolemia, unspecified; J43.9 Emphysema, unspecified; R59.0 Localized enlarged lymph nodes; B96.20 Unspecified Escherichia coli [E. coli] as the cause of diseases classified elsewhere; B95.61 Methicillin susceptible Staphylococcus aureus infection as the cause of diseases classified elsewhere; E78.5 Hyperlipidemia, unspecified; Y95 Nosocomial condition; Z99.81 Dependence on supplemental oxygen; Z79.01 Long term (current) use of anticoagulants; Z87.891 Personal history of nicotine dependence; Z79.4 Long term (current) use of insulin; Z91.19 Patient's noncompliance with other medical treatment and regimen; Z79.899 Other long term (current) drug therapy; Z90.49 Acquired absence of other specified parts of digestive tract